=== PATIENT | female | born 1950 | race Caucasian/White ===

== ENCOUNTER → 2023-12-14 14:25 | Outpatient (REF) | payer MEDICARE, OTHER, SELFPAY ==
[2023-12-14 15:00] LABS: % Basophils 0.5 % (0-2); % Eosinophils 0.9 % (0-6); % Immature Granulocytes 5.1 % (0-0.5); % Lymphocytes 5.2 % (20.5-51.1); % Monocytes 5.5 % (1.7-9.3); % Neutrophils 82.8 % (42.2-75.2); Absolute Basophils 0.2 10^3/uL (0-0.2); Absolute Eosinophils 0.3 10^3/uL (0-0.7); Absolute Immature Granulocytes 1.7 10^3/uL (0-0.05); Absolute Lymphocytes 1.7 10^3/uL (1.2-3.4); Absolute Monocytes 1.8 10^3/uL (0.1-0.6); Absolute Neutrophils 26.5 10^3/uL (1.4-6.5); Hematocrit 29.9 % (37.0-47.0); Mean Corp Hgb Conc. 33.4 g/dL (33.0-37.0); Mean Corpuscular Volume 101.7 fL (81.0-99.0); Mean Platelet Volume 10.2 fL (7.4-10.4); Nucleated Red Blood Cells % 0.5 %; Platelet Count 278 10^3/uL (130-400); Red Blood Cell Count 2.94 10^6/uL (4.20-5.40); Red Cell Dist. Width 18.6 % (11.5-14.5); White Blood Cell Count 32.1 10^3/uL (4.8-10.8)
[2023-12-14 15:22] LABS: ALT (SGPT) 62 U/L (0-35); AST (SGOT) 65 U/L (14-36); Albumin 3.6 g/dl (3.5-5.0); Blood Urea Nitrogen 34 mg/dl (7-17); Carbon Dioxide 21 mmol/L (22-30); Chloride 105 mmol/L (98-107); Glucose 97 mg/dl (70-99); Potassium 4.8 mmol/L (3.5-5.1); Sodium 133 mmol/L (135-145); Total Bilirubin 0.8 mg/dl (0.2-1.3); Total Protein 6.4 g/dl (6.3-8.2); eGFR 31.27
[2023-12-14 15:34] LABS: Alkaline Phosphatase 1401 U/L (38-126)
[2023-12-14 15:39] LABS: Vitamin D, 25-OH*** 63.1 ng/mL (30-80)
== END ==
LOC: REG 14:25
PROVIDERS: ATTENDING PHYSICIAN Internal Medicine Hematology & Oncology; FAMILY PHYSICIAN Family Medicine; OTHER PHYSICIAN Internal Medicine Hospice and Palliative Medicine; REFERRING PHYSICIAN Internal Medicine Rheumatology
DX: C78.7 Secondary malignant neoplasm of liver and intrahepatic bile duct (principal); C25.2 Malignant neoplasm of tail of pancreas; E55.9 Vitamin D deficiency, unspecified; M81.0 Age-related osteoporosis without current pathological fracture
CPT/HCPCS: 36415; 80053; 82306; 85025

== ENCOUNTER → 2023-12-16 09:15 | Outpatient (REF) | payer MEDICARE, OTHER, SELFPAY ==
[2023-12-18 07:53] LABS: CA 19-9 646 U/mL (<=35)
== END ==
LOC: OIDL 09:15
PROVIDERS: ATTENDING PHYSICIAN Internal Medicine Hematology & Oncology
DX: C25.2 Malignant neoplasm of tail of pancreas (principal)
CPT/HCPCS: 86301

== ENCOUNTER → 2023-12-21 11:23 | Outpatient (REF) | payer MEDICARE, OTHER, SELFPAY ==
[2023-12-21 09:44] LABS: % Basophils 0.4 % (0-2); % Eosinophils 0.2 % (0-6); % Immature Granulocytes 9.1 % (0-0.5); % Lymphocytes 1.1 % (20.5-51.1); % Monocytes 1.4 % (1.7-9.3); % Neutrophils 87.8 % (42.2-75.2); Absolute Basophils 0.2 10^3/uL (0-0.2); Absolute Eosinophils 0.1 10^3/uL (0-0.7); Absolute Immature Granulocytes 5.1 10^3/uL (0-0.05); Absolute Lymphocytes 0.6 10^3/uL (1.2-3.4); Absolute Monocytes 0.8 10^3/uL (0.1-0.6); Absolute Neutrophils 48.9 10^3/uL (1.4-6.5); Hemoglobin 10.1 g/dL (12.0-16.0); Mean Corp Hgb Conc. 32.6 g/dL (33.0-37.0); Mean Corpuscular Hgb 34.1 pg (27.0-31.0); Mean Corpuscular Volume 104.7 fL (81.0-99.0); Mean Platelet Volume 10.7 fL (7.4-10.4); Nucleated Red Blood Cells % 0 %; Platelet Count 206 10^3/uL (130-400); Red Blood Cell Count 2.96 10^6/uL (4.20-5.40); Red Cell Dist. Width 18.7 % (11.5-14.5); White Blood Cell Count 55.8 10^3/uL (4.8-10.8)
[2023-12-21 09:54] LABS: ALT (SGPT) 109 U/L (0-35); AST (SGOT) 104 U/L (14-36); Albumin 3.9 g/dl (3.5-5.0); Blood Urea Nitrogen 38 mg/dl (7-17); Calcium 8.4 mg/dl (8.4-10.2); Carbon Dioxide 22 mmol/L (22-30); Chloride 101 mmol/L (98-107); Glucose 185 mg/dl (70-99); Potassium 4.4 mmol/L (3.5-5.1); Sodium 134 mmol/L (135-145); Total Bilirubin 0.9 mg/dl (0.2-1.3); Total Protein 6.5 g/dl (6.3-8.2); eGFR 43.15
[2023-12-21 10:01] LABS: Alkaline Phosphatase 1341 U/L (38-126)
== END ==
LOC: OIDL 11:23
PROVIDERS: ATTENDING PHYSICIAN Nurse Practitioner Adult Health
DX: C78.7 Secondary malignant neoplasm of liver and intrahepatic bile duct (principal)
CPT/HCPCS: 80053; 85025

== ENCOUNTER → 2023-12-23 16:02 | Outpatient (REF) | payer MEDICARE, OTHER, SELFPAY ==
[2023-12-23 13:58] LABS: % Basophils 0.1 % (0-2); % Eosinophils 0.6 % (0-6); % Immature Granulocytes 1.1 % (0-0.5); % Monocytes 4.4 % (1.7-9.3); % Neutrophils 90.8 % (42.2-75.2); Absolute Eosinophils 0.2 10^3/uL (0-0.7); Absolute Immature Granulocytes 0.3 10^3/uL (0-0.05); Absolute Lymphocytes 0.9 10^3/uL (1.2-3.4); Absolute Monocytes 1.3 10^3/uL (0.1-0.6); Absolute Neutrophils 27.3 10^3/uL (1.4-6.5); Hematocrit 28.9 % (37.0-47.0); Hemoglobin 9.5 g/dL (12.0-16.0); Mean Corp Hgb Conc. 32.9 g/dL (33.0-37.0); Mean Corpuscular Hgb 34.1 pg (27.0-31.0); Mean Corpuscular Volume 103.6 fL (81.0-99.0); Mean Platelet Volume 10.3 fL (7.4-10.4); Platelet Count 158 10^3/uL (130-400); Red Blood Cell Count 2.79 10^6/uL (4.20-5.40); Red Cell Dist. Width 18.3 % (11.5-14.5); White Blood Cell Count 30.1 10^3/uL (4.8-10.8)
== END ==
LOC: OIDL 16:02
PROVIDERS: ATTENDING PHYSICIAN Internal Medicine Hematology & Oncology
DX: C78.7 Secondary malignant neoplasm of liver and intrahepatic bile duct (principal)
CPT/HCPCS: 85025

== ENCOUNTER → 2023-12-28 10:57 | Outpatient (REF) | payer MEDICARE, SELFPAY ==
[2023-12-28 11:43] LABS: % Basophils 0.7 % (0-2); % Eosinophils 1.7 % (0-6); % Immature Granulocytes 1.5 % (0-0.5); % Lymphocytes 8.1 % (20.5-51.1); % Monocytes 8.1 % (1.7-9.3); % Neutrophils 79.9 % (42.2-75.2); Absolute Basophils 0.1 10^3/uL (0-0.2); Absolute Eosinophils 0.3 10^3/uL (0-0.7); Absolute Immature Granulocytes 0.2 10^3/uL (0-0.05); Absolute Lymphocytes 1.3 10^3/uL (1.2-3.4); Absolute Monocytes 1.3 10^3/uL (0.1-0.6); Absolute Neutrophils 13.2 10^3/uL (1.4-6.5); Hematocrit 34.4 % (37.0-47.0); Hemoglobin 11.2 g/dL (12.0-16.0); Mean Corp Hgb Conc. 32.6 g/dL (33.0-37.0); Mean Corpuscular Hgb 33.9 pg (27.0-31.0); Mean Corpuscular Volume 104.2 fL (81.0-99.0); Mean Platelet Volume 10.5 fL (7.4-10.4); Nucleated Red Blood Cells % 0 %; Platelet Count 156 10^3/uL (130-400); Red Cell Dist. Width 19.1 % (11.5-14.5); White Blood Cell Count 16.5 10^3/uL (4.8-10.8)
[2023-12-28 12:18] LABS: ALT (SGPT) 94 U/L (0-35); AST (SGOT) 72 U/L (14-36); Albumin 3.7 g/dl (3.5-5.0); Blood Urea Nitrogen 23 mg/dl (7-17); Calcium 8.6 mg/dl (8.4-10.2); Carbon Dioxide 23 mmol/L (22-30); Chloride 102 mmol/L (98-107); Glucose 75 mg/dl (70-99); Potassium 3.4 mmol/L (3.5-5.1); Sodium 131 mmol/L (135-145); Total Bilirubin 0.8 mg/dl (0.2-1.3); Total Protein 6.5 g/dl (6.3-8.2); eGFR 52.73
[2023-12-28 12:30] LABS: Alkaline Phosphatase 1113 U/L (38-126)
== END ==
LOC: REG 10:57
PROVIDERS: ATTENDING PHYSICIAN Internal Medicine Rheumatology; FAMILY PHYSICIAN Family Medicine
DX: M81.0 Age-related osteoporosis without current pathological fracture (principal); C78.7 Secondary malignant neoplasm of liver and intrahepatic bile duct; C25.2 Malignant neoplasm of tail of pancreas
CPT/HCPCS: 36415; 77080; 80053; 85025

== ENCOUNTER → 2023-12-30 09:52 | Outpatient (REF) | payer MEDICARE, SELFPAY ==
[2023-12-31 18:40] LABS: CA 19-9 435 U/mL (<=35)
== END ==
LOC: OIDL 09:52
PROVIDERS: ATTENDING PHYSICIAN Internal Medicine Hematology & Oncology
DX: C25.0 Malignant neoplasm of head of pancreas (principal); C78.7 Secondary malignant neoplasm of liver and intrahepatic bile duct
CPT/HCPCS: 86301

== ENCOUNTER → 2024-01-07 14:12 | Outpatient (REF) | payer MEDICARE, SELFPAY ==
[2024-01-07 14:59] LABS: % Basophils 0.9 % (0-2); % Eosinophils 1.6 % (0-6); % Immature Granulocytes 1.1 % (0-0.5); % Lymphocytes 4.2 % (20.5-51.1); % Monocytes 6.8 % (1.7-9.3); % Neutrophils 85.4 % (42.2-75.2); Absolute Basophils 0.1 10^3/uL (0-0.2); Absolute Eosinophils 0.2 10^3/uL (0-0.7); Absolute Immature Granulocytes 0.2 10^3/uL (0-0.05); Absolute Lymphocytes 0.6 10^3/uL (1.2-3.4); Absolute Neutrophils 12.7 10^3/uL (1.4-6.5); Hematocrit 31.7 % (37.0-47.0); Hemoglobin 10.5 g/dL (12.0-16.0); Mean Corp Hgb Conc. 33.1 g/dL (33.0-37.0); Mean Corpuscular Hgb 34.4 pg (27.0-31.0); Mean Corpuscular Volume 103.9 fL (81.0-99.0); Nucleated Red Blood Cells % 0 %; Red Blood Cell Count 3.05 10^6/uL (4.20-5.40); Red Cell Dist. Width 18.8 % (11.5-14.5); White Blood Cell Count 14.9 10^3/uL (4.8-10.8)
[2024-01-07 15:08] LABS: ALT (SGPT) 128 U/L (0-35); AST (SGOT) 95 U/L (14-36); Albumin 3.8 g/dl (3.5-5.0); Alkaline Phosphatase 1100 U/L (38-126); Blood Urea Nitrogen 30 mg/dl (7-17); Calcium 8.3 mg/dl (8.4-10.2); Carbon Dioxide 23 mmol/L (22-30); Chloride 104 mmol/L (98-107); Glucose 94 mg/dl (70-99); Potassium 3.5 mmol/L (3.5-5.1); Sodium 131 mmol/L (135-145); Total Bilirubin 0.6 mg/dl (0.2-1.3); Total Protein 6.6 g/dl (6.3-8.2); eGFR 59.12
[2024-01-07 15:13] LABS: Mean Platelet Volume 10.7 fL (7.4-10.4); Platelet Count 96 10^3/uL (130-400)
== END ==
LOC: REG 14:12
PROVIDERS: ATTENDING PHYSICIAN Internal Medicine Hematology & Oncology; FAMILY PHYSICIAN Family Medicine; REFERRING PHYSICIAN Internal Medicine Hospice and Palliative Medicine
DX: C78.7 Secondary malignant neoplasm of liver and intrahepatic bile duct (principal); C25.2 Malignant neoplasm of tail of pancreas
CPT/HCPCS: 36415; 80053; 85025

== ENCOUNTER → 2024-01-15 13:32 | Outpatient (REF) | payer MEDICARE, SELFPAY ==
[2024-01-15 14:04] LABS: % Basophils 0.6 % (0-2); % Eosinophils 0.8 % (0-6); % Immature Granulocytes 3.2 % (0-0.5); % Lymphocytes 7.8 % (20.5-51.1); % Neutrophils 80.6 % (42.2-75.2); Absolute Basophils 0.1 10^3/uL (0-0.2); Absolute Eosinophils 0.1 10^3/uL (0-0.7); Absolute Immature Granulocytes 0.6 10^3/uL (0-0.05); Absolute Lymphocytes 1.4 10^3/uL (1.2-3.4); Absolute Monocytes 1.2 10^3/uL (0.1-0.6); Absolute Neutrophils 14.1 10^3/uL (1.4-6.5); Hematocrit 32.3 % (37.0-47.0); Mean Corp Hgb Conc. 34.1 g/dL (33.0-37.0); Mean Corpuscular Hgb 34.8 pg (27.0-31.0); Mean Corpuscular Volume 102.2 fL (81.0-99.0); Mean Platelet Volume 10.3 fL (7.4-10.4); Nucleated Red Blood Cells % 0 %; Platelet Count 157 10^3/uL (130-400); Red Blood Cell Count 3.16 10^6/uL (4.20-5.40); Red Cell Dist. Width 18.2 % (11.5-14.5); White Blood Cell Count 17.5 10^3/uL (4.8-10.8)
[2024-01-15 14:17] LABS: ALT (SGPT) 79 U/L (0-35); AST (SGOT) 72 U/L (14-36); Albumin 3.6 g/dl (3.5-5.0); Alkaline Phosphatase 792 U/L (38-126); Blood Urea Nitrogen 23 mg/dl (7-17); Calcium 8.3 mg/dl (8.4-10.2); Carbon Dioxide 22 mmol/L (22-30); Chloride 108 mmol/L (98-107); Glucose 125 mg/dl (70-99); Potassium 3.2 mmol/L (3.5-5.1); Sodium 135 mmol/L (135-145); Total Bilirubin 0.5 mg/dl (0.2-1.3); Total Protein 6.3 g/dl (6.3-8.2); eGFR 52.73
== END ==
LOC: REG 13:32
PROVIDERS: ATTENDING PHYSICIAN Internal Medicine Hematology & Oncology; FAMILY PHYSICIAN Family Medicine; REFERRING PHYSICIAN Internal Medicine Hospice and Palliative Medicine
DX: C78.7 Secondary malignant neoplasm of liver and intrahepatic bile duct (principal); C25.2 Malignant neoplasm of tail of pancreas
CPT/HCPCS: 36415; 80053; 85025

== ENCOUNTER → 2024-01-29 13:11 | Outpatient (REF) | payer MEDICARE, OTHER, SELFPAY ==
[2024-01-29 14:34] LABS: % Basophils 0.7 % (0-2); % Eosinophils 0.6 % (0-6); % Immature Granulocytes 2.9 % (0-0.5); % Lymphocytes 5.9 % (20.5-51.1); % Monocytes 8.7 % (1.7-9.3); % Neutrophils 81.2 % (42.2-75.2); Absolute Basophils 0.2 10^3/uL (0-0.2); Absolute Eosinophils 0.1 10^3/uL (0-0.7); Absolute Immature Granulocytes 0.6 10^3/uL (0-0.05); Absolute Lymphocytes 1.3 10^3/uL (1.2-3.4); Absolute Monocytes 1.9 10^3/uL (0.1-0.6); Absolute Neutrophils 17.8 10^3/uL (1.4-6.5); Hematocrit 33.5 % (37.0-47.0); Hemoglobin 10.7 g/dL (12.0-16.0); Mean Corp Hgb Conc. 31.9 g/dL (33.0-37.0); Mean Corpuscular Hgb 33.4 pg (27.0-31.0); Mean Corpuscular Volume 104.7 fL (81.0-99.0); Mean Platelet Volume 10.9 fL (7.4-10.4); Nucleated Red Blood Cells % 0 %; Platelet Count 149 10^3/uL (130-400); Red Cell Dist. Width 17.4 % (11.5-14.5); White Blood Cell Count 21.9 10^3/uL (4.8-10.8)
[2024-01-29 15:55] LABS: ALT (SGPT) 196 U/L (0-35); AST (SGOT) 89 U/L (14-36); Albumin 4.2 g/dl (3.5-5.0); Alkaline Phosphatase 919 U/L (38-126); Blood Urea Nitrogen 28 mg/dl (7-17); Calcium 8.8 mg/dl (8.4-10.2); Carbon Dioxide 23 mmol/L (22-30); Chloride 105 mmol/L (98-107); Glucose 72 mg/dl (70-99); Sodium 135 mmol/L (135-145); Total Bilirubin 0.4 mg/dl (0.2-1.3); Total Protein 6.9 g/dl (6.3-8.2); eGFR > 60.00
== END ==
LOC: REG 13:11
PROVIDERS: ATTENDING PHYSICIAN Internal Medicine Hematology & Oncology; FAMILY PHYSICIAN Family Medicine; REFERRING PHYSICIAN Internal Medicine Hospice and Palliative Medicine
DX: C78.7 Secondary malignant neoplasm of liver and intrahepatic bile duct (principal); C25.2 Malignant neoplasm of tail of pancreas
CPT/HCPCS: 36415; 80053; 85025

== ENCOUNTER → 2024-02-02 13:30 | Outpatient (REF) | payer MEDICARE, OTHER, SELFPAY ==
[2024-02-04 01:40] LABS: CA 19-9 320 U/mL (<=35)
== END ==
LOC: OIDL 13:30
PROVIDERS: ATTENDING PHYSICIAN Internal Medicine Hematology & Oncology
DX: C78.7 Secondary malignant neoplasm of liver and intrahepatic bile duct (principal)
CPT/HCPCS: 86301

== ENCOUNTER → 2024-02-12 11:59 | Outpatient (REF) | payer MEDICARE, OTHER, SELFPAY ==
[2024-02-12 14:30] LABS: % Basophils 0.9 % (0-2); % Eosinophils 0.4 % (0-6); % Immature Granulocytes 2.3 % (0-0.5); % Lymphocytes 5.4 % (20.5-51.1); % Monocytes 11.8 % (1.7-9.3); % Neutrophils 79.2 % (42.2-75.2); Absolute Basophils 0.1 10^3/uL (0-0.2); Absolute Immature Granulocytes 0.2 10^3/uL (0-0.05); Absolute Lymphocytes 0.6 10^3/uL (1.2-3.4); Absolute Monocytes 1.2 10^3/uL (0.1-0.6); Absolute Neutrophils 8.4 10^3/uL (1.4-6.5); Hematocrit 33.2 % (37.0-47.0); Hemoglobin 10.8 g/dL (12.0-16.0); Mean Corp Hgb Conc. 32.5 g/dL (33.0-37.0); Mean Corpuscular Hgb 33.6 pg (27.0-31.0); Mean Corpuscular Volume 103.4 fL (81.0-99.0); Mean Platelet Volume 11.2 fL (7.4-10.4); Nucleated Red Blood Cells % 0 %; Red Blood Cell Count 3.21 10^6/uL (4.20-5.40); Red Cell Dist. Width 17.2 % (11.5-14.5); White Blood Cell Count 10.6 10^3/uL (4.8-10.8)
[2024-02-12 14:44] LABS: ALT (SGPT) 168 U/L (0-35); AST (SGOT) 94 U/L (14-36); Albumin 4.2 g/dl (3.5-5.0); Alkaline Phosphatase 783 U/L (38-126); Blood Urea Nitrogen 25 mg/dl (7-17); Carbon Dioxide 25 mmol/L (22-30); Chloride 100 mmol/L (98-107); Glucose 104 mg/dl (70-99); Potassium 3.4 mmol/L (3.5-5.1); Sodium 133 mmol/L (135-145); Total Bilirubin 0.7 mg/dl (0.2-1.3); Total Protein 6.9 g/dl (6.3-8.2); eGFR > 60.00
[2024-02-12 15:40] LABS: Platelet Count 99 10^3/uL (130-400)
== END ==
LOC: REG 11:59
PROVIDERS: ATTENDING PHYSICIAN Internal Medicine Hematology & Oncology; FAMILY PHYSICIAN Family Medicine; REFERRING PHYSICIAN Internal Medicine Hospice and Palliative Medicine
DX: C78.7 Secondary malignant neoplasm of liver and intrahepatic bile duct (principal); C25.2 Malignant neoplasm of tail of pancreas
CPT/HCPCS: 36415; 80053; 85025

== ENCOUNTER → 2024-02-18 14:44 | Outpatient (REF) | payer MEDICARE, OTHER, SELFPAY ==
[2024-02-18 14:50] LABS: % Basophils 0.3 % (0-2); % Eosinophils 0.4 % (0-6); % Immature Granulocytes 0.7 % (0-0.5); % Lymphocytes 4.3 % (20.5-51.1); % Neutrophils 91.3 % (42.2-75.2); Absolute Basophils 0.1 10^3/uL (0-0.2); Absolute Eosinophils 0.1 10^3/uL (0-0.7); Absolute Immature Granulocytes 0.1 10^3/uL (0-0.05); Absolute Lymphocytes 0.8 10^3/uL (1.2-3.4); Absolute Monocytes 0.6 10^3/uL (0.1-0.6); Absolute Neutrophils 16.9 10^3/uL (1.4-6.5); Hematocrit 27.6 % (37.0-47.0); Hemoglobin 9.3 g/dL (12.0-16.0); Mean Corp Hgb Conc. 33.7 g/dL (33.0-37.0); Mean Corpuscular Hgb 33.9 pg (27.0-31.0); Mean Corpuscular Volume 100.7 fL (81.0-99.0); Mean Platelet Volume 9.4 fL (7.4-10.4); Platelet Count 179 10^3/uL (130-400); Red Blood Cell Count 2.74 10^6/uL (4.20-5.40); Red Cell Dist. Width 16.8 % (11.5-14.5); White Blood Cell Count 18.4 10^3/uL (4.8-10.8)
[2024-02-18 15:20] LABS: ALT (SGPT) 131 U/L (0-35); AST (SGOT) 116 U/L (14-36); Albumin 3.6 g/dl (3.5-5.0); Alkaline Phosphatase 654 U/L (38-126); Blood Urea Nitrogen 32 mg/dl (7-17); Calcium 8.7 mg/dl (8.4-10.2); Carbon Dioxide 22 mmol/L (22-30); Chloride 104 mmol/L (98-107); Glucose 128 mg/dl (70-99); Iron 162 ug/dl (37-170); Potassium 4.2 mmol/L (3.5-5.1); Sodium 133 mmol/L (135-145); Total Bilirubin 0.3 mg/dl (0.2-1.3); Total Protein 6.2 g/dl (6.3-8.2); eGFR 59.12
[2024-02-18 15:30] LABS: Percent Saturation 61 % (20-50); Total Iron Binding Capacity 262 ug/dl (265-497)
== END ==
LOC: OIDL 14:44
PROVIDERS: ATTENDING PHYSICIAN Internal Medicine Hematology & Oncology
DX: C78.7 Secondary malignant neoplasm of liver and intrahepatic bile duct (principal)
CPT/HCPCS: 80053; 82728; 83540; 83550; 85025

== ENCOUNTER → 2024-03-28 13:47 | Outpatient (REF) | payer MEDICARE, OTHER, SELFPAY ==
[2024-03-28 14:33] LABS: % Basophils 0.5 % (0-2); % Eosinophils 2.5 % (0-6); % Immature Granulocytes 0.5 % (0-0.5); % Lymphocytes 10.2 % (20.5-51.1); % Monocytes 9.6 % (1.7-9.3); % Neutrophils 76.7 % (42.2-75.2); Absolute Eosinophils 0.2 10^3/uL (0-0.7); Absolute Lymphocytes 0.8 10^3/uL (1.2-3.4); Absolute Monocytes 0.8 10^3/uL (0.1-0.6); Absolute Neutrophils 6.3 10^3/uL (1.4-6.5); Hematocrit 31.7 % (37.0-47.0); Mean Corp Hgb Conc. 31.5 g/dL (33.0-37.0); Mean Corpuscular Hgb 32.3 pg (27.0-31.0); Mean Corpuscular Volume 102.3 fL (81.0-99.0); Mean Platelet Volume 10.3 fL (7.4-10.4); Nucleated Red Blood Cells % 0 %; Platelet Count 238 10^3/uL (130-400); Red Cell Dist. Width 17.7 % (11.5-14.5); White Blood Cell Count 8.1 10^3/uL (4.8-10.8)
[2024-03-28 15:04] LABS: ALT (SGPT) 100 U/L (0-35); AST (SGOT) 86 U/L (14-36); Albumin 4.1 g/dl (3.5-5.0); Alkaline Phosphatase 545 U/L (38-126); Blood Urea Nitrogen 45 mg/dl (7-17); Calcium 9.3 mg/dl (8.4-10.2); Carbon Dioxide 28 mmol/L (22-30); Chloride 103 mmol/L (98-107); Glucose 90 mg/dl (70-99); Potassium 5.4 mmol/L (3.5-5.1); Sodium 138 mmol/L (135-145); Total Bilirubin 0.7 mg/dl (0.2-1.3); eGFR 33.63
== END ==
LOC: REG 13:47
PROVIDERS: ATTENDING PHYSICIAN Internal Medicine Hematology & Oncology; FAMILY PHYSICIAN Family Medicine; OTHER PHYSICIAN Internal Medicine Hospice and Palliative Medicine
DX: C78.7 Secondary malignant neoplasm of liver and intrahepatic bile duct (principal); C25.2 Malignant neoplasm of tail of pancreas
CPT/HCPCS: 36415; 80053; 85025

== ENCOUNTER → 2024-03-29 15:29 | Outpatient (REF) | payer MEDICARE, OTHER, SELFPAY ==
[2024-03-29 13:00] LABS: ALT (SGPT) 107 U/L (0-35); AST (SGOT) 81 U/L (14-36); Albumin 4.1 g/dl (3.5-5.0); Alkaline Phosphatase 585 U/L (38-126); Blood Urea Nitrogen 43 mg/dl (7-17); Calcium 9.3 mg/dl (8.4-10.2); Carbon Dioxide 25 mmol/L (22-30); Chloride 101 mmol/L (98-107); Glucose 100 mg/dl (70-99); Potassium 5.5 mmol/L (3.5-5.1); Sodium 135 mmol/L (135-145); Total Bilirubin 0.8 mg/dl (0.2-1.3)
[2024-04-01 01:35] LABS: CA 19-9 180 U/mL (<=35)
== END ==
LOC: OIDL 15:29
PROVIDERS: ATTENDING PHYSICIAN Internal Medicine Hematology & Oncology
DX: C78.7 Secondary malignant neoplasm of liver and intrahepatic bile duct (principal)
CPT/HCPCS: 80053; 86301

== ENCOUNTER → 2024-04-07 13:17 | Outpatient (REF) | payer MEDICARE, OTHER, SELFPAY ==
[2024-04-07 14:07] LABS: % Basophils 0.6 % (0-2); % Eosinophils 1.6 % (0-6); % Immature Granulocytes 1.5 % (0-0.5); % Monocytes 7.2 % (1.7-9.3); % Neutrophils 85.1 % (42.2-75.2); Absolute Basophils 0.2 10^3/uL (0-0.2); Absolute Eosinophils 0.5 10^3/uL (0-0.7); Absolute Immature Granulocytes 0.5 10^3/uL (0-0.05); Absolute Lymphocytes 1.2 10^3/uL (1.2-3.4); Absolute Monocytes 2.2 10^3/uL (0.1-0.6); Absolute Neutrophils 26.1 10^3/uL (1.4-6.5); Hematocrit 29.3 % (37.0-47.0); Hemoglobin 9.1 g/dL (12.0-16.0); Mean Corp Hgb Conc. 31.1 g/dL (33.0-37.0); Mean Corpuscular Volume 106.2 fL (81.0-99.0); Mean Platelet Volume 10.9 fL (7.4-10.4); Nucleated Red Blood Cells % 0 %; Platelet Count 137 10^3/uL (130-400); Red Blood Cell Count 2.76 10^6/uL (4.20-5.40); Red Cell Dist. Width 16.8 % (11.5-14.5); White Blood Cell Count 30.6 10^3/uL (4.8-10.8)
[2024-04-07 15:19] LABS: ALT (SGPT) 93 U/L (0-35); AST (SGOT) 56 U/L (14-36); Alkaline Phosphatase 505 U/L (38-126); Blood Urea Nitrogen 32 mg/dl (7-17); Calcium 8.2 mg/dl (8.4-10.2); Carbon Dioxide 21 mmol/L (22-30); Chloride 106 mmol/L (98-107); Glucose 112 mg/dl (70-99); Potassium 3.5 mmol/L (3.5-5.1); Sodium 139 mmol/L (135-145); Total Bilirubin 0.5 mg/dl (0.2-1.3); Total Protein 6.9 g/dl (6.3-8.2); eGFR 52.73
== END ==
LOC: REG 13:17
PROVIDERS: ATTENDING PHYSICIAN Internal Medicine Hematology & Oncology; FAMILY PHYSICIAN Family Medicine; OTHER PHYSICIAN Internal Medicine Hospice and Palliative Medicine
DX: C78.7 Secondary malignant neoplasm of liver and intrahepatic bile duct (principal); C25.2 Malignant neoplasm of tail of pancreas
CPT/HCPCS: 36415; 80053; 85025

== ENCOUNTER → 2024-04-11 13:21 | Outpatient (REF) | payer MEDICARE, OTHER, SELFPAY ==
[2024-04-11 14:41] LABS: % Basophils 0.5 % (0-2); % Eosinophils 1.6 % (0-6); % Immature Granulocytes 1.3 % (0-0.5); % Lymphocytes 7.1 % (20.5-51.1); % Monocytes 5.4 % (1.7-9.3); % Neutrophils 84.1 % (42.2-75.2); Absolute Basophils 0.1 10^3/uL (0-0.2); Absolute Eosinophils 0.3 10^3/uL (0-0.7); Absolute Immature Granulocytes 0.3 10^3/uL (0-0.05); Absolute Lymphocytes 1.5 10^3/uL (1.2-3.4); Absolute Monocytes 1.1 10^3/uL (0.1-0.6); Absolute Neutrophils 17.7 10^3/uL (1.4-6.5); Hematocrit 29.8 % (37.0-47.0); Hemoglobin 9.4 g/dL (12.0-16.0); Mean Corp Hgb Conc. 31.5 g/dL (33.0-37.0); Mean Corpuscular Hgb 32.6 pg (27.0-31.0); Mean Corpuscular Volume 103.5 fL (81.0-99.0); Mean Platelet Volume 10.9 fL (7.4-10.4); Nucleated Red Blood Cells % 0.1 %; Platelet Count 127 10^3/uL (130-400); Red Blood Cell Count 2.88 10^6/uL (4.20-5.40); White Blood Cell Count 21.1 10^3/uL (4.8-10.8)
[2024-04-11 14:55] LABS: ALT (SGPT) 90 U/L (0-35); AST (SGOT) 50 U/L (14-36); Albumin 4.1 g/dl (3.5-5.0); Alkaline Phosphatase 490 U/L (38-126); Blood Urea Nitrogen 29 mg/dl (7-17); Calcium 9.3 mg/dl (8.4-10.2); Carbon Dioxide 24 mmol/L (22-30); Chloride 103 mmol/L (98-107); Glucose 104 mg/dl (70-99); Potassium 3.6 mmol/L (3.5-5.1); Sodium 138 mmol/L (135-145); Total Bilirubin 0.6 mg/dl (0.2-1.3); Total Protein 6.9 g/dl (6.3-8.2); eGFR 52.73
== END ==
LOC: REG 13:21
PROVIDERS: ATTENDING PHYSICIAN Internal Medicine Hematology & Oncology; FAMILY PHYSICIAN Family Medicine; OTHER PHYSICIAN Internal Medicine Hospice and Palliative Medicine
DX: C78.7 Secondary malignant neoplasm of liver and intrahepatic bile duct (principal); D64.81 Anemia due to antineoplastic chemotherapy; E87.6 Hypokalemia
CPT/HCPCS: 36415; 80053; 85025

== ENCOUNTER → 2024-04-25 15:07 | Outpatient (REF) | payer MEDICARE, OTHER, SELFPAY ==
[2024-04-25 16:19] LABS: Hematocrit 32.4 % (37.0-47.0); Hemoglobin 10.5 g/dL (12.0-16.0); Mean Corp Hgb Conc. 32.4 g/dL (33.0-37.0); Mean Corpuscular Hgb 33.2 pg (27.0-31.0); Mean Corpuscular Volume 102.5 fL (81.0-99.0); Mean Platelet Volume 10.2 fL (7.4-10.4); Platelet Count 163 10^3/uL (130-400); Red Blood Cell Count 3.16 10^6/uL (4.20-5.40); Red Cell Dist. Width 18.5 % (11.5-14.5)
[2024-04-25 16:37] LABS: ALT (SGPT) 80 U/L (0-35); AST (SGOT) 54 U/L (14-36); Albumin 4.4 g/dl (3.5-5.0); Alkaline Phosphatase 437 U/L (38-126); Blood Urea Nitrogen 29 mg/dl (7-17); Carbon Dioxide 22 mmol/L (22-30); Chloride 106 mmol/L (98-107); Glucose 74 mg/dl (70-99); Potassium 4.1 mmol/L (3.5-5.1); Sodium 137 mmol/L (135-145); Total Bilirubin 0.6 mg/dl (0.2-1.3); Total Protein 7.3 g/dl (6.3-8.2); eGFR 43.15
[2024-04-25 18:08] LABS: Absolute Neutrophils -Man Diff 12.3 10^3/uL (1.4-6.5); Band Neutrophils 4 % (0-3); Eosinophils 2 % (0-6); Lymphocytes 10 % (20-51); Metamyelocytes 2 % (-); Monocytes 9 % (2-9); Normal RBC Morphology Yes; Pathologist Reviewed No; Platelets Checked Yes; Segmented Neutrophils 73 % (42-75); Total Cells Counted 100
== END ==
LOC: REG 15:07
PROVIDERS: ATTENDING PHYSICIAN Internal Medicine Hematology & Oncology; FAMILY PHYSICIAN Family Medicine; REFERRING PHYSICIAN Internal Medicine Hospice and Palliative Medicine
DX: C78.7 Secondary malignant neoplasm of liver and intrahepatic bile duct (principal); D64.81 Anemia due to antineoplastic chemotherapy; E87.6 Hypokalemia
CPT/HCPCS: 36415; 80053; 85025

== ENCOUNTER → 2024-04-27 13:02 | Outpatient (REF) | payer MEDICARE, OTHER, SELFPAY ==
[2024-04-27 13:27] LABS: Iron 88 ug/dl (37-170)
[2024-04-27 13:37] LABS: Percent Saturation 25 % (20-50); Total Iron Binding Capacity 345 ug/dl (265-497)
[2024-04-29 17:38] LABS: CA 19-9 156 U/mL (<=35)
== END ==
LOC: OIDL 13:02
PROVIDERS: ATTENDING PHYSICIAN Internal Medicine Hematology & Oncology
DX: C78.7 Secondary malignant neoplasm of liver and intrahepatic bile duct (principal); E43 Unspecified severe protein-calorie malnutrition
CPT/HCPCS: 82728; 83540; 83550; 86301

== ENCOUNTER → 2024-05-09 14:23 | Outpatient (REF) | payer MEDICARE, OTHER, SELFPAY ==
[2024-05-09 15:47] LABS: % Basophils 0.6 % (0-2); % Eosinophils 1.1 % (0-6); % Immature Granulocytes 4.6 % (0-0.5); % Lymphocytes 9.1 % (20.5-51.1); % Monocytes 9.6 % (1.7-9.3); Absolute Basophils 0.1 10^3/uL (0-0.2); Absolute Eosinophils 0.2 10^3/uL (0-0.7); Absolute Immature Granulocytes 0.8 10^3/uL (0-0.05); Absolute Lymphocytes 1.6 10^3/uL (1.2-3.4); Absolute Monocytes 1.7 10^3/uL (0.1-0.6); Absolute Neutrophils 13.2 10^3/uL (1.4-6.5); Hematocrit 27.3 % (37.0-47.0); Hemoglobin 8.6 g/dL (12.0-16.0); Mean Corp Hgb Conc. 31.5 g/dL (33.0-37.0); Mean Corpuscular Hgb 33.6 pg (27.0-31.0); Mean Corpuscular Volume 106.6 fL (81.0-99.0); Mean Platelet Volume 10.5 fL (7.4-10.4); Nucleated Red Blood Cells % 0 %; Platelet Count 142 10^3/uL (130-400); Red Blood Cell Count 2.56 10^6/uL (4.20-5.40); Red Cell Dist. Width 17.9 % (11.5-14.5); White Blood Cell Count 17.7 10^3/uL (4.8-10.8)
[2024-05-09 16:12] LABS: ALT (SGPT) 48 U/L (0-35); AST (SGOT) 33 U/L (14-36); Alkaline Phosphatase 355 U/L (38-126); Blood Urea Nitrogen 23 mg/dl (7-17); Calcium 8.8 mg/dl (8.4-10.2); Carbon Dioxide 21 mmol/L (22-30); Chloride 104 mmol/L (98-107); Glucose 81 mg/dl (70-99); Potassium 3.7 mmol/L (3.5-5.1); Sodium 137 mmol/L (135-145); Total Bilirubin 0.4 mg/dl (0.2-1.3); Total Protein 6.7 g/dl (6.3-8.2); eGFR 52.73
== END ==
LOC: REG 14:23
PROVIDERS: ATTENDING PHYSICIAN Internal Medicine Hematology & Oncology; FAMILY PHYSICIAN Family Medicine; REFERRING PHYSICIAN Internal Medicine Hospice and Palliative Medicine
DX: C78.7 Secondary malignant neoplasm of liver and intrahepatic bile duct (principal); C25.2 Malignant neoplasm of tail of pancreas; D64.81 Anemia due to antineoplastic chemotherapy; E87.6 Hypokalemia
CPT/HCPCS: 36415; 80053; 85025

== ENCOUNTER → 2024-05-11 09:14 | Outpatient (REF) | payer MEDICARE, OTHER, SELFPAY ==
[2024-05-11 10:50] LABS: Iron 50 ug/dl (37-170)
[2024-05-11 10:59] LABS: Percent Saturation 16 % (20-50); Total Iron Binding Capacity 312 ug/dl (265-497)
[2024-05-11 11:24] LABS: Ferritin 71.3 ng/ml (11.1-264.0)
== END ==
LOC: OIDL 09:14
PROVIDERS: ATTENDING PHYSICIAN Internal Medicine Hematology & Oncology
DX: C78.7 Secondary malignant neoplasm of liver and intrahepatic bile duct (principal)
CPT/HCPCS: 82728; 83540; 83550

== ENCOUNTER → 2024-05-30 14:24 | Outpatient (REF) | payer MEDICARE, OTHER, SELFPAY ==
[2024-05-30 15:38] LABS: % Basophils 0.4 % (0-2); % Eosinophils 1.6 % (0-6); % Immature Granulocytes 1.3 % (0-0.5); % Lymphocytes 8.7 % (20.5-51.1); % Monocytes 6.7 % (1.7-9.3); % Neutrophils 81.3 % (42.2-75.2); Absolute Basophils 0.1 10^3/uL (0-0.2); Absolute Eosinophils 0.2 10^3/uL (0-0.7); Absolute Immature Granulocytes 0.2 10^3/uL (0-0.05); Absolute Lymphocytes 1.2 10^3/uL (1.2-3.4); Absolute Monocytes 0.9 10^3/uL (0.1-0.6); Absolute Neutrophils 11.5 10^3/uL (1.4-6.5); Hematocrit 28.6 % (37.0-47.0); Hemoglobin 9.1 g/dL (12.0-16.0); Mean Corp Hgb Conc. 31.8 g/dL (33.0-37.0); Mean Corpuscular Hgb 32.3 pg (27.0-31.0); Mean Corpuscular Volume 101.4 fL (81.0-99.0); Mean Platelet Volume 10.1 fL (7.4-10.4); Nucleated Red Blood Cells % 0 %; Platelet Count 262 10^3/uL (130-400); Red Blood Cell Count 2.82 10^6/uL (4.20-5.40); Red Cell Dist. Width 17.3 % (11.5-14.5); White Blood Cell Count 14.1 10^3/uL (4.8-10.8)
[2024-05-30 16:04] LABS: ALT (SGPT) 35 U/L (0-35); AST (SGOT) 34 U/L (14-36); Albumin 4.1 g/dl (3.5-5.0); Alkaline Phosphatase 505 U/L (38-126); Blood Urea Nitrogen 38 mg/dl (7-17); Calcium 9.6 mg/dl (8.4-10.2); Carbon Dioxide 22 mmol/L (22-30); Chloride 103 mmol/L (98-107); Glucose 131 mg/dl (70-99); Potassium 4.4 mmol/L (3.5-5.1); Sodium 136 mmol/L (135-145); Total Bilirubin 0.3 mg/dl (0.2-1.3)
== END ==
LOC: REG 14:24
PROVIDERS: ATTENDING PHYSICIAN Internal Medicine Hematology & Oncology; FAMILY PHYSICIAN Family Medicine; REFERRING PHYSICIAN Internal Medicine Hospice and Palliative Medicine
DX: C78.7 Secondary malignant neoplasm of liver and intrahepatic bile duct (principal); C25.2 Malignant neoplasm of tail of pancreas; D64.81 Anemia due to antineoplastic chemotherapy; E87.6 Hypokalemia
CPT/HCPCS: 36415; 80053; 85025

== ENCOUNTER → 2024-06-01 13:47 | Outpatient (REF) | payer MEDICARE, OTHER, SELFPAY ==
[2024-06-01 09:53] LABS: Iron 39 ug/dl (37-170)
[2024-06-01 10:02] LABS: Percent Saturation 12 % (20-50); Total Iron Binding Capacity 325 ug/dl (265-497)
[2024-06-01 10:26] LABS: Ferritin 34.7 ng/ml (11.1-264.0)
[2024-06-03 04:03] LABS: CA 19-9 698 U/mL (<=35)
== END ==
LOC: OIDL 13:47
PROVIDERS: ATTENDING PHYSICIAN Internal Medicine Hematology & Oncology
DX: C78.7 Secondary malignant neoplasm of liver and intrahepatic bile duct (principal)
CPT/HCPCS: 82728; 83540; 83550; 86301

== ENCOUNTER → 2024-06-20 14:24 | Outpatient (REF) | payer MEDICARE, OTHER, SELFPAY ==
[2024-06-20 15:05] LABS: % Basophils 1.4 % (0-2); % Eosinophils 6.4 % (0-6); % Immature Granulocytes 0.4 % (0-0.5); % Lymphocytes 23.8 % (20.5-51.1); % Monocytes 19.2 % (1.7-9.3); % Neutrophils 48.8 % (42.2-75.2); Absolute Eosinophils 0.2 10^3/uL (0-0.7); Absolute Lymphocytes 0.7 10^3/uL (1.2-3.4); Absolute Monocytes 0.5 10^3/uL (0.1-0.6); Absolute Neutrophils 1.4 10^3/uL (1.4-6.5); Hematocrit 33.2 % (37.0-47.0); Hemoglobin 10.8 g/dL (12.0-16.0); Mean Corp Hgb Conc. 32.5 g/dL (33.0-37.0); Mean Corpuscular Hgb 33.4 pg (27.0-31.0); Mean Corpuscular Volume 102.8 fL (81.0-99.0); Mean Platelet Volume 9.9 fL (7.4-10.4); Nucleated Red Blood Cells % 0 %; Platelet Count 136 10^3/uL (130-400); Red Blood Cell Count 3.23 10^6/uL (4.20-5.40); Red Cell Dist. Width 17.8 % (11.5-14.5); White Blood Cell Count 2.8 10^3/uL (4.8-10.8)
[2024-06-20 15:35] LABS: ALT (SGPT) 64 U/L (0-35); AST (SGOT) 50 U/L (14-36); Albumin 4.3 g/dl (3.5-5.0); Alkaline Phosphatase 303 U/L (38-126); Blood Urea Nitrogen 33 mg/dl (7-17); Calcium 9.3 mg/dl (8.4-10.2); Carbon Dioxide 20 mmol/L (22-30); Chloride 107 mmol/L (98-107); Glucose 109 mg/dl (70-99); Sodium 136 mmol/L (135-145); Total Bilirubin 0.6 mg/dl (0.2-1.3); eGFR 43.15
[2024-06-20 15:47] LABS: Vitamin D, 25-OH*** 45.3 ng/mL (30-80)
== END ==
LOC: REG 14:24
PROVIDERS: ATTENDING PHYSICIAN Internal Medicine Hematology & Oncology; FAMILY PHYSICIAN Internal Medicine Rheumatology; OTHER PHYSICIAN Internal Medicine Hospice and Palliative Medicine; REFERRING PHYSICIAN Family Medicine
DX: C78.7 Secondary malignant neoplasm of liver and intrahepatic bile duct (principal); C25.2 Malignant neoplasm of tail of pancreas; D64.81 Anemia due to antineoplastic chemotherapy; E87.6 Hypokalemia; E55.9 Vitamin D deficiency, unspecified; M81.0 Age-related osteoporosis without current pathological fracture
CPT/HCPCS: 36415; 80053; 82306; 85025

== ENCOUNTER → 2024-06-22 11:45 | Outpatient (REF) | payer MEDICARE, OTHER, SELFPAY ==
[2024-06-22 10:18] LABS: Iron 65 ug/dl (37-170)
[2024-06-22 10:28] LABS: Percent Saturation 23 % (20-50); Total Iron Binding Capacity 272 ug/dl (265-497)
[2024-06-23 19:05] LABS: CA 19-9 131 U/mL (<=35)
== END ==
LOC: OIDL 11:45
PROVIDERS: ATTENDING PHYSICIAN Internal Medicine Hematology & Oncology
DX: C78.7 Secondary malignant neoplasm of liver and intrahepatic bile duct (principal)
CPT/HCPCS: 82728; 83540; 83550; 86301

== ENCOUNTER → 2024-07-25 14:35 | Outpatient (REF) | payer MEDICARE, OTHER, SELFPAY ==
[2024-07-25 15:16] LABS: % Basophils 0.4 % (0-2); % Immature Granulocytes 1.9 % (0-0.5); % Lymphocytes 6.7 % (20.5-51.1); Absolute Basophils 0.1 10^3/uL (0-0.2); Absolute Eosinophils 0.2 10^3/uL (0-0.7); Absolute Immature Granulocytes 0.4 10^3/uL (0-0.05); Absolute Lymphocytes 1.3 10^3/uL (1.2-3.4); Absolute Monocytes 1.3 10^3/uL (0.1-0.6); Absolute Neutrophils 15.6 10^3/uL (1.4-6.5); Hematocrit 33.1 % (37.0-47.0); Hemoglobin 10.9 g/dL (12.0-16.0); Mean Corp Hgb Conc. 32.9 g/dL (33.0-37.0); Mean Corpuscular Hgb 32.7 pg (27.0-31.0); Mean Corpuscular Volume 99.4 fL (81.0-99.0); Mean Platelet Volume 10.9 fL (7.4-10.4); Nucleated Red Blood Cells % 0 %; Platelet Count 141 10^3/uL (130-400); Red Blood Cell Count 3.33 10^6/uL (4.20-5.40); White Blood Cell Count 18.8 10^3/uL (4.8-10.8)
[2024-07-25 15:31] LABS: ALT (SGPT) 137 U/L (0-35); AST (SGOT) 80 U/L (14-36); Albumin 4.5 g/dl (3.5-5.0); Alkaline Phosphatase 632 U/L (38-126); Blood Urea Nitrogen 33 mg/dl (7-17); Calcium 9.3 mg/dl (8.4-10.2); Carbon Dioxide 20 mmol/L (22-30); Chloride 103 mmol/L (98-107); Glucose 85 mg/dl (70-99); Potassium 4.6 mmol/L (3.5-5.1); Sodium 139 mmol/L (135-145); Total Bilirubin 0.7 mg/dl (0.2-1.3); Total Protein 7.4 g/dl (6.3-8.2)
== END ==
LOC: REG 14:35
PROVIDERS: ATTENDING PHYSICIAN Internal Medicine Hematology & Oncology; FAMILY PHYSICIAN Family Medicine; REFERRING PHYSICIAN Internal Medicine Hospice and Palliative Medicine
DX: C78.7 Secondary malignant neoplasm of liver and intrahepatic bile duct (principal); C25.2 Malignant neoplasm of tail of pancreas; D64.81 Anemia due to antineoplastic chemotherapy; E87.6 Hypokalemia
CPT/HCPCS: 36415; 80053; 85025

== ENCOUNTER → 2024-07-27 12:13 | Outpatient (REF) | payer MEDICARE, OTHER, SELFPAY ==
[2024-07-27 14:48] LABS: Iron 67 ug/dl (37-170)
[2024-07-27 14:57] LABS: Percent Saturation 25 % (20-50); Total Iron Binding Capacity 262 ug/dl (265-497)
[2024-07-29 23:36] LABS: CA 19-9 155 U/mL (<=35)
== END ==
LOC: OIDL 12:13
PROVIDERS: ATTENDING PHYSICIAN Internal Medicine Hematology & Oncology
DX: C78.7 Secondary malignant neoplasm of liver and intrahepatic bile duct (principal)
CPT/HCPCS: 82728; 83540; 83550; 86301

== ENCOUNTER → 2024-08-05 15:30 | Outpatient (REF) | payer MEDICARE, OTHER, SELFPAY ==
[2024-08-05 16:56] LABS: ALT (SGPT) 124 U/L (0-35); AST (SGOT) 52 U/L (14-36); Albumin 3.9 g/dl (3.5-5.0); Alkaline Phosphatase 659 U/L (38-126); Blood Urea Nitrogen 28 mg/dl (7-17); Carbon Dioxide 25 mmol/L (22-30); Chloride 102 mmol/L (98-107); Glucose 109 mg/dl (70-99); Potassium 3.9 mmol/L (3.5-5.1); Sodium 139 mmol/L (135-145); Total Bilirubin 0.5 mg/dl (0.2-1.3); Total Protein 6.7 g/dl (6.3-8.2); eGFR 47.21
== END ==
LOC: REG 15:30
PROVIDERS: ATTENDING PHYSICIAN Internal Medicine Hematology & Oncology; FAMILY PHYSICIAN Family Medicine; REFERRING PHYSICIAN Internal Medicine Hospice and Palliative Medicine
DX: C78.7 Secondary malignant neoplasm of liver and intrahepatic bile duct (principal); C25.2 Malignant neoplasm of tail of pancreas; D64.81 Anemia due to antineoplastic chemotherapy; E87.5 Hyperkalemia; D50.9 Iron deficiency anemia, unspecified
CPT/HCPCS: 36415; 80053

== ENCOUNTER → 2024-08-15 13:56 | Outpatient (REF) | payer MEDICARE, OTHER, SELFPAY ==
[2024-08-15 14:37] LABS: % Basophils 0.7 % (0-2); % Eosinophils 4.7 % (0-6); % Immature Granulocytes 0.2 % (0-0.5); % Lymphocytes 19.5 % (20.5-51.1); % Monocytes 14.4 % (1.7-9.3); % Neutrophils 60.5 % (42.2-75.2); Absolute Eosinophils 0.2 10^3/uL (0-0.7); Absolute Lymphocytes 0.9 10^3/uL (1.2-3.4); Absolute Monocytes 0.7 10^3/uL (0.1-0.6); Absolute Neutrophils 2.7 10^3/uL (1.4-6.5); Hematocrit 27.8 % (37.0-47.0); Hemoglobin 9.1 g/dL (12.0-16.0); Mean Corp Hgb Conc. 32.7 g/dL (33.0-37.0); Mean Corpuscular Hgb 33.7 pg (27.0-31.0); Mean Platelet Volume 9.9 fL (7.4-10.4); Nucleated Red Blood Cells % 0 %; Platelet Count 179 10^3/uL (130-400); White Blood Cell Count 4.5 10^3/uL (4.8-10.8)
[2024-08-15 14:55] LABS: ALT (SGPT) 71 U/L (0-35); AST (SGOT) 39 U/L (14-36); Alkaline Phosphatase 655 U/L (38-126); Blood Urea Nitrogen 29 mg/dl (7-17); Calcium 9.2 mg/dl (8.4-10.2); Carbon Dioxide 20 mmol/L (22-30); Chloride 106 mmol/L (98-107); Glucose 101 mg/dl (70-99); Potassium 4.2 mmol/L (3.5-5.1); Sodium 141 mmol/L (135-145); Total Bilirubin 0.7 mg/dl (0.2-1.3); Total Protein 6.9 g/dl (6.3-8.2); eGFR 42.88
== END ==
LOC: REG 13:56
PROVIDERS: ATTENDING PHYSICIAN Internal Medicine Hematology & Oncology; FAMILY PHYSICIAN Family Medicine; REFERRING PHYSICIAN Internal Medicine Hospice and Palliative Medicine
DX: C78.7 Secondary malignant neoplasm of liver and intrahepatic bile duct (principal); C25.2 Malignant neoplasm of tail of pancreas; D64.81 Anemia due to antineoplastic chemotherapy; E87.6 Hypokalemia
CPT/HCPCS: 36415; 80053; 85025

== ENCOUNTER → 2024-09-12 14:05 | Outpatient (REF) | payer MEDICARE, OTHER, SELFPAY ==
[2024-09-12 16:41] LABS: % Basophils 0.5 % (0-2); % Eosinophils 1.9 % (0-6); % Immature Granulocytes 0.5 % (0-0.5); % Lymphocytes 8.7 % (20.5-51.1); % Neutrophils 79.4 % (42.2-75.2); Absolute Basophils 0.1 10^3/uL (0-0.2); Absolute Eosinophils 0.2 10^3/uL (0-0.7); Absolute Immature Granulocytes 0.1 10^3/uL (0-0.05); Absolute Lymphocytes 0.8 10^3/uL (1.2-3.4); Absolute Monocytes 0.9 10^3/uL (0.1-0.6); Absolute Neutrophils 7.6 10^3/uL (1.4-6.5); Hematocrit 30.7 % (37.0-47.0); Mean Corp Hgb Conc. 32.6 g/dL (33.0-37.0); Mean Corpuscular Volume 104.4 fL (81.0-99.0); Mean Platelet Volume 11.4 fL (7.4-10.4); Nucleated Red Blood Cells % 0 %; Platelet Count 257 10^3/uL (130-400); Red Blood Cell Count 2.94 10^6/uL (4.20-5.40); Red Cell Dist. Width 17.2 % (11.5-14.5); White Blood Cell Count 9.6 10^3/uL (4.8-10.8)
[2024-09-12 16:48] LABS: ALT (SGPT) 206 U/L (0-35); AST (SGOT) 121 U/L (14-36); Albumin 4.5 g/dl (3.5-5.0); Blood Urea Nitrogen 34 mg/dl (7-17); Carbon Dioxide 21 mmol/L (22-30); Chloride 102 mmol/L (98-107); Glucose 95 mg/dl (70-99); Potassium 4.5 mmol/L (3.5-5.1); Sodium 140 mmol/L (135-145); Total Bilirubin 1.6 mg/dl (0.2-1.3); Total Protein 7.6 g/dl (6.3-8.2); eGFR 36.12
[2024-09-12 16:58] LABS: Alkaline Phosphatase 1253 U/L (38-126)
== END ==
LOC: REG 14:05
PROVIDERS: ATTENDING PHYSICIAN Internal Medicine Hematology & Oncology; FAMILY PHYSICIAN Family Medicine; REFERRING PHYSICIAN Internal Medicine Hospice and Palliative Medicine
DX: C78.7 Secondary malignant neoplasm of liver and intrahepatic bile duct (principal); C25.2 Malignant neoplasm of tail of pancreas; D64.81 Anemia due to antineoplastic chemotherapy; E87.6 Hypokalemia; D50.9 Iron deficiency anemia, unspecified
CPT/HCPCS: 36415; 80053; 85025; 86301

== ENCOUNTER 2024-09-16 17:29 | Inpatient (IN) | payer MEDICARE, OTHER, SELFPAY ==
[2024-09-16 14:20] VITALS: BP 124/73
[2024-09-16 14:59] LABS: % Basophils 0.6 % (0-2); % Eosinophils 2.9 % (0-6); % Immature Granulocytes 0.4 % (0-0.5); % Lymphocytes 12.2 % (20.5-51.1); % Monocytes 11.2 % (1.7-9.3); % Neutrophils 72.7 % (42.2-75.2); Absolute Basophils 0.1 10^3/uL (0-0.2); Absolute Eosinophils 0.2 10^3/uL (0-0.7); Absolute Monocytes 0.9 10^3/uL (0.1-0.6); Absolute Neutrophils 5.8 10^3/uL (1.4-6.5); Hematocrit 29.6 % (37.0-47.0); Hemoglobin 9.7 g/dL (12.0-16.0); Mean Corp Hgb Conc. 32.8 g/dL (33.0-37.0); Mean Corpuscular Hgb 33.9 pg (27.0-31.0); Mean Corpuscular Volume 103.5 fL (81.0-99.0); Mean Platelet Volume 10.5 fL (7.4-10.4); Nucleated Red Blood Cells % 0 %; Platelet Count 250 10^3/uL (130-400); Red Blood Cell Count 2.86 10^6/uL (4.20-5.40); Red Cell Dist. Width 16.2 % (11.5-14.5); White Blood Cell Count 7.9 10^3/uL (4.8-10.8)
[2024-09-16 15:12] LABS: ALT (SGPT) 221 U/L (0-35); AST (SGOT) 164 U/L (14-36); Albumin 4.2 g/dl (3.5-5.0); Blood Urea Nitrogen 31 mg/dl (7-17); Calcium 8.7 mg/dl (8.4-10.2); Carbon Dioxide 22 mmol/L (22-30); Chloride 101 mmol/L (98-107); Glucose 203 mg/dl (70-99); Lipase 48 U/L (23-300); Potassium 4.2 mmol/L (3.5-5.1); Sodium 136 mmol/L (135-145); Total Bilirubin 6.8 mg/dl (0.2-1.3); Total Protein 7.3 g/dl (6.3-8.2); eGFR 42.88
[2024-09-16 15:24] LABS: Alkaline Phosphatase 1678 U/L (38-126)
[2024-09-16 15:32] VITALS: BP 129/74
--- NOTE | 2024-09-16 15:56 | ED.GENMED ---
History of Present Illness
General
Chief Complaint: Abnormal Lab Value
Source: patient, records and spouse
Exam Limitations: none
Time Seen by Provider: 09/16/24 15:31
Nursing documentation reviewed up to this point in time: agreed with
History of Present Illness
History of Present Illness:
74-year-old female with a past medical history as documented notable for stage IV pancreatic cancer currently on chemotherapy through [facility] (Dr. You); she presents to the emergency room today for evaluation of increasing jaundice.
Patient has pancreatic cancer, seen this time last year for bili obstruction secondary to cancer and had a stent placed by Dr. Garvey. She has been undergoing treatment and she says that recent PET scans have been reassuring however over the past week
or 2 has had increasing jaundice. She had outpatient lab work on Thursday which showed elevated T. bili, had an outpatient abdominal ultrasound that was nondiagnostic. She has had worsening jaundice today and so came to the ER for evaluation. She
reports some associated soreness in the right upper abdomen as well as in the right shoulder. She denies any fever or chills. No vomiting. No other complaints noted.
Past History
Past History
ED Past Medical History: Cancer (Pancreatic, Liver, Spleen, stomach) and Other
ED Past Surgical History: Gynecological (Tubal, ), Orthopedic (elbow Fracture, ) and Other (Breast Implants, Liver stents)
Social History
Tobacco: Non-smoker
Alcohol: None
Personal:
Living: with family
Review of Systems
Review of Systems
All Other Systems: ROS reviewed and negative except as documented in HPI and ROS
Constitutional: Denies fever or chills
Respiratory: Denies trouble breathing
Cardiac: Denies chest pain
ABD/GI: Reports abdominal pain; Denies nausea or vomiting
: Denies flank pain
Musculoskeletal: Reports joint pain (Shoulder pain) and neck pain; Denies back pain
Neurological: Denies headache
Phy Exam
Physical Exam
Physical Exam:
General: Awake, alert, oriented x3; no acute distress
Head: Normocephalic, atraumatic
Eyes: Conjunctiva normal, scleral icterus
Throat: Airway intact, handling secretions
Neck: Trachea midline, mild right upper trapezius tenderness
Lungs: Clear to auscultation bilaterally, no wheezing, rales, rhonchi
Heart: Regular rate and rhythm, no murmurs, gallops, or rubs
Abd: Soft, very mildly tender to palpation right upper abdomen
Neuro: No gross deficit
Skin: Jaundiced
Extremities: No edema in extremities, equal pulses in all extremities
Scores
Heart Failure Risk
Heart Failure Risk Score: Not Applicable
Heart Score for Chest Pain Patients
STEMI patient?: Not applicable
Withdrawal Assessment of Alcohol
Withdrawal Assessment Completed?: Not applicable
Course
Orders/Labs/Results
Orders:
Orders
09/16/24 14:27
EKG [Electrocardiogram (*1)] Urgent
Reason for Study: Other
Other Reason for Exam: R neck and shoulder pain
09/16/24 14:28
EKG- Treatment ONCE
09/16/24 14:40
Complete Blood Count/With Diff Urgent
Comprehensive Metabolic Panel Urgent
Lipase Urgent
09/16/24 15:26
Urinalysis Reflex To Culture Urgent
Date Specimen was Collected: 09/16/24
Time Specimen was Collected: 15:25
Urine Microscopic Reflex Cult Urgent
Urine Culture Urgent
IZABELA Source: U
Specimen Description:
Date Specimen was Collected: 09/16/24
Time Specimen was Collected: 15:25
09/16/24 15:53
GASTROINTESTINAL CONSULT Urgent
Consulting Provider: Evelin Millard
Was physician already notified: Yes
MR Mrcp Without Urgent
Comment:
Reason For Exam: abnormal LFTs
Recent pill cam endoscopy?: No
09/16/24 16:03
0.9% Sodium Chloride 1000 ml [Nss] 1,000 ml IV BOLUS
09/16/24 16:28
Zosyn 3.375 grams IVPB NOW Piperacillin/Tazo 3.375 Gram [Zosyn] 3.375 gram in 50 ml IV NOW
09/16/24 16:30
Blood Culture Q30M
IZABELA Source: Blood/Venous
Specimen Description:
09/16/24 17:00
Blood Culture Q30M
IZABELA Source: Blood/Venous
Specimen Description:
Abnormal Lab Results
09/16/24 09/16/24
14:40 15:26
RBC 2.86 L 10^6/uL
(4.20-5.40)
Hgb 9.7 L g/dL
(12.0-16.0)
Hct 29.6 L %
(37.0-47.0)
MCV 103.5 H fL
(81.0-99.0)
MCH 33.9 H pg
(27.0-31.0)
MCHC 32.8 L g/dL
(33.0-37.0)
RDW 16.2 H %
(11.5-14.5)
MPV 10.5 H fL
(7.4-10.4)
Absolute Lymphs (auto) 1.0 L 10^3/uL
(1.2-3.4)
Absolute Monos (auto) 0.9 H 10^3/uL
(0.1-0.6)
Lymphocytes % 12.2 L %
(20.5-51.1)
Monocytes % 11.2 H %
(1.7-9.3)
BUN 31 H mg/dl
(7-17)
Creatinine 1.3 H mg/dL
(0.6-1.0)
Glucose 203 H mg/dl
(70-99)
Total Bilirubin 6.8 H mg/dl
(0.2-1.3)
AST 164 H U/L
(14-36)
ALT 221 H U/L
(0-35)
Alkaline Phosphatase 1678 H U/L
(38-126)
Urine Nitrite (Reflex) Positive A
(Negative)
Urine Bilirubin 1+ A
(Negative)
Leukocyte Esterase Rfl 2+ A
(Negative)
09/16/24 14:40
09/16/24 14:40
Vital Signs
Initial and Last Documented VS:
Initial Vital Signs
Temp Pulse Resp BP Pulse Ox
36.8 C 69 18 124/73 98
09/16/24 14:20 09/16/24 14:20 09/16/24 14:20 09/16/24 14:20 09/16/24 14:20
Last Documented Vital Signs
Temp Pulse Resp BP Pulse Ox
36.8 C 69 18 129/74 99
09/16/24 14:20 09/16/24 15:45 09/16/24 16:19 09/16/24 15:32 09/16/24 15:45
MDM/Problems Addressed
Differential Diagnosis Includes:
Biliary obstruction�could be secondary to gallstones versus pancreatic mass
MDM/Problems Addressed:
74-year-old female presents with increasing jaundice over the past 2 weeks in the setting of known pancreatic cancer. Vitals and exam as above. Labs sent off including a CBC which shows stable anemia, CMP shows T. bili 6.8, AST/ALT 164/221, alk
phos 1678. Lipase normal. She had an outpatient ultrasound that was nondiagnostic for cause of obstruction. Case discussed with gastroenterology will proceed with MRCP. They will consult on patient will likely need to defer intervention until
Thursday afternoon pending availability of Dr. Garvey. Case discussed with hospitalist for admission.
After initial discussion with hospitalist requesting blood cultures and empiric Zosyn as patient has history of cholangitis with biliary obstruction.
Chronic conditions affecting care:
Pancreatic cancer
*Radiology
Radiology exam reviewed: radiology read reviewed (Outpatient ultrasound)
*Pulse Oximetry
Patient hypoxic: no
*Critical Care Note
Total Time (30-74mins, 75-104mins- exclusive of procedures): Not Applicable
Data Reviewed
Review of Other/Old Records Reveals: Labs, Records, Radiology Studies and Discharge Summary
Source: patient, records and spouse
Patient Management
Discussion with other providers: Hospitalist (Discussed with hospitalist) and [facility]er (Discussed with gastroenterology)
Escalation/DeEscalation of care consider admission/obs:
Admission indicated
ED Attending Note
-
Portions of this chart may have been created with voice recognition software.� Occasional wrong word or��sound alike� substitutions may have occurred due to the inherent limitations of voice recognition software.
Discharge Plan
Departure
Patient Disposition: Admit
Date of Disposition: 09/16/24
Time of Disposition: 15:56
Admit to doctor: Alexandro
Presentation/result/management discussed w/ accepting MD/DO: Hospitalist
Discharge Problem:
Biliary obstruction due to cancer
Prescriptions:
No Action
Prolia 60 mg/mL Syringe
60 mg SC [id number]
lidocaine-prilocaine 2.5-2.5 % cream
1 applic topical DAILYPRN PRN (Reason: prior to port access)
B Complex Tablet Extended Release
1 tab PO DAILY
diphenoxylate-atropine 2.5-0.025 mg tablet
2 tab PO DAILY
Patient Comments:
09/16/2024: last filled 08/27/24, 60 tabs for 8 days from [id number]
Theragen Tablet
1 tab PO DAILY
calcium carbonate [Calcium 500] 500 mg calcium (1,250 mg) Tablet
500 mg PO DAILY
oxycodone 5 mg Tablet
5 mg PO BIDPRN PRN (Reason: moderate pain)
Patient Comments:
09/16/2024: last filled 01/04/24, 120 tabs for 20 days from [facility]
Interventions
Interventions:
*Risk Screen - Suicide Last Done: 09/16/24 14:20
*General Assessment Last Done: 09/16/24 14:20
*Neglect/Abuse Screening Last Done: 09/16/24 15:53
*ED COVID-19 Vaccine History Last Done: 09/16/24 14:20
Discharge Date and Time
Print Language: LUXEMBOURGISH
[2024-09-16 16:00] VITALS: BP 127/77
[2024-09-16 16:01] LABS: Urine Albumin Trace (Neg - Trace); Urine Bilirubin 1+ (Negative); Urine Character Slightly Cloudy (Clear); Urine Color Yellow; Urine Glucose Negative (Negative); Urine Ketone Negative (Negative); Urine Leukocyte 2+ (Negative); Urine Nitrite Positive (Negative); Urine Occult Blood Negative (Negative); Urine Urobilinogen 1+ (Neg - 1+)
[2024-09-16 16:45] LABS: Urine Red Blood Cell 0-2 /HPF (0-2)
--- NOTE | 2024-09-16 16:45 | HPS.HSE ---
Family Physician
-
Family Physician: NOT KNOW UNKNOWN - PT DOES
Chief Complaint
-
worsening jaundice
History of Present Illness
HPI
74F HX metastatic pancreatic CA, Obs jaundice, obstructed biliary stent removal and placement, HX polymicrobe sepsis
who as been undergoing treatment and had recent PET scans have been reports as reassuring came to ER for worsening jaundice so came to the ER for evaluation.
- Over the past week or 2 has had increasing jaundice.
- She had outpatient lab work on Thursday which showed elevated T. bili, had an outpatient abdominal ultrasound that was nondiagnostic.
- reports some associated soreness in the right upper abdomen as well as in the right shoulder.
ROS: She denies any fever or chills. No vomiting.
Medical History
Past Medical History
Past Medical History: Reports Other
Additional Past Medical History:
osteopenia
Past Surgical History: Reports Other
Additional Past Surgical History:
left elbow surgery
Social History
Tobacco: Non-smoker
Alcohol: Occasional
Drug: None
Personal:
Living: With Family
Family History
Family History: Not pertinent
Allergies / Home Medications
Allergies reflects when Allergies were last updated in [facility].
Home Medications with original date entered in [facility]
Allergy/Medication List:
Allergies
Allergy/AdvReac Type Severity Reaction Status Date / Time
No Known Allergies Allergy Verified 10/05/23 19:37
Home Medications
denosumab 60 mg/mL subcutaneous syringe (Prolia) 60 mg SC [id number] 09/11/23
oxycodone 5 mg tablet 5 mg PO Q4H Pain 09/17/23
gabapentin 300 mg capsule 300 mg PO HS 09/25/23
polyethylene glycol 3350 17 gram oral powder packet (Miralax) 8.5 g PO BID PRN if no bm x 2 days 09/25/23
lidocaine-prilocaine 2.5 %-2.5 % topical cream 1 applic topical DAILY PRN prior to chemo 10/05/23
loratadine 10 mg tablet (Claritin) 10 mg PO DAILY 10/05/23
omeprazole 40 mg capsule,delayed release 40 mg PO DAILY 10/05/23
ondansetron 8 mg disintegrating tablet 8 mg PO Q12H PRN nausea 10/05/23
prochlorperazine maleate 10 mg tablet 10 mg PO Q6H PRN nausea 10/05/23
Review of Systems
-
Constitutional: Reports No Symptoms
EENT: Reports See HPI
Respiratory: Reports No Symptoms
Cardiac: Reports No Symptoms
Abdomen/GI: Reports See HPI and Abdominal Pain
: Reports No Symptoms
Musculoskeletal: Reports Other (back pain)
Skin: Reports Other (jaudice)
Neurological: Reports No Symptoms
Endocrine: Reports No Symptoms
Hematologic/Lymphatic: Reports No Symptoms
Psych: Reports No Symptoms
Physical Exam
Vital Signs
Vital Signs
Temp Pulse Resp BP Pulse Ox
98.3 F 69 18 129/74 99
09/16/24 14:20 09/16/24 15:45 09/16/24 16:19 09/16/24 15:32 09/16/24 15:45
Physical Exam
General: Well Developed, Well Nourished and No Apparent Distress
HEENT: NormoCephalic, Moist mucous membranes and Atraumatic
Respiratory: Clear
Cardiac: S1/S2 and Regular Rhythm; No Murmur or Rub
GI: Soft, Non Tender, Non Distended and Normal Bowel Sounds; No Organomegaly
Rectal: Deferred by Provider
Musculoskeletal: No Clubbing, No Cyanosis and No Edema
Skin: Rash and Jaundice
Neuro: AO x 3 and Nonfocal/grossly intact
Psych: Calm
Laboratory Results
-
09/16/24 14:40
09/16/24 14:40
Laboratory Results
Total Bilirubin 6.8 mg/dl (0.2-1.3) H 09/16/24 14:40
AST 164 U/L (14-36) H 09/16/24 14:40
ALT 221 U/L (0-35) H 09/16/24 14:40
Alkaline Phosphatase 1678 U/L (38-126) H 09/16/24 14:40
Lipase 48 U/L (23-300) 09/16/24 14:40
Data Reviewed
-
MRI: Other (pending MRCP )
Lab Data: Labs Reviewed by me
Impression/Plan
-
Reviewed VS: unremarkable
Data
Laboratory Tests
09/12/24 09/16/24 09/16/24
14:22 14:40 15:26
WBC 7.9
Hgb 10.0 L 9.7 L
Creatinine 1.5 H 1.3 H
eGFR 36.12 42.88
Total Bilirubin 1.6 H 6.8 H
AST 121 H 164 H
ALT 206 H 221 H
Alkaline Phosphatase 1253 H 1678 H
Lipase 48
Urine Nitrite (Reflex) Positive A
Leukocyte Esterase Rfl 2+ A
Urine RBC Pending
Urine WBC (Reflex) Pending
Last hospitalist admission: DATE OF ADMISSION: 10/05/2023 - DATE OF DISCHARGE: 10/10/2023
DISCHARGE DIAGNOSES:
1. Obstructive jaundice due to pancreatic malignancy.
2. Polymicrobial sepsis.
3. Hepatic biloma.
4. Suspected drug rash.
5. Pancytopenia due to chemotherapy.
6. Metastatic pancreatic cancer.
7. Hypokalemia.
8. Hyponatremia.
ASSESSMENT & PLAN
Worsening obstructive jaundice present on admission.
Suspect due to obstructed biliary stent due to metastatic pancreatic cancer.
At risk for ascending cholangitis and sepsis
- GI consulted by ER
- MRCP
- BCx
- Empiric Zosyn
- Trend LFTs
HX Polymicrobial sepsis ( September 2023) due to biliary source with HX biloma.
HX POS BCXs for Klebsiella oxytoca, Enterobacter cloacae.
- BCxs sent
HX Maculopapular rash -noted on lower abdomen and flanks. Rash began before zosyn per ID
HX tolerating to Zosyn and rash overall has improved while on Zosyn on last admission
- Zosyn and observe
HX Hepatic biloma
10/06/23 MRI showed biloma in the right hepatic lobe measuring 1.9 x 1.2 x 1.7 cm. Stable diffuse intrahepatic biliary ductal dilation. Stable pancreatic tail mass and left periaortic mass with lymphadenopathy. Continue empiric Zosyn IV for now.
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 Stent was exchanged successfully.
HX Pancreatic cancer with metastases to the liver, retroperitoneal lymph nodes.
Known to Dr. You.
DVT Px: LMWH
Full code
IP MS
[2024-09-16 16:46] LABS: Urine Bacteria Many (Negative); Urine White Cell 30-40 /HPF (0-5)
[2024-09-16] MEDS: ZOSYN 50 IV (17:35)
[2024-09-16] MEDS: NSS 1000 IV ×2 (17:36→18:38)
[2024-09-16 18:25] VITALS: BP 101/58; BMI 19.8
--- NOTE | 2024-09-16 18:50 | PTCARENOTE ---
Received patient from ED right before change of shift. AAOx3 able to make needs known. Oriented to room and use of call chandler. Walked from stretcher to bed. Denies pain/discomfort. Call chandler within reach.
[2024-09-16] MEDS: LOVENOX 30 MG SC (19:54)
[2024-09-16] MEDS: ROXICODONE 5 MG PO (19:59)
[2024-09-16 23:30] VITALS: BP 104/72
[2024-09-17] MEDS: ZOSYN 50 IV ×4 (02:33→20:22)
[2024-09-17 04:36] LABS: Hematocrit 24.5 % (37.0-47.0); Hemoglobin 8.3 g/dL (12.0-16.0); Mean Corp Hgb Conc. 33.9 g/dL (33.0-37.0); Mean Corpuscular Hgb 34.4 pg (27.0-31.0); Mean Corpuscular Volume 101.7 fL (81.0-99.0); Mean Platelet Volume 10.7 fL (7.4-10.4); Platelet Count 195 10^3/uL (130-400); Red Blood Cell Count 2.41 10^6/uL (4.20-5.40); Red Cell Dist. Width 16.3 % (11.5-14.5); White Blood Cell Count 7.5 10^3/uL (4.8-10.8)
[2024-09-17 04:47] LABS: ALT (SGPT) 182 U/L (0-35); AST (SGOT) 138 U/L (14-36); Albumin 3.3 g/dl (3.5-5.0); Blood Urea Nitrogen 26 mg/dl (7-17); Calcium 8.2 mg/dl (8.4-10.2); Carbon Dioxide 20 mmol/L (22-30); Chloride 105 mmol/L (98-107); Estimated Creatinine Clearance 31 ml/min; Glucose 94 mg/dl (70-99); Potassium 4.5 mmol/L (3.5-5.1); Sodium 136 mmol/L (135-145); Total Bilirubin 6.3 mg/dl (0.2-1.3); Total Protein 6.2 g/dl (6.3-8.2); eGFR 47.21
[2024-09-17 04:59] LABS: Alkaline Phosphatase 1426 U/L (38-126)
[2024-09-17] MEDS: ROXICODONE 5 MG PO ×4 (05:56→20:42)
[2024-09-17 07:00] VITALS: BP 118/68
--- NOTE | 2024-09-17 08:30 | CON.GI ---
Consultation
-
Date/Time Consultation Requested: 09/16/24
Date/Time Consultation Performed: 09/17/24
Requesting Provider: Dr. Mc
Performing Provider: Dr. Millard
Reason for Consultation: Obstructive jaundice
Medical History
Chief Complaint / HPI
Chief Complaint: Jaundice
History of Present Illness:
Sade Garcia is a 74 y.o. female w/ pmhx hyperlipidemia, osteoporosis and diagnosis of metastatic pancreatic cancer last year status post ERCP with biliary sphincterotomy and b/l hilar stent placement currently receiving chemotherapy who presents
with worsening jaundice. She follows with [facility], Dr. You. Overall, she has been tolerating the chemotherapy well, recent PET scan showed no suspicious uptake in the body.
bili on 09/12 was 1.6, repeat on arrival was 6.8, AST 164, ALT 221, Alk phos 1678. She is afebrile and hemodynamically stable. Given concerns for stent obstruction, she was admitted for further evaluation by GI/Dr. Garvey for possible stent exchange.
Her main complaint is a stiff neck on her right side, she is having a difficult time moving it due to the way she slept 2 nights ago.
ERCP performed on 10/08/2023. Severe malignant biliary stricture. The left main hepatic and left intrahepatic branches were moderately dilated, 1 stent was removed from the left hepatic duct and 1 plastic stent was placed into the left hepatic
duct.
Abdominal US 09/14/24:
1. Slightly increased echogenicity in the liver, compatible with underlying hepatocellular disease, which most commonly relates to fatty infiltration of the liver.
2. Probable gallbladder sludge without sonographic evidence for discrete cholelithiasis or acute cholecystitis.
3. No intrahepatic or extrahepatic biliary ductal dilatation
MRCP 09/16/24: A common bile duct stent is in place. Moderate diffuse dilatation of the intrahepatic bile ducts. The extrahepatic bile ducts measure up to 9 mm in caliber and are mildly dilated. Segment of bile duct narrowing at the confluence of the
left and right hepatic ducts with the common hepatic duct with some lobular soft tissue signal intensity at this location that measures 1.8 cm (series 901, image 23). The gallbladder is moderately dilated. No evidence for cholelithiasis. The
patient's pancreatic tail mass is suboptimally evaluated in the absence of intravenous contrast and was not identified on the previous PET/CT. The main pancreatic duct is nondilated
Past Medical History
Past Medical History: HTN and Other (Pancreatic Cancer)
Past Surgical History: Other
Social History
Tobacco: Non-Smoker
Family History
Family History: Reviewed & Not Pertinent
Allergies / Home Medications
Allergy/AdvReac Type Severity Reaction Status Date / Time
No Known Allergies Allergy Verified 09/16/24 14:25
�Medication �Instructions �Recorded
denosumab 60 mg/mL subcutaneous 60 mg SC [id number] bone health 09/11/23
syringe (Prolia)
lidocaine-prilocaine 2.5 %-2.5 % 1 applic topical DAILYPRN PRN 10/05/23
topical cream prior to port access
calcium carbonate 500 mg PO DAILY 09/16/24
diphenoxylate-atropine 2.5 2 tab PO DAILY 09/16/24
mg-0.025 mg tablet
oxycodone 5 mg tablet 5 mg PO BIDPRN PRN moderate pain 09/16/24
therapeutic multivitamin 1 tab PO DAILY 09/16/24
vitamin B complex 1 tab PO DAILY 09/16/24
Review of Systems
-
History Source: Patient
All other systems: A 12 pt ROS was Negative except as stated above in HPI
Vital Signs
Temp Pulse Resp BP Pulse Ox
99.6 F 76 16 104/72 98
09/16/24 23:30 09/16/24 23:30 09/16/24 23:30 09/16/24 23:30 09/16/24 23:30
Physical Exam
Exam
HEENT: scleral icterus, mucous membranes moist, OP clear
ABDOMEN: +BS; soft, non-tender and non-distended; no rebound or guarding
Skin: Jaundice
Results
WBC 7.5 10^3/uL (4.8-10.8) 09/17/24 04:14
Hgb 8.3 g/dL (12.0-16.0) L 09/17/24 04:14
Hct 24.5 % (37.0-47.0) L 09/17/24 04:14
MCV 101.7 fL (81.0-99.0) H 09/17/24 04:14
Plt Count 195 10^3/uL (130-400) D 09/17/24 04:14
Absolute Neuts (auto) 5.8 10^3/uL (1.4-6.5) 09/16/24 14:40
Sodium 136 mmol/L (135-145) 09/17/24 04:14
Potassium 4.5 mmol/L (3.5-5.1) 09/17/24 04:14
Chloride 105 mmol/L (98-107) 09/17/24 04:14
Carbon Dioxide 20 mmol/L (22-30) L 09/17/24 04:14
BUN 26 mg/dl (7-17) H 09/17/24 04:14
Creatinine 1.2 mg/dL (0.6-1.0) H 09/17/24 04:14
Calcium 8.2 mg/dl (8.4-10.2) L 09/17/24 04:14
Total Bilirubin 6.3 mg/dl (0.2-1.3) H 09/17/24 04:14
AST 138 U/L (14-36) H 09/17/24 04:14
ALT 182 U/L (0-35) H 09/17/24 04:14
Alkaline Phosphatase 1426 U/L (38-126) H 09/17/24 04:14
Lipase 48 U/L (23-300) 09/16/24 14:40
Hepatitis C Antibody Cancelled 09/16/24 18:48
Diagnostic Image Results:
Prior GI Procedures:
EGD:
Colonoscopy:
Assessment / Plan
-
74 y.o. female with metastatic pancreatic cancer s/p ERCP with b/l hilar stent placement admitted with obstructive jaundice.
#Obstructive Jaundice-likely 2/2 stent obstruction vs. choledocholithiasis vs. disease progression, though, less likely given recent reassuring PET scan
-no signs of cholangitis
-MRCP with evidence of diffuse intrahepatic ductal dilatation, extrahepatic bile duct measures 9 mm and is mildly dilated; segment of bile duct narrowing at the confluence of the left and right hepatic ducts with the CHD with some lobular soft
tissue signal intensity, which measures up to 1.8 cm; GB is distended, no evidence of cholelithiasis
-Will discuss with Dr. Garvey and have him review imaging, tentative plans for ERCP on Thursday
-Patient can have regular diet
-DVT ppx
Data Reviewed
-
Radiology: Report Reviewed by me
Ultrasound: Report Reviewed by me
MRI: Report Reviewed by me
Old Records: Reviewed
-
-
Thank you for consultation and allowing me to participate in the patient's care. Please call the client professional GI physician during the after hours with any questions or concerns.
--- NOTE | 2024-09-17 09:57 | W.PN.HOSP.TC ---
Today's Communication/Plan
-
Antibiotics. Plan for ERCP.
Assessment / Plan
Assessment / Plan
Physical exam:
General: Chronically ill-appearing
HEENT: Normocephalic, Atraumatic and Moist Mucous Membranes. Jaundice present
Respiratory: Clear to Auscultation; Negative Wheezes, Rales or Rhonchi
Cardiac: Regular Rhythm and S1/S2
GI: Soft, Nontender and Nondistended
Musculoskeletal: Neck spasm and discomfort. No Clubbing, No Cyanosis and No Edema
Neuro: Awake, Alert and Oriented, no gross neurological deficits
Psych: Calm
MRCP:
Moderate intrahepatic and mild extrahepatic bile duct dilatation with a common bile duct stent in place. MRCP findings suspicious for a stricture at the confluence of the left and right hepatic ducts with the common hepatic duct. A 1.8 cm focus of
soft tissue signal intensity at this location may be neoplastic, the evaluation of which is somewhat limited in the absence of intravenous contrast. Consider a follow-up ERCP and/or soft tissue sampling.
A/P:
Worsening obstructive jaundice present on admission.
Differential includes stent obstruction versus choledocholithiasis versus progression of underlying malignancy
At risk for ascending cholangitis and sepsis but no evidence of infection at the moment
-GI consult appreciated
- MRCP results reviewed as above.
- BCx
- Empiric Zosyn
- Trend LFTs
-Plan for ERCP on Thursday
Neck torticollis:
Start Skelaxin and local measures
HX Polymicrobial sepsis ( September 2023) due to biliary source with HX biloma.
HX POS BCXs for Klebsiella oxytoca, Enterobacter cloacae.
- BCxs sent
HX Maculopapular rash -noted on lower abdomen and flanks. Rash began before zosyn per ID
HX tolerating to Zosyn and rash overall has improved while on Zosyn on last admission
- Zosyn and observe
HX Hepatic biloma
10/06/23 MRI showed biloma in the right hepatic lobe measuring 1.9 x 1.2 x 1.7 cm. Stable diffuse intrahepatic biliary ductal dilation. Stable pancreatic tail mass and left periaortic mass with lymphadenopathy. Continue empiric Zosyn IV for now.
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 Stent was exchanged successfully.
HX Pancreatic cancer with metastases to the liver, retroperitoneal lymph nodes.
Known to Dr. You.
Recent PET scan no suspicion for uptake
DVT Px: LMWH
Full code
Total time spent on today's encounter was 52 minutes which included time spent in counseling the patient/family regarding diagnosis and treatment plan as listed above, goals of care, and symptom management. Case was discussed with nursing staff,
specialists, and care coordinators/case management. All labs and imaging personally reviewed by me. Remainder the time spent in detailed review of previous records, lab data, imaging, and other medical provider documentation.
Anticipated Discharge: > 48 hours
Subjective/Interval History
-
Date of Service: September 17, 2024
Patient complains of neck spasm. Some abdominal discomfort. No nausea or vomiting
Objective Data
-
Labs:
Laboratory Results
09/17/24
04:14
WBC 7.5
Hgb 8.3 L
Hct 24.5 L
Plt Count 195 D
Sodium 136
Potassium 4.5
Chloride 105
Carbon Dioxide 20 L
BUN 26 H
Creatinine 1.2 H
Glucose 94
Calcium 8.2 L
Total Bilirubin 6.3 H
AST 138 H
ALT 182 H
Alkaline Phosphatase 1426 H
Vital Signs:
Vital Signs
Temp Pulse Resp BP Pulse Ox
99.6 F 76 16 104/72 98
09/16/24 23:30 09/16/24 23:30 09/16/24 23:30 09/16/24 23:30 09/17/24 08:10
I&O
09/16/24 09/17/24 09/18/24
06:59 06:59 06:59
Intake Total 1010 / 1010 50 / 50
Balance 1010 / 1010 50 / 50
[2024-09-17] MEDS: ZOSYN IV (12:11)
[2024-09-17] MEDS: SKELAXIN 800 MG PO ×2 (13:39→22:01)
[2024-09-17] MEDS: FLUSH (NSS) 1 FLUSH IV (14:58)
--- NOTE | 2024-09-17 15:08 | CM ---
Met with patient who is admitted from home with Obstructive Jaundice. She states she has stage 4 pancreatic cancer. she lives with spouse in 2 level home with 2 steps to enter. Full bath and bedroom on entry examiner.
She does not use any DME.
MIYA Duron
Dr. Gómez.
She plans to go home and does not expect to have any home care needs.
[2024-09-17 15:27] VITALS: BP 102/58
[2024-09-17 16:50] VITALS: BP 106/62
[2024-09-17] MEDS: LOVENOX 30 MG SC (17:31)
[2024-09-17] MEDS: FLUSH (NSS) 2 FLUSH IV (20:24)
[2024-09-17 23:26] VITALS: BP 107/66
[2024-09-18] MEDS: ROXICODONE 5 MG PO ×6 (00:44→22:27)
[2024-09-18] MEDS: FLUSH (NSS) 2 FLUSH IV ×2 (02:18→20:02)
[2024-09-18] MEDS: ZOSYN 50 IV ×4 (02:18→20:02)
[2024-09-18 04:32] LABS: % Basophils 0.7 % (0-2); % Eosinophils 3.7 % (0-6); % Immature Granulocytes 0.3 % (0-0.5); % Lymphocytes 14.3 % (20.5-51.1); % Monocytes 12.8 % (1.7-9.3); % Neutrophils 68.2 % (42.2-75.2); Absolute Eosinophils 0.2 10^3/uL (0-0.7); Absolute Lymphocytes 0.9 10^3/uL (1.2-3.4); Absolute Monocytes 0.8 10^3/uL (0.1-0.6); Absolute Neutrophils 4.1 10^3/uL (1.4-6.5); Hematocrit 23.3 % (37.0-47.0); Hemoglobin 7.6 g/dL (12.0-16.0); Mean Corp Hgb Conc. 32.6 g/dL (33.0-37.0); Mean Corpuscular Hgb 33.3 pg (27.0-31.0); Mean Corpuscular Volume 102.2 fL (81.0-99.0); Mean Platelet Volume 10.7 fL (7.4-10.4); Nucleated Red Blood Cells % 0 %; Platelet Count 185 10^3/uL (130-400); Red Blood Cell Count 2.28 10^6/uL (4.20-5.40)
[2024-09-18 04:38] LABS: INR 1.06; PT 14.1 Sec (11.4-14.6)
[2024-09-18 04:50] LABS: ALT (SGPT) 152 U/L (0-35); AST (SGOT) 99 U/L (14-36); Albumin 3.1 g/dl (3.5-5.0); Blood Urea Nitrogen 27 mg/dl (7-17); Calcium 7.9 mg/dl (8.4-10.2); Carbon Dioxide 21 mmol/L (22-30); Chloride 105 mmol/L (98-107); Estimated Creatinine Clearance 29 ml/min; Glucose 91 mg/dl (70-99); Potassium 4.7 mmol/L (3.5-5.1); Sodium 138 mmol/L (135-145); Total Bilirubin 4.8 mg/dl (0.2-1.3); eGFR 42.88
[2024-09-18 05:01] LABS: Alkaline Phosphatase 1241 U/L (38-126)
[2024-09-18] MEDS: SKELAXIN 800 MG PO ×3 (06:35→22:57)
[2024-09-18 07:45] VITALS: BP 117/63
--- NOTE | 2024-09-18 07:49 | W.PN.HOSP.TC ---
Today's Communication/Plan
-
Continue antibiotics. Plan for ERCP tomorrow.
Assessment / Plan
Assessment / Plan
Physical exam:
General: Chronically ill-appearing
HEENT: Normocephalic, Atraumatic and Moist Mucous Membranes. Jaundice present
Respiratory: Clear to Auscultation; Negative Wheezes, Rales or Rhonchi
Cardiac: Regular Rhythm and S1/S2
GI: Soft, Nontender and Nondistended
Musculoskeletal: Neck spasm and discomfort but much less. No Clubbing, No Cyanosis and No Edema
Neuro: Awake, Alert and Oriented, no gross neurological deficits
Psych: Calm
MRCP:
Moderate intrahepatic and mild extrahepatic bile duct dilatation with a common bile duct stent in place. MRCP findings suspicious for a stricture at the confluence of the left and right hepatic ducts with the common hepatic duct. A 1.8 cm focus of
soft tissue signal intensity at this location may be neoplastic, the evaluation of which is somewhat limited in the absence of intravenous contrast. Consider a follow-up ERCP and/or soft tissue sampling.
A/P:
Worsening obstructive jaundice present on admission.
Differential includes stent obstruction versus choledocholithiasis versus progression of underlying malignancy
At risk for ascending cholangitis and sepsis but no evidence of infection at the moment
-GI consult appreciated
- MRCP results reviewed as above.
- BCx--> no growth on blood cultures so far
-Urine cultures growing Klebsiella pneumonia sensitive to Zosyn
-Continue IV Zosyn until ERCP and then can streamline according to cultures.
- Trend LFTs
-Plan for ERCP on Thursday
Neck torticollis:
Start Skelaxin and local measures
Anemia:
Hemoglobin 8.3--> 7.6
Check iron deficiency anemia workup in a.m.
Continue to monitor hemoglobin closely
HX Polymicrobial sepsis ( September 2023) due to biliary source with HX biloma.
HX POS BCXs for Klebsiella oxytoca, Enterobacter cloacae.
- BCxs sent---> no growth so far
HX Maculopapular rash -noted on lower abdomen and flanks. Rash began before zosyn per ID
HX tolerating to Zosyn and rash overall has improved while on Zosyn on last admission
- Zosyn and observe--> no adverse events so far
HX Hepatic biloma
10/06/23 MRI showed biloma in the right hepatic lobe measuring 1.9 x 1.2 x 1.7 cm. Stable diffuse intrahepatic biliary ductal dilation. Stable pancreatic tail mass and left periaortic mass with lymphadenopathy. Continue empiric Zosyn IV for now.
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 Stent was exchanged successfully.
HX Pancreatic cancer with metastases to the liver, retroperitoneal lymph nodes.
Known to Dr. You.
Recent PET scan no suspicion for uptake
DVT Px: LMWH
Full code
Total time spent on today's encounter was 52 minutes which included time spent in counseling the patient/family regarding diagnosis and treatment plan as listed above, goals of care, and symptom management. Case was discussed with nursing staff,
specialists, and care coordinators/case management. All labs and imaging personally reviewed by me. Remainder the time spent in detailed review of previous records, lab data, imaging, and other medical provider documentation.
Anticipated Discharge: 24 - 48 hours
Subjective/Interval History
-
Date of Service: September 18, 2024
Patient states that neck pain is much better today. Denies abdominal pain nausea or vomiting. Afebrile
Objective Data
-
Labs:
Laboratory Results
09/18/24
04:12
WBC 6.0
Hgb 7.6 L
Hct 23.3 L
Plt Count 185
PT 14.1
INR 1.06
Sodium 138
Potassium 4.7
Chloride 105
Carbon Dioxide 21 L
BUN 27 H
Creatinine 1.3 H
Glucose 91
Calcium 7.9 L
Total Bilirubin 4.8 H
AST 99 H
ALT 152 H
Alkaline Phosphatase 1241 H
Vital Signs:
Vital Signs
Temp Pulse Resp BP Pulse Ox
98.4 F 65 16 107/66 99
09/17/24 23:26 09/17/24 23:26 09/17/24 23:26 09/17/24 23:26 09/17/24 23:26
I&O
09/17/24 09/18/24 09/19/24
06:59 06:59 06:59
Intake Total 1010 / 1010 530 / 530
Balance 1010 / 1010 530 / 530
[2024-09-18] MEDS: FLUSH (NSS) 1 FLUSH IV ×3 (08:27→14:01)
--- NOTE | 2024-09-18 09:14 | W.PN.GI.CBS2 ---
Addendum entered and electronically signed by Evelin Millard, 09/18/24 09:19:
*BCx prelim NGTD; Urine cx + klebsiella pneumoniae (sensitive to zosyn)
Original Note:
Today's Communication / Plan
-
NPO PMN for ERCP tomorrow with Dr. Garvey. Monitor hemoglobin
Assessment / Plan
-
74 y.o. female with metastatic pancreatic cancer s/p ERCP with b/l hilar stent placement admitted with obstructive jaundice.
#Obstructive Jaundice-likely 2/2 stent obstruction vs. choledocholithiasis vs. disease progression, though, less likely given recent reassuring PET scan
-MRCP with evidence of diffuse intrahepatic ductal dilatation, extrahepatic bile duct measures 9 mm and is mildly dilated; segment of bile duct narrowing at the confluence of the left and right hepatic ducts with the CHD with some lobular soft
tissue signal intensity, which measures up to 1.8 cm; GB is distended, no evidence of cholelithiasis
-Discussed imaging with Dr. Garvey, plan for ERCP tomorrow, NPO PMN
-started on empiric abx (zosyn); no signs of cholangitis
-Patient can have regular diet, NPO PMN for procedure
-DVT ppx
#Anemia
-Hgb 7.6 from 8.3; baseline around 9-10; last received chemo a few weeks ago
-no signs of GI bleeding
-check iron studies
-continue to monitor
Subjective
Subjective
Date of Service: September 18, 2024
Patient seen in follow-up. She is resting comfortable. She remains afebrile, hemodynamically stable.
Objective
Data Reviewed
Laboratory Data:
Laboratory Results
09/18/24 04:12
09/18/24 04:12
Laboratory Results
PT 14.1 Sec (11.4-14.6) 09/18/24 04:12
INR 1.06 09/18/24 04:12
Total Bilirubin 4.8 mg/dl (0.2-1.3) H 09/18/24 04:12
AST 99 U/L (14-36) H 09/18/24 04:12
ALT 152 U/L (0-35) H 09/18/24 04:12
Alkaline Phosphatase 1241 U/L (38-126) H 09/18/24 04:12
Lipase 48 U/L (23-300) 09/16/24 14:40
Vital Signs and I&O:
Vital Signs
Temp Pulse Resp BP Pulse Ox
97.9 F 58 14 117/63 100
09/18/24 07:45 09/18/24 07:45 09/18/24 07:45 09/18/24 07:45 09/18/24 07:45
I&O
09/17/24 09/18/24 09/19/24
06:59 06:59 06:59
Intake Total 1010 / 1010 530 / 530 50 / 50
Balance 1010 / 1010 530 / 530 50 / 50
Physical Exam
Physical Exam
HEENT: Other (Icteric)
GI: Soft and Non Tender
Neuro: Non Focal
[2024-09-18 14:51] VITALS: BP 108/68
[2024-09-18] MEDS: LOVENOX 30 MG SC (17:43)
[2024-09-18 23:00] VITALS: BP 118/72
[2024-09-19] MEDS: ZOSYN 50 IV ×4 (01:51→19:38)
[2024-09-19] MEDS: FLUSH (NSS) 2 FLUSH IV (01:52)
[2024-09-19 05:12] LABS: % Basophils 1.1 % (0-2); % Eosinophils 5.5 % (0-6); % Immature Granulocytes 0.4 % (0-0.5); % Lymphocytes 20.1 % (20.5-51.1); % Neutrophils 61.9 % (42.2-75.2); Absolute Basophils 0.1 10^3/uL (0-0.2); Absolute Eosinophils 0.3 10^3/uL (0-0.7); Absolute Lymphocytes 0.9 10^3/uL (1.2-3.4); Absolute Monocytes 0.5 10^3/uL (0.1-0.6); Absolute Neutrophils 2.8 10^3/uL (1.4-6.5); Hemoglobin 7.9 g/dL (12.0-16.0); Mean Corp Hgb Conc. 32.9 g/dL (33.0-37.0); Mean Corpuscular Hgb 33.5 pg (27.0-31.0); Mean Corpuscular Volume 101.7 fL (81.0-99.0); Mean Platelet Volume 11.1 fL (7.4-10.4); Nucleated Red Blood Cells % 0 %; Platelet Count 207 10^3/uL (130-400); Red Blood Cell Count 2.36 10^6/uL (4.20-5.40); White Blood Cell Count 4.5 10^3/uL (4.8-10.8)
[2024-09-19 05:20] LABS: ALT (SGPT) 130 U/L (0-35); AST (SGOT) 75 U/L (14-36); Albumin 3.2 g/dl (3.5-5.0); Blood Urea Nitrogen 26 mg/dl (7-17); Carbon Dioxide 22 mmol/L (22-30); Chloride 106 mmol/L (98-107); Estimated Creatinine Clearance 29 ml/min; Glucose 81 mg/dl (70-99); Iron 71 ug/dl (37-170); Potassium 4.5 mmol/L (3.5-5.1); Sodium 140 mmol/L (135-145); Total Bilirubin 3.2 mg/dl (0.2-1.3); Total Protein 6.1 g/dl (6.3-8.2); eGFR 42.88
--- NOTE | 2024-09-19 05:23 | W.PN.HOSP.TC ---
Today's Communication/Plan
-
diet as per GI
abx
pain control
Assessment / Plan
Assessment / Plan
Physical exam:
General: Chronically ill-appearing
HEENT: Normocephalic, Atraumatic and Moist Mucous Membranes. Jaundice present
Respiratory: Clear to Auscultation; Negative Wheezes, Rales or Rhonchi
Cardiac: Regular Rhythm and S1/S2
GI: Soft, Nontender and Nondistended
Musculoskeletal: Neck spasm and discomfort but much less. No Clubbing, No Cyanosis and No Edema
Neuro: Awake, Alert and Oriented, no gross neurological deficits
Psych: Calm
MRCP:
Moderate intrahepatic and mild extrahepatic bile duct dilatation with a common bile duct stent in place. MRCP findings suspicious for a stricture at the confluence of the left and right hepatic ducts with the common hepatic duct. A 1.8 cm focus of
soft tissue signal intensity at this location may be neoplastic, the evaluation of which is somewhat limited in the absence of intravenous contrast. Consider a follow-up ERCP and/or soft tissue sampling.
A/P:
Worsening obstructive jaundice present on admission.
Differential includes stent obstruction versus choledocholithiasis versus progression of underlying malignancy
At risk for ascending cholangitis and sepsis but no evidence of infection at the moment
-GI consult appreciated
- MRCP results reviewed as above.
- BCx--> no growth on blood cultures so far
-Urine cultures growing Klebsiella pneumonia sensitive to Zosyn
-Continue IV Zosyn
- Trend LFTs
-s/p ERCP 09/19/24 two stents replaced, clear liquid as per GI
Neck torticollis:
cont prn Skelaxin and local measures
Anemia:
Hemoglobin 8.3--> 7.6, hgb since trended up
Iron studies appreciated, likely anemia of chronic disease
Continue to monitor hemoglobin closely
HX Polymicrobial sepsis (September 2023) due to biliary source with HX biloma.
HX POS BCXs for Klebsiella oxytoca, Enterobacter cloacae.
- BCxs NGTD
HX Maculopapular rash -noted on lower abdomen and flanks. Rash began before zosyn per ID
HX tolerating to Zosyn and rash overall has improved while on Zosyn on last admission
- Zosyn and observe--> no adverse events so far
HX Hepatic biloma
10/06/23 MRI showed biloma in the right hepatic lobe measuring 1.9 x 1.2 x 1.7 cm. Stable diffuse intrahepatic biliary ductal dilation. Stable pancreatic tail mass and left periaortic mass with lymphadenopathy. Continue empiric Zosyn IV for now.
ERCP completed 10/08/23 showing malignant obstruction of biliary stent. Stent was exchanged successfully.
HX Pancreatic cancer with metastases to the liver, retroperitoneal lymph nodes.
Known to Dr. You.
Recent PET scan no suspicion for uptake
DVT Px: LMWH
Full code
Total time spent on today's encounter was 45 minutes which included time spent in counseling the patient/family regarding diagnosis and treatment plan as listed above, goals of care, and symptom management. Case was discussed with nursing staff,
specialists, and care coordinators/case management. All labs and imaging personally reviewed by me. Remainder the time spent in detailed review of previous records, lab data, imaging, and other medical provider documentation.
Anticipated Discharge: 24 - 48 hours
Subjective/Interval History
-
Date of Service: September 19, 2024
Seen and examined at bedside s/p ERCP. No acute distress sitting up comfortably in bed. Reports significant improvement in neck pain. Patient's Frank present during evaluation.
Objective Data
-
Labs:
Laboratory Results
09/19/24 09/19/24
04:31 04:32
WBC 4.5 L
Hgb 7.9 L
Hct 24.0 L
Plt Count 207
Sodium 140
Potassium 4.5
Chloride 106
Carbon Dioxide 22
BUN 26 H
Creatinine 1.3 H
Glucose 81
Calcium 8.0 L
Total Bilirubin 3.2 H
AST 75 H
ALT 130 H
Alkaline Phosphatase Pending
Vital Signs:
Vital Signs
Temp Pulse Resp BP Pulse Ox
97.9 F 62 14 118/72 97
09/18/24 23:00 09/18/24 23:00 09/18/24 23:00 09/18/24 23:00 09/18/24 23:00
I&O
09/17/24 09/18/24 09/19/24
06:59 06:59 06:59
Intake Total 1010 / 1010 530 / 530 200 / 200
Balance 1010 / 1010 530 / 530 200 / 200
[2024-09-19 05:30] LABS: Alkaline Phosphatase 1255 U/L (38-126); Percent Saturation 34 % (20-50); Total Iron Binding Capacity 208 ug/dl (265-497)
[2024-09-19 07:59] VITALS: BP 126/73
--- NOTE | 2024-09-19 12:04 | CM ---
Chart reviewed. Met pt at bedside
For ERCP today
CM will cont to follow for discharge needs
Plan - anticipate home no needs when medically ready
[2024-09-19 16:43] VITALS: BP 147/76
[2024-09-19 16:45] VITALS: BP 148/74
[2024-09-19 17:00] VITALS: BP 138/65
[2024-09-19 17:15] VITALS: BP 134/68
--- NOTE | 2024-09-19 17:36 | PTCARENOTE ---
Received patient from GI lab s/p ERCP. Patient AAOx3, no c/o pain, a mild sore throat. Patient tolerating clear PO liquids. Family at bedside. Call chandler in reach.
[2024-09-19] MEDS: LOVENOX 30 MG SC (17:53)
[2024-09-19 18:47] LABS: Hepatitis C Antibody Negative (Negative)
[2024-09-19] MEDS: FLUSH (NSS) 1 FLUSH IV (20:12)
[2024-09-19] MEDS: ROXICODONE 5 MG PO (20:16)
[2024-09-19 23:00] VITALS: BP 138/74
[2024-09-20] MEDS: ZOSYN 50 IV ×4 (02:14→19:55)
[2024-09-20] MEDS: FLUSH (NSS) 1 FLUSH IV (02:48)
[2024-09-20 05:08] LABS: Hematocrit 28.1 % (37.0-47.0); Hemoglobin 9.4 g/dL (12.0-16.0); Mean Corp Hgb Conc. 33.5 g/dL (33.0-37.0); Mean Corpuscular Hgb 33.7 pg (27.0-31.0); Mean Corpuscular Volume 100.7 fL (81.0-99.0); Mean Platelet Volume 10.4 fL (7.4-10.4); Platelet Count 252 10^3/uL (130-400); Red Blood Cell Count 2.79 10^6/uL (4.20-5.40); Red Cell Dist. Width 15.7 % (11.5-14.5); White Blood Cell Count 15.5 10^3/uL (4.8-10.8)
[2024-09-20 05:26] LABS: ALT (SGPT) 138 U/L (0-35); AST (SGOT) 104 U/L (14-36); Albumin 3.2 g/dl (3.5-5.0); Blood Urea Nitrogen 23 mg/dl (7-17); Calcium 7.8 mg/dl (8.4-10.2); Carbon Dioxide 20 mmol/L (22-30); Chloride 102 mmol/L (98-107); Estimated Creatinine Clearance 27 ml/min; Glucose 105 mg/dl (70-99); Magnesium 1.8 mg/dl (1.6-2.3); Phosphorus 4.7 mg/dl (2.5-4.5); Potassium 4.3 mmol/L (3.5-5.1); Sodium 135 mmol/L (135-145); Total Bilirubin 3.7 mg/dl (0.2-1.3); Total Protein 6.2 g/dl (6.3-8.2); eGFR 39.23
[2024-09-20 05:36] LABS: Alkaline Phosphatase 1488 U/L (38-126)
[2024-09-20 07:10] VITALS: BP 117/61
--- NOTE | 2024-09-20 07:54 | W.PN.HOSP.TC ---
Today's Communication/Plan
-
cont abx
diet as per GI
trial IVF
monitor LFTs renal function
Assessment / Plan
Assessment / Plan
Physical exam:
General: no acute distress appears comfortable at this time
HEENT: Normocephalic, Atraumatic and Moist Mucous Membranes. Jaundice present
Respiratory: Clear to Auscultation; Negative Wheezes, Rales or Rhonchi
Cardiac: Regular Rhythm and S1/S2
GI: Soft, Nontender and Nondistended
Musculoskeletal: No Clubbing, No Cyanosis and No Edema
Neuro: Awake, Alert and Oriented, no gross neurological deficits
Psych: Calm
MRCP:
Moderate intrahepatic and mild extrahepatic bile duct dilatation with a common bile duct stent in place. MRCP findings suspicious for a stricture at the confluence of the left and right hepatic ducts with the common hepatic duct. A 1.8 cm focus of
soft tissue signal intensity at this location may be neoplastic, the evaluation of which is somewhat limited in the absence of intravenous contrast. Consider a follow-up ERCP and/or soft tissue sampling.
A/P:
Worsening obstructive jaundice present on admission.
Differential includes stent obstruction versus choledocholithiasis versus progression of underlying malignancy
At risk for ascending cholangitis and sepsis but no evidence of infection at the moment
-GI consult appreciated
- MRCP results reviewed as above.
- BCx--> no growth on blood cultures so far
-Urine cultures growing Klebsiella pneumonia sensitive to Zosyn
-Continue IV Zosyn
- Trend LFTs
-s/p ERCP 09/19/24 two stents replaced, clear liquid advanced to low residue, tolerating
Neck torticollis:
cont prn Skelaxin and local measures
Anemia:
Hemoglobin 8.3--> 7.6, hgb since trended up
Iron studies appreciated, likely anemia of chronic disease
Continue to monitor hemoglobin closely
HX Polymicrobial sepsis (September 2023) due to biliary source with HX biloma.
HX POS BCXs for Klebsiella oxytoca, Enterobacter cloacae.
- BCxs NGTD
HX Maculopapular rash -noted on lower abdomen and flanks. Rash began before zosyn per ID
HX tolerating to Zosyn and rash overall has improved while on Zosyn on last admission
- Zosyn and observe--> no adverse events so far
HX Hepatic biloma
10/06/23 MRI showed biloma in the right hepatic lobe measuring 1.9 x 1.2 x 1.7 cm. Stable diffuse intrahepatic biliary ductal dilation. Stable pancreatic tail mass and left periaortic mass with lymphadenopathy. Continue empiric Zosyn IV for now.
ERCP completed 10/08/23 showing malignant obstruction of biliary stent. Stent was exchanged successfully.
HX Pancreatic cancer with metastases to the liver, retroperitoneal lymph nodes.
Known to Dr. You.
Recent PET scan no suspicion for uptake
Possible Mild TREMAINE vs CKD3
trial IVF
DVT Px: LMWH
Full code
Discussed with patient and patient's Frank
I spent a total of 40 minutes with the patient or on the floor. More than 50% of this time involved counseling and coordination of care.
Anticipated Discharge: Within 24 hours
Subjective/Interval History
-
Date of Service: September 20, 2024
No acute distress. Sitting up Comfortably in bed. Tolerating Low residue diet. Reports neck pain resolved. Denies new acute issues.
Objective Data
-
Labs:
Laboratory Results
09/20/24
04:49
WBC 15.5 H
Hgb 9.4 L
Hct 28.1 L
Plt Count 252 D
Sodium 135
Potassium 4.3
Chloride 102
Carbon Dioxide 20 L
BUN 23 H
Creatinine 1.4 H
Glucose 105 H
Calcium 7.8 L
Total Bilirubin 3.7 H
AST 104 H
ALT 138 H
Alkaline Phosphatase 1488 H
Vital Signs:
Vital Signs
Temp Pulse Resp BP Pulse Ox
99.2 F 79 18 138/74 98
09/19/24 23:00 09/19/24 23:00 09/19/24 23:00 09/19/24 23:00 09/19/24 23:00
I&O
09/19/24 09/20/24 09/21/24
06:59 06:59 06:59
Intake Total 440 / 440 390 / 390
Balance 440 / 440 390 / 390
[2024-09-20] MEDS: ANESTHETIC LOZENGE 1 LOZENGE PO ×4 (08:18→21:18)
--- NOTE | 2024-09-20 11:06 | W.PN.GI.CBS2 ---
Today's Communication / Plan
-
C/w abx. Mild increase in LFTs, hopeful d/c tomorrow when LFTs start downtrending
Assessment / Plan
-
74 y.o. female with metastatic pancreatic cancer s/p ERCP with b/l hilar stent placement admitted with obstructive jaundice.
#Obstructive Jaundice-2/2 stent obstruction and possibly a degree of choledocholithiasis s/p ERCP with Dr. Garvey on 09/19 with removal of stones and stent exchange
-MRCP with evidence of diffuse intrahepatic ductal dilatation, extrahepatic bile duct measures 9 mm and is mildly dilated; segment of bile duct narrowing at the confluence of the left and right hepatic ducts with the CHD with some lobular soft
tissue signal intensity, which measures up to 1.8 cm; GB is distended, no evidence of cholelithiasis
-LFTs slightly worse this morning and mild leukocytosis, Tmax 99.2, now 98.9,
-c/w abx while inpatient
-advanced to low residue diet
-recommend patient stay until LFTs improve, demonstrating adequate decomperssion (hopefully, tomorrow)
#Anemia-improved, no signs of active bleeding
-Hgb 7.6 from 8.3; baseline around 9-10; last received chemo a few weeks ago; improved to 9.4
-no signs of GI bleeding
-check iron studies
-continue to monitor
Subjective
Subjective
Date of Service: September 20, 2024
Patient seen in follow-up, feeling well this morning. s/p ERCP w/ spy yesterday with Dr. Garvey with replacement of plastic stents in right and left hepatic ducts; malignant-appearing biliary stricture was biopsied; choledocholithiasis found, removal
accomplished with balloon extraction
Impression: - Two visibly occluded stents from the biliary tree
were seen in the major papilla.
- Frond-like nodularity and increased vascular pattern
of the common hepatic duct, bifurcation of the right
and left hepatic ducts and left main hepatic duct
mucosa was found.
- A single severe biliary stricture was found in the
common hepatic duct. The stricture was malignant
appearing.
- A single severe biliary stricture was found in the
common hepatic duct and left main hepatic duct. The
stricture was malignant appearing.
- The left main hepatic duct and left intrahepatic
branches were moderately dilated.
- The right intrahepatic branches were mildly dilated.
- Choledocholithiasis was found. Complete removal was
accomplished by balloon extraction.
- Two stents were removed from the biliary tree.
- Biopsy was performed at the hepatic duct bifurcation.
- The biliary tree was swept.
- One plastic stent was placed into the left hepatic
duct.
- One plastic stent was placed into the right hepatic
duct.
Objective
Data Reviewed
Laboratory Data:
Laboratory Results
09/20/24 04:49
09/20/24 04:49
Laboratory Results
PT 14.1 Sec (11.4-14.6) 09/18/24 04:12
INR 1.06 09/18/24 04:12
Phosphorus 4.7 mg/dl (2.5-4.5) H 09/20/24 04:49
Magnesium 1.8 mg/dl (1.6-2.3) 09/20/24 04:49
Total Bilirubin 3.7 mg/dl (0.2-1.3) H 09/20/24 04:49
AST 104 U/L (14-36) H 09/20/24 04:49
ALT 138 U/L (0-35) H 09/20/24 04:49
Alkaline Phosphatase 1488 U/L (38-126) H 09/20/24 04:49
Lipase 48 U/L (23-300) 09/16/24 14:40
Vital Signs and I&O:
Vital Signs
Temp Pulse Resp BP Pulse Ox
98.9 F 75 14 117/61 98
09/20/24 07:10 09/20/24 07:10 09/20/24 07:10 09/20/24 07:10 09/20/24 07:10
I&O
09/19/24 09/20/24 09/21/24
06:59 06:59 06:59
Intake Total 440 / 440 390 / 390
Balance 440 / 440 390 / 390
Physical Exam
Physical Exam
HEENT: Other (Icteric)
GI: Soft and Non Tender
Neuro: Non Focal
[2024-09-20] MEDS: LR 1000 IV ×2 (11:59→23:23)
[2024-09-20 14:55] LABS: TSH Reflex To Free T4 2.13 uIU/ml (0.47-4.68)
[2024-09-20 15:25] VITALS: BP 110/59
[2024-09-20 15:30] LABS: Folate > 20.0 ng/ml (2.76-20); Vitamin B12 920 pg/ml (239-931)
--- NOTE | 2024-09-20 15:42 | CM ---
CM reviewed chart- anticipate dc tomorrow
Reviewed pt with nursing- independent throughout room
Bedside meeting
IMM verbally reviewed- copy provided to pt
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
Discharge Disposition- home, no needs anticipate
[2024-09-20] MEDS: LOVENOX 30 MG SC (17:13)
[2024-09-20 23:41] VITALS: BP 113/78
[2024-09-21] MEDS: ZOSYN 50 IV (02:10)
[2024-09-21 05:22] LABS: Hemoglobin 8.1 g/dL (12.0-16.0); Mean Corp Hgb Conc. 33.8 g/dL (33.0-37.0); Mean Corpuscular Hgb 34.2 pg (27.0-31.0); Mean Corpuscular Volume 101.3 fL (81.0-99.0); Mean Platelet Volume 10.9 fL (7.4-10.4); Platelet Count 194 10^3/uL (130-400); Red Blood Cell Count 2.37 10^6/uL (4.20-5.40); Red Cell Dist. Width 15.9 % (11.5-14.5); White Blood Cell Count 5.2 10^3/uL (4.8-10.8)
[2024-09-21 05:45] LABS: Albumin 3.1 g/dl (3.5-5.0)
[2024-09-21 05:46] LABS: ALT (SGPT) 105 U/L (0-35); AST (SGOT) 67 U/L (14-36); Alkaline Phosphatase > 1200 U/L (38-126); Blood Urea Nitrogen 28 mg/dl (7-17); Calcium 7.7 mg/dl (8.4-10.2); Carbon Dioxide 27 mmol/L (22-30); Chloride 105 mmol/L (98-107); Estimated Creatinine Clearance 29 ml/min; Glucose 95 mg/dl (70-99); Phosphorus 3.2 mg/dl (2.5-4.5); Potassium 4.5 mmol/L (3.5-5.1); Sodium 140 mmol/L (135-145); Total Bilirubin 2.2 mg/dl (0.2-1.3); Total Protein 5.8 g/dl (6.3-8.2); eGFR 42.88
[2024-09-21 07:45] VITALS: BP 120/68
[2024-09-21] MEDS: AUGMENTIN 500 MG/125 MG 1 TABLET PO (07:59)
[2024-09-21] MEDS: ANESTHETIC LOZENGE 1 LOZENGE PO (08:05)
--- NOTE | 2024-09-21 08:08 | W.PN.UPDATE ---
Update Note
Progress Note Update
LFTs improving. Patient tolerating a diet without issue. Okay to d/c today with oncology and GI follow-up as outpatient.
Sade will follow-up with Dr. Garvey in the office in 4 months- our office will reach out to her to schedule
Discussed with primary team. GI will sign off, please call with questions.
--- NOTE | 2024-09-21 08:17 | W.PN.HOSP.TC ---
Today's Communication/Plan
-
discharge
Assessment / Plan
Assessment / Plan
Physical exam:
General: no acute distress appears comfortable at this time
HEENT: Normocephalic, Atraumatic and Moist Mucous Membranes. Jaundice present though appears to be fading
Respiratory: Clear to Auscultation; Negative Wheezes, Rales or Rhonchi
Cardiac: Regular Rhythm and S1/S2
GI: Soft, Nontender and Nondistended
Musculoskeletal: No Clubbing, No Cyanosis and No Edema
Neuro: Awake, Alert and Oriented, no gross neurological deficits
Psych: Calm
MRCP:
Moderate intrahepatic and mild extrahepatic bile duct dilatation with a common bile duct stent in place. MRCP findings suspicious for a stricture at the confluence of the left and right hepatic ducts with the common hepatic duct. A 1.8 cm focus of
soft tissue signal intensity at this location may be neoplastic, the evaluation of which is somewhat limited in the absence of intravenous contrast. Consider a follow-up ERCP and/or soft tissue sampling.
A/P:
Worsening obstructive jaundice present on admission.
Differential includes stent obstruction versus choledocholithiasis versus progression of underlying malignancy
At risk for ascending cholangitis and sepsis but no evidence of infection at the moment
-GI consult appreciated
- MRCP results reviewed as above.
- BCx--> no growth on blood cultures so far
-Urine cultures growing Klebsiella pneumonia sensitive to Zosyn
-Continue IV Zosyn converted to Augmentin for 3 more days treatment UTI
-LFTs trended down
-s/p ERCP 09/19/24 two stents replaced, clear liquid advanced to low residue, tolerating
Neck torticollis:
cont prn Skelaxin and local measures
Anemia:
H&H stable
Iron studies appreciated, likely anemia of chronic disease
repeat CBC with primary care provider recommended
HX Polymicrobial sepsis (September 2023) due to biliary source with HX biloma.
HX POS BCXs for Klebsiella oxytoca, Enterobacter cloacae.
- BCxs NGTD
HX Maculopapular rash -noted on lower abdomen and flanks. Rash began before zosyn per ID
HX tolerating to Zosyn and rash overall has improved while on Zosyn on last admission
HX Hepatic biloma
10/06/23 MRI showed biloma in the right hepatic lobe measuring 1.9 x 1.2 x 1.7 cm. Stable diffuse intrahepatic biliary ductal dilation. Stable pancreatic tail mass and left periaortic mass with lymphadenopathy. Continue empiric Zosyn IV for now.
ERCP completed 10/08/23 showing malignant obstruction of biliary stent. Stent was exchanged successfully.
HX Pancreatic cancer with metastases to the liver, retroperitoneal lymph nodes.
Known to Dr. You.
Recent PET scan no suspicion for uptake
Possible Mild TREMAINE vs CKD3
trial IVF
outpt repeat CMP with primary care provider recommended
DVT Px: LMWH
Full code
Discussed with patient and patient's Frank
Total Time Preparing Discharge ___40___ minutes including examination of the patient, summary of the hospital stay, instructions for continuing care to all relevant caregivers; and preparation of discharge records, prescriptions, and referral forms
if necessary.
Anticipated Discharge: Today
Subjective/Interval History
-
Date of Service: September 21, 2024
Seen and examined at bedside in no acute distress sitting up comfortably in bed. Reports overall feeling well. Tolerating diet. Denies new acute issues at this time. Eager to go home.
Objective Data
-
Labs:
Laboratory Results
09/21/24
04:42
WBC 5.2
Hgb 8.1 L
Hct 24.0 L
Plt Count 194 D
Sodium 140
Potassium 4.5
Chloride 105
Carbon Dioxide 27
BUN 28 H
Creatinine 1.3 H
Glucose 95
Calcium 7.7 L
Total Bilirubin 2.2 H
AST 67 H
ALT 105 H
Alkaline Phosphatase > 1200 H
Vital Signs:
Vital Signs
Temp Pulse Resp BP Pulse Ox
98.1 F 64 16 113/78 98
09/20/24 23:41 09/20/24 23:41 09/20/24 23:41 09/20/24 23:41 09/20/24 23:41
I&O
09/20/24 09/21/24 09/22/24
06:59 06:59 06:59
Intake Total 390 / 390
Balance 390 / 390
--- NOTE | 2024-09-21 08:42 | W.DCSUMMARY ---
Discharge Summary
Discharge Data
Date of Admission: 09/16/24
Date of Discharge: 09/21/24
-
Pending Results: Yes
Additional Pending Results:
Pathology Results to be followed with Oncology and/or GI
Discharge Plan
-
Patient Disposition: Home (Routine Discharge)
Discharge Diagnosis/Procedures: Obstructive Jaundice due to underlying malignancy status post ERCP with stents placed
Transaminitis secondary to obstruction as above
Neck torticollis
Anemia of Chronic Disease
Possible Urinary Tract Infection
Possible Mild acute kidney injury vs chronic kidney disease stage III
Condition: Fair
Diet: Low Residue
Additional Diets: Ok to advance as tolerated
Activity: As tolerated
Driving Restrictions: As prior to admission
Bathing Restrictions: None
Blood Work: Please repeat CBC and CMP with primary care provider or Oncology in 1 week of discharge
Activity Restrictions/Additional Instructions:
Please follow up with your primary care provider in 1 week of discharge, continue follow up with oncology, and follow up with GI in 4 months.
Augmentin has been prescribed for possible urinary tract infection. Take for 3 days then stop.
Oxycodone has been prescribed as needed for moderate to severe pain.
Please take medications as prescribed/recommended and follow up with primary care provider and/or other healthcare provider involved in your care for refills and/or further adjustment to your medication regimen as necessary.
Referrals:
Nelson Garvey MD [Active] - (Follow up in 4 months)
Sabrina Gómez MD [Family Provider] - in one week
Prescriptions:
New
amoxicillin-pot clavulanate 500-125 mg Tablet
1 tab PO Q12 3 Days Qty: 6 0RF
Chloraseptic Sore Throat 6-10 mg Lozenge
1 dahlia PO Q8HPRN PRN (Reason: sore throat) Qty: 15 0RF
Continued
Prolia 60 mg/mL Syringe
60 mg SC [id number]
lidocaine-prilocaine 2.5-2.5 % cream
1 applic topical DAILYPRN PRN (Reason: prior to port access)
vitamin B complex Tablet Extended Release
1 tab PO DAILY
diphenoxylate-atropine 2.5-0.025 mg tablet
2 tab PO DAILY
Patient Comments:
09/16/2024: last filled 08/27/24, 60 tabs for 8 days from [id number]
therapeutic multivitamin Tablet
1 tab PO DAILY
calcium carbonate 500 mg calcium (1,250 mg) Tablet
500 mg PO DAILY
oxycodone 5 mg Tablet
5 mg PO BIDPRN PRN (Reason: moderate severe pain) Qty: 10 0RF
Patient Comments:
09/16/2024: last filled 01/04/24, 120 tabs for 20 days from [facility]
Discharge Orders:
Discharge Patient (As Directed); Ordered 09/21/24
Ordered By: Darrion Hernanedz
Discharge Date and Time
Print Language: [place] CITIZEN
--- NOTE | 2024-09-21 09:15 | CM ---
CM reviewed chart- dc order noted
No dc needs identified
IMM completed day prior
Discharge Disposition- home no needs
== END 2024-09-21 09:20 | disposition home or self-care (01) | DRG 435 ==
LOC: 3 WEST ACU 17:29
PROVIDERS: Emergency Medicine; Hospitalist; Internal Medicine Gastroenterology; Student in an Organized Health Care Education/Training Program; ADMITTING PHYSICIAN Internal Medicine; ATTENDING PHYSICIAN Internal Medicine; CONSULT PHYSICIAN Internal Medicine; EMERGENCY PHYSICIAN Emergency Medicine; FAMILY PHYSICIAN Family Medicine
PROC: 0F778DZ Dilation of Common Hepatic Duct with Intraluminal Device, Via Natural or Artificial Opening Endoscopic (ICD-10-PCS; 2024-09-19)
PROC: 0FPD8DZ Removal of Intraluminal Device from Pancreatic Duct, Via Natural or Artificial Opening Endoscopic (ICD-10-PCS; 2024-09-19)
DX: C25.2 Malignant neoplasm of tail of pancreas (principal); K83.1 Obstruction of bile duct; C77.2 Secondary and unspecified malignant neoplasm of intra-abdominal lymph nodes; C78.7 Secondary malignant neoplasm of liver and intrahepatic bile duct; T85.590A Other mechanical complication of bile duct prosthesis, initial encounter; Y73.2 Prosthetic and other implants, materials and accessory gastroenterology and urology devices associated with adverse incidents; Z46.59 Encounter for fitting and adjustment of other gastrointestinal appliance and device
CPT/HCPCS: 88305; 74181; 74330; 76000; 76700; 80053; 81003; 81015; 82607; 82728; 82746; 83540; 83550; 83690; 83735; 84100; 84443; 85025; 85027; 85610; 86803; 87040; 87077; 87086; 87186; 88342; 93005; 96361; 96365; 99285; C1769; C2625

== ENCOUNTER → 2024-09-26 14:09 | Outpatient (REF) | payer MEDICARE, OTHER, SELFPAY ==
[2024-09-26 16:43] LABS: % Eosinophils 4.3 % (0-6); % Immature Granulocytes 0.4 % (0-0.5); % Lymphocytes 21.3 % (20.5-51.1); Absolute Basophils 0.1 10^3/uL (0-0.2); Absolute Eosinophils 0.3 10^3/uL (0-0.7); Absolute Lymphocytes 1.6 10^3/uL (1.2-3.4); Absolute Monocytes 0.7 10^3/uL (0.1-0.6); Absolute Neutrophils 4.7 10^3/uL (1.4-6.5); Hematocrit 29.4 % (37.0-47.0); Hemoglobin 9.1 g/dL (12.0-16.0); Mean Corpuscular Volume 109.7 fL (81.0-99.0); Mean Platelet Volume 10.3 fL (7.4-10.4); Nucleated Red Blood Cells % 0 %; Platelet Count 305 10^3/uL (130-400); Red Blood Cell Count 2.68 10^6/uL (4.20-5.40); Red Cell Dist. Width 15.3 % (11.5-14.5); White Blood Cell Count 7.3 10^3/uL (4.8-10.8)
[2024-09-26 17:09] LABS: ALT (SGPT) 77 U/L (0-35); AST (SGOT) 43 U/L (14-36); Albumin 4.4 g/dl (3.5-5.0); Alkaline Phosphatase 1005 U/L (38-126); Blood Urea Nitrogen 39 mg/dl (7-17); Calcium 8.9 mg/dl (8.4-10.2); Carbon Dioxide 22 mmol/L (22-30); Chloride 100 mmol/L (98-107); Glucose 108 mg/dl (70-99); Potassium 4.7 mmol/L (3.5-5.1); Sodium 138 mmol/L (135-145); Total Bilirubin 1.1 mg/dl (0.2-1.3); Total Protein 7.5 g/dl (6.3-8.2); eGFR 39.23
== END ==
LOC: REG 14:09
PROVIDERS: ATTENDING PHYSICIAN Internal Medicine Gastroenterology; FAMILY PHYSICIAN Family Medicine; OTHER PHYSICIAN Internal Medicine Hospice and Palliative Medicine; REFERRING PHYSICIAN Internal Medicine Hematology & Oncology
DX: R79.89 Other specified abnormal findings of blood chemistry (principal); N18.32 Chronic kidney disease, stage 3b; C25.9 Malignant neoplasm of pancreas, unspecified; D64.9 Anemia, unspecified
CPT/HCPCS: 36415; 80053; 85025

== ENCOUNTER → 2024-10-03 13:47 | Outpatient (REF) | payer MEDICARE, OTHER, SELFPAY ==
[2024-10-03 15:22] LABS: % Basophils 1.1 % (0-2); % Eosinophils 4.9 % (0-6); % Immature Granulocytes 0.5 % (0-0.5); % Lymphocytes 21.4 % (20.5-51.1); % Monocytes 8.4 % (1.7-9.3); % Neutrophils 63.7 % (42.2-75.2); Absolute Basophils 0.1 10^3/uL (0-0.2); Absolute Eosinophils 0.3 10^3/uL (0-0.7); Absolute Lymphocytes 1.2 10^3/uL (1.2-3.4); Absolute Monocytes 0.5 10^3/uL (0.1-0.6); Absolute Neutrophils 3.6 10^3/uL (1.4-6.5); Hematocrit 28.7 % (37.0-47.0); Hemoglobin 9.2 g/dL (12.0-16.0); Mean Corp Hgb Conc. 32.1 g/dL (33.0-37.0); Mean Corpuscular Hgb 34.5 pg (27.0-31.0); Mean Corpuscular Volume 107.5 fL (81.0-99.0); Mean Platelet Volume 10.6 fL (7.4-10.4); Nucleated Red Blood Cells % 0 %; Platelet Count 266 10^3/uL (130-400); Red Blood Cell Count 2.67 10^6/uL (4.20-5.40); Red Cell Dist. Width 14.9 % (11.5-14.5); White Blood Cell Count 5.7 10^3/uL (4.8-10.8)
[2024-10-03 15:46] LABS: ALT (SGPT) 75 U/L (0-35); AST (SGOT) 55 U/L (14-36); Albumin 4.5 g/dl (3.5-5.0); Alkaline Phosphatase 627 U/L (38-126); Blood Urea Nitrogen 38 mg/dl (7-17); Calcium 8.9 mg/dl (8.4-10.2); Carbon Dioxide 23 mmol/L (22-30); Chloride 100 mmol/L (98-107); Glucose 128 mg/dl (70-99); Potassium 4.6 mmol/L (3.5-5.1); Sodium 138 mmol/L (135-145); Total Protein 7.6 g/dl (6.3-8.2); eGFR 36.12
[2024-10-05 16:53] LABS: CA 19-9 252 U/mL (<=35)
== END ==
LOC: REG 13:47
PROVIDERS: ATTENDING PHYSICIAN Internal Medicine Hematology & Oncology; FAMILY PHYSICIAN Family Medicine
DX: R79.89 Other specified abnormal findings of blood chemistry (principal); N18.32 Chronic kidney disease, stage 3b; C25.9 Malignant neoplasm of pancreas, unspecified; D64.9 Anemia, unspecified
CPT/HCPCS: 36415; 80053; 85025; 86301

== ENCOUNTER → 2024-10-11 13:28 | Outpatient (REF) | payer MEDICARE, OTHER, SELFPAY ==
[2024-10-11 14:41] LABS: ALT (SGPT) 100 U/L (0-35); AST (SGOT) 71 U/L (14-36); Albumin 4.3 g/dl (3.5-5.0); Alkaline Phosphatase 632 U/L (38-126); Blood Urea Nitrogen 26 mg/dl (7-17); Calcium 8.5 mg/dl (8.4-10.2); Carbon Dioxide 28 mmol/L (22-30); Chloride 100 mmol/L (98-107); Glucose 132 mg/dl (70-99); Hematocrit 29.3 % (37.0-47.0); Hemoglobin 9.5 g/dL (12.0-16.0); Mean Corp Hgb Conc. 32.4 g/dL (33.0-37.0); Mean Corpuscular Hgb 34.4 pg (27.0-31.0); Mean Corpuscular Volume 106.2 fL (81.0-99.0); Mean Platelet Volume 9.6 fL (7.4-10.4); Platelet Count 157 10^3/uL (130-400); Red Blood Cell Count 2.76 10^6/uL (4.20-5.40); Red Cell Dist. Width 14.1 % (11.5-14.5); Sodium 138 mmol/L (135-145); Total Bilirubin 0.7 mg/dl (0.2-1.3); Total Protein 7.1 g/dl (6.3-8.2); White Blood Cell Count 19.1 10^3/uL (4.8-10.8); eGFR 33.42
[2024-10-11 14:49] LABS: Potassium 4.1 mmol/L (3.5-5.1)
[2024-10-11 15:27] LABS: % Basophils 0.2 % (0-2); % Immature Granulocytes 1.8 % (0-0.5); % Lymphocytes 7.5 % (20.5-51.1); % Monocytes 7.1 % (1.7-9.3); % Neutrophils 81.4 % (42.2-75.2); Absolute Eosinophils 0.4 10^3/uL (0-0.7); Absolute Immature Granulocytes 0.4 10^3/uL (0-0.05); Absolute Lymphocytes 1.4 10^3/uL (1.2-3.4); Absolute Monocytes 1.4 10^3/uL (0.1-0.6); Absolute Neutrophils 15.5 10^3/uL (1.4-6.5); Nucleated Red Blood Cells % 0.3 %
[2024-10-14 09:08] LABS: CA 19-9 249 U/mL (<=35)
== END ==
LOC: REG 13:28
PROVIDERS: ATTENDING PHYSICIAN Internal Medicine Hematology & Oncology; FAMILY PHYSICIAN Family Medicine; OTHER PHYSICIAN Internal Medicine Hospice and Palliative Medicine
DX: C78.7 Secondary malignant neoplasm of liver and intrahepatic bile duct (principal); C25.2 Malignant neoplasm of tail of pancreas; D64.81 Anemia due to antineoplastic chemotherapy; E87.6 Hypokalemia; D50.9 Iron deficiency anemia, unspecified
CPT/HCPCS: 36415; 80053; 85025; 86301

== ENCOUNTER → 2024-10-17 14:12 | Outpatient (REF) | payer MEDICARE, OTHER, SELFPAY ==
[2024-10-17 15:15] LABS: Hematocrit 33.5 % (37.0-47.0); Hemoglobin 10.4 g/dL (12.0-16.0); Mean Corpuscular Hgb 33.7 pg (27.0-31.0); Mean Corpuscular Volume 108.4 fL (81.0-99.0); Mean Platelet Volume 10.1 fL (7.4-10.4); Platelet Count 153 10^3/uL (130-400); Red Blood Cell Count 3.09 10^6/uL (4.20-5.40); Red Cell Dist. Width 16.3 % (11.5-14.5)
[2024-10-17 15:38] LABS: % Basophils 0.8 % (0-2); % Eosinophils 1.6 % (0-6); % Immature Granulocytes 3.6 % (0-0.5); % Lymphocytes 7.5 % (20.5-51.1); % Neutrophils 81.5 % (42.2-75.2); Absolute Basophils 0.2 10^3/uL (0-0.2); Absolute Eosinophils 0.4 10^3/uL (0-0.7); Absolute Immature Granulocytes 0.8 10^3/uL (0-0.05); Absolute Lymphocytes 1.7 10^3/uL (1.2-3.4); Absolute Monocytes 1.1 10^3/uL (0.1-0.6); Absolute Neutrophils 17.9 10^3/uL (1.4-6.5); Nucleated Red Blood Cells % 0 %
[2024-10-17 15:42] LABS: ALT (SGPT) 70 U/L (0-35); AST (SGOT) 44 U/L (14-36); Albumin 4.4 g/dl (3.5-5.0); Alkaline Phosphatase 548 U/L (38-126); Blood Urea Nitrogen 32 mg/dl (7-17); Calcium 9.3 mg/dl (8.4-10.2); Carbon Dioxide 29 mmol/L (22-30); Chloride 97 mmol/L (98-107); Glucose 74 mg/dl (70-99); Potassium 4.4 mmol/L (3.5-5.1); Sodium 135 mmol/L (135-145); Total Bilirubin 0.6 mg/dl (0.2-1.3); Total Protein 7.3 g/dl (6.3-8.2); eGFR 42.88
[2024-10-20 01:24] LABS: CA 19-9 275 U/mL (<=35)
== END ==
LOC: REG 14:12
PROVIDERS: ATTENDING PHYSICIAN Internal Medicine Hematology & Oncology; FAMILY PHYSICIAN Family Medicine; OTHER PHYSICIAN Internal Medicine Hospice and Palliative Medicine
DX: C78.7 Secondary malignant neoplasm of liver and intrahepatic bile duct (principal); C25.2 Malignant neoplasm of tail of pancreas; D64.81 Anemia due to antineoplastic chemotherapy; E87.6 Hypokalemia; D50.9 Iron deficiency anemia, unspecified
CPT/HCPCS: 36415; 80053; 85025; 86301

== ENCOUNTER → 2024-10-24 13:17 | Outpatient (REF) | payer MEDICARE, OTHER, SELFPAY ==
[2024-10-24 14:15] LABS: % Basophils 0.3 % (0-2); % Eosinophils 0.9 % (0-6); % Immature Granulocytes 0.6 % (0-0.5); % Lymphocytes 7.7 % (20.5-51.1); % Monocytes 5.3 % (1.7-9.3); % Neutrophils 85.2 % (42.2-75.2); Absolute Eosinophils 0.1 10^3/uL (0-0.7); Absolute Immature Granulocytes 0.1 10^3/uL (0-0.05); Absolute Lymphocytes 1.1 10^3/uL (1.2-3.4); Absolute Monocytes 0.8 10^3/uL (0.1-0.6); Absolute Neutrophils 12.4 10^3/uL (1.4-6.5); Hematocrit 33.9 % (37.0-47.0); Hemoglobin 10.8 g/dL (12.0-16.0); Mean Corp Hgb Conc. 31.9 g/dL (33.0-37.0); Mean Corpuscular Hgb 34.3 pg (27.0-31.0); Mean Corpuscular Volume 107.6 fL (81.0-99.0); Mean Platelet Volume 10.1 fL (7.4-10.4); Nucleated Red Blood Cells % 0 %; Platelet Count 210 10^3/uL (130-400); Red Blood Cell Count 3.15 10^6/uL (4.20-5.40); Red Cell Dist. Width 15.3 % (11.5-14.5); White Blood Cell Count 14.5 10^3/uL (4.8-10.8)
[2024-10-24 14:34] LABS: ALT (SGPT) 60 U/L (0-35); AST (SGOT) 45 U/L (14-36); Albumin 4.2 g/dl (3.5-5.0); Alkaline Phosphatase 466 U/L (38-126); Blood Urea Nitrogen 35 mg/dl (7-17); Carbon Dioxide 27 mmol/L (22-30); Chloride 103 mmol/L (98-107); Glucose 124 mg/dl (70-99); Potassium 4.5 mmol/L (3.5-5.1); Sodium 139 mmol/L (135-145); Total Bilirubin 0.5 mg/dl (0.2-1.3); Total Protein 7.1 g/dl (6.3-8.2); eGFR 42.88
[2024-10-27 04:12] LABS: CA 19-9 318 U/mL (<=35)
== END ==
LOC: REG 13:17
PROVIDERS: ATTENDING PHYSICIAN Internal Medicine Hematology & Oncology; FAMILY PHYSICIAN Family Medicine; OTHER PHYSICIAN Internal Medicine Hospice and Palliative Medicine
DX: C78.7 Secondary malignant neoplasm of liver and intrahepatic bile duct (principal); C25.2 Malignant neoplasm of tail of pancreas; D64.81 Anemia due to antineoplastic chemotherapy; E87.6 Hypokalemia; D50.9 Iron deficiency anemia, unspecified
CPT/HCPCS: 36415; 80053; 85025; 86301

== ENCOUNTER → 2024-11-07 14:56 | Outpatient (REF) | payer MEDICARE, OTHER, SELFPAY ==
[2024-11-07 15:50] LABS: ALT (SGPT) 56 U/L (0-35); AST (SGOT) 39 U/L (14-36); Albumin 4.2 g/dl (3.5-5.0); Alkaline Phosphatase 447 U/L (38-126); Blood Urea Nitrogen 28 mg/dl (7-17); Calcium 9.2 mg/dl (8.4-10.2); Carbon Dioxide 22 mmol/L (22-30); Chloride 101 mmol/L (98-107); Glucose 81 mg/dl (70-99); Potassium 4.3 mmol/L (3.5-5.1); Sodium 133 mmol/L (135-145); Total Bilirubin 0.3 mg/dl (0.2-1.3); Total Protein 6.9 g/dl (6.3-8.2); eGFR 47.21
[2024-11-07 17:03] LABS: % Basophils 0.4 % (0-2); % Eosinophils 1.4 % (0-6); % Immature Granulocytes 5.2 % (0-0.5); % Lymphocytes 8.2 % (20.5-51.1); % Neutrophils 79.8 % (42.2-75.2); Absolute Basophils 0.1 10^3/uL (0-0.2); Absolute Eosinophils 0.3 10^3/uL (0-0.7); Absolute Immature Granulocytes 1.2 10^3/uL (0-0.05); Absolute Monocytes 1.2 10^3/uL (0.1-0.6); Absolute Neutrophils 18.9 10^3/uL (1.4-6.5); Hematocrit 21.1 % (37.0-47.0); Hemoglobin 6.5 g/dL (12.0-16.0); Mean Corp Hgb Conc. 30.8 g/dL (33.0-37.0); Mean Corpuscular Hgb 33.9 pg (27.0-31.0); Mean Corpuscular Volume 109.9 fL (81.0-99.0); Mean Platelet Volume 10.1 fL (7.4-10.4); Nucleated Red Blood Cells % 0.1 %; Platelet Count 261 10^3/uL (130-400); Red Blood Cell Count 1.92 10^6/uL (4.20-5.40); Red Cell Dist. Width 16.8 % (11.5-14.5); White Blood Cell Count 23.7 10^3/uL (4.8-10.8)
[2024-11-09 19:29] LABS: CA 19-9 319 U/mL (<=35)
== END ==
LOC: REG 14:56
PROVIDERS: ATTENDING PHYSICIAN Internal Medicine Hematology & Oncology; FAMILY PHYSICIAN Family Medicine; REFERRING PHYSICIAN Internal Medicine Hospice and Palliative Medicine
DX: C78.7 Secondary malignant neoplasm of liver and intrahepatic bile duct (principal); C25.2 Malignant neoplasm of tail of pancreas; D64.81 Anemia due to antineoplastic chemotherapy; E87.6 Hypokalemia; D50.9 Iron deficiency anemia, unspecified
CPT/HCPCS: 36415; 80053; 85025; 86301

== ENCOUNTER 2024-11-08 09:10 | Emergency (ER) | payer MEDICARE, OTHER, SELFPAY ==
[2024-11-08] VITALS (9 sets, daily range): BP systolic 114–138; BP diastolic 58–79; BMI 18.3
[2024-11-08 09:50] LABS: ALT (SGPT) 47 U/L (0-35); AST (SGOT) 33 U/L (14-36); Albumin 3.9 g/dl (3.5-5.0); Alkaline Phosphatase 419 U/L (38-126); Blood Urea Nitrogen 25 mg/dl (7-17); Carbon Dioxide 23 mmol/L (22-30); Chloride 104 mmol/L (98-107); Glucose 110 mg/dl (70-99); Potassium 4.3 mmol/L (3.5-5.1); Sodium 135 mmol/L (135-145); Total Bilirubin 0.3 mg/dl (0.2-1.3); Total Protein 6.4 g/dl (6.3-8.2); eGFR 47.21
[2024-11-08 09:59] LABS: % Basophils 0.5 % (0-2); % Eosinophils 1.6 % (0-6); % Immature Granulocytes 4.9 % (0-0.5); % Lymphocytes 8.2 % (20.5-51.1); % Monocytes 5.3 % (1.7-9.3); % Neutrophils 79.5 % (42.2-75.2); Absolute Basophils 0.1 10^3/uL (0-0.2); Absolute Eosinophils 0.3 10^3/uL (0-0.7); Absolute Immature Granulocytes 0.8 10^3/uL (0-0.05); Absolute Lymphocytes 1.3 10^3/uL (1.2-3.4); Absolute Monocytes 0.9 10^3/uL (0.1-0.6); Absolute Neutrophils 12.6 10^3/uL (1.4-6.5); Hemoglobin 6.5 g/dL (12.0-16.0); Mean Corp Hgb Conc. 32.5 g/dL (33.0-37.0); Mean Corpuscular Hgb 35.3 pg (27.0-31.0); Mean Corpuscular Volume 108.7 fL (81.0-99.0); Mean Platelet Volume 9.8 fL (7.4-10.4); Nucleated Red Blood Cells % 0 %; Platelet Count 241 10^3/uL (130-400); Red Blood Cell Count 1.84 10^6/uL (4.20-5.40); Red Cell Dist. Width 16.6 % (11.5-14.5); White Blood Cell Count 15.9 10^3/uL (4.8-10.8)
--- NOTE | 2024-11-08 11:11 | ED.GENMED ---
History of Present Illness
<Ailyn Wiggins PA-C - Last Filed: 11/08/24 18:32>
General
Chief Complaint: Abnormal Lab Value
Source: patient
Exam Limitations: none
Time Seen by Provider: 11/08/24 11:08
Nursing documentation reviewed up to this point in time: agreed with
History of Present Illness
History of Present Illness:
74-year-old female with a past medical history of pancreatic cancer with metastasis to the liver presents to the emergency department today with concerns of hemoglobin is 6.5. Patient reports that she was getting routine blood work when she
received a call that she will need a transfusion. Her oncologist is Dr. [facility]. Patient states that they are trying to find an outpatient center to get the transfusion however they did not find a transfusion center that was open
for the holiday. So she was told to go to the ER. Patient does note that she has been feeling weaker and has had intermittent dizziness and mild shortness of breath with exertion the past 2 weeks but denies any new symptoms. Patient has had 22
rounds of chemo at this point and her last chemoinfusion was 2 weeks ago. Patient denies any blood in her stools, any dark tarry stools. Patient denies any abdominal pain.
Past History
<Ailyn Wiggins PA-C - Last Filed: 11/08/24 18:32>
Past History
ED Past Medical History: Cancer (Pancreatic, Liver, Spleen, stomach) and Other
ED Past Surgical History: Gynecological (Tubal, ), Orthopedic (elbow Fracture, ) and Other (Breast Implants, Liver stents)
Social History
Tobacco: Non-smoker
Alcohol: None
Personal:
Living: with family
Review of Systems
<Ailyn Wiggins PA-C - Last Filed: 11/08/24 18:32>
Review of Systems
All Other Systems: ROS reviewed and negative except as documented in HPI and ROS
Phy Exam
<Ailyn Wiggins PA-C - Last Filed: 11/08/24 18:32>
Physical Exam
Physical Exam:
General: Patient is well appearing and in no acute distress; non-toxic
Skin: Warm and dry, no rashes or lesions
Head: Normocephalic, atraumatic
Eyes: Sclera non-icteric. EOMs intact.
Cardiac: Regular rate and rhythm, no murmurs
Peripheral Vascular: No lower extremity swelling or edema
Pulm: Normal respiratory effort, no wheezes, rales, or rhonchi
Abdomen: No abdominal tenderness
Genitourinary: Brown heme negative stool
Neuro: CN II-XII intact, no focal neurologic deficits.
Psychiatric: Appropriate mood and affect.
Course
<HUMBERTO Anaya Last Filed: 11/08/24 18:32>
Orders/Labs/Results
Orders:
Orders
11/08/24 09:31
Type And Crossmatch [Type+Screen] Urgent
Complete Blood Count/With Diff Urgent
Comprehensive Metabolic Panel Urgent
11/08/24 11:14
ABO2 Urgent
BBK Wristband Number:
Associate notified that ABO2 has been ordered: ATIFF-ER
Date: 11/08/24
Time: 09:39
Tandem Operator ID: [id number]
11/08/24 11:36
Blood Bank Products [* Blood Bank Products] Urgent
Blood Bank Products: *Packed RBC Leuko(PRBC's)
Quantity: 2
Transfuse Today: Yes
Reason: Anemia
Abnormal Lab Results
11/08/24
09:31
WBC 15.9 H 10^3/uL
(4.8-10.8)
RBC 1.84 L 10^6/uL
(4.20-5.40)
Hgb 6.5 L* g/dL
(12.0-16.0)
Hct 20.0 L* %
(37.0-47.0)
MCV 108.7 H fL
(81.0-99.0)
MCH 35.3 H pg
(27.0-31.0)
MCHC 32.5 L g/dL
(33.0-37.0)
RDW 16.6 H %
(11.5-14.5)
Abs Immat Gran (auto) 0.8 H 10^3/uL
(0-0.05)
Absolute Neuts (auto) 12.6 H 10^3/uL
(1.4-6.5)
Absolute Monos (auto) 0.9 H 10^3/uL
(0.1-0.6)
Immature Gran % 4.9 H %
(0-0.5)
Neutrophils % 79.5 H %
(42.2-75.2)
Lymphocytes % 8.2 L %
(20.5-51.1)
BUN 25 H mg/dl
(7-17)
Creatinine 1.2 H mg/dL
(0.6-1.0)
Glucose 110 H mg/dl
(70-99)
ALT 47 H U/L
(0-35)
Alkaline Phosphatase 419 H U/L
(38-126)
Crossmatch IS Only See Detail
11/08/24 09:31
11/08/24 09:31
Vital Signs
Initial and Last Documented VS:
Initial Vital Signs
Temp Pulse Resp BP Pulse Ox
98.0 F 74 16 118/64 100
11/08/24 09:14 11/08/24 09:14 11/08/24 09:14 11/08/24 09:14 11/08/24 09:14
Last Documented Vital Signs
Temp Pulse Resp BP Pulse Ox
98.2 F 77 18 138/79 99
11/08/24 17:25 11/08/24 17:25 11/08/24 17:25 11/08/24 17:25 11/08/24 15:37
<Clayton Hollingsworth, DO - Last Filed: 11/08/24 13:42>
Orders/Labs/Results
Orders:
Orders
11/08/24 09:31
Type And Crossmatch [Type+Screen] Urgent
Complete Blood Count/With Diff Urgent
Comprehensive Metabolic Panel Urgent
11/08/24 11:14
ABO2 Urgent
BBK Wristband Number:
Associate notified that ABO2 has been ordered: ATIFF-ER
Date: 11/08/24
Time: 09:39
Tandem Operator ID: [id number]
11/08/24 11:36
Blood Bank Products [* Blood Bank Products] Urgent
Blood Bank Products: *Packed RBC Leuko(PRBC's)
Quantity: 2
Transfuse Today: Yes
Reason: Anemia
Abnormal Lab Results
11/08/24
09:31
WBC 15.9 H 10^3/uL
(4.8-10.8)
RBC 1.84 L 10^6/uL
(4.20-5.40)
Hgb 6.5 L* g/dL
(12.0-16.0)
Hct 20.0 L* %
(37.0-47.0)
MCV 108.7 H fL
(81.0-99.0)
MCH 35.3 H pg
(27.0-31.0)
MCHC 32.5 L g/dL
(33.0-37.0)
RDW 16.6 H %
(11.5-14.5)
Abs Immat Gran (auto) 0.8 H 10^3/uL
(0-0.05)
Absolute Neuts (auto) 12.6 H 10^3/uL
(1.4-6.5)
Absolute Monos (auto) 0.9 H 10^3/uL
(0.1-0.6)
Immature Gran % 4.9 H %
(0-0.5)
Neutrophils % 79.5 H %
(42.2-75.2)
Lymphocytes % 8.2 L %
(20.5-51.1)
BUN 25 H mg/dl
(7-17)
Creatinine 1.2 H mg/dL
(0.6-1.0)
Glucose 110 H mg/dl
(70-99)
ALT 47 H U/L
(0-35)
Alkaline Phosphatase 419 H U/L
(38-126)
Crossmatch IS Only See Detail
11/08/24 09:31
11/08/24 09:31
Vital Signs
Initial and Last Documented VS:
Initial Vital Signs
Temp Pulse Resp BP Pulse Ox
98.0 F 74 16 118/64 100
11/08/24 09:14 11/08/24 09:14 11/08/24 09:14 11/08/24 09:14 11/08/24 09:14
Last Documented Vital Signs
Temp Pulse Resp BP Pulse Ox
98.2 F 77 18 138/79 99
11/08/24 17:25 11/08/24 17:25 11/08/24 17:25 11/08/24 17:25 11/08/24 15:37
Jose Franciscolt;Ailyn Wiggins PA-C - Last Filed: 11/08/24 18:32>
MDM/Problems Addressed
Differential Diagnosis Includes:
see below
MDM/Problems Addressed:
NUMBER AND COMPLEXITY OF PROBLEMS ADDRESSED AT THE ENCOUNTER
� Chronic conditions affecting care: stage IV pancreatic cancer
� Acute Exacerbation and/or Progression of Chronic Illness:
� Differential Diagnosis includes: chemotherapy side effect, iron deficiency anemia, bleeding tumor/GI bleed
AMOUNT AND/OR COMPLEXITY OF DATA TO BE REVIEWED AND ANALYZED
� I performed an independent evaluation of and my interpretation is:
EKG: not indicated at this time
Laboratory Studies: Hgb 6.5, Hct 20.0%
Other:
� Review of other/old records: Reviewed discharge summary from 09/21/2024, patient admitted to the hospital for worsening jaundice and obstructed biliary stent
� Clinical information was obtained by an independent historian: n/a
� Prescriptions/Medications Considered but not given: n/a
� Further testing considered but not performed: considered CT scan of the abdomen however patient has no abdominal pain
RISK OF COMPLICATIONS AND/OR MORBIDITY OR MORTALITY OF PATIENT MANAGEMENT
� Social determinants of health affecting care: none
� Discussion with other providers: ER attending
� Escalation of care including admission/observation vs risk of discharge considered:
74-year-old female with past medical history of metastatic pancreatic cancer presents emergency department today with concerns of low hemoglobin. This was found on routine outpatient blood work. She was sent by her oncologist Dr. You for
blood transfusion. They could not find outpatient center to have it performed at. Patient does have heme-negative stool. Patient is nontoxic-appearing on exam although does does have some pallor and is chronically ill appearing. Did consent
patient for blood, patient will receive 2 units of packed RBC.
<Ailyn Wiggins PA-C - Last Filed: 11/08/24 18:32>
*Critical Care Note
Total Time (30-74mins, 75-104mins- exclusive of procedures): Not Applicable
ED Attending Note
<Ailyn Wiggins PA-C - Last Filed: 11/08/24 18:32>
-
Portions of this chart may have been created with voice recognition software.� Occasional wrong word or��sound alike� substitutions may have occurred due to the inherent limitations of voice recognition software.
<Clayton Hollingsworth, DO - Last Filed: 11/08/24 13:42>
ED Attending Note
Patient seen and examined by attending physician: Yes
I performed the substantive portion of visit, reviewed & personally made and approve the management plan that is documented in note by myself or SMILEY.: Yes
ED Attending Note:
Seen with PA examined independently very well-appearing female with pancreatic cancer presents with fatigue low hemoglobin, nontoxic-appearing she is eager to get her chemo later this week, will transfuse with an eye towards discharge
Discharge Plan
Departure
Patient Disposition: Home (Routine Discharge)
Date of Disposition: 11/08/24
Time of Disposition: 17:04
Patient with high blood pressure during this ER visit?: Yes
Condition: Good
Discharge Problem:
Anemia, Chemotherapy-induced fatigue
Instructions: Anemia overview
Prescriptions:
No Action
Prolia 60 mg/mL Syringe
60 mg SC [id number]
lidocaine-prilocaine 2.5-2.5 % cream
1 applic topical DAILYPRN PRN (Reason: prior to port access)
vitamin B complex Tablet Extended Release
1 tab PO DAILY
diphenoxylate-atropine 2.5-0.025 mg tablet
2 tab PO BIDPRN PRN (Reason: dairrhea)
therapeutic multivitamin Tablet
1 tab PO DAILY
oxycodone 5 mg Tablet
5 mg PO BIDPRN PRN (Reason: moderate severe pain) Qty: 10 0RF
Referrals:
Sabrina Gómez MD [Family Provider] -
Activity Restrictions/Additional Instructions:
Please call your oncologist Dr. You, please follow-up.
PLEASE RETURN EMERGENCY DEPARTMENT SHOULD YOU DEVELOP CHEST PAIN, SHORTNESS OF BREATH, INTRACTABLE NAUSEA, VOMITING, SYNCOPAL EPISODES, ABDOMINAL PAIN, RECTAL BLEEDING, OR ANY OTHER SIGNS OR SYMPTOMS CONCERNING TO YOU.
Interventions
Interventions:
*Risk Screen - Suicide Last Done: 11/08/24 12:11
*General Assessment Last Done: 11/08/24 12:11
*Neglect/Abuse Screening Last Done: 11/08/24 12:11
ED- Fall Risk Assessment Last Done: 11/08/24 17:26
*Nursing Disposition Last Done: 11/08/24 17:26
Discharge Date and Time
Discharge Date/Time: 11/08/24 17:27
Print Language: IRISH
== END 2024-11-08 17:27 | disposition home or self-care (01) ==
LOC: EMR 09:10
PROVIDERS: Emergency Medicine; EMERGENCY PHYSICIAN Emergency Medicine; FAMILY PHYSICIAN Family Medicine
DX: D64.81 Anemia due to antineoplastic chemotherapy (principal); T45.1X5A Adverse effect of antineoplastic and immunosuppressive drugs, initial encounter; R53.83 Other fatigue; X58.XXXA Exposure to other specified factors, initial encounter; C78.7 Secondary malignant neoplasm of liver and intrahepatic bile duct
CPT/HCPCS: 99283; 36430; 80053; 85025; 86850; 86900; 86901; 86920; P9016

== ENCOUNTER → 2024-11-10 13:04 | Outpatient (REF) | payer MEDICARE, OTHER, SELFPAY ==
[2024-11-10 09:11] LABS: % Basophils 0.5 % (0-2); % Eosinophils 1.5 % (0-6); % Immature Granulocytes 2.4 % (0-0.5); % Lymphocytes 8.5 % (20.5-51.1); % Monocytes 5.8 % (1.7-9.3); % Neutrophils 81.3 % (42.2-75.2); Absolute Basophils 0.1 10^3/uL (0-0.2); Absolute Eosinophils 0.2 10^3/uL (0-0.7); Absolute Immature Granulocytes 0.3 10^3/uL (0-0.05); Absolute Lymphocytes 1.2 10^3/uL (1.2-3.4); Absolute Monocytes 0.8 10^3/uL (0.1-0.6); Hematocrit 28.7 % (37.0-47.0); Hemoglobin 9.1 g/dL (12.0-16.0); Mean Corp Hgb Conc. 31.7 g/dL (33.0-37.0); Mean Corpuscular Hgb 32.2 pg (27.0-31.0); Mean Corpuscular Volume 101.4 fL (81.0-99.0); Mean Platelet Volume 9.8 fL (7.4-10.4); Platelet Count 224 10^3/uL (130-400); Red Blood Cell Count 2.83 10^6/uL (4.20-5.40); Red Cell Dist. Width 20.6 % (11.5-14.5); White Blood Cell Count 13.6 10^3/uL (4.8-10.8)
[2024-11-10 10:05] LABS: ALT (SGPT) 41 U/L (0-35); AST (SGOT) 29 U/L (14-36); Alkaline Phosphatase 379 U/L (38-126); Blood Urea Nitrogen 30 mg/dl (7-17); Calcium 8.5 mg/dl (8.4-10.2); Carbon Dioxide 19 mmol/L (22-30); Chloride 105 mmol/L (98-107); Glucose 115 mg/dl (70-99); Iron 49 ug/dl (37-170); Potassium 4.5 mmol/L (3.5-5.1); Sodium 135 mmol/L (135-145); Total Bilirubin 0.3 mg/dl (0.2-1.3); Total Protein 6.6 g/dl (6.3-8.2); eGFR 47.21
[2024-11-10 10:14] LABS: Percent Saturation 14 % (20-50); Total Iron Binding Capacity 333 ug/dl (265-497)
[2024-11-10 16:52] LABS: Ferritin 69.9 ng/ml (11.1-264.0)
== END ==
LOC: OIDL 13:04
PROVIDERS: ATTENDING PHYSICIAN Internal Medicine Hematology & Oncology
DX: C78.7 Secondary malignant neoplasm of liver and intrahepatic bile duct (principal)
CPT/HCPCS: 80053; 82728; 83540; 83550; 85025

== ENCOUNTER → 2024-11-28 11:38 | Outpatient (REF) | payer MEDICARE, OTHER, SELFPAY ==
[2024-11-28 13:16] LABS: % Basophils 0.5 % (0-2); % Eosinophils 3.4 % (0-6); % Immature Granulocytes 0.2 % (0-0.5); % Lymphocytes 11.7 % (20.5-51.1); % Monocytes 8.5 % (1.7-9.3); % Neutrophils 75.7 % (42.2-75.2); Absolute Eosinophils 0.2 10^3/uL (0-0.7); Absolute Lymphocytes 0.7 10^3/uL (1.2-3.4); Absolute Monocytes 0.5 10^3/uL (0.1-0.6); Absolute Neutrophils 4.2 10^3/uL (1.4-6.5); Hematocrit 34.4 % (37.0-47.0); Hemoglobin 10.9 g/dL (12.0-16.0); Mean Corp Hgb Conc. 31.7 g/dL (33.0-37.0); Mean Corpuscular Hgb 32.3 pg (27.0-31.0); Mean Corpuscular Volume 102.1 fL (81.0-99.0); Mean Platelet Volume 9.9 fL (7.4-10.4); Platelet Count 230 10^3/uL (130-400); Red Blood Cell Count 3.37 10^6/uL (4.20-5.40); Red Cell Dist. Width 17.3 % (11.5-14.5); White Blood Cell Count 5.5 10^3/uL (4.8-10.8)
[2024-11-28 14:01] LABS: ALT (SGPT) 47 U/L (0-35); AST (SGOT) 34 U/L (14-36); Albumin 4.3 g/dl (3.5-5.0); Alkaline Phosphatase 326 U/L (38-126); Blood Urea Nitrogen 34 mg/dl (7-17); Calcium 9.5 mg/dl (8.4-10.2); Carbon Dioxide 22 mmol/L (22-30); Chloride 101 mmol/L (98-107); Glucose 73 mg/dl (70-99); Iron 63 ug/dl (37-170); Potassium 4.6 mmol/L (3.5-5.1); Sodium 135 mmol/L (135-145); Total Bilirubin 0.5 mg/dl (0.2-1.3); Total Protein 7.1 g/dl (6.3-8.2); eGFR 47.21
[2024-11-28 14:10] LABS: Percent Saturation 18 % (20-50); Total Iron Binding Capacity 338 ug/dl (265-497)
[2024-11-28 14:36] LABS: Ferritin 41.8 ng/ml (11.1-264.0)
[2024-11-30 16:31] LABS: CA 19-9 351 U/mL (<=35)
== END ==
LOC: OIDL 11:38
PROVIDERS: ATTENDING PHYSICIAN Internal Medicine Hematology & Oncology
DX: C78.7 Secondary malignant neoplasm of liver and intrahepatic bile duct (principal); E43 Unspecified severe protein-calorie malnutrition
CPT/HCPCS: 80053; 82728; 83540; 83550; 85025; 86301

== ENCOUNTER → 2024-11-29 12:44 | Outpatient (REF) | payer MEDICARE, OTHER, SELFPAY ==
[2024-12-01 16:16] LABS: FIT-Fecal Occult Blood Interp Negative
== END ==
LOC: REG 12:44
PROVIDERS: ATTENDING PHYSICIAN Internal Medicine Hematology & Oncology; FAMILY PHYSICIAN Family Medicine; REFERRING PHYSICIAN Internal Medicine Hospice and Palliative Medicine
DX: C78.7 Secondary malignant neoplasm of liver and intrahepatic bile duct (principal); C25.2 Malignant neoplasm of tail of pancreas; D64.81 Anemia due to antineoplastic chemotherapy; E87.6 Hypokalemia; D50.9 Iron deficiency anemia, unspecified
CPT/HCPCS: 83520

== ENCOUNTER → 2024-12-12 14:41 | Outpatient (REF) | payer MEDICARE, OTHER, SELFPAY ==
[2024-12-12 15:45] LABS: ALT (SGPT) 52 U/L (0-35); AST (SGOT) 33 U/L (14-36); Albumin 4.5 g/dl (3.5-5.0); Alkaline Phosphatase 373 U/L (38-126); Blood Urea Nitrogen 30 mg/dl (7-17); Calcium 9.2 mg/dl (8.4-10.2); Carbon Dioxide 24 mmol/L (22-30); Chloride 105 mmol/L (98-107); Glucose 83 mg/dl (70-99); Iron 233 ug/dl (37-170); Potassium 4.2 mmol/L (3.5-5.1); Sodium 139 mmol/L (135-145); Total Bilirubin 0.5 mg/dl (0.2-1.3); Total Protein 7.1 g/dl (6.3-8.2); eGFR 36.12
[2024-12-12 15:54] LABS: Percent Saturation 83 % (20-50); Total Iron Binding Capacity 280 ug/dl (265-497)
[2024-12-12 16:04] LABS: % Basophils 0.1 % (0-2); % Eosinophils 0.7 % (0-6); % Lymphocytes 5.2 % (20.5-51.1); % Monocytes 4.7 % (1.7-9.3); % Neutrophils 84.3 % (42.2-75.2); Absolute Basophils 0.1 10^3/uL (0-0.2); Absolute Eosinophils 0.3 10^3/uL (0-0.7); Absolute Immature Granulocytes 1.8 10^3/uL (0-0.05); Absolute Lymphocytes 1.9 10^3/uL (1.2-3.4); Absolute Monocytes 1.7 10^3/uL (0.1-0.6); Absolute Neutrophils 29.9 10^3/uL (1.4-6.5); Hematocrit 34.2 % (37.0-47.0); Hemoglobin 10.8 g/dL (12.0-16.0); Mean Corp Hgb Conc. 31.6 g/dL (33.0-37.0); Mean Corpuscular Hgb 31.8 pg (27.0-31.0); Mean Corpuscular Volume 100.6 fL (81.0-99.0); Nucleated Red Blood Cells % 0 %; Platelet Count 183 10^3/uL (130-400); Red Cell Dist. Width 16.7 % (11.5-14.5); White Blood Cell Count 35.5 10^3/uL (4.8-10.8)
[2024-12-14 14:10] LABS: CA 19-9 472 U/mL (<=35)
== END ==
LOC: REG 14:41
PROVIDERS: ATTENDING PHYSICIAN Internal Medicine Hematology & Oncology; FAMILY PHYSICIAN Family Medicine
DX: C78.7 Secondary malignant neoplasm of liver and intrahepatic bile duct (principal); C25.2 Malignant neoplasm of tail of pancreas; D64.81 Anemia due to antineoplastic chemotherapy; E87.6 Hypokalemia; D50.9 Iron deficiency anemia, unspecified
CPT/HCPCS: 36415; 80053; 82728; 83540; 83550; 85025; 86301

== ENCOUNTER → 2025-01-09 10:33 | Outpatient (REF) | payer MEDICARE, OTHER, SELFPAY ==
[2025-01-09 11:27] LABS: % Basophils 0.5 % (0-2); % Immature Granulocytes 0.5 % (0-0.5); % Lymphocytes 9.3 % (20.5-51.1); % Monocytes 8.2 % (1.7-9.3); % Neutrophils 80.5 % (42.2-75.2); Absolute Basophils 0.1 10^3/uL (0-0.2); Absolute Eosinophils 0.1 10^3/uL (0-0.7); Absolute Immature Granulocytes 0.1 10^3/uL (0-0.05); Absolute Lymphocytes 0.9 10^3/uL (1.2-3.4); Absolute Monocytes 0.8 10^3/uL (0.1-0.6); Absolute Neutrophils 7.8 10^3/uL (1.4-6.5); Hematocrit 30.2 % (37.0-47.0); Hemoglobin 9.4 g/dL (12.0-16.0); Mean Corp Hgb Conc. 31.1 g/dL (33.0-37.0); Mean Corpuscular Hgb 31.6 pg (27.0-31.0); Mean Corpuscular Volume 101.7 fL (81.0-99.0); Mean Platelet Volume 10.1 fL (7.4-10.4); Nucleated Red Blood Cells % 0 %; Platelet Count 201 10^3/uL (130-400); Red Blood Cell Count 2.97 10^6/uL (4.20-5.40); Red Cell Dist. Width 16.3 % (11.5-14.5); White Blood Cell Count 9.7 10^3/uL (4.8-10.8)
[2025-01-09 12:07] LABS: ALT (SGPT) 42 U/L (0-35); AST (SGOT) 25 U/L (14-36); Alkaline Phosphatase 536 U/L (38-126); Blood Urea Nitrogen 28 mg/dl (7-17); Calcium 9.7 mg/dl (8.4-10.2); Carbon Dioxide 24 mmol/L (22-30); Chloride 99 mmol/L (98-107); Glucose 86 mg/dl (70-99); Potassium 4.7 mmol/L (3.5-5.1); Sodium 134 mmol/L (135-145); Total Bilirubin 0.9 mg/dl (0.2-1.3); Total Protein 6.8 g/dl (6.3-8.2)
[2025-01-10 11:35] LABS: CA 19-9 638 U/mL (<=35)
== END ==
LOC: REG 10:33
PROVIDERS: ATTENDING PHYSICIAN Internal Medicine Hematology & Oncology; FAMILY PHYSICIAN Family Medicine; OTHER PHYSICIAN Internal Medicine Hospice and Palliative Medicine; REFERRING PHYSICIAN Internal Medicine Rheumatology
DX: M81.0 Age-related osteoporosis without current pathological fracture (principal); C78.7 Secondary malignant neoplasm of liver and intrahepatic bile duct; C25.2 Malignant neoplasm of tail of pancreas; D64.81 Anemia due to antineoplastic chemotherapy; E87.6 Hypokalemia; D50.9 Iron deficiency anemia, unspecified
CPT/HCPCS: 36415; 80053; 85025; 86301

== ENCOUNTER → 2025-01-30 14:00 | Outpatient (REF) | payer MEDICARE, OTHER, SELFPAY ==
[2025-01-30 14:35] LABS: % Basophils 0.4 % (0-2); % Immature Granulocytes 0.8 % (0-0.5); % Monocytes 4.3 % (1.7-9.3); % Neutrophils 86.5 % (42.2-75.2); Absolute Basophils 0.1 10^3/uL (0-0.2); Absolute Eosinophils 0.2 10^3/uL (0-0.7); Absolute Immature Granulocytes 0.1 10^3/uL (0-0.05); Absolute Lymphocytes 1.2 10^3/uL (1.2-3.4); Absolute Monocytes 0.8 10^3/uL (0.1-0.6); Absolute Neutrophils 15.2 10^3/uL (1.4-6.5); Hemoglobin 11.8 g/dL (12.0-16.0); Mean Corp Hgb Conc. 32.8 g/dL (33.0-37.0); Mean Corpuscular Hgb 32.7 pg (27.0-31.0); Mean Corpuscular Volume 99.7 fL (81.0-99.0); Mean Platelet Volume 9.6 fL (7.4-10.4); Nucleated Red Blood Cells % 0 %; Platelet Count 177 10^3/uL (130-400); Red Blood Cell Count 3.61 10^6/uL (4.20-5.40); Red Cell Dist. Width 17.3 % (11.5-14.5); White Blood Cell Count 17.6 10^3/uL (4.8-10.8)
[2025-01-30 14:49] LABS: ALT (SGPT) 38 U/L (0-35); AST (SGOT) 27 U/L (14-36); Alkaline Phosphatase 506 U/L (38-126); Blood Urea Nitrogen 27 mg/dl (7-17); Calcium 9.1 mg/dl (8.4-10.2); Carbon Dioxide 27 mmol/L (22-30); Chloride 101 mmol/L (98-107); Glucose 93 mg/dl (70-99); Potassium 4.2 mmol/L (3.5-5.1); Sodium 137 mmol/L (135-145); Total Bilirubin 0.6 mg/dl (0.2-1.3); Total Protein 7.2 g/dl (6.3-8.2); eGFR 58.75
[2025-02-01 17:13] LABS: CA 19-9 754 U/mL (<=35)
== END ==
LOC: REG 14:00
PROVIDERS: ATTENDING PHYSICIAN Internal Medicine Hematology & Oncology; FAMILY PHYSICIAN Family Medicine; REFERRING PHYSICIAN Internal Medicine Hospice and Palliative Medicine
DX: C78.7 Secondary malignant neoplasm of liver and intrahepatic bile duct (principal); C25.2 Malignant neoplasm of tail of pancreas; D64.81 Anemia due to antineoplastic chemotherapy; E87.6 Hypokalemia; D50.9 Iron deficiency anemia, unspecified
CPT/HCPCS: 36415; 80053; 85025; 86301

== ENCOUNTER → 2025-02-07 14:31 | Outpatient (REF) | payer MEDICARE, OTHER, SELFPAY ==
[2025-02-07 16:32] LABS: ALT (SGPT) 226 U/L (0-35); AST (SGOT) 316 U/L (14-36); Albumin 4.5 g/dl (3.5-5.0); Blood Urea Nitrogen 22 mg/dl (7-17); Calcium 9.8 mg/dl (8.4-10.2); Carbon Dioxide 24 mmol/L (22-30); Chloride 104 mmol/L (98-107); Glucose 88 mg/dl (70-99); Potassium 4.9 mmol/L (3.5-5.1); Sodium 141 mmol/L (135-145); Total Bilirubin 1.7 mg/dl (0.2-1.3); Total Protein 7.9 g/dl (6.3-8.2)
[2025-02-07 16:42] LABS: Alkaline Phosphatase 1171 U/L (38-126)
[2025-02-07 18:56] LABS: % Basophils 0.1 % (0-2); % Eosinophils 0.2 % (0-6); % Lymphocytes 2.4 % (20.5-51.1); % Monocytes 5.3 % (1.7-9.3); Absolute Eosinophils 0.1 10^3/uL (0-0.7); Absolute Lymphocytes 1.2 10^3/uL (1.2-3.4); Absolute Monocytes 2.6 10^3/uL (0.1-0.6); Absolute Neutrophils 42.6 10^3/uL (1.4-6.5); Hematocrit 37.2 % (37.0-47.0); Hemoglobin 12.2 g/dL (12.0-16.0); Mean Corp Hgb Conc. 32.8 g/dL (33.0-37.0); Mean Corpuscular Hgb 32.4 pg (27.0-31.0); Mean Corpuscular Volume 98.9 fL (81.0-99.0); Mean Platelet Volume 11.2 fL (7.4-10.4); Nucleated Red Blood Cells % 0 %; Platelet Count 193 10^3/uL (130-400); Red Blood Cell Count 3.76 10^6/uL (4.20-5.40); Red Cell Dist. Width 17.2 % (11.5-14.5); White Blood Cell Count 49.6 10^3/uL (4.8-10.8)
== END ==
LOC: REG 14:31
PROVIDERS: ATTENDING PHYSICIAN Nurse Practitioner Adult Health; FAMILY PHYSICIAN Internal Medicine Hematology & Oncology; OTHER PHYSICIAN Internal Medicine Hospice and Palliative Medicine; REFERRING PHYSICIAN Family Medicine
DX: C78.7 Secondary malignant neoplasm of liver and intrahepatic bile duct (principal); C25.2 Malignant neoplasm of tail of pancreas; D64.81 Anemia due to antineoplastic chemotherapy; E87.6 Hypokalemia; D50.9 Iron deficiency anemia, unspecified
CPT/HCPCS: 36415; 80053; 85025

== ENCOUNTER 2025-02-07 23:50 | Inpatient (IN) | payer MEDICARE, OTHER, SELFPAY ==
[2025-02-07 18:32] VITALS: BP 140/81
--- NOTE | 2025-02-07 19:44 | ED.GENMED ---
History of Present Illness
General
Chief Complaint: Fever
Time Seen by Provider: 02/07/25 19:43
History of Present Illness
History of Present Illness:
TIME OF INITIAL ENCOUNTER: 7:45 PM
HPI: The patient was diagnosed with metastatic pancreatic cancer in 2022. She has not had a Whipple indicating that the location of the malignancy was at the tail of the pancreas. She is known to Dr. Sade You and saw a [place] oncologist for
consultation initially. She most recently had chemotherapy 1 week ago and the following day she had 'a shot for my white cells'. She has been having increasing right-sided abdominal pain. She felt as if the weight was coming over top of her
diffusely.
EXAM:
GENERAL: The patient appears somewhat uncomfortable and weak
HEENT: Moist oral mucosa
CARDIOVASCULAR: No murmurs, tachycardic heart rate, regular rhythm, No chest wall tenderness, port noted to right anterior chest wall with no evidence of infection
PULMONARY: No respiratory distress, breath sounds are clear and equal
ABDOMEN: Soft with no peritoneal signs, questionable ascites on exam, mild diffuse abdominal tenderness more so on the right
NEUROLOGIC: Good strength all extremities, no coordination deficits
PSYCHIATRIC: Appropriate mental status, normal insight and judgement
EXTREMITIES: Nontender, no edema, moves all extremities equally
SKIN: No rash, no lesions
NUMBER AND COMPLEXITY OF PROBLEMS ADDRESSED AT THE ENCOUNTER
� Chronic conditions affecting care: Metastatic pancreatic cancer
� Acute Exacerbation and/or Progression of Chronic Illness: This is an acute problem
� Differential Diagnosis includes: Neutropenic fever, progression of pancreatic malignancy, bacteremia, sepsis, pneumonia, UTI
AMOUNT AND/OR COMPLEXITY OF DATA TO BE REVIEWED AND ANALYZED
� I performed an independent evaluation of and my interpretation is:
EKG:
CT:
X-rays:
Laboratory Studies: White count 55, hemoglobin 10.8, total bili slightly higher now compared to earlier today at 2.2, transaminases have increased a little bit as well. Lactic is 0.8
Other: Ultrasound imaging suggest gallbladder wall thickening and pericholecystic fluid but she had a negative Madison sign
� Review of other/old records: I reviewed records�the patient was admitted here September 2024 with obstructive jaundice due to underlying malignancy status post ERCP with stent placement
� Clinical information was obtained by an independent historian: Spoke to at bedside
� Prescriptions/Medications Considered but not given:
� Further testing considered but not performed:
RISK OF COMPLICATIONS AND/OR MORBIDITY OR MORTALITY OF PATIENT MANAGEMENT
� Social determinants of health affecting care: Lives at home
� Discussion with other providers: I notified Dr. Alvarenga who agrees patient should be kept in the hospital with cultures and IV antibiotics. Hospitalist, Dr. Rodriguez for admission.
� Escalation of care including admission/observation vs risk of discharge considered: I reviewed the records from earlier today. Her white count was 49.6 this afternoon and hemoglobin was 12.2. AST was 316 and ALT was 226, alk
phos was 1171
ANY OTHER UPDATES:
10:20 PM: I reassessed patient. She appears fairly comfortable. She did tell me that Dr. Garvey was planning on changing the stents next month. She also was going to be following up for a new procedure where they 'zap the tumors' at [facility].
Past History
Past History
ED Past Medical History: Cancer (Pancreatic, Liver, Spleen, stomach) and Other
ED Past Surgical History: Gynecological (Tubal, ), Orthopedic (elbow Fracture, ) and Other (Breast Implants, Liver stents)
Social History
Tobacco: Non-smoker
Alcohol: None
Personal:
Living: with family
Phy Exam
Physical Exam
Physical Exam:
See HPI
Sepsis
Sepsis Screening
Sepsis Assessment: Sepsis
Sepsis Screen
Sepsis Screen: Sepsis
Date: 02/07/25
Time: 22:31
Course
Orders/Labs/Results
Orders:
Orders
02/07/25 20:03
Urinalysis Reflex To Culture Urgent
Date Specimen was Collected: 02/07/25
Time Specimen was Collected: 20:05
0.9% Sodium Chloride 500 ml [Nss] 500 ml IV BOLUS
Acetaminophen [Tylenol] 650 mg PO NOW STA
HYDROmorphone [Dilaudid] 1 mg IV NOW STA
Ondansetron Injectable [Zofran] 4 mg IV NOW STA
CR Chest - 2 Views Urgent
Comment:
Reason For Exam: fever
US Abdomen Complete/Upper Urgent
Comment:
Reason For Exam: increasing pain; metastatic panc ca
02/07/25 21:27
Complete Blood Count/With Diff Urgent
Comprehensive Metabolic Panel Urgent
Lactic Acid Q4H
Comment: CANCEL 2nd LACTIC ACID IF 1st LACTIC ACID IS LESS THAN 2
Blood Culture Q30M
IZABELA Source: Blood/Venous
Specimen Description:
Blood Culture Q30M
IZABELA Source: Blood/Venous
Specimen Description:
Influenza A+B Rapid Molecular Urgent
IZABELA Source: Nasal Swab
Specimen Description:
02/07/25 22:15
*Vancomycin 1,500 mg Loading Dose(consider for 50-69 kg; MAX HD load) Vancomycin [Vancocin] 1,500 mg 0.9% Sodium Chloride 500 ml [Nss] 500 ml IV NOW
Zosyn 3.375 grams IVPB NOW Piperacillin/Tazo 3.375 Gram [Zosyn] 3.375 gram in 50 ml IV NOW
02/07/25 23:45
Lactic Acid Q4H
Comment: CANCEL 2nd LACTIC ACID IF 1st LACTIC ACID IS LESS THAN 2
Abnormal Lab Results
02/07/25
21:27
WBC 54.9 H* 10^3/uL
(4.8-10.8)
RBC 3.37 L 10^6/uL
(4.20-5.40)
Hgb 10.8 L g/dL
(12.0-16.0)
Hct 32.8 L %
(37.0-47.0)
MCH 32.0 H pg
(27.0-31.0)
MCHC 32.9 L g/dL
(33.0-37.0)
RDW 17.0 H %
(11.5-14.5)
Carbon Dioxide 19 L mmol/L
(22-30)
BUN 21 H mg/dl
(7-17)
Creatinine 1.1 H mg/dL
(0.6-1.0)
Glucose 161 H mg/dl
(70-99)
Total Bilirubin 2.2 H mg/dl
(0.2-1.3)
AST 363 H U/L
(14-36)
ALT 367 H U/L
(0-35)
02/07/25 21:27
02/07/25 21:27
Vital Signs
Initial and Last Documented VS:
Initial Vital Signs
Temp Pulse Resp BP Pulse Ox
39.3 C H 115 18 140/81 95
02/07/25 18:32 02/07/25 18:32 02/07/25 18:32 02/07/25 18:32 02/07/25 18:32
Last Documented Vital Signs
Temp Pulse Resp BP Pulse Ox
37.4 C 94 18 115/65 94
02/07/25 21:51 02/07/25 21:45 02/07/25 21:45 02/07/25 21:45 02/07/25 21:45
*Critical Care Note
Total Time (30-74mins, 75-104mins- exclusive of procedures): Not Applicable
ED Attending Note
-
Portions of this chart may have been created with voice recognition software.� Occasional wrong word or��sound alike� substitutions may have occurred due to the inherent limitations of voice recognition software.
Discharge Plan
Departure
Prescriptions:
No Action
Prolia 60 mg/mL Syringe
60 mg SC [id number]
lidocaine-prilocaine 2.5-2.5 % cream
1 applic topical DAILYPRN PRN (Reason: prior to port access)
vitamin B complex Tablet Extended Release
1 tab PO DAILY
diphenoxylate-atropine 2.5-0.025 mg tablet
2 tab PO BIDPRN PRN (Reason: dairrhea)
therapeutic multivitamin Tablet
1 tab PO DAILY
oxycodone 5 mg Tablet
5 mg PO BIDPRN PRN (Reason: moderate severe pain) Qty: 10 0RF
Referrals:
Sabrina Gómez MD [Family Provider] -
Interventions
Interventions:
*Risk Screen - Suicide Last Done: 02/07/25 18:32
*Neglect/Abuse Screening Last Done: 02/07/25 18:32
*ED COVID-19 Vaccine History Last Done: 02/07/25 18:32
ED- Neurological Assessment Last Done: 02/07/25 21:49
ED-Skin Assessment Last Done: 02/07/25 21:49
Discharge Date and Time
Print Language: PORTUGUESE
[2025-02-07] MEDS: DILAUDID 1 MG IV (21:28)
[2025-02-07] MEDS: ZOFRAN 4 MG IV (21:29)
[2025-02-07] MEDS: NSS 500 IV (21:29)
[2025-02-07] MEDS: TYLENOL 650 MG PO (21:29)
[2025-02-07 21:45] VITALS: BP 115/65; BMI 20.3
[2025-02-07 22:00] VITALS: BP 113/62
[2025-02-07 22:10] LABS: Lactic Acid 0.8 mmol/L (0.7-2.0)
[2025-02-07 22:12] LABS: ALT (SGPT) 367 U/L (0-35); AST (SGOT) 363 U/L (14-36); Albumin 4.3 g/dl (3.5-5.0); Blood Urea Nitrogen 21 mg/dl (7-17); Calcium 9.6 mg/dl (8.4-10.2); Carbon Dioxide 19 mmol/L (22-30); Chloride 106 mmol/L (98-107); Estimated Creatinine Clearance 36 ml/min; Glucose 161 mg/dl (70-99); Potassium 4.2 mmol/L (3.5-5.1); Sodium 136 mmol/L (135-145); Total Bilirubin 2.2 mg/dl (0.2-1.3); Total Protein 7.1 g/dl (6.3-8.2)
[2025-02-07 22:15] LABS: Hematocrit 32.8 % (37.0-47.0); Hemoglobin 10.8 g/dL (12.0-16.0); Mean Corp Hgb Conc. 32.9 g/dL (33.0-37.0); Mean Corpuscular Volume 97.3 fL (81.0-99.0); Mean Platelet Volume 10.3 fL (7.4-10.4); Platelet Count 181 10^3/uL (130-400); Red Blood Cell Count 3.37 10^6/uL (4.20-5.40); White Blood Cell Count 54.9 10^3/uL (4.8-10.8)
[2025-02-07 22:22] LABS: Alkaline Phosphatase 1172 U/L (38-126)
--- NOTE | 2025-02-07 22:31 | HPS.HSE ---
Family Physician
-
Family Physician: Sabrina Gómez
Chief Complaint
-
ruq abd pain, fever nausea
History of Present Illness
74-year-old female complaining of right upper quadrant pain with nausea this a.m. and back pain then she developed fever and chills since this afternoon for which she took oxycodone she had.. She had chemo 1 week ago for current pancreatic cancer
she did receive growth stimulating factor injection Neulasta on 02/02/2025. She presented to the ER today with a 102.7F temp and WBC count of 54.9. It appears she had labs earlier today at 1457 with WBC 49.6. She has history of a common bile duct
stent placed in 2022 but was never replaced until she presented to the ER in September for obstructive jaundice.. On 09/19/2024 she had ERCP done by Dr. Garvey with removal of stones and stent exchange due to obstructive jaundice due to pancreatic
malignancy and was due to have replacement of the stent on March 09, 2025. She denies headache, sore throat, chest pain, palpitations, shortness of breath, cough, diarrhea, rash. She has past medical history of pancreatic cancer diagnosed September
2023 started first-line chemotherapy with triple drugs this caused neuropathy to her feet she developed elevation in her tumor markers and had eventual PET scan 2 weeks ago showing increased activity in the liver and pancreas. Her chemotherapy was
changed to a second line drug regimen of 2 chemo's she does not know the name of the medications. She did receive a Neulasta injection on 02/02/2025. She is following at [facility] in [place] and is due for a laser type of shockwave
treatment to blast the tumors in her liver on March 24, 2025 and then if passeed in the fall 2024 they will do the same procedure to her pancreas.
Her other past medical history includes Klebsiella in urine, history of anemia with baseline around 9-10, metastatic pancreatic CA to liver, retroperitoneal lymph nodes, polymicrobial sepsis blood cultures for Klebsiella oxytoca and Enterobacter
Cloacae, hepatic biloma right hepatic lobe measuring 1.9 x 1.2 x 1.7 cm
Medical History
Past Medical History
Past Medical History: Reports Other
Additional Past Medical History:
Metastatic pancreatic CA to liver, retroperitoneal lymph nodes
history of anemia with baseline around 9-10 due to chemo
hepatic biloma right hepatic lobe measuring 1.9 x 1.2 x 1.7 cm
Common bile duct stent in place
Obstructive jaundice due to pancreatic malignancy with stent exchange on 09/19/[address] Garvey
history of Klebsiella in urine
polymicrobial sepsis blood cultures for Klebsiella oxytoca and Enterobacter Cloacae September 2023
Past Surgical History: Reports Other
Additional Past Surgical History:
On 09/19/2024 she had ERCP done by Dr. Garvey with removal of stones and stent exchange due to obstructive jaundice due to pancreatic malignancy,
Tubal ligation
Breast implants
Elbow fracture
PowerPort for chemo
Social History
Tobacco: Non-smoker
Alcohol: None
Drug: None
Personal:
Living: With Family
Employment: Retired
Family History
Family History: Other (12 brothers and sisters strong family history of diabetes 1 brother from lung cancer alcohol abuse, father diabetic, mother age 76 NH)
Allergies / Home Medications
Allergies reflects when Allergies were last updated in [employer].
Home Medications with original date entered in [employer]
Allergy/Medication List:
Allergies
Allergy/AdvReac Type Severity Reaction Status Date / Time
No Known Allergies Allergy Verified 02/07/25 18:37
Home Medications
denosumab 60 mg/mL subcutaneous syringe (Prolia) 60 mg SC [id number] bone health 09/11/23
lidocaine-prilocaine 2.5 %-2.5 % topical cream 1 applic topical DAILYPRN PRN prior to port access 10/05/23
diphenoxylate-atropine 2.5 mg-0.025 mg tablet 2 tab PO BIDPRN PRN dairrhea 09/16/24
therapeutic multivitamin 1 tab PO DAILY Supplement 09/16/24
vitamin B complex 1 tab PO DAILY Supplement 09/16/24
oxycodone 5 mg tablet 5 mg PO BIDPRN PRN moderate severe pain #10 tabs 09/21/24
Review of Systems
-
History Source: Patient and Family ( at bedside)
A 12 point ROS was completed and negative except as noted: Yes
Constitutional: Reports Fever and Chills; Denies Fatigue
EENT: Denies Sore Throat or Runny Nose
Respiratory: Denies Cough or Trouble Breathing
Cardiac: Denies Chest Pain, Diaphoresis, Palpitations or Syncope
Abdomen/GI: Reports Abdominal Pain (Right upper quadrant) and Nausea; Denies Vomiting, Diarrhea, Constipated, Bloody Stools or Black Stools
: Denies Dysuria, Frequency, Flank Pain, Incontinence, Difficulty Voiding or Urgency
Musculoskeletal: Denies Joint Pain
Skin: Denies Itching or Rash
Neurological: Denies Dizzy or Headache
Endocrine: Reports No Symptoms
Hematologic/Lymphatic: Reports No Symptoms
Psych: Reports Calm
Physical Exam
Vital Signs
Vital Signs
Temp Pulse Resp BP Pulse Ox
99.4 F 94 18 115/65 94
02/07/25 21:51 02/07/25 21:45 02/07/25 21:45 02/07/25 21:45 02/07/25 21:45
Physical Exam
General: Comfortable, Conversant, Fever and Chills
HEENT: NormoCephalic, Anicteric, Moist mucous membranes, PERRLA, [place] Conjunctivae and No Ptosis
Respiratory: Clear; No Wheezes, Rales or Rhonchi
Cardiac: S1/S2 and Regular Rhythm; No Murmur, Rub, Gallop or Peripheral Edema
GI: Soft, Normal Bowel Sounds and Tender (Right upper quadrant)
Rectal: Deferred by Provider
Genito-urinary: Deferred by me
Musculoskeletal: No Clubbing, No Cyanosis and No Edema
Skin: Warm, Dry and Rash; No Jaundice
Neuro: AO x 3, No Motor Deficits, Nonfocal/grossly intact, Cranial Nerves Intact and No Sensory Deficits; No Slurred Speech, Facial Droop, Tremors or Sedated
Psych: Calm
Laboratory Results
-
02/07/25 21:27
02/07/25 21:27
Laboratory Results
Lactic Acid 0.8 mmol/L (0.7-2.0) 02/07/25 21:
Total Bilirubin 2.2 mg/dl (0.2-1.3) H 02/07/25 21:
AST 363 U/L (14-36) H 02/07/25 21:
ALT 367 U/L (0-35) H 02/07/25 21:
Alkaline Phosphatase 1172 U/L (38-126) H 02/07/25 21:27
Data Reviewed
-
Diagnostic Radiology: Report Reviewed by me
CT Scan: Report Reviewed by me
Lab Data: Labs Reviewed by me
Impression/Plan
-
Impression/plan:
Admit to telemetry
#Acute transaminitis possible biliary obstruction versus acute cholecystitis
#History of common bile duct stent in place
#History of obstructive jaundice due to pancreatic malignancy with stent exchange on 09/19/[address] Garvey
AST 363 Hgb ALT 367, alk phos 1172(AST/ALT up from 30s to high 300s, alk phos up from 500-1172)
WBC 54.9> 49.6 in the last 7 hours today(patient did receive Neulasta on 02/02/2025)
Temp 102.7
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
-Check COVID, influenza
-Check CXR
-IV Zosyn
-IV LR
-N.p.o. except meds
Tylenol for fever, oxycodone moderate pain, Dilaudid severe pain, Zofran as needed nausea vomiting
-MRCP abdomen in a.m. with and without
-Consult GI
-Consult surgery
Ultrasound abdomen: 1. Gallbladder is distended measuring up to 11.5 cm. There is mildly echogenic fluid/sludge within the gallbladder with mild gallbladder wall thickening and pericholecystic fluid.
Negative Madison's sign. Findings likely represent hydropic gallbladder although acute cholecystitis cannot be excluded.
2. Numerous hepatic lesions consistent with known metastasis. There is intrahepatic biliary duct dilation with common bile duct stent, similar to prior PET/CT.
3. Known pancreatic lesion consistent with malignancy measuring approximately 6.3 x 4.7 cm.
CXR: Blunting of bilateral costophrenic angles suggestive of trace bilateral pleural effusions with minimal bibasilar atelectasis
#Pancreatic CA Dx October 01, 2024
#Metastatic pancreatic CA to liver, retroperitoneal lymph nodes
#History of initial chemo triple therapy starting October 01 via port right upper chest-stopped due to elevating tumor markers and increased activity on PET scan in the liver and pancreas
#Patient is 1 week post Second line chemotherapy 2 types and 6 days post Neulasta injection on 02/02/2025
-Patient follows with [facility] in [facility]
-She is due on March 24 for shockwave lithotripsy to the liver to tumor blast
#HX anemia with baseline around 9-10 due to chemo
Hgb 10.8
-Follow CBC
CKD 3B�4
Creat 1.1 appears baseline
-Follow CMP
#Hepatic biloma right hepatic lobe measuring 1.9 x 1.2 x 1.7 cm
#HX of Klebsiella in urine
-Follow urinalysis
#Polymicrobial sepsis blood cultures for Klebsiella oxytoca and Enterobacter Cloacae September 2023
-Follow blood cultures
DVT prophylaxis
Subcu heparin
Full code
--- NOTE | 2025-02-07 22:44 | W.PN.UPDATE ---
Update Note
Progress Note Update
Patient seen and condition with KECIA. I agree the findings and physical. I concur with assessment and plan unless stated otherwise.
Briefly, this is a 74-year-old female who has past medical history significant for metastatic pancreatic cancer with mets to the liver, currently on chemotherapy, status post ERCP for obstructive jaundice, status post stent placement with revisions
in September who now presents to the emergency department with chills generalized aches and malaise and had a fever up to 102 at home.
Patient reported that her last chemo was about 1 week ago on Thursday. After the chemo she did get Neulasta. She got double of her usual dose. She was prescribed Claritin and was told that she might get some side effects. She reported that she
was feeling well up until about this morning. She reports she was having generalized aches and pains throughout her bones and as well as in the back and legs. She was seen in clinic when she was noted to be having shaking chills and rigors. When
she got home she checked her temperature and it was over 102. She felt weak and decided come to the emergency department after discussing with her oncologist.
Patient reports ongoing abdominal pain and describes bandlike pain across her upper abdomen radiating from right upper quadrant to the left upper quadran and to the back. She reports nausea denies vomiting. She denies diarrhea. Patient denies any
urinary symptoms. She denies any coughing wheezing or shortness of breath. She denies any flank pain. She denies any dysuria or hematuria. She took oxycodone for abdominal pain with some improvement. She reports chronic low appetite.
In the emergency department she was febrile to as high as 102.4, blood pressure was 115/65 with a pulse of 94 and respiratory to of 18 she is satting 98% on room air. White count is 55, hemoglobin and platelets were unchanged from prior on normal.
She has normal sodium potassium and chloride with a bicarb of 19. Creatinine was 1.1 which is baseline (CKD 3). Glucose was 161. T. bili is elevated to 2.2 from around 1.6, she has a significant elevations in ALT and AST 2-3 100s as well as alk
phos to now over 1000. Alk-phos was as low as 300s in December.
She has a right upper quadrant ultrasound showing distended gallbladder measuring 11.5 cm with mild echogenic fluid and sludge within the gallbladder with mild gallbladder wall thickening. There is some pericholecystic fluid. Negative Madison sign.
Findings likely represents hydropic gallbladder but acute cholecystitis cannot be excluded. There were numerous hepatic lesions consistent with known mets. There is intrahepatic biliary ductal dilation with common bile duct stent similar to
prior. The pancreatic lesion was again seen consistent with malignancy measuring approximately 6.3 x 4.7 cm.
She is rather well appearing on exam. Abdominal exam is benign with mild RUQ tenderness to palpation, no rebound or guarding.
Assessment and plan
74-year-old female with past medical history of metastatic pancreatic cancer with mets to the liver status post stent placement and revisions last in September of last year who presents to the emergency department 1 week after her last chemo with
fever and she shakes and rigors. She had received Neulasta about 5 days ago. Recent increased metastatic disease. She reports her right upper quadrant discomfort which is similar to prior. No GI symptoms otherwise. No respiratory symptoms. No
urinary symptoms. She had a history of polymicrobial sepsis 2022 (Klebsiella + bld cx). Imaging consistent with possible hydropic gallbladder versus acute cholecystitis. There is intrahepatic biliary duct dilation with common bile duct stent,
similar to prior PET/CT. Therefore differential includes cholecystitis vs cholangitis vs medication induced. Negative madison sign on exam but new GB changes compared to u/s 5 months ago. She does have worsening liver function and evidence of
biliary obstruction. Flu negative. COVID pending. She has a revision of the biliary stents pending in early March then she is pending lithotripsy and surgical intervention for the tumor.
- admit to med/surg for now
- npo after midnight
- blood cultures, u/a pending, Xray without focal infiltrates
- mrcp in am, trend lfts
- Surgery consult
- GI consultation
- empiric Zosyn for now
- pain control, iv fluids and antiemetics
DVT PPX - heparin sq
Code status - full code
[2025-02-07 22:51] LABS: % Immature Granulocytes 6.1 % (0-0.5); % Lymphocytes 1.5 % (20.5-51.1); % Monocytes 4.9 % (1.7-9.3); % Neutrophils 87.5 % (42.2-75.2); Absolute Immature Granulocytes 3.4 10^3/uL (0-0.05); Absolute Lymphocytes 0.8 10^3/uL (1.2-3.4); Absolute Monocytes 2.7 10^3/uL (0.1-0.6); Nucleated Red Blood Cells % 0 %
[2025-02-07 23:00] VITALS: BP 99/54
[2025-02-07] MEDS: ZOSYN 50 IV (23:06)
[2025-02-07 23:10] VITALS: BP 106/52
[2025-02-07] MEDS: VANCOCIN 530 MG IV (23:56)
[2025-02-08] VITALS (13 sets, daily range): BP systolic 66–131; BP diastolic 54–90; BMI 19.4
[2025-02-08] MEDS: FLUSH (NSS) 1 FLUSH IV (00:04)
--- NOTE | 2025-02-08 00:30 | PTCARENOTE ---
Pt arrived from ED via stretcher, ambulated to bed with independently with steady gait. aaox3, cooperative. denies pain, nausea or sob. vss. Pt has r SQ port but does not want it accessed at this time. oriented to room. call chandler within reach.
[2025-02-08] MEDS: LR 1000 IV ×3 (01:07→21:59)
[2025-02-08 01:52] LABS: COVID-19 Antigen Negative (Negative)
[2025-02-08] MEDS: ZOSYN 50 IV ×4 (06:00→23:42)
--- NOTE | 2025-02-08 06:46 | CON.GI ---
Addendum entered and electronically signed by Evelin Millard DO 02/08/25 10:12:
The patient was seen and examined by me independently in collaboration with the nurse practitioner.
Past medical history/social history/medications/allergies/family history reviewed.
Lab data and imaging data reviewed.
Sade Garcia is a 74 year old female with h/o hyperlipidemia, osteoporosis, hepatic biloma, anemia, UTI, diagnosed with metastatic pancreatic cancer in 2022 with known mets to liver and retroperitoneal nodes. Her initial EUS�on 09/11/2023
showed 33 x 34 mm mass in the tail of pancreas with secondary retroperitoneal mass measuring 23 x 21 mm adjacent to left adrenal gland.� FNA confirmed adenocarcinoma.� She also had friable and erythematous mucosa in the lesser curvature of the
stomach and the biopsy showed local invasion with adenocarcinoma.� ERCP was performed and biliary stents were placed to both left and right intrahepatic ducts.� Patient was started on chemotherapy on 09/30/2023.� She had a stent malfunction and ERCP
had to be repeated on 10/08/2023 with removal of right intrahepatic ductal stent and placement of pigtail stent to the left intrahepatic duct, which lasted her quite a long time, presenting with obstructive jaundice in 09/2024, requiring stent
exchange. ERCP and cholangioscopy were performed which showed malignant appearing mucosa extending from common hepatic duct, bifurcation, and left main hepatic duct.� Spy bite biopsy showed adenocarcinoma.� DPPS were placed into left and right
hepatic ducts. She follows with Dr. Prescott at [facility] as well as Dr. You. She was scheduled to have stent exchange with Dr. Garvey on 03/09, however, reports subjective fever with chills at home as well as acute on chronic abdominal pain found to
be febrile on admission with a temperature of 102.7. Recent imaging with PET showed worsening pancreatic Ca in tail of pancreas, new multifocal mets and rim uptake inferior medial right lobe adjacent to gallbladder- mets vs inflammation. US abdomen
on admission with gallbladder distention up to 11.5 cm with fluid/sludge in GB and mild GBWT and fluid.
A/P: Mild cholangitis vs. less likely acute cholecystitis
-continue abx
-check lipase
-MRCP pending
-okay for clear liquids
-Discussed case with Dr. Garvey-- NPO after midnight for planned stent exchange
Original Note:
Consultation
-
Date/Time Consultation Requested: 02/07/25 2330
Date/Time Consultation Performed: 02/08/25 0670
Requesting Provider: KECIA Britt
Performing Provider: KECIA Diaz, Alysa Millard DO
Reason for Consultation: fever
Medical History
Chief Complaint / HPI
Chief Complaint: Jaundice
History of Present Illness:
Pt is a 74 year old female with h/o hyperlipidemia, osteoporosis, hepatic biloma, anemia, UTI, diagnosed with metastatic pancreatic cancer in 2022 with known mets to liver and retroperitoneal nodes. Her initial EUS�on 09/11/2023 showed 33 x 34 mm
mass in the tail of pancreas with secondary retroperitoneal mass measuring 23 x 21 mm adjacent to left adrenal gland.� FNA confirmed adenocarcinoma.� She also had friable and erythematous mucosa in the lesser curvature of the stomach and the biopsy
showed local invasion with adenocarcinoma.� ERCP was performed and biliary stents were placed to both left and right intrahepatic ducts.� Patient was started on chemotherapy on 09/30/2023.� She had a stent malfunction and ERCP had to be repeated on
10/08/2023 with removal of right intrahepatic ductal stent and placement of pigtail stent to the left intrahepatic duct.� She did well for about a year but returned with jaundice on 09/2024.� ERCP and cholangioscopy were performed which showed
malignant appearing mucosa extending from common hepatic duct, bifurcation, and left main hepatic duct.� Spy bite biopsy showed adenocarcinoma.� DPPS were placed into left and right hepatic ducts.�She has been receiving chemo with last dose about 1
week ago(new chemo per patient) and Neulasta on 02/02/25. She had follow up with Dr. Garvey 01/30/25 with plan for histotripsy with Dr. Prescott at [facility] [place] and discussed elective stent cabrera before or after procedure in March. She now present
with fever up to 102.7 in ER with elevated LFT's noted bili 2.2, AST 363, ALT 367, alk phos 1172 in ER. Most recent imaging with PET 01/23 with worsening pancreatic CA in tail of pancreas, new multifocal mets and rim uptake inferior medial right
lobe adjacent to gallbladder- mets vs inflammation. US abdomen on admission with gallbladder distention up to 11.5 cm with fluid/sludge in GB and mild GBWT and fluid. Noted numerous mets and pancreatic lesion 6.3x 4.7 cm.
In review with patient she was feeling well after chemo but developed some nausea, diffuse pain after Neulasta then noted fever. She has initial wt loss of 40 lb with diagnosis then gained back 20 lbs. She also admit to chronic intermittent
band like abdominal pain chronic diarrhea on Lomotil without change in stool or urine colon She denies issues with odynophagia, GERD, constipation, or rectal bleeding. She did admit to Oxycodone and Ibuprofen use after chemo with diffuse pain.
Past Medical History
Past Medical History: Cancer (metastatic pancreatic Cancer with prior biliary stenting and mets to liver and nodes), HTN and Other (osteoporosis , klebsiella UTI, anemia, hepatic biloma)
Past Surgical History: Orthopedic (elbow fx ) and Other (tubal ligation, breast implants, port placement )
Social History
Tobacco: Non-Smoker
Alcohol: None
Drug: None
Personal:
Living: With Family
Employment: Retired
Family History
Family History: Other (brother with lung CA)
Allergies / Home Medications
Allergy/AdvReac Type Severity Reaction Status Date / Time
No Known Allergies Allergy Verified 02/07/25 18:37
�Medication �Instructions �Recorded
denosumab 60 mg/mL subcutaneous 60 mg SC [id number] bone health 09/11/23
syringe (Prolia)
lidocaine-prilocaine 2.5 %-2.5 % 1 applic topical DAILYPRN PRN 10/05/23
topical cream prior to port access
diphenoxylate-atropine 2.5 2 tab PO BIDPRN PRN dairrhea 09/16/24
mg-0.025 mg tablet
therapeutic multivitamin 1 tab PO DAILY Supplement 09/16/24
vitamin B complex 1 tab PO DAILY Supplement 09/16/24
oxycodone 5 mg tablet 5 mg PO BIDPRN PRN moderate severe 09/21/24
pain #10 tabs
vitamin U30-qovgg acid 1 tab PO DAILY 02/08/25
Review of Systems
-
History Source: Patient
Constitutional: Reports Fever and Weight Loss (initial loss then gain )
EENT: Reports No Symptoms
Respiratory: Reports No Symptoms
Cardiac: Reports No Symptoms
Abdomen/GI: Reports Abdominal Pain, Nausea and Diarrhea
: Reports No Symptoms
Musculoskeletal: Reports Joint Pain
Skin: Reports No Symptoms
Neurological: Reports Weakness
Endocrine: Reports No Symptoms
Hematologic/Lymphatic: Reports No Symptoms
Vital Signs
Temp Pulse Resp BP Pulse Ox
98.1 F 71 16 112/61 100
02/08/25 00:54 02/08/25 00:54 02/08/25 00:54 02/08/25 00:54 02/08/25 00:54
Physical Exam
Exam
General: Well Developed, Well Nourished and No Apparent Distress
HEENT: Other (mild jaundice )
Respiratory: Clear
Cardiac: Regular Rhythm
GI: Soft, Non Distended and Tender (minimal upper abdominal pain )
Skin: Warm and Dry
Neuro: Awake, Alert and AO x 3
Psych: Calm
Results
WBC 54.9 10^3/uL (4.8-10.8) H* 02/07/25 21:27
Hgb 10.8 g/dL (12.0-16.0) L 02/07/25 21:27
Hct 32.8 % (37.0-47.0) L 02/07/25 21:27
MCV 97.3 fL (81.0-99.0) 02/07/25 21:27
Plt Count 181 10^3/uL (130-400) 02/07/25:
Absolute Neuts (auto) 48.0 10^3/uL (1.4-6.5) H 02/07/25:
Sodium 136 mmol/L (135-145) 02/07/25:
Potassium 4.2 mmol/L (3.5-5.1) 02/07/25:
Chloride 106 mmol/L (98-107) 02/07/25:
Carbon Dioxide 19 mmol/L (22-30) L 02/07/25:
BUN 21 mg/dl (7-17) H 02/07/25:
Creatinine 1.1 mg/dL (0.6-1.0) H 02/07/25:
Calcium 9.6 mg/dl (8.4-10.2) 02/07/25:
Total Bilirubin 2.2 mg/dl (0.2-1.3) H 02/07/25:
AST 363 U/L (14-36) H 02/07/25:
ALT 367 U/L (0-35) H 02/07/25:
Alkaline Phosphatase 1172 U/L (38-126) H 02/07/25:
Diagnostic Image Results:
02/07/25 US abdomen
The gallbladder is distended measuring up to 11.5 cm. There is mildly echogenic fluid/sludge within the gallbladder with mild gallbladder wall thickening and pericholecystic fluid. Negative Madison's sign. Findings likely represent hydropic
gallbladder although acute cholecystitis cannot be excluded.
Numerous hepatic lesions consistent with known metastasis. There is intrahepatic biliary duct dilation with common bile duct stent, similar to prior PET/CT.
Known pancreatic lesion consistent with malignancy measuring approximately 6.3 x 4.7 cm[address]
01/23/25 CT PET
1. Worsening hypermetabolic pancreatic cancer in the tail of the pancreas.
2. New hypermetabolic multifocal hepatic metastatic disease.
3. New rim of hypermetabolic uptake in the inferior medial right hepatic lobe adjacent to the gallbladder, which may be metastatic or inflammatory.
Abdominal US 09/14/24:
1. Slightly increased echogenicity in the liver, compatible with underlying hepatocellular disease, which most commonly relates to fatty infiltration of the liver.
2. Probable gallbladder sludge without sonographic evidence for discrete cholelithiasis or acute cholecystitis.
3. No intrahepatic or extrahepatic biliary ductal dilatation
MRCP 09/16/24: A common bile duct stent is in place. Moderate diffuse dilatation of the intrahepatic bile ducts. The extrahepatic bile ducts measure up to 9 mm in caliber and are mildly dilated. Segment of bile duct narrowing at the confluence of the
left and right hepatic ducts with the common hepatic duct with some lobular soft tissue signal intensity at this location that measures 1.8 cm (series 901, image 23). The gallbladder is moderately dilated. No evidence for cholelithiasis. The
patient's pancreatic tail mass is suboptimally evaluated in the absence of intravenous contrast and was not identified on the previous PET/CT. The main pancreatic duct is nondilated
Prior GI Procedures:
Colonoscopy: 06/2016 [place] The entire examined colon is normal.
EUS 09/2023 - Normal esophagus.
- Erythematous mucosa in the lesser curvature.
- Friable gastric mucosa. Biopsied.
- Normal duodenal bulb, first portion of the duodenum
and second portion of the duodenum.
- A mass was identified in the pancreatic tail. This
was staged Tx Nx M1 (based on metastasis to adrenal
gland and pending cytologic confirmation) by
endosonographic criteria.
- A mass measuring 23 mm by 21 mm was identified
endosonographically adjacent to the left adrenal gland
in close proximity to the pancreatic tail mass. Fine
needle aspiration performed.
09/11/23 ERCP Nelson Garvey MD - The major papilla appeared to be small.
- A pancreatic sphincterotomy was performed.
- One plastic stent was placed into the ventral
pancreatic duct.
- Failed biliary cannulation.
09/17/23 ERCP Nelson Garvey MD - A previously placed stent had migrated out of the
pancreatic duct.
- A single moderate biliary stricture was found. The
stricture was malignant appearing.
- The left main hepatic duct, right intrahepatic
branches and left intrahepatic branches were
moderately dilated, acquired.
- A biliary sphincterotomy was performed.
- The hepatic duct bifurcation was successfully
dilated.
- The hepatic duct bifurcation was successfully
dilated.
- One plastic stent was placed into the left hepatic
duct.
- One plastic stent was placed into the right hepatic
duct.
ERCP performed on 10/08/2023 Nelson Garvey MD Severe malignant biliary stricture. The left main hepatic and left intrahepatic branches were moderately dilated, 1 stent was removed from the left hepatic duct and 1 plastic stent was placed into the left
hepatic duct.
ERCP 09/19/24- Nelson Garvey MD - Two visibly occluded stents from the biliary tree
were seen in the major papilla.
- Frond-like nodularity and increased vascular pattern
of the common hepatic duct, bifurcation of the right
and left hepatic ducts and left main hepatic duct
mucosa was found.
- A single severe biliary stricture was found in the
common hepatic duct. The stricture was malignant
appearing.
- A single severe biliary stricture was found in the
common hepatic duct and left main hepatic duct. The
stricture was malignant appearing.
- The left main hepatic duct and left intrahepatic
branches were moderately dilated.
- The right intrahepatic branches were mildly dilated.
- Choledocholithiasis was found. Complete removal was
accomplished by balloon extraction.
- Two stents were removed from the biliary tree.
- Biopsy was performed at the hepatic duct bifurcation.
- The biliary tree was swept.
- One plastic stent was placed into the left hepatic
duct.
- One plastic stent was placed into the right hepatic
duct.
Assessment / Plan
-
Pt is a 74 year old female with h/o hyperlipidemia, osteoporosis, hepatic biloma, anemia, UTI, diagnosed with metastatic pancreatic cancer in 2022 with known mets to liver and retroperitoneal nodes. Her initial EUS�on 09/11/2023 showed 33 x 34 mm
mass in the tail of pancreas with secondary retroperitoneal mass measuring 23 x 21 mm adjacent to left adrenal gland.� FNA confirmed adenocarcinoma.� She also had friable and erythematous mucosa in the lesser curvature of the stomach and the biopsy
showed local invasion with adenocarcinoma.� ERCP was performed and biliary stents were placed to both left and right intrahepatic ducts.� Patient was started on chemotherapy on 09/30/2023.� She had a stent malfunction and ERCP had to be repeated on
10/08/2023 with removal of right intrahepatic ductal stent and placement of pigtail stent to the left intrahepatic duct.� She did well for about a year but returned with jaundice on 09/2024.� ERCP and cholangioscopy were performed which showed
malignant appearing mucosa extending from common hepatic duct, bifurcation, and left main hepatic duct.� Spy bite biopsy showed adenocarcinoma.� DPPS were placed into left and right hepatic ducts.�She has been receiving chemo with last dose about 1
week ago and Neulasta on 02/02/25. She had follow up with Dr. Garvey 01/30/25 with plan for histotripsy with Dr. Prescott at [facility] at [place] and discussed elective stent cabrera before or after procedure in March. She now present with fever up to 102.7
in ER with elevated LFT's noted bili 2.2, AST 363, ALT 367, alk phos 1172 in ER. Most recent imaging with PET 01/23 with worsening pancreatic CA in tail of pancreas, new multifocal mets and rim uptake inferior medial right lobe adjacent to
gallbladder- mets vs inflammation. US abdomen on admission with gallbladder distention up to 11.5 cm with fluid/sludge in GB and mild GBWT and fluid. Noted numerous mets and pancreatic lesion 6.3x 4.7 cm. No anticoagulation prior to admission.
-fever
-increased LFT's
-chronic intermittent upper abdominal band like pain.
-metastatic pancreatic CA with mets to liver, nodes
-recent chemo and Neulasta
-gallbladder distention
-leukocytosis in setting of recent Neulasta
other medical problems:
-hyperlipidemia
-osteoporosis
-hx hepatic biloma
-anemia
-UTI
PLAN:
Etiology of fever with elevated LFT's related to biliary obstruction with hx stent, cholecystitis with GB inflammation on imaging, recent chemo vs other
cont abx
await blood cx
pt stable with mild hypotension but no tachycardia or recurrent fever since admission
trend LFT's repeat LFT's pending this am
will add lipase level
for MRCP this am
for surgical eval with concern for cholecystis
will review with Dr. Garvey need for biliary stent change
NPO-- pending surgical eval and MRI ok from GI for clear diet later today - no plan for GI procedure today
pain control per hospitalist team
-
-
Thank you for consultation and allowing me to participate in the patient's care. Please call the clinical education assistant GI physician during the after hours with any questions or concerns.
[2025-02-08 08:35] LABS: Hematocrit 28.2 % (37.0-47.0); Hemoglobin 9.3 g/dL (12.0-16.0); Mean Corpuscular Hgb 32.4 pg (27.0-31.0); Mean Corpuscular Volume 98.3 fL (81.0-99.0); Mean Platelet Volume 10.2 fL (7.4-10.4); Platelet Count 135 10^3/uL (130-400); Red Blood Cell Count 2.87 10^6/uL (4.20-5.40); Red Cell Dist. Width 17.2 % (11.5-14.5); White Blood Cell Count 28.6 10^3/uL (4.8-10.8)
[2025-02-08] MEDS: HEPARIN 5000 UNITS SC ×2 (09:24→21:59)
[2025-02-08 09:26] LABS: ALT (SGPT) 266 U/L (0-35); AST (SGOT) 173 U/L (14-36); Alkaline Phosphatase 939 U/L (38-126); Blood Urea Nitrogen 22 mg/dl (7-17); Calcium 8.3 mg/dl (8.4-10.2); Carbon Dioxide 23 mmol/L (22-30); Chloride 109 mmol/L (98-107); Estimated Creatinine Clearance 32 ml/min; Glucose 91 mg/dl (70-99); HDL Cholesterol 38 mg/dl; Potassium 3.9 mmol/L (3.5-5.1); Sodium 139 mmol/L (135-145); Total Bilirubin 1.8 mg/dl (0.2-1.3); Total Cholesterol 87 mg/dl (50-199); Total Protein 5.4 g/dl (6.3-8.2); eGFR 47.21
[2025-02-08 11:12] LABS: LDL Cholesterol, Calculated 36 mg/dl; Lipase 23 U/L (23-300); Triglyceride 68 mg/dl (10-149); Very Low Density Lipoprotein 13 mg/dl (0-30)
--- NOTE | 2025-02-08 13:40 | CON.GS ---
Consultation
-
Requesting Provider: Leonardo
Performing Provider: Mirta
Reason for Consultation: ACC
Medical History
-
Chief Complaint: Abd pain
History of Present Illness:
74F with known hx of stage IV panc adenoCA with liver, stomach and RP mets and existing CBD stent placed for malignant obstruction p/w 24 hrs of fever and malaise a/w RUQ pain. Fever here to 102.7F and profound leukocytosis likely partly 2/2 recent
neulasta dosing. She is currently on second line chemo after failing first line. She has a liver lesion ablation scheduled for March at [place]. ERCP in 10/01 with stent and again a week later for stent malfunction. Recurrent jaundice a year later
with rpt ERCP showing malignant changes at CHD, bifurcation and left main hepatic ducts, Stent is currently in place to left and right hepatic ducts. Plan was for elective stent change next month.
Past Medical History
Past Medical History: Other (Cancer (metastatic pancreatic Cancer with prior biliary stenting and mets to liver and nodes), HTN and Other (osteoporosis , klebsiella UTI, anemia, hepatic biloma)
Past Surgical History: Other (Orthopedic (elbow fx ) and Other (tubal ligation, breast implants, port placement )
Social History
Tobacco: Non-Smoker
Alcohol: None
Drug: None
Personal:
Living: With Family
Family History
Family History: Reviewed & Noncontributory
Allergies / Home Medications
Allergy/AdvReac Type Severity Reaction Status Date / Time
No Known Allergies Allergy Verified 02/07/25 18:37
�Medication �Instructions �Recorded �Confirmed �Type
denosumab 60 mg/mL subcutaneous 60 mg SC [id number] bone health 09/11/23 02/08/25 History
syringe (Prolia)
lidocaine-prilocaine 2.5 %-2.5 % 1 applic topical DAILYPRN PRN 10/05/23 02/08/25 History
topical cream prior to port access
diphenoxylate-atropine 2.5 2 tab PO BIDPRN PRN dairrhea 09/16/24 02/08/25 History
mg-0.025 mg tablet
therapeutic multivitamin 1 tab PO DAILY Supplement 09/16/24 02/08/25 History
vitamin B complex 1 tab PO DAILY Supplement 09/16/24 02/08/25 History
oxycodone 5 mg tablet 5 mg PO BIDPRN PRN moderate severe 09/21/24 02/08/25 Rx
pain #10 tabs
vitamin [id number]-[id number] acid 1 tab PO DAILY 02/08/25 02/08/25 History
Review of Systems
-
A 10 point review of systems was completed, and was negative except as per HPI.
Physical Exam
Vital Signs
Temp Pulse Resp BP Pulse Ox
98.1 F 59 16 102/54 99
02/08/25 07:41 02/08/25 07:41 02/08/25 07:41 02/08/25 07:41 02/08/25 07:41
02/07/25 02/08/25 02/09/25
06:59 06:59 06:59
Actual Weight 49.555 kg
Body Mass Index (BMI) 19.4
Lab Results
02/08/25 08:11
02/08/25 08:11
WBC 28.6 10^3/uL (4.8-10.8) H 02/08/25 08:11
Hgb 9.3 g/dL (12.0-16.0) L 02/08/25 08:11
Hct 28.2 % (37.0-47.0) L 02/08/25 08:11
Plt Count 135 10^3/uL (130-400) D 02/08/25 08:11
Abs Immat Gran (auto) 3.4 10^3/uL (0-0.05) H 02/07/25 21:27
Neutrophils % 87.5 % (42.2-75.2) H 02/07/25 21:27
Physical Exam
General: No Apparent Distress
HEENT: Normocephalic and Anicteric
GI: Soft, Non Distended and Tender (mild ttp to epigastrium and RUQ)
Skin: Warm and Dry
Neuro: AO x 3
Psych: Calm
Data Reviewed
-
Ultrasound: Image Personally Visualized and interpreted, Report Reviewed by me and Discussed with Patient
MRI: Image Personally Visualized and interpreted, Report Reviewed by me and Discussed with Patient
Labs: Labs Reviewed by me and Discussed with Patient
Old Records: Reviewed
Assessment / Plan
-
74F with fever, leukocytosis and RUQ pain in setting of advanced stage IV pancreatic adenoCA with proven mets to proximal bile ducts (and stomach, RP, liver)
Febrile on admit but not since, otherwise VSS
Profound leukocytosis (recent neulasta/chemo)
US with distended gb with stones and mild GBWT, concern for contained perforation on my interpretation
MRCP more concerning for contained gb perf, occlusion of proximal bile ducts likely including cystic duct
In light of current findings, with fever/WBC/RUQ ttp, immunosuppression, dilation of gb with concern for contained perf and possible malignant occlusion of cystic duct, recommend perc deejay tube
This should hopefully allow prompt return to chemo, unclear how this would affect planned hepatic lesion ablation
HIDA will be unhelpful in setting of bile duct stents
Surgery in setting of stage IV cancer would be high risk and very likely delay chemo
She was advised that many patients who undergo deejay drain in setting of panc/bili malignancy do not progress to interval cholecystectomy
She will also benefit from GI eval for possible rpt ERCP and stent exchange
We discussed the complex and high risk nature of her presentation and how current mgmt may affect plan for CA tx going fwd. She asked that I not update her at this time. All ?s answered.
Plan:
IR consult for perc deejay tube
IV abx
GI consult
All other care as per primary team
Will follow
--- NOTE | 2025-02-08 13:44 | W.PN.HOSP.TC ---
Today's Communication/Plan
-
IV antibiotics
Follow cultures
N.p.o. for now
Stent exchange tomorrow
Possible percutaneous cholecystotomy today
Assessment / Plan
Assessment / Plan
#Acute cholangitis
#Contained gallbladder perforation
#Biliary obstruction s/p CBD stent and stent exchange (09/19/2024)
-Presented with AST 363, ALT 367, ALP 1172, T. bili 1.8; also with WBC near 55, temperature 102.7 �F
-Suspicion for recurrent biliary obstruction with superimposed cholangitis; no circulatory shock or AMS
-Blood cultures x 2 taken on arrival, was started on IV Zosyn and maintenance fluids
-MRCP today showed diffuse intrahepatic biliary dilation and signs of stricture, and likely neoplastic
-GI and surgery following; planning for possible percutaneous cholecystotomy and stent exchange
Plan
-Continue with IV Zosyn and follow blood cultures
-CBD stent exchange tomorrow with GI
-Percutaneous cholecystotomy today with general surgery
-Trend CBC, LFTs, temperature curve
#Stage IV pancreatic cancer
#Cancer metastasis to liver and retroperitoneal LNs
#Anemia of chronic disease
-Diagnosed 2022 on EUS showing 33 x 34 mm mass of the tail of the pancreas; FNA confirmed adenocarcinoma
-Started on chemotherapy in September 2023; has had multiple CBD stent placements for obstructive disease
-Follows with Dr. Prescott at [place], Dr. You locally
#CKD stage III
-Creatinine baseline in the range of 1.1-1.4; CrCl 25-36 since September 2024
-Unclear etiology; does not have signs of acidemia, bone mineral disease
-Renal function stable and near baseline, appears euvolemic
-Trend BMP
#Dyslipidemia
-No known ASCVD history
-Not currently on any statin or antilipid therapies
#Osteoporosis
-Home medications include Prolia every 6-month
DVT prophylaxis: Subcu heparin
Diet: N.p.o. for now
CODE STATUS: Full code
Anticipated Discharge: > 48 hours
Subjective/Interval History
-
Date of Service: February 08, 2025
Seen and examined at the bedside. No acute events reported overnight. AFVSS this morning
Had MRCP this morning, demonstrates findings consistent with contained perforation of the gallbladder. Similar finding seen on previous ultrasound
Denies any new complaints this morning
Objective Data
-
Labs:
Laboratory Results
02/08/25 02/08/25
08:11 13:35
WBC 28.6 H
Hgb 9.3 L
Hct 28.2 L
Plt Count 135 D
PT Pending
INR Pending
Sodium 139
Potassium 3.9
Chloride 109 H
Carbon Dioxide 23
BUN 22 H
Creatinine 1.2 H
Glucose 91
Calcium 8.3 L
Total Bilirubin 1.8 H
AST 173 H
ALT 266 H
Alkaline Phosphatase 939 H
Vital Signs:
Vital Signs
Temp Pulse Resp BP Pulse Ox
98.1 F 59 16 102/54 99
02/08/25 07:41 02/08/25 07:41 02/08/25 07:41 02/08/25 07:41 02/08/25 07:41
Review of Systems
-
History Source: Patient
All other systems: Reviewed and negative
Physical Exam
-
General: Well Developed, No Apparent Distress and Other (Thin and frail appearing)
HEENT: Normocephalic, Atraumatic, Moist Mucous Membranes and Anicteric
Respiratory: Clear to Auscultation and Non Labored Respirations
Cardiac: Regular Rhythm and S1/S2; Negative Murmur, Rub or Gallop
GI: Soft, Normal Bowel Sounds, Tender and Distended
Musculoskeletal: No Clubbing, No Cyanosis and No Edema
Skin: Warm, Dry and Normal Turgor; Negative Rash or Jaundice
Neuro: AO x 3 and Nonfocal/Grossly Intact
Psych: Calm
Data Reviewed
-
Labs: Labs Reviewed by me and Discussed with Patient
[2025-02-08 14:03] LABS: INR 1.04; PT 14.1 Sec (11.4-14.6)
--- NOTE | 2025-02-08 14:25 | CM ---
Met with patient to obtain information for assessment. Patient stated that she lives with her spouse in a [place] and over community. The house is two stories, however, she and her spouse do not go up and down to the second floor. There is one step to
enter the home. Patient has been independent with her ADLs, personal care, dressing bathing. 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 Patient stated that she stays active and walks sometimes 70 miles a week.
Patient has a prescription plan and uses, [facility] in [place] on [phone] for all of her medications.
Her provider is Sabrina Gómez.
Patient will most likely have drain placed after surgery. Will explore needs after OR.
Plan: Case management will continue to follow and assist with discharge planning. Home, will check to determine if patient will need VN.
[2025-02-08] MEDS: DILAUDID 0.5 MG IV ×2 (18:00→21:59)
[2025-02-09] MEDS: DILAUDID 0.5 MG IV ×4 (02:07→22:33)
[2025-02-09] MEDS: ZOSYN 50 IV ×4 (05:59→23:41)
[2025-02-09 06:00] VITALS: BMI 19.9
[2025-02-09] MEDS: HEPARIN 5000 UNITS SC ×2 (07:18→19:47)
[2025-02-09] MEDS: LR 1000 IV (07:19)
[2025-02-09 07:50] VITALS: BP 111/73
[2025-02-09 07:52] LABS: INR 1.04; PT 14.2 Sec (11.4-14.6)
[2025-02-09 08:02] LABS: Hematocrit 29.2 % (37.0-47.0); Hemoglobin 9.6 g/dL (12.0-16.0); Mean Corp Hgb Conc. 32.9 g/dL (33.0-37.0); Mean Corpuscular Hgb 32.3 pg (27.0-31.0); Mean Corpuscular Volume 98.3 fL (81.0-99.0); Platelet Count 141 10^3/uL (130-400); Red Blood Cell Count 2.97 10^6/uL (4.20-5.40); Red Cell Dist. Width 17.4 % (11.5-14.5); White Blood Cell Count 35.4 10^3/uL (4.8-10.8)
--- NOTE | 2025-02-09 08:22 | W.PN.GI.CBS2 ---
Today's Communication / Plan
-
Okay for clear liquids, continue abx. Timing of ERCP TBD.
Assessment / Plan
-
74 year old female with h/o hyperlipidemia, osteoporosis, hepatic biloma, anemia, UTI, diagnosed with metastatic pancreatic cancer in 2022 with known mets to liver and retroperitoneal nodes. Her initial EUS�on 09/11/2023 showed 33 x 34 mm mass in
the tail of pancreas with secondary retroperitoneal mass measuring 23 x 21 mm adjacent to left adrenal gland.� FNA confirmed adenocarcinoma.� She also had friable and erythematous mucosa in the lesser curvature of the stomach and the biopsy showed
local invasion with adenocarcinoma.� ERCP was performed and biliary stents were placed to both left and right intrahepatic ducts.� Patient was started on chemotherapy on 09/30/2023.� She had a stent malfunction and ERCP had to be repeated on
10/08/2023 with removal of right intrahepatic ductal stent and placement of pigtail stent to the left intrahepatic duct, which lasted her quite a long time, presenting with obstructive jaundice in 09/2024, requiring stent exchange. ERCP and
cholangioscopy were performed which showed malignant appearing mucosa extending from common hepatic duct, bifurcation, and left main hepatic duct.� Spy bite biopsy showed adenocarcinoma.� DPPS were placed into left and right hepatic ducts. She
follows with Dr. Prescott at [facility] as well as Dr. You. She was scheduled to have stent exchange with Dr. Garvey on 03/09, however, reports subjective fever with chills at home as well as acute on chronic abdominal pain found to be febrile on
admission with a temperature of 102.7. Recent imaging with PET showed worsening pancreatic Ca in tail of pancreas, new multifocal mets and rim uptake inferior medial right lobe adjacent to gallbladder- mets vs inflammation. US abdomen on admission
with gallbladder distention up to 11.5 cm with fluid/sludge in GB and mild GBWT and fluid. Follow-up MRCP yesterday showed contained gallbladder perforation as well as CBD stone. She is s/p perc deejay drain on 02/08 with improvement in LFTs and
leukocytosis. She received Neulasta prior to her admission so that is certainly contributing to the degree of her leukocytosis.
A/P: Contained gallbladder perforation s/p perc deejay tube with concern for mild cholangitis with CBD stone found on MRCP
-continue abx
-okay for clear liquids
-holding on ERCP today in light of findings on MRCP yesterday, now s/p perc deejay
-will discuss performing ERCP tomorrow
Subjective
Subjective
Date of Service: February 09, 2025
MRCP performed yesterday afternoon showed concerns for contained gallbladder perforation, occlusion of proximal bile ducts likely including cystic duct as well as CBD stone. She subsequently had an IR perc deejay drain placed given she is a high
surgical risk. This morning, she reports the abdominal pain has nearly subsided, just some back pain from the procedure.
Objective
Data Reviewed
Laboratory Data:
Laboratory Results
02/09/25 07:31
Laboratory Results
PT 14.2 Sec (11.4-14.6) 02/09/25 07:31
INR 1.04 02/09/25 07:31
Total Bilirubin 1.8 mg/dl (0.2-1.3) H 02/08/25 08:11
AST 173 U/L (14-36) H 02/08/25 08:11
ALT 266 U/L (0-35) H 02/08/25 08:11
Alkaline Phosphatase 939 U/L (38-126) H 02/08/25 08:11
Lipase 23 U/L (23-300) 02/08/25 08:11
Vital Signs and I&O:
Vital Signs
Temp Pulse Resp BP Pulse Ox
97.8 F 81 17 111/73 96
02/09/25 07:50 02/09/25 07:50 02/09/25 07:50 02/09/25 07:50 02/09/25 07:50
I&O
02/08/25 02/09/25 02/10/25
06:59 06:59 06:59
Intake Total 2975 / 2975
Output Total 85 / 85
Balance 2890 / 2890
Physical Exam
Physical Exam
HEENT: Other (Icteric)
Neuro: Non Focal
GEN: Appears well, in no acute distress
ABDOMEN: +BS, mild TTP in RUQ and epigastrium, no rebound or guarding. + perc deejay drain with small amount of serosanguinous fluid
[2025-02-09 08:33] LABS: ALT (SGPT) 173 U/L (0-35); AST (SGOT) 67 U/L (14-36); Albumin 2.8 g/dl (3.5-5.0); Alkaline Phosphatase 909 U/L (38-126); Blood Urea Nitrogen 20 mg/dl (7-17); Calcium 7.8 mg/dl (8.4-10.2); Carbon Dioxide 22 mmol/L (22-30); Chloride 106 mmol/L (98-107); Direct Bilirubin 0.7 mg/dl (0.0-0.4); Estimated Creatinine Clearance 33 ml/min; Glucose 63 mg/dl (70-99); Potassium 4.1 mmol/L (3.5-5.1); Sodium 136 mmol/L (135-145); Total Bilirubin 1.3 mg/dl (0.2-1.3); Total Protein 5.2 g/dl (6.3-8.2); eGFR 47.21
--- NOTE | 2025-02-09 09:16 | PTCARENOTE ---
morning glucose 63 on labs. pt given juice to drink and will recheck accucheck.
[2025-02-09 09:27] LABS: % Basophils 0.1 % (0-2); % Eosinophils 0.7 % (0-6); % Immature Granulocytes 4.6 % (0-0.5); % Lymphocytes 2.9 % (20.5-51.1); % Monocytes 5.2 % (1.7-9.3); % Neutrophils 86.5 % (42.2-75.2); Absolute Eosinophils 0.3 10^3/uL (0-0.7); Absolute Immature Granulocytes 1.6 10^3/uL (0-0.05); Absolute Monocytes 1.9 10^3/uL (0.1-0.6); Absolute Neutrophils 30.6 10^3/uL (1.4-6.5); Nucleated Red Blood Cells % 0 %
[2025-02-09 10:13] LABS: Glucose - Point of Care 104 mg/dl (70-99)
--- NOTE | 2025-02-09 10:59 | W.PN.GS2 ---
Today's Communication / Plan
-
`
Assessment / Plan
-
Assessment: 74-year-old female with metastatic pancreatic adeno CA (bile ducts, stomach, retroperitoneum, liver) presenting with acute calculus cholecystitis/cystic duct obstruction
Percutaneous cholecystostomy tube placed with clinical improvement and good response.
Mucopurulent drainage from IR drain -cultures pending; Gram stain with many WBCs
Plan: Percutaneous cholecystostomy tube to remain in place
From a surgical standpoint okay to advance diet as tolerated -GI following for possible ERCP so will defer dietary advancement to GI service
Currently on Zosyn - follow biliary cultures from IR drain
Counseled patient regarding drain care
Will need flushes, and drain care instructions. May benefit from home visiting nursing initially to assist with percutaneous cholecystostomy tube care.
Advised patient that it is safe to shower with IR drain in place.
Subjective Data
-
Date of Service: February 09, 2025
Patient seen and examined. at bedside.
She feels much better today. Presenting abdominal pain has resolved.
Appetite returning.
Advising that she is looking forward to discharge from hospital soon
Tolerated liquids
Objective Data
-
Intake and Output
02/08/25 02/09/25 02/10/25
06:59 06:59 06:59
Intake Total 2975 / 2975
Output Total
Balance 2890 / 2890
Intake:
Oral fluids 520 / 520
IV fluids (Total) 2400 / 2400
IV piggybacks 50 / 50
Amount instilled into Drain (
Total)
Right Upper Abdomen Placed in
IR
Output:
Drain Output (Total)
Right Upper Abdomen Placed in
IR
Other:
Number of approximated LARGE 1
amounts of urine
How many times incontinent 3
MODERATE amount urine
Vital Signs
Temp Pulse Resp BP Pulse Ox
97.8 F 81 17 111/73 96
02/09/25 07:50 02/09/25 07:50 02/09/25 07:50 02/09/25 07:50 02/09/25 07:50
Lab Results
02/09/25 07:31
02/09/25 07:31
Calcium 7.8 mg/dl (8.4-10.2) L 02/09/25 07:31
Total Bilirubin 1.3 mg/dl (0.2-1.3) 02/09/25 07:31
Direct Bilirubin 0.7 mg/dl (0.0-0.4) H 02/09/25 07:31
AST 67 U/L (14-36) H 02/09/25 07:31
ALT 173 U/L (0-35) H 02/09/25 07:31
Alkaline Phosphatase 909 U/L (38-126) H 02/09/25 07:31
Total Protein 5.2 g/dl (6.3-8.2) L 02/09/25 07:31
Albumin 2.8 g/dl (3.5-5.0) L 02/09/25 07:31
Physical Exam
-
NAD AAOx3
ABD: Soft, nondistended, no tenderness on palpation except minimally at IR drain site.
Right sided IR drain going to gravity bag with purulent light sanguinous/mucoid bilious drainage
--- NOTE | 2025-02-09 12:07 | W.PN.HOSP.TC ---
Addendum entered and electronically signed by Josué Patterson DO 02/10/25 12:44:
CDI: Sepsis secondary to cholangitis and cholecystitis present on arrival, has improved clinically and no longer meeting SIRS criteria
Original Note:
Today's Communication/Plan
-
Continue IV Zosyn and follow cultures
Monitor cholecystotomy tube output
Trend CBC and temperature curve
Planning for CBD stent exchange with GI
Trend LFTs
Assessment / Plan
Assessment / Plan
#Acute cholangitis
#Contained gallbladder perforation
#Biliary obstruction s/p CBD stent and stent exchange (09/19/2024)
-Presented with AST 363, ALT 367, ALP 1172, T. bili 1.8; also with WBC near 55, temperature 102.7 �F
-Suspicion for recurrent biliary obstruction with superimposed cholangitis; no circulatory shock or AMS
-Blood cultures x 2 taken on arrival, was started on IV Zosyn and maintenance fluids
-MRCP today showed diffuse intrahepatic biliary dilation and signs of stricture, and likely neoplastic
-GI and surgery following; Status post percutaneous cholecystotomy on 02/08, green purulent discharge, culture sent
Plan
-Continue with IV Zosyn, follow blood and cholecystotomy cultures
-ERCP with CBD stent exchange tomorrow with GI
-Trend CBC, LFTs, temperature curve
-Monitor cholecystotomy tube output
#Stage IV pancreatic cancer
#Cancer metastasis to liver and retroperitoneal LNs
#Anemia of chronic disease
-Diagnosed 2022 on EUS showing 33 x 34 mm mass of the tail of the pancreas; FNA confirmed adenocarcinoma
-Started on chemotherapy in September 2023; has had multiple CBD stent placements for obstructive disease
-Follows with Dr. Prescott at [facility], Dr. You locally
#CKD stage III
-Creatinine baseline in the range of 1.1-1.4; CrCl 25-36 since September 2024
-Unclear etiology; does not have signs of acidemia, bone mineral disease
-Renal function stable and near baseline, appears euvolemic
-Trend BMP
#Dyslipidemia
-No known ASCVD history
-Not currently on any statin or antilipid therapies
#Osteoporosis
-Home medications include Prolia every 6-month
DVT prophylaxis: Subcu heparin
Diet: CLD, n.p.o. after midnight
CODE STATUS: Full code
Anticipated Discharge: 24 - 48 hours
Subjective/Interval History
-
Date of Service: February 09, 2025
Seen and examined at the bedside. No acute events overnight. AFVSS this morning
Had successful percutaneous cholecystotomy tube placed with purulent green drainage subsequently. GI planning for CBD stent exchange on 02/10
Patient states she feels well today, mild pain at site of tube placement. Frustrated at possibility that stent exchange would not be performed tomorrow
Objective Data
-
Labs:
Laboratory Results
02/09/25
07:31
WBC 35.4 H
Hgb 9.6 L
Hct 29.2 L
Plt Count 141
PT 14.2
INR 1.04
Sodium 136
Potassium 4.1
Chloride 106
Carbon Dioxide 22
BUN 20 H
Creatinine 1.2 H
Glucose 63 L
Calcium 7.8 L
Total Bilirubin 1.3
AST 67 H
ALT 173 H
Alkaline Phosphatase 909 H
Vital Signs:
Vital Signs
Temp Pulse Resp BP Pulse Ox
97.8 F 81 17 111/73 96
02/09/25 07:50 02/09/25 07:50 02/09/25 07:50 02/09/25 07:50 02/09/25 07:50
I&O
02/08/25 02/09/25 02/10/25
06:59 06:59 06:59
Intake Total 2975 / 2975 5 / 5
Output Total 85 / 85
Balance 2890 / 2890
Review of Systems
-
History Source: Patient
All other systems: Reviewed and negative
Physical Exam
-
General: Well Developed, No Apparent Distress, Appears Chronically Ill and Other (Thin and frail appearing)
HEENT: Normocephalic, Atraumatic, Moist Mucous Membranes and Anicteric
Respiratory: Clear to Auscultation and Non Labored Respirations
Cardiac: Regular Rhythm and S1/S2; Negative Murmur, Rub or Gallop
GI: Soft, Nontender, Nondistended, Normal Bowel Sounds and Other (Mild right flank tenderness at site of percutaneous cholecystotomy; no infectious findings)
Musculoskeletal: No Clubbing, No Cyanosis and No Edema
Skin: Warm, Dry and Normal Turgor; Negative Rash
Neuro: AO x 3 and Nonfocal/Grossly Intact; Negative Tremors
Psych: Calm
Data Reviewed
-
Labs: Labs Reviewed by me, Discussed with Physician (Gastroenterology) and Discussed with Family
[2025-02-09 15:34] VITALS: BP 125/61
--- NOTE | 2025-02-09 15:34 | CM ---
CM following re: discharge planning.
Reviewed pt's chart, met with pt.
Pt reports she lives with her spouse in a 2SH 55 and over community and pt described herself as independent in all areas [employer]OMOT[employer].
Per chart review pt will have SARAH drain at discharge and she will need VN services. Pt is aware, expressed her agreement. VN choices provided, pt preferred [facility]. A referral to [facility] made.
D/C plan: home with [facility] and family support. Spouse to transport at discharge.
CM will follow with discharge plan updates as hospitalization progresses
--- NOTE | 2025-02-09 19:46 | SUR.PHASEI ---
report given to ronal RN. pt to be transferred to [address] [place] [address] shortly
[2025-02-09 20:07] VITALS: BP 121/63
[2025-02-09 22:50] VITALS: BP 117/57
[2025-02-10] VITALS (9 sets, daily range): BP systolic 124–147; BP diastolic 62–85
[2025-02-10] MEDS: ZOSYN 50 IV ×3 (06:06→23:09)
[2025-02-10 06:09] LABS: Hematocrit 30.3 % (37.0-47.0); Hemoglobin 9.9 g/dL (12.0-16.0); Mean Corp Hgb Conc. 32.7 g/dL (33.0-37.0); Mean Corpuscular Hgb 32.2 pg (27.0-31.0); Mean Corpuscular Volume 98.7 fL (81.0-99.0); Mean Platelet Volume 9.8 fL (7.4-10.4); Platelet Count 142 10^3/uL (130-400); Red Blood Cell Count 3.07 10^6/uL (4.20-5.40); Red Cell Dist. Width 17.6 % (11.5-14.5); White Blood Cell Count 44.7 10^3/uL (4.8-10.8)
[2025-02-10 06:27] LABS: ALT (SGPT) 126 U/L (0-35); AST (SGOT) 40 U/L (14-36); Alkaline Phosphatase 941 U/L (38-126); Blood Urea Nitrogen 17 mg/dl (7-17); Calcium 7.7 mg/dl (8.4-10.2); Carbon Dioxide 21 mmol/L (22-30); Chloride 106 mmol/L (98-107); Direct Bilirubin 0.5 mg/dl (0.0-0.4); Estimated Creatinine Clearance 33 ml/min; Glucose 60 mg/dl (70-99); Sodium 138 mmol/L (135-145); Total Protein 5.4 g/dl (6.3-8.2); eGFR 47.21
[2025-02-10 08:23] LABS: % Eosinophils 0.5 % (0-6); % Immature Granulocytes 5.1 % (0-0.5); % Lymphocytes 2.9 % (20.5-51.1); % Monocytes 4.1 % (1.7-9.3); % Neutrophils 87.4 % (42.2-75.2); Absolute Eosinophils 0.2 10^3/uL (0-0.7); Absolute Immature Granulocytes 2.3 10^3/uL (0-0.05); Absolute Lymphocytes 1.3 10^3/uL (1.2-3.4); Absolute Monocytes 1.9 10^3/uL (0.1-0.6); Nucleated Red Blood Cells % 0 %
[2025-02-10] MEDS: DEXTROSE 50% SYRINGE 12.5 GRAMS IV (09:08)
[2025-02-10] MEDS: HEPARIN 5000 UNITS SC ×2 (09:08→21:17)
--- NOTE | 2025-02-10 09:15 | PN.CDI ---
CDI
- -
CDI:
Physician Documentation Request
Admit Date: 02/07/25 23:50
Dear Doctor Leonardo,
Please review the following and provide your response in the progress notes.
Clinical Indicators:
- On admission: WBC 54.9, T max 102.7, HR 115
- IV abx Vanco, Zosyn
- 4.5L IVF
- Patient admit with acute cholangitis and gallbladder perforation
Please clarify which of the following most accurately describes the status of the patient's infection:
Sepsis
- Systemic manifestations of infection, with 2 or more SIRS criteria which include:
- Fever >100.4 degrees F or hypothermia < 96.8 degrees F
- Leukocytosis - WBC > 12,000 or leukopenia - WBC < 4,000 or > 10% bands
- Tachycardia > 90 beats per minute
- Tachypnea - RR > 20 breaths per minute or PaCO2 , 32mmHg
Source: Merck Manual 2013
- Indicate the known or suspected organism
- Indicate the known or suspected underlying infection, such as UTI, pneumonia or cellulitis
- Indicate if a suspected bacterial infection of unknown source
- Indicate if associated with an implanted device such as a F/C, PICC line, orthopedic hardware, etc.
Localized Infection Only, Without Systemic Illness
- indicate the site/source, such as UTI, pneumonia etc.
Other
Use of terms such as suspected, likely, concern for, or probable (associated with a specific diagnosis that is being evaluated, monitored, or treated as if it exists) are acceptable and can be coded in the inpatient setting, when documented at the
time of discharge.
Thank you,
Idris Valerio RN
CDI Specialist
Please use your independent medical judgment in providing your response.
[2025-02-10 09:38] LABS: Glucose - Point of Care 145 mg/dl (70-99)
[2025-02-10] MEDS: DILAUDID 0.5 MG IV (10:38)
--- NOTE | 2025-02-10 12:44 | W.PN.HOSP.TC ---
Today's Communication/Plan
-
N.p.o. for stent exchange with GI
Continue IV Zosyn
Trend LFTs and CBC
Monitor percutaneous cholecystotomy
Assessment / Plan
Assessment / Plan
#Acute cholangitis
#Contained gallbladder perforation
#Biliary obstruction s/p CBD stent and stent exchange (09/19/2024)
-Presented with AST 363, ALT 367, ALP 1172, T. bili 1.8; also with WBC near 55, temperature 102.7 �F
-Suspicion for recurrent biliary obstruction with superimposed cholangitis; no circulatory shock or AMS
-Blood cultures x 2 taken on arrival, was started on IV Zosyn and maintenance fluids
-MRCP today showed diffuse intrahepatic biliary dilation and signs of stricture, and likely neoplastic
-GI and surgery following; Status post percutaneous cholecystotomy on 02/08, green purulent discharge, culture sent
Plan
-Continue with IV Zosyn, follow blood and cholecystotomy cultures
-ERCP with CBD stent exchange today with GI
-Trend CBC, LFTs, temperature curve
-Monitor cholecystotomy tube output
#Stage IV pancreatic cancer
#Cancer metastasis to liver and retroperitoneal LNs
#Anemia of chronic disease
-Diagnosed 2022 on EUS showing 33 x 34 mm mass of the tail of the pancreas; FNA confirmed adenocarcinoma
-Started on chemotherapy in September 2023; has had multiple CBD stent placements for obstructive disease
-Follows with Dr. Prescott at [facility], Dr. You locally
#CKD stage III
-Creatinine baseline in the range of 1.1-1.4; CrCl 25-36 since September 2024
-Unclear etiology; does not have signs of acidemia, bone mineral disease
-Renal function stable and near baseline, appears euvolemic
-Trend BMP
#Dyslipidemia
-No known ASCVD history
-Not currently on any statin or antilipid therapies
#Osteoporosis
-Home medications include Prolia every 6-month
DVT prophylaxis: Subcu heparin
Diet: N.p.o. in preparation of stent exchange
CODE STATUS: Full code
Anticipated Discharge: 24 - 48 hours
Subjective/Interval History
-
Date of Service: February 10, 2025
Seen and examined at the bedside. No acute events reported overnight. AFVSS this morning
She was walking the halls with her , plans for ERCP with CBD stent exchange at 340 PM
She denies any new complaints as of this morning.
Objective Data
-
Labs:
Laboratory Results
02/10/25
05:26
WBC 44.7 H*
Hgb 9.9 L
Hct 30.3 L
Plt Count 142
Sodium 138
Potassium 4.0
Chloride 106
Carbon Dioxide 21 L
BUN 17
Creatinine 1.2 H
Glucose 60 L
Calcium 7.7 L
Total Bilirubin 1.0
AST 40 H
ALT 126 H
Alkaline Phosphatase 941 H
Vital Signs:
Vital Signs
Temp Pulse Resp BP Pulse Ox
98.1 F 63 16 128/67 96
02/10/25 07:05 02/10/25 07:05 02/10/25 07:05 02/10/25 07:05 02/10/25 07:05
I&O
02/09/25 02/10/25 02/11/25
06:59 06:59 06:59
Intake Total 2975 / 2975 1105 / 1105
Output Total 85 / 85
Balance 2890 / 2890 1105 / 1105
Review of Systems
-
History Source: Patient
All other systems: Reviewed and negative
Physical Exam
-
General: Well Developed, No Apparent Distress and Comfortable
HEENT: Normocephalic, Atraumatic, Moist Mucous Membranes and Anicteric
Respiratory: Clear to Auscultation and Non Labored Respirations
Cardiac: Regular Rhythm and S1/S2; Negative Murmur, Rub or Gallop
GI: Soft, Nontender, Nondistended, Normal Bowel Sounds and Other (Cholecystotomy tube present, no signs of infection)
Musculoskeletal: No Clubbing, No Cyanosis and No Edema
Skin: Warm, Dry and Normal Turgor; Negative Rash
Neuro: AO x 3 and Nonfocal/Grossly Intact; Negative Tremors
Psych: Calm
Data Reviewed
-
Labs: Labs Reviewed by me and Discussed with Patient
--- NOTE | 2025-02-10 14:00 | PTOTSP ---
Chart reviewed, spoke with nurse. Patient observed ambulating in the hallway earlier with her . Therapist spoke with the patient, who denied difficulty with mobility and wants to keep moving while here to keep her strength. Encouraged
continued mobility while hospitalized. No PT needs identified at this time, will sign off. Patient is aware our services are available if needed.
--- NOTE | 2025-02-10 18:40 | PTCARENOTE ---
Patient return from pacu post ERCP. Vs documented. no s/s of distress noted. plan of care ongoing. call chandler within reach.
[2025-02-10] MEDS: ZOSYN IV (20:00)
[2025-02-10] MEDS: ROXICODONE 5 MG PO (22:05)
[2025-02-11] MEDS: TYLENOL 650 MG PO ×3 (03:34→17:06)
[2025-02-11] MEDS: ZOSYN 50 IV ×2 (05:08→11:01)
[2025-02-11 05:32] VITALS: BMI 19.7
[2025-02-11 05:46] LABS: Hematocrit 31.3 % (37.0-47.0); Hemoglobin 10.5 g/dL (12.0-16.0); Mean Corp Hgb Conc. 33.5 g/dL (33.0-37.0); Mean Corpuscular Hgb 32.7 pg (27.0-31.0); Mean Corpuscular Volume 97.5 fL (81.0-99.0); Mean Platelet Volume 10.5 fL (7.4-10.4); Platelet Count 150 10^3/uL (130-400); Red Blood Cell Count 3.21 10^6/uL (4.20-5.40); Red Cell Dist. Width 17.8 % (11.5-14.5); White Blood Cell Count 59.9 10^3/uL (4.8-10.8)
[2025-02-11 05:59] LABS: ALT (SGPT) 96 U/L (0-35); AST (SGOT) 31 U/L (14-36); Albumin 3.1 g/dl (3.5-5.0); Alkaline Phosphatase 968 U/L (38-126); Blood Urea Nitrogen 16 mg/dl (7-17); Calcium 7.6 mg/dl (8.4-10.2); Carbon Dioxide 20 mmol/L (22-30); Chloride 105 mmol/L (98-107); Direct Bilirubin 0.5 mg/dl (0.0-0.4); Estimated Creatinine Clearance 32 ml/min; Glucose 100 mg/dl (70-99); Potassium 4.2 mmol/L (3.5-5.1); Sodium 137 mmol/L (135-145); Total Bilirubin 0.8 mg/dl (0.2-1.3); Total Protein 5.5 g/dl (6.3-8.2); eGFR 47.21
[2025-02-11 07:05] VITALS: BP 121/70
[2025-02-11 08:44] LABS: % Basophils 0.1 % (0-2); % Immature Granulocytes 6.3 % (0-0.5); % Lymphocytes 2.8 % (20.5-51.1); % Monocytes 3.1 % (1.7-9.3); % Neutrophils 87.7 % (42.2-75.2); Absolute Basophils 0.1 10^3/uL (0-0.2); Absolute Immature Granulocytes 3.8 10^3/uL (0-0.05); Absolute Lymphocytes 1.7 10^3/uL (1.2-3.4); Absolute Monocytes 1.9 10^3/uL (0.1-0.6); Absolute Neutrophils 52.5 10^3/uL (1.4-6.5); Nucleated Red Blood Cells % 0 %
--- NOTE | 2025-02-11 08:59 | W.PN.GI.CBS2 ---
Today's Communication / Plan
-
s/p ERCP for stent exchange yesterday, LFTs improving. Okay to advance diet. Okay to d/c from GI perspective with abx once medically cleared
Assessment / Plan
-
74 year old female with h/o hyperlipidemia, osteoporosis, hepatic biloma, anemia, UTI, diagnosed with metastatic pancreatic cancer in 2022 with known mets to liver and retroperitoneal nodes. Her initial EUS�on 09/11/2023 showed 33 x 34 mm mass in
the tail of pancreas with secondary retroperitoneal mass measuring 23 x 21 mm adjacent to left adrenal gland.� FNA confirmed adenocarcinoma.� She also had friable and erythematous mucosa in the lesser curvature of the stomach and the biopsy showed
local invasion with adenocarcinoma.� ERCP was performed and biliary stents were placed to both left and right intrahepatic ducts.� Patient was started on chemotherapy on 09/30/2023.� She had a stent malfunction and ERCP had to be repeated on
10/08/2023 with removal of right intrahepatic ductal stent and placement of pigtail stent to the left intrahepatic duct, which lasted her quite a long time, presenting with obstructive jaundice in 09/2024, requiring stent exchange. ERCP and
cholangioscopy were performed which showed malignant appearing mucosa extending from common hepatic duct, bifurcation, and left main hepatic duct.� Spy bite biopsy showed adenocarcinoma.� DPPS were placed into left and right hepatic ducts. She
follows with Dr. Prescott at [facility] as well as Dr. You. She was scheduled to have stent exchange with Dr. Garvey on 03/09, however, reports subjective fever with chills at home as well as acute on chronic abdominal pain found to be febrile on
admission with a temperature of 102.7. Recent imaging with PET showed worsening pancreatic Ca in tail of pancreas, new multifocal mets and rim uptake inferior medial right lobe adjacent to gallbladder- mets vs inflammation. US abdomen on admission
with gallbladder distention up to 11.5 cm with fluid/sludge in GB and mild GBWT and fluid. Follow-up MRCP yesterday showed contained gallbladder perforation as well as CBD stone. She is s/p perc deejay drain on 02/08 with improvement in LFTs and
leukocytosis. She received Neulasta prior to her admission so that is certainly contributing to the degree of her leukocytosis.
A/P: Contained gallbladder perforation s/p perc deejay tube with concern for mild cholangitis with CBD stone found on MRCP
-continue abx; prelim bile culture +gram positive cocci; BCx negative
-okay to advance to regular diet
-s/p ERCP yesterday with Dr. Garvey, two partially occluded stents found along with known malignant appearing biliary stricture; stents removed and new plastic stents placed in the right and left hepatic ducts
-will arrange for follow-up with Dr. Garvey in 4 months (our office will call her to schedule)
-LFTs improving
-GI will sign off, please call with questions
Subjective
Subjective
Date of Service: February 11, 2025
Patient seen in follow-up, she is very relieved she was able to have her stent exchange performed by Dr. Garvey yesterday. Findings below:
Impression: - Two partially occluded stents from the biliary tree
were seen in the major papilla.
- A single severe biliary stricture was found. The
stricture was malignant appearing.
- The left main hepatic duct, right main hepatic duct
and right intrahepatic branches were mildly dilated.
- Two stents were removed from the left hepatic duct
and the right hepatic duct.
- The biliary tree was swept and sludge was found.
- One plastic stent was placed into the right hepatic
duct.
- One plastic stent was placed into the left hepatic
duct.
Objective
Data Reviewed
Laboratory Data:
Laboratory Results
02/11/25 05:06
02/11/25 05:06
Laboratory Results
PT 14.2 Sec (11.4-14.6) 02/09/25 07:31
INR 1.04 02/09/25 07:31
Total Bilirubin 0.8 mg/dl (0.2-1.3) 02/11/25 05:06
AST 31 U/L (14-36) 02/11/25 05:06
ALT 96 U/L (0-35) H 02/11/25 05:06
Alkaline Phosphatase 968 U/L (38-126) H 02/11/25 05:06
Lipase 23 U/L (23-300) 02/08/25 08:11
Vital Signs and I&O:
Vital Signs
Temp Pulse Resp BP Pulse Ox
98.0 F 65 16 121/70 98
02/11/25 07:05 02/11/25 07:05 02/11/25 07:05 02/11/25 07:05 02/11/25 07:05
I&O
02/10/25 02/11/25 02/12/25
06:59 06:59 06:59
Intake Total 1105 / 1105 820 / 820
Output Total
Balance 1105 / 1105 810 / 810
Physical Exam
Physical Exam
HEENT: Other (Icteric)
Neuro: Non Focal
GEN: Appears well, in no acute distress
ABDOMEN: +BS, mild TTP in RUQ and epigastrium, no rebound or guarding. + perc deejay drain with small amount of serosanguinous fluid
[2025-02-11] MEDS: HEPARIN 5000 UNITS SC (09:05)
--- NOTE | 2025-02-11 12:06 | W.PN.HOSP.TC ---
Today's Communication/Plan
-
Transition to Augmentin for 14 days of antibiotics
Escalate diet
OP surgery and GI follow-up
Discharge when tolerating full diet
Assessment / Plan
Assessment / Plan
#Acute cholangitis
#Contained gallbladder perforation
#Biliary obstruction s/p CBD stent and stent exchange (09/19/2024)
#Malignant biliary stricture
-Presented with AST 363, ALT 367, ALP 1172, T. bili 1.8; also with WBC near 55, temperature 102.7 �F
-Suspicion for recurrent biliary obstruction with superimposed cholangitis; no circulatory shock or AMS
-Blood cultures x 2 taken on arrival, NGTD, was started on IV Zosyn and maintenance fluids
-MRCP today showed diffuse intrahepatic biliary dilation and signs of stricture, and likely neoplastic
-GI and surgery following; Status post percutaneous cholecystotomy on 02/08, green purulent discharge, cultures NGTD
-LFTs downtrending following stent exchange; determine to have malignant stricture within biliary ducts
Plan
-Transition to Augmentin to complete 14-day course of antibiotic
-Outpatient follow-up with gastroenterology and general surgery
-Monitor cholecystotomy tube output, flushes daily at DC
-Trend CBC, LFTs, temperature curve
#Stage IV pancreatic cancer
#Cancer metastasis to liver and retroperitoneal LNs
#Anemia of chronic disease
-Diagnosed 2022 on EUS showing 33 x 34 mm mass of the tail of the pancreas; FNA confirmed adenocarcinoma
-Started on chemotherapy in September 2023; has had multiple CBD stent placements for obstructive disease
-Follows with Dr. Prescott at [facility], Dr. You locally
#CKD stage III
-Creatinine baseline in the range of 1.1-1.4; CrCl 25-36 since September 2024
-Unclear etiology; does not have signs of acidemia, bone mineral disease
-Renal function stable and near baseline, appears euvolemic
-Trend BMP
#Dyslipidemia
-No known ASCVD history
-Not currently on any statin or antilipid therapies
#Osteoporosis
-Home medications include Prolia every 6-month
DVT prophylaxis: Subcu heparin
Diet: Regular diet
CODE STATUS: Full code
Anticipated Discharge: Today
Subjective/Interval History
-
Date of Service: February 11, 2025
Seen and examined at the bedside. No acute events reported overnight. AFVSS
Successful stent exchange, discovery of malignant biliary stricture. LFTs downtrending today, diet advanced to regular
Denies any new complaints. States she would prefer discharge today so she can attend [facility]
Objective Data
-
Labs:
Laboratory Results
02/11/25
05:06
WBC 59.9 H*
Hgb 10.5 L
Hct 31.3 L
Plt Count 150
Sodium 137
Potassium 4.2
Chloride 105
Carbon Dioxide 20 L
BUN 16
Creatinine 1.2 H
Glucose 100 H
Calcium 7.6 L
Total Bilirubin 0.8
AST 31
ALT 96 H
Alkaline Phosphatase 968 H
Vital Signs:
Vital Signs
Temp Pulse Resp BP Pulse Ox
98.0 F 65 16 121/70 98
02/11/25 07:05 02/11/25 07:05 02/11/25 07:05 02/11/25 07:05 02/11/25 09:26
I&O
02/10/25 02/11/25 02/12/25
06:59 06:59 06:59
Intake Total 1105 / 1105 820 / 820 5
Output Total
Balance 1105 / 1105 810 / 810
Review of Systems
-
History Source: Patient
All other systems: Reviewed and negative
Physical Exam
-
General: Well Developed, No Apparent Distress, Appears Chronically Ill and Other (Cachectic and frail)
HEENT: Normocephalic, Atraumatic, Moist Mucous Membranes and Anicteric
Respiratory: Clear to Auscultation and Non Labored Respirations
Cardiac: Regular Rhythm and S1/S2; Negative Murmur, Rub or Gallop
GI: Soft, Nondistended, Normal Bowel Sounds and Tender (Mild, generalized, no peritoneal signs)
Musculoskeletal: No Clubbing, No Cyanosis and No Edema
Skin: Warm, Dry and Normal Turgor; Negative Rash
Neuro: AO x 3 and Nonfocal/Grossly Intact
Psych: Calm
Data Reviewed
-
Labs: Labs Reviewed by me, Discussed with Physician (General surgeon) and Discussed with Patient
--- NOTE | 2025-02-11 13:14 | CM ---
Patient seen at bedside with patient . Patient to be followed with [facility]. CM called to [facility] weekend liaison and update provided. Patient completed IMM form and patient to transport. Nurse to review flush for drain with patient .
CM will follow for discharge planning needs.
Plan; home with [facility] to follow
[2025-02-11 15:05] VITALS: BP 132/68
--- NOTE | 2025-02-11 16:57 | W.DCSUMMARY ---
Discharge Summary
Discharge Data
Date of Admission: 02/07/25
Date of Discharge: 02/11/25
Total time spent discharging patient (in min): 33
-
Pending Results: No
Hospital Course
Discharging Physician : Josué Patterson DO
Disposition : Home with home care
Principal Discharge diagnosis :
Acute cholangitis
Acute cholecystitis with contained gallbladder perforation
Status post percutaneous cholecystotomy tube
Status post CBD stent exchange and lysis
Malignant biliary stricture
Chronic Discharge diagnosis :
Stage IV pancreatic cancer with liver metastases on chemotherapy
Status post CBD stent x 3
CKD stage IIIa
AOCD
Chemotherapy associated diarrhea
Hospital Course :
74-year-old female that presented to the hospital with right upper quadrant abdomen pain, fever and nausea that started morning of arrival. Was associated with fever, temperature 102.5 �F in the ED. Chronically elevated leukocytosis in the context
of cancer. Ultrasound abdomen in the ED demonstrated signs of acute cholecystitis with mild wall thickening. Follow-up MRI and MRCP of the abdomen demonstrated cholecystitis with contained gallbladder perforation. General surgery was consulted,
patient too high risk for laparoscopic procedure with metastatic cancer. Percutaneous cholecystotomy tube was placed in the hospital. Subsequently was seen by advanced endoscopist for ERCP that demonstrated a malignant appearing biliary stricture
and 2 partially occluded stents within the biliary tree. 2 stents placed into the right hepatic duct and left hepatic duct respectively. LFTs down trended and patient symptomatically improved. Was treated with IV Zosyn upon arrival which was
transitioned to oral Augmentin to complete 14-day course of antibiotic at time of discharge. Was encouraged to follow-up with her family doctor, oncologist, herb digger after discharge from the hospital. Schedule follow-up with general
surgery to be seen in the office, instructions provided for percutaneous cholecystotomy tube flushes.
Consultants :
Gastroenterology: Evelin Millard DO
Advanced endoscopist: Nelson Garvey MD
General Surgery: Blaine Mathias MD
Important imaging findings :
Abdomen ultrasound (02/07/2025)
IMPRESSION: The gallbladder is distended measuring up to 11.5 cm. There is mildly echogenic fluid/sludge within the gallbladder with mild gallbladder wall thickening and pericholecystic fluid. Negative Madison's sign. Findings likely represent
hydropic gallbladder although acute cholecystitis cannot be excluded. Numerous hepatic lesions consistent with known metastasis. There is intrahepatic biliary duct dilation with common bile duct stent, similar to prior PET/CT. Known pancreatic
lesion consistent with malignancy measuring approximately 6.3 x 4.7 cm.
MRI of abdomen without contrast/MRCP (02/08/2025)
IMPRESSION: There is severe diffuse intrahepatic bile duct dilation. Focal area of loss of bile duct signal at the junction of the right common and left common hepatic ducts, also involving the cystic duct insertion. This most likely represents
neoplastic disease, although could conceivably represent a nonneoplastic stricture. The gallbladder is distended. There is also a lobulated fluid signal extending lateral and anterior to the gallbladder wall, suggesting contained gallbladder
perforation. In the superior aspect of the common bile duct, there is a rounded filling defect, compatible with bile duct calculus. Hepatic metastatic disease. 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
carcinoma invading the spleen.
Procedure findings :
Percutaneous cholecystotomy (02/08/2025)
FINDINGS: Return of green purulent appearing bile from the gallbladder, sample sent for microbiology. 10 mL was evacuated during catheter placement. Contrast injections showed satisfactory position of the cholecystostomy tube. There was no
opacification of the cystic duct.
IMPRESSION: Ultrasound and fluoroscopically guided percutaneous cholecystostomy tube placement as described.
ERCP (02/10/2025)
Impression:
- Two partially occluded stents from the biliary tree were seen in the major papilla.
- A single severe biliary stricture was found. The stricture was malignant appearing.
- The left main hepatic duct, right main hepatic duct and right intrahepatic branches were mildly dilated.
- Two stents were removed from the left hepatic duct and the right hepatic duct.
- The biliary tree was swept and sludge was found.
- One plastic stent was placed into the right hepatic duct.
- One plastic stent was placed into the left hepatic duct.
Recommendation:
- Return patient to [facility] for [facility] care.
- Clear liquid diet today.
- Check liver enzymes (AST, ALT, alkaline phosphatase, bilirubin) tomorrow.
- Return to my office in 4 months.
Follow-up :
Follow-up with PCP in 1 to 2 weeks from discharge
Follow-up in office with general surgery in 2 to 4 weeks (tube flush instructions provided)
Continue Augmentin 875-125 mg every 12 hours through the end of 02/21/2025
Repeat CBC and LFTs 5 days after discharge
Discharge Plan
-
Patient Disposition: Home (Routine Discharge)
Discharge Diagnosis/Procedures: Acute cholecystitis with contained gallbladder perforation
Malignant stricture of the biliary ducts
Status post bile duct stent exchange
Status post percutaneous cholecystotomy tube
Metastatic pancreatic cancer
Condition: Fair
Diet: No restrictions
Activity: As tolerated
Driving Restrictions: Not until seen by your Dr
Bathing Restrictions: Keep cholecystotomy tube dry
Blood Work: CBC, LFTs 5 days after discharge from the hospital
Activity Restrictions/Additional Instructions:
Cholecystotomy tube care: See IR handout for drain care. You will need to flush it daily (towards the body) with 5ml of sterile normal saline. Follow up with your surgeon regarding next steps.
Follow-up: Family doctor within 1 to 2 weeks, general surgeon in 2 to 4 weeks (referral provided below), oncology as previously scheduled, GI as previously scheduled (referral provided if new GI needed)
Referrals:
Stanley Kirby MD [Active] - in two to four weeks
Sabrina Gómez MD [Family Provider] -
Evelin Millard DO [Active] -
Additional Discharge Medication Instructions: Continue Augmentin 875-125 mg tablet every 12 hours for 10 days after discharge (last day 02/21/2025)
Use sodium chloride flush as directed by surgery team
Prescriptions:
New
sodium chloride 0.9 % (flush) [Normal Saline Flush] Syringe
5 ml intra-catheter DAILY Qty: 350 0RF
Rx Instructions:
Forward flush perc cholecystostomy drain with 5ml of sterile NSS daily
amoxicillin-pot clavulanate 875-125 mg tablet
1 tab PO Q12H 10 Days Qty: 20 0RF
Continued
Prolia 60 mg/mL Syringe
60 mg SC [id number]
lidocaine-prilocaine 2.5-2.5 % cream
1 applic topical DAILYPRN PRN (Reason: prior to port access)
vitamin B complex Tablet Extended Release
1 tab PO DAILY
diphenoxylate-atropine 2.5-0.025 mg tablet
2 tab PO BIDPRN PRN (Reason: dairrhea)
therapeutic multivitamin Tablet
1 tab PO DAILY
oxycodone 5 mg Tablet
5 mg PO BIDPRN PRN (Reason: moderate severe pain) Qty: 10 0RF
vitamin O29-xteqr acid
1 tab PO DAILY
Rx Instructions:
unsure of dose
Discharge Orders:
Discharge Patient (As Directed); Ordered 02/11/25
Ordered By: Josué Patterson
Discharge Date and Time
Print Language: [place]
--- NOTE | 2025-02-11 18:30 | PTCARENOTE ---
Patient discharged home with [facility]. R subq port de-accessed by IV nurse, vitals taken by tech. Patient eating regular diet, states occasional abdominal soreness and diarrhea with urgency after eating; per patient, patient experiences diarrhea with
urgency from chemo and takes prescription anti-diarrheal medication at home regularly. MD and GI made aware of patient's diarrhea, stated patient okay for discharge if she feels better and wants to go; this RN discussed with patient, patient stated
to this RN she wants to go home this evening despite diarrhea and feels safe/ready to do so. This RN reviewed discharge instructions/medications with patient and patient's spouse; patient provided educational paper from IR on deejay drain, this RN
instructed patient and patient's on how to flush deejay drain with 5cc NSS, patient provided gauze pads, tegaderm, and tape for deejay drain dressing. This RN clarified with general surgery that patient can shower with drain and place fresh
dry dressing overtop insertion site when done, patient okay to shower per general surgery note and discharge instructions. Script for outpatient labs given to patient. Per patient, [facility] scheduled to arrive at patient's home for visit at 0830 tomorrow
AM. Patient dressed with assistance of this RN, belongings gathered in room with assistance of spouse, patient taken down to spouse's car via staff escort and wheelchair.
== END 2025-02-11 18:59 | disposition home health service (06) | DRG 871 ==
LOC: 2 NORTH 23:50
PROVIDERS: Clinical Nurse Specialist Family Health; Internal Medicine Gastroenterology; Nurse Practitioner Adult Health; Radiology Vascular & Interventional Radiology; ADMITTING PHYSICIAN Internal Medicine; ATTENDING PHYSICIAN Internal Medicine; CONSULT PHYSICIAN Surgery; EMERGENCY PHYSICIAN Emergency Medicine; FAMILY PHYSICIAN Family Medicine; OTHER PHYSICIAN Internal Medicine
PROC: 0F9430Z Drainage of Gallbladder with Drainage Device, Percutaneous Approach (ICD-10-PCS; 2025-02-08)
PROC: 0F758DZ Dilation of Right Hepatic Duct with Intraluminal Device, Via Natural or Artificial Opening Endoscopic (ICD-10-PCS; 2025-02-10)
PROC: 0FPB8DZ Removal of Intraluminal Device from Hepatobiliary Duct, Via Natural or Artificial Opening Endoscopic (ICD-10-PCS; 2025-02-10)
PROC: 0F768DZ Dilation of Left Hepatic Duct with Intraluminal Device, Via Natural or Artificial Opening Endoscopic (ICD-10-PCS; 2025-02-10)
DX: A41.9 Sepsis, unspecified organism (principal); K83.1 Obstruction of bile duct; K82.A2 Perforation of gallbladder in cholecystitis; C25.2 Malignant neoplasm of tail of pancreas; C78.7 Secondary malignant neoplasm of liver and intrahepatic bile duct; C78.6 Secondary malignant neoplasm of retroperitoneum and peritoneum; K83.09 Other cholangitis; K52.1 Toxic gastroenteritis and colitis; D84.9 Immunodeficiency, unspecified; K81.0 Acute cholecystitis; D63.0 Anemia in neoplastic disease; M81.0 Age-related osteoporosis without current pathological fracture; N18.30 Chronic kidney disease, stage 3 unspecified; I12.9 Hypertensive chronic kidney disease with stage 1 through stage 4 chronic kidney disease, or unspecified chronic kidney disease; E78.5 Hyperlipidemia, unspecified; T45.1X5A Adverse effect of antineoplastic and immunosuppressive drugs, initial encounter; G89.29 Other chronic pain; Z79.899 Other long term (current) drug therapy
CPT/HCPCS: 36415; 47490; 71046; 74181; 74330; 76000; 76700; 80053; 80061; 82248; 82962; 83605; 83690; 85025; 85610; 87015; 87040; 87070; 87077; 87186; 87205; 87502; 87811; 96361; 96365; 96375; 97166; 99152; 99285; C1729; C1769; C2617

== ENCOUNTER → 2025-02-13 14:44 | Outpatient (REF) | payer MEDICARE, OTHER, SELFPAY ==
[2025-02-13 15:48] LABS: ALT (SGPT) 59 U/L (0-35); AST (SGOT) 28 U/L (14-36); Albumin 3.8 g/dl (3.5-5.0); Alkaline Phosphatase 781 U/L (38-126); Blood Urea Nitrogen 16 mg/dl (7-17); Calcium 8.4 mg/dl (8.4-10.2); Carbon Dioxide 25 mmol/L (22-30); Chloride 107 mmol/L (98-107); Glucose 96 mg/dl (70-99); Potassium 3.6 mmol/L (3.5-5.1); Sodium 140 mmol/L (135-145); Total Bilirubin 0.6 mg/dl (0.2-1.3); Total Protein 6.2 g/dl (6.3-8.2); eGFR 58.75
[2025-02-13 18:53] LABS: % Basophils 0.1 % (0-2); % Eosinophils 0.4 % (0-6); % Immature Granulocytes 3.3 % (0-0.5); % Monocytes 3.6 % (1.7-9.3); % Neutrophils 88.6 % (42.2-75.2); Absolute Basophils 0.1 10^3/uL (0-0.2); Absolute Eosinophils 0.2 10^3/uL (0-0.7); Absolute Immature Granulocytes 1.5 10^3/uL (0-0.05); Absolute Lymphocytes 1.8 10^3/uL (1.2-3.4); Absolute Monocytes 1.6 10^3/uL (0.1-0.6); Hematocrit 29.5 % (37.0-47.0); Hemoglobin 9.6 g/dL (12.0-16.0); Mean Corp Hgb Conc. 32.5 g/dL (33.0-37.0); Mean Corpuscular Hgb 32.7 pg (27.0-31.0); Mean Corpuscular Volume 100.3 fL (81.0-99.0); Mean Platelet Volume 10.4 fL (7.4-10.4); Nucleated Red Blood Cells % 0 %; Platelet Count 161 10^3/uL (130-400); Red Blood Cell Count 2.94 10^6/uL (4.20-5.40); White Blood Cell Count 45.1 10^3/uL (4.8-10.8)
[2025-02-16 02:08] LABS: CA 19-9 711 U/mL (<=35)
== END ==
LOC: REG 14:44
PROVIDERS: ATTENDING PHYSICIAN Internal Medicine Hematology & Oncology; FAMILY PHYSICIAN Family Medicine; OTHER PHYSICIAN Physician Assistant; REFERRING PHYSICIAN Internal Medicine Hospice and Palliative Medicine
DX: C78.7 Secondary malignant neoplasm of liver and intrahepatic bile duct (principal); C25.2 Malignant neoplasm of tail of pancreas; D64.81 Anemia due to antineoplastic chemotherapy; E87.6 Hypokalemia; D50.9 Iron deficiency anemia, unspecified
CPT/HCPCS: 36415; 80053; 85025; 86301

== ENCOUNTER → 2025-02-15 10:18 | Outpatient (REF) | payer MEDICARE, OTHER, SELFPAY ==
[2025-02-15 11:32] LABS: Iron 31 ug/dl (37-170)
[2025-02-15 11:42] LABS: Percent Saturation 14 % (20-50); Total Iron Binding Capacity 219 ug/dl (265-497)
== END ==
LOC: OIDL 10:18
PROVIDERS: ATTENDING PHYSICIAN Nurse Practitioner Adult Health
DX: C78.7 Secondary malignant neoplasm of liver and intrahepatic bile duct (principal)
CPT/HCPCS: 82728; 83540; 83550

== ENCOUNTER → 2025-02-27 14:54 | Outpatient (REF) | payer MEDICARE, OTHER, SELFPAY ==
[2025-02-27 15:39] LABS: Hematocrit 29.8 % (37.0-47.0); Hemoglobin 9.6 g/dL (12.0-16.0); Mean Corp Hgb Conc. 32.2 g/dL (33.0-37.0); Mean Corpuscular Hgb 31.9 pg (27.0-31.0); Mean Platelet Volume 9.8 fL (7.4-10.4); Platelet Count 166 10^3/uL (130-400); Red Blood Cell Count 3.01 10^6/uL (4.20-5.40); Red Cell Dist. Width 18.9 % (11.5-14.5)
[2025-02-27 15:45] LABS: ALT (SGPT) 58 U/L (0-35); AST (SGOT) 45 U/L (14-36); Albumin 3.8 g/dl (3.5-5.0); Alkaline Phosphatase 697 U/L (38-126); Blood Urea Nitrogen 29 mg/dl (7-17); Carbon Dioxide 27 mmol/L (22-30); Chloride 101 mmol/L (98-107); Glucose 128 mg/dl (70-99); Potassium 4.8 mmol/L (3.5-5.1); Sodium 138 mmol/L (135-145); Total Bilirubin 0.9 mg/dl (0.2-1.3); Total Protein 6.7 g/dl (6.3-8.2); eGFR 42.88
[2025-02-27 16:57] LABS: % Basophils 0.3 % (0-2); % Eosinophils 0.8 % (0-6); % Immature Granulocytes 2.1 % (0-0.5); % Lymphocytes 3.6 % (20.5-51.1); % Neutrophils 88.2 % (42.2-75.2); Absolute Basophils 0.1 10^3/uL (0-0.2); Absolute Eosinophils 0.2 10^3/uL (0-0.7); Absolute Immature Granulocytes 0.6 10^3/uL (0-0.05); Absolute Monocytes 1.5 10^3/uL (0.1-0.6); Absolute Neutrophils 25.6 10^3/uL (1.4-6.5); Nucleated Red Blood Cells % 0 %
== END ==
LOC: REG 14:54
PROVIDERS: ATTENDING PHYSICIAN Internal Medicine Hematology & Oncology; FAMILY PHYSICIAN Family Medicine; REFERRING PHYSICIAN Internal Medicine Hospice and Palliative Medicine
DX: C78.7 Secondary malignant neoplasm of liver and intrahepatic bile duct (principal); C25.2 Malignant neoplasm of tail of pancreas; D64.81 Anemia due to antineoplastic chemotherapy; E87.6 Hypokalemia; D50.9 Iron deficiency anemia, unspecified
CPT/HCPCS: 36415; 80053; 85025; 86301

== ENCOUNTER → 2025-03-01 09:45 | Outpatient (REF) | payer MEDICARE, OTHER, SELFPAY ==
[2025-03-01 11:24] LABS: Iron 35 ug/dl (37-170); LDH 252 U/L (120-246)
[2025-03-01 11:33] LABS: Percent Saturation 15 % (20-50); Total Iron Binding Capacity 224 ug/dl (265-497)
== END ==
LOC: OIDL 09:45
PROVIDERS: ATTENDING PHYSICIAN Nurse Practitioner Adult Health
DX: C78.7 Secondary malignant neoplasm of liver and intrahepatic bile duct (principal); C25.2 Malignant neoplasm of tail of pancreas; D64.81 Anemia due to antineoplastic chemotherapy
CPT/HCPCS: 82728; 83540; 83550; 83615

== ENCOUNTER → 2025-03-03 13:03 | Outpatient (REF) | payer MEDICARE, OTHER, SELFPAY | LOC: RAD 13:03 | PROVIDERS: ATTENDING PHYSICIAN Nurse Practitioner Primary Care; FAMILY PHYSICIAN Family Medicine | DX: C78.7 Secondary malignant neoplasm of liver and intrahepatic bile duct (principal); C25.2 Malignant neoplasm of tail of pancreas; D64.81 Anemia due to antineoplastic chemotherapy; E87.6 Hypokalemia; D50.9 Iron deficiency anemia, unspecified; M79.605 Pain in left leg | CPT/HCPCS: 93971 ==

== ENCOUNTER 2025-03-04 09:32 | Emergency (ER) | payer MEDICARE, OTHER, SELFPAY ==
[2025-03-04 09:36] VITALS: BP 98/58
--- NOTE | 2025-03-04 10:55 | ED.GENMED ---
History of Present Illness
General
Chief Complaint: DVT/Possible Blood Clot
Source: patient
Exam Limitations: none
Time Seen by Provider: 03/04/25 10:49
Nursing documentation reviewed up to this point in time: agreed with
History of Present Illness
History of Present Illness:
74-year-old female with pancreatic cancer diagnosed about a year and a half ago had left lower extremity pain and came here for a LLE ultrasound yesterday and she does not have the results yet, she is here today because in the middle the night she
developed right calf pain and is concerned about a clot. She denies chest pain or trouble breathing.
She has a cholecystostomy drain from a 'ruptured gallbladder that they cannot do surgery on because of my pancreatic cancer.'
Patient denies chest pain or trouble breathing.
Past History
Past History
ED Past Medical History: Cancer (Pancreatic, Liver, Spleen, stomach)
ED Past Surgical History: Gynecological (Tubal, ), Orthopedic (elbow Fracture, ) and Other (Breast Implants, Liver stents)
Social History
Tobacco: Non-smoker
Alcohol: None
Personal:
Living: with family
Review of Systems
Review of Systems
Allergies reviewed?: Yes
All Other Systems: ROS reviewed and negative except as documented in HPI and ROS
Constitutional: Denies fever
Respiratory: Denies trouble breathing
Cardiac: Denies chest pain
ABD/GI: Denies abdominal pain, nausea, vomiting or diarrhea
: Denies dysuria, frequency or difficulty voiding
Musculoskeletal: Reports other (pain both calves)
Neurological: Reports no symptoms
Phy Exam
Physical Exam
Physical Exam:
GENERAL: No acute distress. A&Ox3.
CONSTITUTIONAL: Afebrile.
EYES: clear, conjunctivae normal
ENMT: moist mucus membranes, Pharynx nl
RESPIRATORY: Regular respirations, nonlabored, lungs clear.
CARDIOVASCULAR: Regular rate and rhythm, no murmurs, no rubs.
GI: Soft, nontender, normal BS
MUSCULOSKELETAL: Moves with ease. Well perfused.
SKIN: Warm, dry, pale
PSYCH: Normal mood and affect. Well kept, interactive and appropriate
NEUROLOGIC: Awake, alert and oriented. No focal neurological deficits
Course
Orders/Labs/Results
Orders:
Orders
03/04/25 10:46
US Periph Venous LOWER Ext RT Urgent
Comment:
Reason For Exam: hx CA and prev DVT
Vital Signs
Initial and Last Documented VS:
Initial Vital Signs
Temp Pulse Resp BP Pulse Ox
98 F 78 18 98/58 100
03/04/25 09:36 03/04/25 09:36 03/04/25 09:36 03/04/25 09:36 03/04/25 09:36
Last Documented Vital Signs
Temp Pulse Resp BP Pulse Ox
98 F 74 18 104/65 99
03/04/25 09:36 03/04/25 14:00 03/04/25 14:00 03/04/25 14:00 03/04/25 14:00
MDM/Problems Addressed
Differential Diagnosis Includes:
DVT, superficial phlebitis, thrombosis, muscle strain
MDM/Problems Addressed:
74-year-old female with pancreatic cancer diagnosed about a year and a half ago had left lower extremity pain and came here for a LLE ultrasound yesterday and she does not have the results yet, she is here today because in the middle the night she
developed right calf pain and is concerned about a clot. She denies chest pain or trouble breathing.
She has a cholecystostomy drain from a 'ruptured gallbladder that they cannot do surgery on because of my pancreatic cancer.'
Patient denies chest pain or trouble breathing.
Records reviewed, ultrasound from yesterday's left lower extremity radiology report: IMPRESSION:
No sonographic evidence for LEFT lower extremity deep venous thrombosis.
Occlusive thrombus identified within the left small saphenous vein and also within a cluster of varicosities within the posterior left calf compatible with superficial thrombophlebitis. Morning yeah
Preliminary report called to the referring clinician's office by the radiology administrative secretary on 03/03/2025 2:03 PM per Radiology Department protocol. Report also to be faxed.
1:45 p.m.
[facility] Radiology report read: IMPRESSION:
Tubular-shaped region of hypoechogenicity in the posterior right calf at the site of the patient's pain. Diagnostic possibilities are (1) acute thrombosis of the short saphenous vein or (2) a fluid collection or hematoma secondary to a muscle strain.
Both ultrasounds show no DVT, both extremities are with superficial thrombosis. There is
7 x 7 cm mild erythema, warmth and mild tenderness around the right upper calf area, minimal swelling of pain few varicosities also
20 x 11 cm area erythema, warmth and mild tenderness, minimal swelling left calf, few varicose veins noted.
Patient has mild tenderness at both of the sites, varicose veins noted, no swelling no cellulitis,, distal neurovascular intact.
Rx for Doxycycline sent to pt pharmacy for cellulitis
*Critical Care Note
Total Time (30-74mins, 75-104mins- exclusive of procedures): Not Applicable
ED Attending Note
-
Portions of this chart may have been created with voice recognition software.� Occasional wrong word or��sound alike� substitutions may have occurred due to the inherent limitations of voice recognition software.
Discharge Plan
Departure
Patient Disposition: Home (Routine Discharge)
Date of Disposition: 03/04/25
Time of Disposition: 14:05
Patient with high blood pressure during this ER visit?: No
Condition: Good
Discharge Problem:
Acute superficial venous thrombosis of right lower extremity, Acute superficial venous thrombosis of left lower extremity, Cellulitis of both lower extremities
Instructions: Cellulitis (Skin Infection), Adult (DC), Superficial vein phlebitis and thrombosis
Prescriptions:
New
doxycycline hyclate 100 mg tablet
100 mg PO BID Qty: 20 0RF
No Action
Prolia 60 mg/mL Syringe
60 mg SC [id number]
lidocaine-prilocaine 2.5-2.5 % cream
1 applic topical DAILYPRN PRN (Reason: prior to port access)
vitamin B complex Tablet Extended Release
1 tab PO DAILY
diphenoxylate-atropine 2.5-0.025 mg tablet
2 tab PO BIDPRN PRN (Reason: dairrhea)
therapeutic multivitamin Tablet
1 tab PO DAILY
oxycodone 5 mg Tablet
5 mg PO BIDPRN PRN (Reason: moderate severe pain) Qty: 10 0RF
vitamin S89-qtbuq acid
1 tab PO DAILY
Rx Instructions:
unsure of dose
sodium chloride 0.9 % (flush) [Normal Saline Flush] Syringe
5 ml intra-catheter DAILY Qty: 350 0RF
Rx Instructions:
Forward flush perc cholecystostomy drain with 5ml of sterile NSS daily
amoxicillin-pot clavulanate 875-125 mg tablet
1 tab PO Q12H 10 Days Qty: 20 0RF
Referrals:
Sabrina Gómez MD [Family Provider] - Follow up in 5-7 days
Activity Restrictions/Additional Instructions:
As we discussed, there are no deep vein clots. You have superficial clots in both of your calfs. Tylenol or ibuprofen as needed for pain.
Warm moist compresses for 20 minutes 3 times a day is much as you can
I sent a prescription to your pharmacy for doxycycline antibiotic because of the redness around the areas are concerning for cellulitis
Interventions
Interventions:
*Risk Screen - Suicide Last Done: 03/04/25 09:36
*General Assessment Last Done: 03/04/25 09:36
*Neglect/Abuse Screening Last Done: 03/04/25 09:36
*ED- Fall Risk Assessment Last Done: 03/04/25 11:43
*ED COVID-19 Vaccine History Last Done: 03/04/25 11:43
*Nursing Disposition Last Done: 03/04/25 14:35
ED- Cardiac Assessment Last Done: 03/04/25 11:51
ED- Pulmonary Assessment Last Done: 03/04/25 11:51
ED-Peripheral Vascular Assessment Last Done: 03/04/25 11:51
ED-Skin Assessment Last Done: 03/04/25 11:51
Discharge Date and Time
Discharge Date/Time: 03/04/25 14:45
Print Language: [id number]
[2025-03-04 11:42] VITALS: BMI 19.3
[2025-03-04 11:50] VITALS: BP 105/69
[2025-03-04 14:00] VITALS: BP 104/65
== END 2025-03-04 14:45 | disposition home or self-care (01) ==
LOC: EMR 09:32
PROVIDERS: EMERGENCY PHYSICIAN Emergency Medicine; FAMILY PHYSICIAN Family Medicine
DX: I82.813 Embolism and thrombosis of superficial veins of lower extremities, bilateral (principal); L03.115 Cellulitis of right lower limb; L03.116 Cellulitis of left lower limb
CPT/HCPCS: 99284; 93971

== ENCOUNTER → 2025-03-08 09:09 | Outpatient (REF) | payer MEDICARE, OTHER, SELFPAY ==
[2025-03-08 09:40] VITALS: BP 131/76; BP_SYST 72
== END ==
LOC: RADI 09:09
PROVIDERS: ATTENDING PHYSICIAN Surgery
DX: Z43.4 Encounter for attention to other artificial openings of digestive tract (principal); K80.00 Calculus of gallbladder with acute cholecystitis without obstruction
CPT/HCPCS: 47531

== ENCOUNTER → 2025-03-13 14:13 | Outpatient (REF) | payer MEDICARE, OTHER, SELFPAY ==
[2025-03-13 15:21] LABS: Hematocrit 34.4 % (37.0-47.0); Hemoglobin 11.1 g/dL (12.0-16.0); Mean Corp Hgb Conc. 32.3 g/dL (33.0-37.0); Mean Corpuscular Hgb 31.9 pg (27.0-31.0); Mean Corpuscular Volume 98.9 fL (81.0-99.0); Mean Platelet Volume 10.4 fL (7.4-10.4); Platelet Count 239 10^3/uL (130-400); Red Blood Cell Count 3.48 10^6/uL (4.20-5.40); Red Cell Dist. Width 18.6 % (11.5-14.5); White Blood Cell Count 27.9 10^3/uL (4.8-10.8)
[2025-03-13 15:24] LABS: ALT (SGPT) 42 U/L (0-35); AST (SGOT) 36 U/L (14-36); Albumin 4.8 g/dl (3.5-5.0); Alkaline Phosphatase 1008 U/L (38-126); Blood Urea Nitrogen 31 mg/dl (7-17); Calcium 9.5 mg/dl (8.4-10.2); Carbon Dioxide 21 mmol/L (22-30); Chloride 100 mmol/L (98-107); Glucose 88 mg/dl (70-99); Potassium 4.5 mmol/L (3.5-5.1); Sodium 137 mmol/L (135-145); Total Bilirubin 1.1 mg/dl (0.2-1.3); Total Protein 8.1 g/dl (6.3-8.2)
[2025-03-13 15:47] LABS: INR 1.26; PT 16.1 Sec (11.4-14.6)
[2025-03-13 15:49] LABS: % Basophils 0.3 % (0-2); % Eosinophils 0.7 % (0-6); % Monocytes 4.2 % (1.7-9.3); % Neutrophils 88.8 % (42.2-75.2); Absolute Basophils 0.1 10^3/uL (0-0.2); Absolute Eosinophils 0.2 10^3/uL (0-0.7); Absolute Immature Granulocytes 0.6 10^3/uL (0-0.05); Absolute Lymphocytes 1.1 10^3/uL (1.2-3.4); Absolute Monocytes 1.2 10^3/uL (0.1-0.6); Absolute Neutrophils 24.8 10^3/uL (1.4-6.5); Nucleated Red Blood Cells % 0 %
[2025-03-13 15:51] LABS: APTT 33.8 Sec (23.4-35.0)
== END ==
LOC: RCS 14:13
PROVIDERS: ATTENDING PHYSICIAN Internal Medicine Hematology & Oncology; FAMILY PHYSICIAN Family Medicine; OTHER PHYSICIAN Internal Medicine Hospice and Palliative Medicine; REFERRING PHYSICIAN Physician Assistant
DX: C78.7 Secondary malignant neoplasm of liver and intrahepatic bile duct (principal); C25.2 Malignant neoplasm of tail of pancreas; D64.81 Anemia due to antineoplastic chemotherapy; E87.6 Hypokalemia; D50.9 Iron deficiency anemia, unspecified
CPT/HCPCS: 36415; 80053; 85025; 85610; 85730; 86301; 93005

== ENCOUNTER → 2025-03-16 16:14 | Outpatient (REF) | payer MEDICARE, OTHER, SELFPAY ==
[2025-03-16 12:44] LABS: % Basophils 0.2 % (0-2); % Eosinophils 0.2 % (0-6); % Immature Granulocytes 0.7 % (0-0.5); % Lymphocytes 1.4 % (20.5-51.1); % Monocytes 2.7 % (1.7-9.3); % Neutrophils 94.8 % (42.2-75.2); Absolute Immature Granulocytes 0.2 10^3/uL (0-0.05); Absolute Lymphocytes 0.3 10^3/uL (1.2-3.4); Absolute Monocytes 0.6 10^3/uL (0.1-0.6); Absolute Neutrophils 21.9 10^3/uL (1.4-6.5); Hematocrit 30.7 % (37.0-47.0); Hemoglobin 9.8 g/dL (12.0-16.0); Mean Corp Hgb Conc. 31.9 g/dL (33.0-37.0); Mean Corpuscular Hgb 31.3 pg (27.0-31.0); Mean Corpuscular Volume 98.1 fL (81.0-99.0); Mean Platelet Volume 10.4 fL (7.4-10.4); Platelet Count 290 10^3/uL (130-400); Red Blood Cell Count 3.13 10^6/uL (4.20-5.40); Red Cell Dist. Width 17.7 % (11.5-14.5); White Blood Cell Count 23.1 10^3/uL (4.8-10.8)
[2025-03-16 14:09] LABS: ALT (SGPT) 28 U/L (0-35); AST (SGOT) 31 U/L (14-36); Albumin 3.6 g/dl (3.5-5.0); Alkaline Phosphatase 670 U/L (38-126); Amylase 40 U/L (30-110); Blood Urea Nitrogen 33 mg/dl (7-17); Calcium 8.8 mg/dl (8.4-10.2); Carbon Dioxide 19 mmol/L (22-30); Chloride 102 mmol/L (98-107); Direct Bilirubin 0.4 mg/dl (0.0-0.4); Glucose 167 mg/dl (70-99); Lipase 39 U/L (23-300); Potassium 4.6 mmol/L (3.5-5.1); Sodium 135 mmol/L (135-145); Total Bilirubin 1.1 mg/dl (0.2-1.3); Total Protein 6.6 g/dl (6.3-8.2)
== END ==
LOC: OIDL 16:14
PROVIDERS: ATTENDING PHYSICIAN Nurse Practitioner Adult Health
DX: C78.7 Secondary malignant neoplasm of liver and intrahepatic bile duct (principal); C25.2 Malignant neoplasm of tail of pancreas
CPT/HCPCS: 80048; 80076; 82150; 83690; 85025

== ENCOUNTER 2025-03-20 17:48 | Inpatient (IN) | payer MEDICARE, OTHER, SELFPAY ==
[2025-03-20] VITALS (16 sets, daily range): BP systolic 102–120; BP diastolic 50–71; BMI 18.8
--- NOTE | 2025-03-20 12:22 | ED.GENMED ---
History of Present Illness
General
Chief Complaint: Rectal Bleeding
Source: patient
Exam Limitations: none
Time Seen by Provider: 03/20/25 11:53
History of Present Illness
History of Present Illness:
74yoF with a history of metastatic pancreatic cancer and DVT on Eliquis presenting with her for evaluation of dark stools. Patient reports black stools for the past 3 days. She has also been experiencing right sided abdominal pain over the
past week or so. She had a fever of 102 four days ago but has not had any fevers since. She is feeling very weak which she attributes to her chemotherapy, last treatment was 5 days ago. She denies any dizziness, syncope, chest pain, shortness of
breath. She is scheduled to have a histotripsy procedure in 4 days at [facility].
Past History
Past History
ED Past Medical History: Cancer (Pancreatic, Liver, Spleen, stomach)
ED Past Surgical History: Gynecological (Tubal, ), Orthopedic (elbow Fracture, ) and Other (Breast Implants, Liver stents)
Social History
Tobacco: Non-smoker
Alcohol: None
Personal:
Living: with family
Phy Exam
General Physical Exam
General Presentation: no apparent distress
General Skin: warm, dry and pale
General Habitus: elderly, failure to thrive and frail
General Mental: alert
ENT Exam
ENT Exam: normocephalic
Cardiovascular Exam
Cardiovascular Exam: regular rate/rhythm
Pulmonary Exam
Pulmonary Exam: lungs clear, no respiratory distress, no rales, no crackles and no rhonchi
Gastrointestinal Exam
Gastrointestinal Exam: non tender, soft and non distended
Stool: other (Stool black and hemoccult positive.)
Neurological Exam
Neurological Exam: alert
Namita Coma Scale
Eye Opening: Spontaneous
Verbal Response: Oriented
Motor Response: Obeys Commands
GCS Total Score: 15
Skin Exam
Skin Exam: warm/dry and pallor
Psychiatric Exam
Psychiatric Exam: normal mood/affect
Course
Orders/Labs/Results
Orders:
Orders
03/20/25 12:20
Iohexol [Omnipaque] See Protocol PO NOW STA
03/20/25 12:21
Pantoprazole [Protonix IV] 40 mg IV NOW STA
03/20/25 12:31
Basic Metabolic Panel Urgent
Complete Blood Count/With Diff Urgent
Lactate Level [Lactic Acid] Urgent
Lipase Urgent
PTT Urgent
Prothrombin Time Urgent
03/20/25 13:34
Type+Screen Urgent
BBK Wristband Number:
03/20/25 13:46
Blood Bank Products [* Blood Bank Products] Urgent
Blood Bank Products: *Packed RBC Leuko(PRBC's)
Quantity: 2
Transfuse Today: Yes
Reason: Anemia
03/20/25 13:49
CT Abd/pel W Iv And Oral Contr Urgent
Reason For Exam: R sided abd pain, GI bleed
03/20/25 16:32
Admit/Transfer Patient As Directed
Co-Sign Provider:
Level of Care: Inpatient admission
Assign to:: Telemetry
Physician / Group: [email or web address]
Diagnosis: HoB POS Black stool GIB, Pre renal TREMAINE, Advanced IV Pancreatic CA,
Reason for Telemetry: Other
Other Reason for Telemetry: HoB POS Black stool GIB, Pre renal TREMAINE, Advanced IV Pancrea
Date to Stop Telemetry: 03/22/25
Time to Stop Telemetry: 11:00
Reason for Hospitalization: HoB POS Black stool GIB, Pre renal TREMAINE, Advanced IV Pancreatic CA,
Expected length of stay greater than two midnights?: Yes
ELOS- Estimated Length of Stay in days: 3
I certify the patient meets the requirements for IP care: Yes
03/20/25 16:35
Code Status As Directed
Resuscitation Status: Full Code
03/20/25 17:07
Add On- LAB Routine
Tests Added?: LFT's
03/22/25 11:00
DC Protocol for Telemetry ONCE
Abnormal Lab Results
03/20/25 03/20/25
12:31 13:34
WBC 18.0 H 10^3/uL
(4.8-10.8)
RBC 1.92 L 10^6/uL
(4.20-5.40)
Hgb 6.1 L* D g/dL
(12.0-16.0)
Hct 18.4 L* %
(37.0-47.0)
MCH 31.8 H pg
(27.0-31.0)
RDW 17.3 H %
(11.5-14.5)
Abs Immat Gran (auto) 0.1 H 10^3/uL
(0-0.05)
Absolute Neuts (auto) 16.2 H 10^3/uL
(1.4-6.5)
Absolute Lymphs (auto) 0.8 L 10^3/uL
(1.2-3.4)
Absolute Monos (auto) 0.7 H 10^3/uL
(0.1-0.6)
Neutrophils % 90.1 H %
(42.2-75.2)
Lymphocytes % 4.4 L %
(20.5-51.1)
PT 16.0 H Sec
(11.4-14.6)
Carbon Dioxide 20 L mmol/L
(22-30)
BUN 47 H mg/dl
(7-17)
Creatinine 1.4 H mg/dL
(0.6-1.0)
Crossmatch IS Only See Detail
03/20/25 12:31
03/20/25 12:31
Vital Signs
Initial and Last Documented VS:
Initial Vital Signs
Temp Pulse Resp BP Pulse Ox
98.1 F 87 16 109/58 100
03/20/25 09:46 03/20/25 09:46 03/20/25 09:46 03/20/25 09:46 03/20/25 09:46
Last Documented Vital Signs
Temp Pulse Resp BP Pulse Ox
98.9 F 86 18 106/56 99
03/20/25 16:01 03/20/25 17:15 03/20/25 17:15 03/20/25 16:10 03/20/25 13:19
MDM/Problems Addressed
Differential Diagnosis Includes:
74yoF here with dark stools x 3 days. Hx of metastatic pancreatic cancer. On Eliquis for DVT. VSS. Patient is pale right and chronically ill-appearing on exam. Stool sample provided and stool appears black and is Hemoccult positive. Differential
diagnosis includes but is not limited to: Gastritis, peptic ulcer disease, AVM, bleeding related to malignancy, blood loss anemia
Initial ED plan: Check abdominal labs, lactate, coags, type and screen, and CT abdomen with IV/PO contrast. 40mg IV Protonix ordered.
*Critical Care Note
Total Time (30-74mins, 75-104mins- exclusive of procedures): Not Applicable
Update Note
Update Note:
Hemoglobin 6.1, down from 9.8 four days ago. BUN elevated at 47. CT shows worsening metastatic disease with thrombosis of distal splenic vein and findings suggesting partial thrombosis of R portal vein. Consent obtained and 2 units PRBCs. GI
notified and patient admitted for further management.
ED Attending Note
-
Portions of this chart may have been created with voice recognition software.� Occasional wrong word or��sound alike� substitutions may have occurred due to the inherent limitations of voice recognition software.
Discharge Plan
Departure
Patient Disposition: Admit
Date of Disposition: 03/20/25
Time of Disposition: 16:02
Presentation/result/management discussed w/ accepting MD/DO: Hospitalist
Discharge Problem:
GI bleed
Prescriptions:
No Action
Prolia 60 mg/mL Syringe
60 mg SC [id number]
diphenoxylate-atropine 2.5-0.025 mg tablet
2 tab PO Q6HPRN PRN (Reason: dairrhea)
therapeutic multivitamin Tablet
1 tab PO DAILY
cyanocobalamin (vitamin B-12) 1,000 mcg Tablet
1,000 mcg PO DAILY
lidocaine-prilocaine 2.5-2.5 % Cream
1 applic TOPICAL DAILYPRN PRN (Reason: PORT ACCESS)
lorazepam 0.5 mg Tablet
0.5 mg PO HS
diphenhydramine-acetaminophen [Acetaminophen PM] 25-500 mg Tablet
2 tab PO HS
loratadine [Claritin] 10 mg Tablet
10 mg PO DIRECTED
Rx Instructions:
TAKE THE DAY OF CHEMO AND 4 DAYS AFTER
amoxicillin-pot clavulanate [Augmentin] 875-125 mg Tablet
1 tab PO BID
Rx Instructions:
START ON 03/17/25 FOR 10 DAYS
calcium carbonate-vitamin D3 [Calcium 600 + D(3)] 600 mg-10 mcg (400 unit) Tablet
1 tab PO DAILY
cholecalciferol (vitamin D3) [Vitamin D3] 50 mcg (2,000 unit) Tablet
50 mcg PO DAILY
Eliquis 5 mg Tablet
5 mg PO BID
Referrals:
Sabrina Gómez MD [Family Provider] -
Interventions
Interventions:
*Risk Screen - Suicide Last Done: 03/20/25 09:50
*General Assessment Last Done: 03/20/25 12:04
*Neglect/Abuse Screening Last Done: 03/20/25 09:50
TF-Uzatme-Wqmalegtcj Assessment Last Done: 03/20/25 12:04
ED- Cardiac Assessment Last Done: 03/20/25 12:04
ED- Pulmonary Assessment Last Done: 03/20/25 12:04
Discharge Date and Time
Print Language: GHANAIAN
[2025-03-20] MEDS: OMNIPAQUE 50 ML PO (12:31)
[2025-03-20] MEDS: PROTONIX IV 40 MG IV (12:31)
[2025-03-20 13:34] LABS: % Basophils 0.3 % (0-2); % Eosinophils 0.8 % (0-6); % Immature Granulocytes 0.5 % (0-0.5); % Lymphocytes 4.4 % (20.5-51.1); % Monocytes 3.9 % (1.7-9.3); % Neutrophils 90.1 % (42.2-75.2); Absolute Basophils 0.1 10^3/uL (0-0.2); Absolute Eosinophils 0.2 10^3/uL (0-0.7); Absolute Immature Granulocytes 0.1 10^3/uL (0-0.05); Absolute Lymphocytes 0.8 10^3/uL (1.2-3.4); Absolute Monocytes 0.7 10^3/uL (0.1-0.6); Absolute Neutrophils 16.2 10^3/uL (1.4-6.5); Hematocrit 18.4 % (37.0-47.0); Hemoglobin 6.1 g/dL (12.0-16.0); Mean Corp Hgb Conc. 33.2 g/dL (33.0-37.0); Mean Corpuscular Hgb 31.8 pg (27.0-31.0); Mean Corpuscular Volume 95.8 fL (81.0-99.0); Mean Platelet Volume 10.1 fL (7.4-10.4); Nucleated Red Blood Cells % 0 %; Platelet Count 153 10^3/uL (130-400); Red Blood Cell Count 1.92 10^6/uL (4.20-5.40); Red Cell Dist. Width 17.3 % (11.5-14.5)
[2025-03-20 13:38] LABS: INR 1.25
[2025-03-20 13:40] LABS: Lactic Acid 1.1 mmol/L (0.7-2.0)
[2025-03-20 13:47] LABS: Blood Urea Nitrogen 47 mg/dl (7-17); Calcium 8.5 mg/dl (8.4-10.2); Carbon Dioxide 20 mmol/L (22-30); Chloride 107 mmol/L (98-107); Glucose 88 mg/dl (70-99); Lipase 53 U/L (23-300); Sodium 135 mmol/L (135-145); eGFR 39.23
--- NOTE | 2025-03-20 16:06 | CON.GI ---
Addendum entered and electronically signed by Josué Pozo MD 03/20/25 17:19:
Patient seen and examined, agree with nurse practitioner note. The patient is a 74-year-old female with complicated past medical history as noted who presents with melena. She has a history of metastatic pancreatic cancer, has had multiple ERCPs
for stent exchange in the past. Recently she was admitted in February with lower extremity swelling, found to have occlusive thrombus in the left small saphenous vein and cluster of varicosities posterior left calf consistent with thrombophlebitis and
possible acute thrombus of the short saphenous vein or hematoma. She was started on doxycycline and started on 10-day course of Eliquis. She now reports melena for the past few days, and hemoglobin down to 6 from 9.8 on March 16. She denies any
lightheadedness or dizziness, nausea or vomiting though does have some mild heartburn. She does admit to fatigue over these past couple of days. On exam she has some fullness in the epigastrium though no tenderness and is otherwise unremarkable.
1. GI bleed: In the setting of anticoagulation, likely upper, possible peptic ulcer disease versus hemobilia/tumor bleeding. Prior to anticoagulation she never had signs of bleeding. She is hemodynamically stable and doubt brisk active bleeding
now. She last took her Eliquis this morning. At this point she is for blood transfusion, we will continue supportive care with PPI, clear liquids for now and continue to trend hemoglobin. Will plan EGD on Thursday after Eliquis washout or sooner
if signs of brisk active bleeding. Hematology's been consulted, unclear if she needs further anticoagulation anyway.
Original Note:
Consultation
-
Date/Time Consultation Requested: 03/20/25 1600
Date/Time Consultation Performed: 03/20/25 1605
Requesting Provider: Alberta Tierney PA-C
Performing Provider: KECIA Diaz, Kristofer Pozo MD
Reason for Consultation: anemia, dark stools
Medical History
Chief Complaint / HPI
Chief Complaint: Jaundice
History of Present Illness:
Pt is a 74 year old female with h/o hyperlipidemia, osteoporosis, hepatic biloma, anemia, UTI, diagnosed with metastatic pancreatic cancer in 2022 with known mets to liver and retroperitoneal nodes. Her initial EUS�on 09/11/2023 showed 33 x 34 mm
mass in the tail of pancreas with secondary retroperitoneal mass measuring 23 x 21 mm adjacent to left adrenal gland.� FNA confirmed adenocarcinoma.� She also had friable and erythematous mucosa in the lesser curvature of the stomach and the biopsy
showed local invasion with adenocarcinoma.� ERCP was performed and biliary stents were placed to both left and right intrahepatic ducts.� Patient was started on chemotherapy on 09/30/2023.� She had a stent malfunction and ERCP had to be repeated on
10/08/2023 with removal of right intrahepatic ductal stent and placement of pigtail stent to the left intrahepatic duct.� She did well for about a year but returned with jaundice on 09/2024.� ERCP and cholangioscopy were performed which showed
malignant appearing mucosa extending from common hepatic duct, bifurcation, and left main hepatic duct.� Spy bite biopsy showed adenocarcinoma.� DPPS were placed into left and right hepatic ducts.�She has been receiving chemo with last dose about 1
week ago(new chemo per patient) and Neulasta on 02/02/25. She had follow up with Dr. Garvey 01/30/25 with plan for histotripsy with Dr. Prescott at [facility] [place] (due to go 03/24). She presented to 02/07 with fever. She was seen by surgery and
recommended percutaneous deejay tube and also went for ERCP with stent exchange with noted 2 partially occluded stents in biliary tree with malignant stricture. Pt now returns with drop in hbg and black stools. She returned 03/03 with LE swelling
and noted occlusive thrombus left small saphaneous vein and cluster or varicosities posterior left calf c/w thrombophlebitis and right Doppler study with possible acute thrombosis of short saphenous vein or hematoma. Pt was given script for
Doxycycline. She had further follow up with Dr. Shelia watson and was placed on 10 days course of Eliquis(on day 9 on admission).
In review with patient she had chemo last week then noted fever . She then started Thursday with black stool and advised ER but wanted to wait til after Mothers day. On admission noted hbg 6 down from 9.8 on 03/16. She admits to fatigue
and mild GERD. She admit to mild pain around left sided perc tube. She has chronic diarrhea that has been controlled on Lomotil 2 tabs daily but increased with recent black stools. She otherwise denies odynophagia, dysphagia, nausea, vomiting,
constipation or red blood in stools. Hx recent multiple ERCP's, no EGD and colonoscopy 2015.
Past Medical History
Past Medical History: Cancer (metastatic pancreatic Cancer with prior biliary stenting and mets to liver and nodes), HTN and Other (osteoporosis , klebsiella UTI, anemia, hepatic biloma)
Past Surgical History: Orthopedic (elbow fx ) and Other (tubal ligation, breast implants, port placement )
Social History
Tobacco: Non-Smoker
Alcohol: None
Drug: None
Personal:
Living: With Family
Employment: Retired
Family History
Family History: Other (brother with lung CA)
Allergies / Home Medications
Allergy/AdvReac Type Severity Reaction Status Date / Time
No Known Allergies Allergy Verified 03/08/25 09:38
�Medication �Instructions �Recorded
denosumab 60 mg/mL subcutaneous 60 mg SC [id number] bone health 09/11/23
syringe (Prolia)
diphenoxylate-atropine 2.5 2 tab PO Q6HPRN PRN dairrhea 09/16/24
mg-0.025 mg tablet
therapeutic multivitamin 1 tab PO DAILY Supplement 09/16/24
amoxicillin 875 mg-potassium 1 tab PO BID 03/20/25
clavulanate 125 mg tablet
apixaban 5 mg tablet (Eliquis) 5 mg PO BID 03/20/25
calcium 600 mg (as 1 tab PO DAILY 03/20/25
carbonate)-vitamin D3 10 mcg (400
unit) tablet (Calcium 600 + D(3))
cholecalciferol (vitamin D3) 50 50 mcg PO DAILY 03/20/25
mcg (2,000 unit) tablet (Vitamin
D3)
cyanocobalamin (vitamin B-12) 1,000 mcg PO DAILY 03/20/25
1,000 mcg tablet
diphenhydramine 25 2 tab PO HS 03/20/25
mg-acetaminophen 500 mg tablet
(Acetaminophen PM)
lidocaine-prilocaine 2.5 %-2.5 % 1 applic topical DAILYPRN PRN PORT 03/20/25
topical cream ACCESS
loratadine 10 mg tablet (Claritin) 10 mg PO DIRECTED 03/20/25
lorazepam 0.5 mg tablet 0.5 mg PO HS 03/20/25
Review of Systems
-
History Source: Patient
Constitutional: Reports Weight Loss
EENT: Reports No Symptoms
Respiratory: Reports No Symptoms
Cardiac: Reports No Symptoms
Abdomen/GI: Reports Black Stools
: Reports No Symptoms
Skin: Reports Other (recent LE redness with improvement but still swelling and mild discomfort )
Neurological: Reports Weakness
Endocrine: Reports No Symptoms
Hematologic/Lymphatic: Reports Bleeding
Vital Signs
Temp Pulse Resp BP Pulse Ox
98.9 F 86 18 120/70 99
03/20/25 16:01 03/20/25 13:19 03/20/25 13:19 03/20/25 13:19 03/20/25 13:19
Physical Exam
Exam
General: Other (pale appearing )
HEENT: Normocephalic and Anicteric
Respiratory: Clear
Cardiac: Regular Rhythm, Peripheral Edema and Calf Tenderness
GI: Soft, Distended (mild ) and Other (mild around perc deejay tube which is capped )
Musculoskeletal: No Clubbing and No Cyanosis
Skin: Warm and Dry
Neuro: Awake, Alert and AO x 3
Psych: Calm
Results
WBC 18.0 10^3/uL (4.8-10.8) H 03/20/25 12:31
Hgb 6.1 g/dL (12.0-16.0) L* D 03/20/25 12:
Hct 18.4 % (37.0-47.0) L* 03/20/25 12:
MCV 95.8 fL (81.0-99.0) 03/20/25 12:
Plt Count 153 10^3/uL (130-400) D 03/20/25:
Absolute Neuts (auto) 16.2 10^3/uL (1.4-6.5) H 03/20/25:
PT 16.0 Sec (11.4-14.6) H 03/20/25:
INR 1.25 03/20/25:
APTT 31.0 Sec (23.4-35.0) 03/20/25
Sodium 135 mmol/L (135-145) 03/20/25
Potassium mmol/L (3.5-5.1) 03/20/25
Chloride 107 mmol/L (98-107) 03/20/25:
Carbon Dioxide 20 mmol/L (22-30) L 03/20/25
BUN 47 mg/dl (7-17) H 03/20/25:
Creatinine 1.4 mg/dL (0.6-1.0) H 03/20/25:
Calcium 8.5 mg/dl (8.4-10.2) 03/20/25 12:
Total Bilirubin Cancelled 03/20/25 12:
AST Cancelled 03/20/25 12:
ALT Cancelled 03/20/25:
Alkaline Phosphatase Cancelled 03/20/25:
Lipase 53 U/L (23-300) 03/20/25 12:
Diagnostic Image Results:
02/07/25 US abdomen
The gallbladder is distended measuring up to 11.5 cm. There is mildly echogenic fluid/sludge within the gallbladder with mild gallbladder wall thickening and pericholecystic fluid. Negative Madison's sign. Findings likely represent hydropic
gallbladder although acute cholecystitis cannot be excluded.
Numerous hepatic lesions consistent with known metastasis. There is intrahepatic biliary duct dilation with common bile duct stent, similar to prior PET/CT.
Known pancreatic lesion consistent with malignancy measuring approximately 6.3 x 4.[address] cm[address]
01/23/25 CT PET
1. Worsening hypermetabolic pancreatic cancer in the tail of the pancreas.
2. New hypermetabolic multifocal hepatic metastatic disease.
3. New rim of hypermetabolic uptake in the inferior medial right hepatic lobe adjacent to the gallbladder, which may be metastatic or inflammatory.
Abdominal US 09/14/24:
1. Slightly increased echogenicity in the liver, compatible with underlying hepatocellular disease, which most commonly relates to fatty infiltration of the liver.
2. Probable gallbladder sludge without sonographic evidence for discrete cholelithiasis or acute cholecystitis.
3. No intrahepatic or extrahepatic biliary ductal dilatation
MRCP 09/16/24: A common bile duct stent is in place. Moderate diffuse dilatation of the intrahepatic bile ducts. The extrahepatic bile ducts measure up to 9 mm in caliber and are mildly dilated. Segment of bile duct narrowing at the confluence of the
left and right hepatic ducts with the common hepatic duct with some lobular soft tissue signal intensity at this location that measures 1.8 cm (series 901, image 23). The gallbladder is moderately dilated. No evidence for cholelithiasis. The
patient's pancreatic tail mass is suboptimally evaluated in the absence of intravenous contrast and was not identified on the previous PET/CT. The main pancreatic duct is nondilated
Prior GI Procedures:
Colonoscopy: 06/2016 [facility] The entire examined colon is normal.
EUS 09/2023 - Normal esophagus.
- Erythematous mucosa in the lesser curvature.
- Friable gastric mucosa. Biopsied.
- Normal duodenal bulb, first portion of the duodenum
and second portion of the duodenum.
- A mass was identified in the pancreatic tail. This
was staged Tx Nx M1 (based on metastasis to adrenal
gland and pending cytologic confirmation) by
endosonographic criteria.
- A mass measuring 23 mm by 21 mm was identified
endosonographically adjacent to the left adrenal gland
in close proximity to the pancreatic tail mass. Fine
needle aspiration performed.
09/11/23 ERCP Nelson Garvey MD - The major papilla appeared to be small.
- A pancreatic sphincterotomy was performed.
- One plastic stent was placed into the ventral
pancreatic duct.
- Failed biliary cannulation.
09/17/23 ERCP Nelson Garvey MD - A previously placed stent had migrated out of the
pancreatic duct.
- A single moderate biliary stricture was found. The
stricture was malignant appearing.
- The left main hepatic duct, right intrahepatic
branches and left intrahepatic branches were
moderately dilated, acquired.
- A biliary sphincterotomy was performed.
- The hepatic duct bifurcation was successfully
dilated.
- The hepatic duct bifurcation was successfully
dilated.
- One plastic stent was placed into the left hepatic
duct.
- One plastic stent was placed into the right hepatic
duct.
ERCP performed on 10/08/2023 Nelson Garvey MD Severe malignant biliary stricture. The left main hepatic and left intrahepatic branches were moderately dilated, 1 stent was removed from the left hepatic duct and 1 plastic stent was placed into the left
hepatic duct.
ERCP 09/19/24- Nelson Garvey MD - Two visibly occluded stents from the biliary tree
were seen in the major papilla.
- Frond-like nodularity and increased vascular pattern
of the common hepatic duct, bifurcation of the right
and left hepatic ducts and left main hepatic duct
mucosa was found.
- A single severe biliary stricture was found in the
common hepatic duct. The stricture was malignant
appearing.
- A single severe biliary stricture was found in the
common hepatic duct and left main hepatic duct. The
stricture was malignant appearing.
- The left main hepatic duct and left intrahepatic
branches were moderately dilated.
- The right intrahepatic branches were mildly dilated.
- Choledocholithiasis was found. Complete removal was
accomplished by balloon extraction.
- Two stents were removed from the biliary tree.
- Biopsy was performed at the hepatic duct bifurcation.
- The biliary tree was swept.
- One plastic stent was placed into the left hepatic
duct.
- One plastic stent was placed into the right hepatic
duct.
02/10/25 ERCP--- Two partially occluded stents from the biliary tree
were seen in the major papilla.
- A single severe biliary stricture was found. The
stricture was malignant appearing.
- The left main hepatic duct, right main hepatic duct
and right intrahepatic branches were mildly dilated.
- Two stents were removed from the left hepatic duct
and the right hepatic duct.
- The biliary tree was swept and sludge was found.
- One plastic stent was placed into the right hepatic
duct.
- One plastic stent was placed into the left hepatic
duct.
Assessment / Plan
-
74 year old female with h/o hyperlipidemia, osteoporosis, hepatic biloma, anemia, UTI, diagnosed with metastatic pancreatic cancer in 2022 with known mets to liver and retroperitoneal nodes. See H+ P for details. She has had multiple ERCP with
stenting last 02/10 with also noted placement of perc deejay tube during that admission, chemo with recent treatment last week with Dr. You, recent thrombophlebitis and concern for acute thrombosis with antibiotic and 10 day course of Eliquis. On
day 6 she noted onset of black stools with fatigue. On admission noted drop in hbg to 6 down from 9.8 on 03/16. Hx recent multiple ERCP's, no EGD and colonoscopy 2015.
-symptomatic anemia
-melena
-recent Eliquis /abx use for possible acute thrombosis/thrombophlebitis
-metastatic pancreatic CA with mets to liver, nodes-recent chemo and Neulasta and hx multiple ERCP's with stenting
-recent acute cholecystitis with perc deejay tube in place
-recent chemo and Neulasta
-gallbladder distention
-chronic diarrhea on Lomotil prior to admission
-mild leukocytosis with fever last week
other medical problems:
-hyperlipidemia
-osteoporosis
-hx hepatic biloma
-anemia
-UTI
PLAN:
etiology of melena related to UGI bleeding in setting of newly started Eliquis- PUD, ectasia, mass vs other
agree with transfusion
trend hbg
Protonix gtt
ok for clear diet
Eliquis hold last dose 03/20 AM
plan for EGD after Eliquis wash out on 03/22
agree with oncology and IR eval for need for anticoagulation/filter
add LFT's for baseline with hx recent fever and multiple stenting procedures
pt is due to go to [facility] for histotripsy of liver lesions
-
-
Thank you for consultation and allowing me to participate in the patient's care. Please call the synchronous motor assembler GI physician during the after hours with any questions or concerns.
--- NOTE | 2025-03-20 16:15 | HPS.HSE ---
Family Physician
-
Family Physician: Sabrina Gómez
Chief Complaint
-
weakness
History of Present Illness
HPI
74F HX advanced metastatic pancreatic cancer, provoked DVT on Eliquis, ACDz , CKD3a, presenting with her for evaluation - reports dark stools for the past 3 days.
- experiencing right sided abdominal pain over the past week or so.
- fever of 102 four days ago but has not had any fevers since.
- feeling very weak which she attributes to her chemotherapy, last treatment was 5 days ago.
ROS
She denies any dizziness, syncope, chest pain, shortness of breath.
Medical History
Past Medical History
Past Medical History: Reports Other
Additional Past Medical History:
Metastatic pancreatic CA to liver, retroperitoneal lymph nodes
history of anemia with baseline around 9-10 due to chemo
hepatic biloma right hepatic lobe measuring 1.9 x 1.2 x 1.7 cm
Common bile duct stent in place
Obstructive jaundice due to pancreatic malignancy with stent exchange on 09/19/[address] Garvey
history of Klebsiella in urine
polymicrobial sepsis blood cultures for Klebsiella oxytoca and Enterobacter Cl[place]ae September 2023
Past Surgical History: Reports Other
Additional Past Surgical History:
On 09/19/2024 she had ERCP done by Dr. Garvey with removal of stones and stent exchange due to obstructive jaundice due to pancreatic malignancy,
Tubal ligation
Breast implants
Elbow fracture
PowerPort for chemo
Social History
Tobacco: Non-smoker
Alcohol: None
Drug: None
Personal:
Living: With Family
Employment: Retired
Family History
Family History: Other (12 brothers and sisters strong family history of diabetes 1 brother from lung cancer alcohol abuse, father diabetic, mother age 76 [place])
Allergies / Home Medications
Allergies reflects when Allergies were last updated in [facility].
Home Medications with original date entered in [facility]
Allergy/Medication List:
Allergies
Allergy/AdvReac Type Severity Reaction Status Date / Time
No Known Allergies Allergy Verified 02/07/25 18:37
Home Medications
denosumab 60 mg/mL subcutaneous syringe (Prolia) 60 mg SC [id number] bone health 09/11/23
lidocaine-prilocaine 2.5 %-2.5 % topical cream 1 applic topical DAILYPRN PRN prior to port access 10/05/23
diphenoxylate-atropine 2.5 mg-0.025 mg tablet 2 tab PO BIDPRN PRN dairrhea 09/16/24
therapeutic multivitamin 1 tab PO DAILY Supplement 09/16/24
vitamin B complex 1 tab PO DAILY Supplement 09/16/24
oxycodone 5 mg tablet 5 mg PO BIDPRN PRN moderate severe pain #10 tabs 09/21/24
Review of Systems
-
Constitutional: Reports Fatigue
EENT: Reports No Symptoms
Respiratory: Reports No Symptoms
Cardiac: Reports No Symptoms
Abdomen/GI: Reports No Symptoms
: Reports No Symptoms
Musculoskeletal: Reports No Symptoms
Skin: Reports No Symptoms
Neurological: Reports Weakness
Endocrine: Reports No Symptoms
Hematologic/Lymphatic: Reports No Symptoms
Psych: Reports No Symptoms
Physical Exam
Vital Signs
Vital Signs
Temp Pulse Resp BP Pulse Ox
98.9 F 86 18 120/70 99
03/20/25 16:01 03/20/25 13:19 03/20/25 13:19 03/20/25 13:19 03/20/25 13:19
Physical Exam
General: Comfortable and Conversant
HEENT: NormoCephalic, Anicteric, Moist mucous membranes, PERRLA, [place] Conjunctivae and No Ptosis
Respiratory: Clear; No Wheezes, Rales or Rhonchi
Cardiac: S1/S2 and Regular Rhythm; No Murmur, Rub, Gallop or Peripheral Edema
GI: Soft, Normal Bowel Sounds and Tender (Right upper quadrant)
Rectal: Deferred by Provider
Genito-urinary: Deferred by me
Musculoskeletal: No Clubbing, No Cyanosis and No Edema
Skin: Warm, Dry and Rash; No Jaundice
Neuro: AO x 3, No Motor Deficits, Nonfocal/grossly intact, Cranial Nerves Intact and No Sensory Deficits; No Slurred Speech, Facial Droop, Tremors or Sedated
Psych: Calm
Laboratory Results
-
03/20/25 12:31
03/20/25 12:31
Laboratory Results
PT 16.0 Sec (11.4-14.6) H 03/20/25 12:31
INR 1.25 03/20/25 12:31
APTT 31.0 Sec (23.4-35.0) 03/20/25 12:31
Lactic Acid 1.1 mmol/L (0.7-2.0) 03/20/25 12:31
Total Bilirubin Cancelled 03/20/25 12:31
AST Cancelled 03/20/25 12:31
ALT Cancelled 03/20/25 12:31
Alkaline Phosphatase Cancelled 03/20/25 12:31
Lipase 53 U/L (23-300) 03/20/25 12:31
Data Reviewed
-
CT Scan: Report Reviewed by me
Lab Data: Labs Reviewed by me
Old Records: Reviewed
Impression/Plan
-
Vital Signs
Temp Pulse Resp BP Pulse Ox
98.9 F 86 18 120/70 99
03/20/25 16:01 03/20/25 13:19 03/20/25 13:19 03/20/25 13:19 03/20/25 13:19
Labs
03/16/25 03/20/25
11:50 12:31
WBC 23.1 H 18.0 H
Hgb 9.8 L 6.1 L* D
MCV 95.8
BUN 33 H 47 H
Creatinine 1.1 H
eGFR 52.40 39.23
03/20/25 CT Abd/pel W Iv And Oral Contr
- Increasing hepatic metastatic disease.
- Mass in the junction of the pancreatic tail and splenic hilum, increasing.
This probably results in thrombosis of the distal splenic vein with prominent collaterals in the left upper quadrant including within the wall the stomach in the region of the gastrohepatic ligament.
- Findings suggesting partial thrombosis of the right portal vein, probably with collaterals/cavernous transformation.
- Mass within the pelvis posteriorly which appears to be separate from contrast opacified small bowel loops.
Main differential considerations of hematoma and neoplastic mass. Consideration for continued follow-up.
Last hospitalist admission: 02/07/25 - 02/11/25
Principal Discharge diagnosis :
Acute cholangitis
Acute cholecystitis with contained gallbladder perforation
Status post percutaneous cholecystotomy tube
Status post CBD stent exchange and lysis
Malignant biliary stricture
ASSESSMENT & PLAN
HoB POS Black stool GIB
Associated ACBLA - Hgb 6.1 on chr normocytic anemia with baseline Hgb 9s to 11s
On Eliquis for DVT
- Hold Eliquis
- blood consented
- agree with PRBCs
- PPI
- NPO and IVF
- GI consulted
HX provoked DVT- started on Eliquis for last few days
- Holding Eliquis due to acute GIB
- IR consulted for prophlactic IVCF evaluation
Pre renal TREMAINE due to GIB - current Cr 1.4
HX CKD 3a with baseline Cr 1.1, baseline eGFR low 50s
- Observe Cr in response to Hemoresuscitation
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
- not AC candidate due to acute UGIB
Advanced IV Pancreatic CA
Progressive metastatic pancreatic CA to liver and retroperitoneal LNs
Mass in the junction of the pancreatic tail and splenic hilum
Mass within the pelvis posteriorly which appears to be separate from contrast opacified small bowel loops.
HX Chemotherapy associated diarrhea
Of note: Status post CBD stent x 3, s/p CBD stent and stent exchange (09/19/2024)
- On chemo
- Oncology OP f/u
- Started on chemotherapy in September 2023
- Follows with Dr. Prescott at [facility], Dr. You locally
- She is scheduled to have a histotripsy procedure in 4 days at [facility].
- Onco consulted
Dyslipidemia
-No known ASCVD history
-Not currently on any statin or antilipid therapies
Osteoporosis
-Home medications include Prolia every 6-month
DVT Px: AC and Mechanical compression contraindicated
Full code
IP TLM
[2025-03-20] MEDS: ATIVAN 0.5 MG PO (22:18)
[2025-03-20] MEDS: LOMOTIL 2 TABLET PO (23:44)
[2025-03-20] MEDS: AUGMENTIN 500 MG/125 MG 1 TABLET PO (23:44)
[2025-03-21] VITALS (25 sets, daily range): BP systolic 93–111; BP diastolic 48–69; PULSE 78–92
[2025-03-21] MEDS: PROTONIX 100 IV (00:55)
[2025-03-21] MEDS: NSS 1000 IV ×2 (01:01→12:40)
[2025-03-21 03:15] LABS: Hematocrit 21.8 % (37.0-47.0); Hemoglobin 7.3 g/dL (12.0-16.0)
[2025-03-21 03:36] LABS: ALT (SGPT) 43 U/L (0-35); AST (SGOT) 36 U/L (14-36); Albumin 2.6 g/dl (3.5-5.0); Alkaline Phosphatase 942 U/L (38-126); Direct Bilirubin 0.3 mg/dl (0.0-0.4); Total Bilirubin 2.3 mg/dl (0.2-1.3); Total Protein 5.2 g/dl (6.3-8.2)
[2025-03-21 06:22] LABS: Hematocrit 21.4 % (37.0-47.0); Hemoglobin 7.1 g/dL (12.0-16.0); Mean Corp Hgb Conc. 33.2 g/dL (33.0-37.0); Mean Corpuscular Hgb 30.7 pg (27.0-31.0); Mean Corpuscular Volume 92.6 fL (81.0-99.0); Mean Platelet Volume 10.3 fL (7.4-10.4); Platelet Count 147 10^3/uL (130-400); Red Blood Cell Count 2.31 10^6/uL (4.20-5.40); Red Cell Dist. Width 19.3 % (11.5-14.5); White Blood Cell Count 19.4 10^3/uL (4.8-10.8)
--- NOTE | 2025-03-21 07:10 | W.PN.GI.CBS2 ---
Addendum entered and electronically signed by Ralf Reed MD 03/21/25 10:58:
I saw and examined the patient.
The [employer] or PA's note was reviewed and I agree with the note.
Comment: Reports brown stool this am
ABD soft mild distention, nontender
REC:
Hold eliquis
Plan EGD tomorrow to evaluate for UGI bleeding.
Hgb up to 7 after PRBC
If stable, hopeful d/c in time for appt at [facility] on Thursday for rx of liver mets with trial procedure
Original Note:
Today's Communication / Plan
-
logy of melena related to UGI bleeding in setting of newly started Eliquis- PUD, ectasia, mass vs other
s/p 2 units PRBC's given with hbg up to 7.1 cont to trend
cont Protonix gtt
CT as noted
ok for regular diet as only 1 stool overnight and improved hbg
Eliquis hold last dose 03/20 AM
plan for EGD after Eliquis wash out on 03/22
plan for anticoagulation per medical/oncology
I sent message to nursing and hospitals for update
pt is due to go to [facility] on Thursday for histotripsy of liver lesions
Assessment / Plan
-
74 year old female with h/o hyperlipidemia, osteoporosis, hepatic biloma, anemia, UTI, diagnosed with metastatic pancreatic cancer in 2022 with known mets to liver and retroperitoneal nodes. See H+ P for details. She has had multiple ERCP with
stenting last 02/10 with also noted placement of perc deejay tube during that admission, chemo with recent treatment last week with Dr. You, recent thrombophlebitis and concern for acute thrombosis with antibiotic and 10 day course of Eliquis. On
day 6 she noted onset of black stools with fatigue. On admission noted drop in hbg to 6 down from 9.8 on 03/16. Hx recent multiple ERCP's, no EGD and colonoscopy 2015.
03/20/25 CT A/p
Increasing hepatic metastatic disease.
Mass in the junction of the pancreatic tail and splenic hilum, increasing. This probably results in thrombosis of the distal splenic vein with prominent collaterals in the left upper quadrant including within the wall the stomach in the region of
the gastrohepatic ligament.
Findings suggesting partial thrombosis of the right portal vein, probably with collaterals/cavernous transformation.
Mass within the pelvis posteriorly which appears to be separate from contrast opacified small bowel loops. Main differential considerations of hematoma and neoplastic mass. Consideration for continued follow-up.
-symptomatic anemia
-melena
-metastatic pancreatic CA with mets to liver, nodes-recent chemo and Neulasta and hx multiple ERCP's with stenting
-recent Eliquis /abx use for possible acute thrombosis/thrombophlebitis
-CT with concern for partial thrombosis of right portal vein with collateral/cavernous transformation, thrombosis distal splenic vein
-increased LFT's
-CT with mass pelvis - neoplastic vs hematoma
-recent acute cholecystitis with perc deejay tube in place
-recent chemo and Neulasta
-gallbladder distention
-chronic diarrhea on Lomotil prior to admission
-mild leukocytosis with fever last week
-wt loss
other medical problems:
-hyperlipidemia
-osteoporosis
-hx hepatic biloma
-anemia
-UTI
PLAN:
etiology of melena related to UGI bleeding in setting of newly started Eliquis- PUD, ectasia, mass vs other
s/p 2 units PRBC's given with hbg up to 7.1 cont to trend
cont Protonix gtt
CT as noted
ok for regular diet as only 1 stool overnight and improved hbg
Eliquis hold last dose 03/20 AM
plan for EGD after Eliquis wash out on 03/22
plan for anticoagulation per medical/oncology
I sent message to nursing and hospitals for update
pt is due to go to [facility] on Thursday for histotripsy of liver lesions
Subjective
Subjective
Date of Service: March 21, 2025
NPO, one looser stool overnight
Objective
Data Reviewed
Laboratory Data:
Laboratory Results
03/21/25 05:38
03/20/25 12:31
Laboratory Results
PT 16.0 Sec (11.4-14.6) H 03/20/25 12:31
INR 1.25 03/20/25 12:31
APTT 31.0 Sec (23.4-35.0) 03/20/25 12:31
Total Bilirubin 2.3 mg/dl (0.2-1.3) H 03/21/25 02:54
AST 36 U/L (14-36) 03/21/25 02:54
ALT 43 U/L (0-35) H 03/21/25 02:54
Alkaline Phosphatase 942 U/L (38-126) H 03/21/25 02:54
Lipase 53 U/L (23-300) 03/20/25 12:31
Vital Signs and I&O:
Vital Signs
Temp Pulse Resp BP Pulse Ox
98.8 F 75 19 108/62 96
03/21/25 00:48 03/21/25 06:30 03/21/25 06:30 03/21/25 06:16 03/21/25 06:30
I&O
03/20/25 03/21/25 03/22/25
06:59 06:59 06:59
Intake Total 500 / 500
Balance 500 / 500
Physical Exam
Physical Exam
HEENT: Moist mucous membranes and Other (mild jaundice )
Cardiology: Normal Sinus Rhythm
Pulmonary: Clear
GI: Soft, Distended, Tender (minimal right sided ) and Other (deejay tube in place )
Extremities: Edema
Neuro: Non Focal
[2025-03-21] MEDS: PROTONIX IV (08:49)
[2025-03-21] MEDS: AUGMENTIN 500 MG/125 MG 1 TABLET PO ×2 (09:00→19:47)
--- NOTE | 2025-03-21 09:48 | CON.ONC ---
Plan
Plan
� Continue GI bleed prophylaxis per GI recommendations
� Continue to hold Eliquis�last dose 03/20 morning
� Plan for EGD tomorrow
� Continue to monitor hemoglobin and transfuse as needed
� Follow-up with oncology outpatient for continuation of chemotherapy and management of primary disease
�All other care per primary medical team
Patient History
History of Present Illness
74-year-old female with past medical history of CKD stage IIIa, hyperlipidemia, osteoporosis, hepatic biloma, anemia, ACD, provoked DVTs on Eliquis, and history of advanced metastatic pancreatic cancer to liver, currently on chemotherapy. She
presents to [facility] after 3 days of dark stools. She reports that last bowel movement was last night where she had dark diarrhea. Hemoglobin at time of admission was 6.1 and she received 2 units of blood. Hemoglobin this morning 7.1.
She was recently started on 10-day course of Eliquis, completed 7 days. Washout was initiated today on 03/21. She is planned for EGD tomorrow with GI.
Patient has been getting chemotherapy with [facility] under Dr. You. She is planned to see Dr. Reed at [place] on Thursday for discussions regarding lithotripsy for her liver lesions.
She reports no headaches, nausea, vomiting, chest pain, shortness of breath. She reports abdominal cramping with eating, abdominal fullness since time of diagnosis and cramping in extremities for the last year. He states that since she had
bilateral DVTs in her legs, her legs have become more swollen.
Patient Medication
�Medication �Instructions �Recorded �Confirmed �Last Taken �Type
denosumab 60 mg/mL subcutaneous 60 mg SC [id number] bone health 09/11/23 03/20/25 07/04/23 History
syringe (Prolia)
diphenoxylate-atropine 2.5 2 tab PO Q6HPRN PRN dairrhea 09/16/24 03/20/25 03/20/25 History
mg-0.025 mg tablet
therapeutic multivitamin 1 tab PO DAILY Supplement 09/16/24 03/20/2524 History
amoxicillin 875 mg-potassium 1 tab PO BID 03/20/25 03/20/25 03/20/25 History
clavulanate 125 mg tablet
apixaban 5 mg tablet (Eliquis) 5 mg PO BID 03/20/25 03/20/25 03/20/25 History
calcium 600 mg (as 1 tab PO DAILY 03/20/25 03/20/25 Unknown History
carbonate)-vitamin D3 10 mcg (400
unit) tablet (Calcium 600 + D(3))
cholecalciferol (vitamin D3) 50 50 mcg PO DAILY 03/20/25 03/20/25 Unknown History
mcg (2,000 unit) tablet (Vitamin
D3)
cyanocobalamin (vitamin B-12) 1,000 mcg PO DAILY 03/20/25 03/20/25 Unknown History
1,000 mcg tablet
diphenhydramine 25 2 tab PO HS 03/20/25 03/20/25 03/19/25 History
mg-acetaminophen 500 mg tablet
(Acetaminophen PM)
lidocaine-prilocaine 2.5 %-2.5 % 1 applic topical DAILYPRN PRN PORT 03/20/25 03/20/25 Unknown History
topical cream ACCESS
loratadine 10 mg tablet (Claritin) 10 mg PO DIRECTED 03/20/25 03/20/25 Unknown History
lorazepam 0.5 mg tablet 0.5 mg PO HS 03/20/25 03/20/25 03/19/25 History
Active Medications
Generic Name Dose Route Start Last Admin
Trade Name Freq PRN Reason Stop Dose Admin
Amoxicillin/Clavulanate Potassium 1 tablet 03/20/25 23:00 03/21/25 09:00
Amoxicillin (500 Mg)/Clavulanate (125 Mg) Tablet PO 1 tablet
Q12 JIE Administration
Diphenoxylate HCl/Atropine 2 tablet 03/21/25 08:38
Diphenoxylate/Atropine Tablet PO 04/18/25 08:37
Q6HPRN PRN
diarrhea
Heparin Sodium (Porcine) 500 unit 03/21/25 03:00
Heparin Flush Pf (100 Unit/Ml) 5 Ml Syringe IV 04/18/25 02:59
PER PROTOCOL JIE
Sodium Chloride 1,000 mls @ 80 mls/hr 03/21/25 00:00 03/21/25 01:01
Nss IV 1,000 mls
[id number] JIE Administration
Pantoprazole Sodium 80 mg in 100 mls @ 10 mls/hr 03/21/25 00:00 03/21/25 08:49
Protonix IV Not Given
Q10H JIE
8 MG/HR
Lorazepam 0.5 mg 03/20/25 22:00 03/20/25 22:18
Lorazepam 0.5 Mg Tablet PO 04/17/25 21:59 0.5 mg
HS JIE Administration
Sodium Chloride 0 flush 03/20/25 20:00
Sodium Chloride 0.9% (Flush) Syringe IV 04/17/25 19:59
PER PROTOCOL JIE
Review of Systems
-
History Source: Patient
Constitutional: Reports Weakness
EENT: Reports No Symptoms
Respiratory: Reports No Symptoms
Cardiac: Reports No Symptoms
GI: Reports Abdominal Pain, Diarrhea, Black Stools and Bloated
: Reports No Symptoms
Musculoskeletal: Reports Muscle Pain
Physical Exam
-
General: No Apparent Distress, Comfortable, Conversant, Appears Chronically Ill and Cachetic
GI: Soft, Distended and Tense (mild)
Musculoskeletal: No Clubbing and No Cyanosis
Skin: Warm and Dry
Psych: Calm
Labs
Lab Results
WBC 19.4 10^3/uL (4.8-10.8) H 03/21/25 05:38
RBC 2.31 10^6/uL (4.20-5.40) L 03/21/25 05:38
Hgb 7.1 g/dL (12.0-16.0) L 03/21/25 05:38
Hct 21.4 % (37.0-47.0) L 03/21/25 05:38
MCV 92.6 fL (81.0-99.0) 03/21/25 05:38
MCH 30.7 pg (27.0-31.0) 03/21/25 05:38
MCHC 33.2 g/dL (33.0-37.0) 03/21/25 05:38
RDW 19.3 % (11.5-14.5) H 03/21/25 05:38
Plt Count 147 10^3/uL (130-400) 03/21/25 05:38
MPV 10.3 fL (7.4-10.4) 03/21/25 05:38
Abs Immat Gran (auto) 0.1 10^3/uL (0-0.05) H 03/20/25 12:31
Absolute Neuts (auto) 16.2 10^3/uL (1.4-6.5) H 03/20/25 12:31
Absolute Lymphs (auto) 0.8 10^3/uL (1.2-3.4) L 03/20/25 12:31
Absolute Monos (auto) 0.7 10^3/uL (0.1-0.6) H 03/20/25 12:31
Absolute Eos (auto) 0.2 10^3/uL (0-0.7) 03/20/25 12:31
Absolute Basos (auto) 0.1 10^3/uL (0-0.2) 03/20/25 12:
Immature Gran % 0.5 % (0-0.5) 03/20/25 12:
Neutrophils % 90.1 % (42.2-75.2) H 03/20/25 12:
Lymphocytes % 4.4 % (20.5-51.1) L 03/20/25 12:
Monocytes % 3.9 % (1.7-9.3) 03/20/25 12:31
Eosinophils % 0.8 % (0-6) 03/20/25 12:31
Basophils % 0.3 % (0-2) 03/20/25 12:31
Creatinine 1.4 mg/dL (0.6-1.0) H 03/20/25 12:31
Vital Signs
Vital Signs
Temp Pulse Resp BP Pulse Ox
98.1 F 78 19 108/54 96
03/21/25 07:45 03/21/25 07:45 03/21/25 07:45 03/21/25 07:00 03/21/25 07:45
--- NOTE | 2025-03-21 10:01 | W.PN.HOSP.TC ---
Today's Communication/Plan
-
give another unit of RBCs, will be total 3 units
Assessment / Plan
Assessment / Plan
Physical Exam
General: Comfortable, not in respiratory distress and Conversant
HEENT: Normocephalic, Anicteric, Moist mucous membranes, PERRLA, [place] Conjunctivae and No Ptosis
Respiratory: limited, no Wheezes, Rales or Rhonchi
Cardiac: S1/S2
GI: Soft, Normal Bowel Sounds and not tender.
Genito-urinary: No hematuria
Musculoskeletal: No Clubbing, No Cyanosis and No Edema
Skin: Warm, Dry and Rash; No Jaundice
Neuro: AO x 3, No Motor Deficits, Nonfocal/grossly intact. No Slurred Speech, Facial Droop, Tremors or Sedated
Psych: Calm
A/P:
# acute blood loss anemia exacerbated by Eliquis
Presented with Melena
No abdominal pain or tenderness on exam. No rectal bleeding.
- Hold Eliquis
- blood consented
- agree with PRBCs. Given two units , will give another unit
- PPI
- liquid diet, for EGD 03/22 after Eliquis washout.
Appreciate GI help.
HX provoked DVT- started on Eliquis for last few days
- Holding Eliquis due to acute GIB. She might not need AC, will d/w hematology.
TREMAINE due to GIB - current Cr 1.4
HX CKD 3a with baseline Cr 1.1, baseline eGFR low 50s
repeat BMP in am
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
- not AC candidate due to acute UGIB
Advanced IV Pancreatic CA
Progressive metastatic pancreatic CA to liver and retroperitoneal LNs
Mass in the junction of the pancreatic tail and splenic hilum
Mass within the pelvis posteriorly which appears to be separate from contrast opacified small bowel loops.
HX Chemotherapy associated diarrhea
Of note: Status post CBD stent x 3, s/p CBD stent and stent exchange (09/19/2024)
- On chemo
- Oncology OP f/u
- Started on chemotherapy in September 2023
- Follows with Dr. Prescott at [facility], Dr. You locally
- She is scheduled to have a histotripsy procedure in 4 days at [facility].
- Onco consulted
Dyslipidemia
-No known ASCVD history
-Not currently on any statin or antilipid therapies
Osteoporosis
-Home medications include Prolia every 6-month
DVT Px: AC and Mechanical compression contraindicated
Full code
Total time spent to see the patient, examine the patient, review data and lab results, discuss treatment plan with patient, nursing staff around 55 minutes.
Anticipated Discharge: > 48 hours
Subjective/Interval History
-
Date of Service: March 21, 2025
No chest pain
No nausea
No sob
No abdominal pain
Objective Data
-
Labs:
Laboratory Results
03/20/25 03/21/25 03/21/25
18:45 02:54 05:38
WBC 19.4 H
Hgb Cancelled 7.3 L 7.1 L
Hct Cancelled 21.8 L 21.4 L
Plt Count 147
Total Bilirubin 2.3 H
AST 36
ALT 43 H
Alkaline Phosphatase 942 H
Vital Signs:
Vital Signs
Temp Pulse Resp BP Pulse Ox
98.1 F 78 19 108/54 96
03/21/25 07:45 03/21/25 07:45 03/21/25 07:45 03/21/25 07:00 03/21/25 07:45
I&O
03/20/25 03/21/25 03/22/25
06:59 06:59 06:59
Intake Total 500 / 500
Balance 500 / 500
[2025-03-21] MEDS: LOMOTIL 2 TABLET PO ×2 (10:32→19:29)
[2025-03-21] MEDS: PROTONIX IV 40 MG IV (19:49)
[2025-03-21] MEDS: NSS (PRESERVATIVE FREE) 10 ML IV (19:50)
[2025-03-21] MEDS: ATIVAN 0.5 MG PO (21:03)
[2025-03-22] VITALS (17 sets, daily range): BP systolic 14–118; BP diastolic 52–71
[2025-03-22] MEDS: NSS 1000 IV (02:54)
[2025-03-22 03:47] LABS: ALT (SGPT) 37 U/L (0-35); AST (SGOT) 32 U/L (14-36); Albumin 2.7 g/dl (3.5-5.0); Alkaline Phosphatase 1015 U/L (38-126); Blood Urea Nitrogen 22 mg/dl (7-17); Carbon Dioxide 22 mmol/L (22-30); Chloride 111 mmol/L (98-107); Estimated Creatinine Clearance 31 ml/min; Glucose 91 mg/dl (70-99); Potassium 4.3 mmol/L (3.5-5.1); Sodium 138 mmol/L (135-145); Total Bilirubin 0.7 mg/dl (0.2-1.3); Total Protein 5.3 g/dl (6.3-8.2); eGFR 47.21
[2025-03-22 03:48] LABS: Hemoglobin 8.3 g/dL (12.0-16.0); Mean Corp Hgb Conc. 33.2 g/dL (33.0-37.0); Mean Corpuscular Hgb 30.9 pg (27.0-31.0); Mean Corpuscular Volume 92.9 fL (81.0-99.0); Mean Platelet Volume 10.3 fL (7.4-10.4); Platelet Count 139 10^3/uL (130-400); Red Blood Cell Count 2.69 10^6/uL (4.20-5.40); Red Cell Dist. Width 18.9 % (11.5-14.5); White Blood Cell Count 22.6 10^3/uL (4.8-10.8)
--- NOTE | 2025-03-22 07:40 | W.PN.ONC2 ---
Today's Communication / Plan
-
.
Impression
Impression
74-year-old female with past medical history of CKD stage IIIa, hyperlipidemia, osteoporosis, hepatic biloma, anemia, ACD, provoked DVTs on Eliquis, and history of advanced metastatic pancreatic cancer to liver, currently on chemotherapy awaiting
EGD for recent upper GI bleed.
Plan
Plan
� Continue GI bleed prophylaxis per GI recommendations
� Continue to hold Eliquis�last dose 5/ morning.
�Continue n.p.o.
� Plan for EGD today
� Continue to monitor hemoglobin and transfuse as needed
� Follow-up with oncology outpatient for continuation of chemotherapy and management of primary disease
�All other care per primary medical team
Subjective/Objective
Chief Complaint
UGIB
Subjective
74-year-old female with past medical history of CKD stage IIIa, hyperlipidemia, osteoporosis, hepatic biloma, anemia, ACD, provoked DVTs on Eliquis, and history of advanced metastatic pancreatic cancer to liver, currently on chemotherapy. She
reports that overnight she had no acute events. Stool as of yesterday is now back to normal color. She is currently n.p.o. with plans for EGD today. Overnight patient required 1 unit of blood, totaling 3 units of blood during stay. Hemoglobin is
currently 8.3.
She reports no headaches, nausea, vomiting, chest pain, shortness of breath or numbness and tingling in extremities. She reiterated the importance and urgency of her being discharged and time for her appointment on Thursday at [place].
Vital Signs:
Vital Signs
Temp Pulse Resp BP Pulse Ox
98.7 F 77 21 92/54 96
03/21/25 20:11 03/22/25 06:45 03/22/25 06:45 03/22/25 04:23 03/22/25 06:45
Lab Results:
Laboratory Data
WBC 22.6 10^3/uL (4.8-10.8) H 03/22/25 03:09
Hgb 8.3 g/dL (12.0-16.0) L 03/22/25 03:09
Plt Count 139 10^3/uL (130-400) 03/22/25 03:09
PT 16.0 Sec (11.4-14.6) H 03/20/25 12:31
INR 1.25 03/20/25 12:31
APTT 31.0 Sec (23.4-35.0) 03/20/25 12:31
eGFR 47.21 03/22/25 03:09
Physical Exam
General: Alert and oriented x 3, well-groomed, conversant, not in distress
GI: Soft and Distended
Review of Systems
Review of Systems
Reviewed and negative unless otherwise stated.
[2025-03-22] MEDS: AUGMENTIN 500 MG/125 MG 1 TABLET PO (08:51)
[2025-03-22] MEDS: NSS (PRESERVATIVE FREE) 10 ML IV (08:53)
[2025-03-22] MEDS: PROTONIX IV 40 MG IV (08:53)
[2025-03-22] MEDS: LOMOTIL 2 TABLET PO (09:06)
--- NOTE | 2025-03-22 10:09 | CM ---
Addendum entered by Gaby Vasquez 03/22/25 10:11:
Of note, recently closed to [facility]
Original Note:
CM attempted bedside meeting with pt
Off unit for testing
Pt admitted to [facility] month prior
Pt resides with her spouse in a [address] in [address] [address], [address]
Pt has 1st floor set up
Pt is indep with her ADLs,no DMEs
Very active at baseline and currently receiving chemo
PCP- Sabrina Gómez
Rx- [facility]
Discharge Disposition- anticipate home no needs
--- NOTE | 2025-03-22 11:01 | W.PN.UPDATE ---
Update Note
Progress Note Update
EGD done
Large gastric varices in fundus, no bleeding
Two plastic stents in ampulla
REC:
Hold anticoagulation given GI bleed and large gastric varices
Resume diet
--- NOTE | 2025-03-22 11:45 | W.PN.HOSP.TC ---
Today's Communication/Plan
-
dc
Assessment / Plan
Assessment / Plan
Physical Exam
General: Comfortable, not in respiratory distress and Conversant
HEENT: Normocephalic, Anicteric, Moist mucous membranes, PERRLA, [place] Conjunctivae and No Ptosis
Respiratory: limited, no Wheezes, Rales or Rhonchi
Cardiac: S1/S2
GI: Soft, Normal Bowel Sounds and not tender.
Genito-urinary: No hematuria
Musculoskeletal: No Clubbing, No Cyanosis and No Edema
Skin: Warm, Dry and Rash; No Jaundice
Neuro: AO x 3, No Motor Deficits, Nonfocal/grossly intact. No Slurred Speech, Facial Droop, Tremors or Sedated
Psych: Calm
A/P:
# acute blood loss anemia exacerbated by Eliquis
Presented with Melena
No abdominal pain or tenderness on exam. No rectal bleeding.
- Hold Eliquis
- blood consented
- agree with PRBCs. Given 3 units total, HGB up to 8, had normal brown colored stool with no pain or nausea.
- PPI
- liquid diet, for EGD 03/22 after Eliquis washout.
Appreciate GI help.
HX provoked DVT- started on Eliquis for last few days
- Holding Eliquis due to acute GIB. She might not need AC, will d/w hematology.
TREMAINE due to GIB - current Cr 1.4
HX CKD 3a with baseline Cr 1.1, baseline eGFR low 50s
repeat BMP in am
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
- not AC candidate due to acute UGIB
Advanced IV Pancreatic CA
Progressive metastatic pancreatic CA to liver and retroperitoneal LNs
Mass in the junction of the pancreatic tail and splenic hilum
Mass within the pelvis posteriorly which appears to be separate from contrast opacified small bowel loops.
HX Chemotherapy associated diarrhea
Of note: Status post CBD stent x 3, s/p CBD stent and stent exchange (09/19/2024)
- On chemo
- Oncology OP f/u
- Started on chemotherapy in September 2023
- Follows with Dr. Prescott at [facility], Dr. You locally
- She is scheduled to have a histotripsy procedure in 4 days at [facility].
- Onco consulted
Dyslipidemia
-No known ASCVD history
-Not currently on any statin or antilipid therapies
Osteoporosis
-Home medications include Prolia every 6-month
DVT Px: AC and Mechanical compression contraindicated
Full code
Total dc time spent to see the patient, examine the patient, review data and lab results, discuss discharge treatment plan with patient, GI, nursing staff around 65 minutes.
Anticipated Discharge: Today
Subjective/Interval History
-
Date of Service: March 22, 2025
Earlier
No pain
Objective Data
-
Labs:
Laboratory Results
03/22/25
03:09
WBC 22.6 H
Hgb 8.3 L
Hct 25.0 L
Plt Count 139
Sodium 138
Potassium 4.3
Chloride 111 H
Carbon Dioxide 22
BUN 22 H
Creatinine 1.2 H
Glucose 91
Calcium 7.0 L D
Total Bilirubin 0.7 D
AST 32
ALT 37 H
Alkaline Phosphatase 1015 H
Vital Signs:
Vital Signs
Temp Pulse Resp BP Pulse Ox
97.2 F 82 14 113/61 98
03/22/25 11:00 03/22/25 11:17 03/22/25 11:17 03/22/25 11:15 03/22/25 11:17
I&O
03/21/25 03/22/25 03/23/25
06:59 06:59 06:59
Intake Total 500 / 500 1210 / 1210
Balance 500 / 500 1210 / 1210
--- NOTE | 2025-03-22 12:25 | W.PN.UPDATE ---
Update Note
Progress Note Update
I was called from PACU to dc the patient
Patient had endoscopic evaluation and she is hemodynamic stable with no pain
Patient wants to go home(I am going to walk out)
Patient feels better, advised to come back to the hospital if she develops symptoms. Discussed with GI, okay to resume diet, holding anticoagulation
Discussed with PACU nurse, will try solid food before discharge
End
--- NOTE | 2025-03-22 18:14 | W.DCSUMMARY ---
Discharge Summary
Discharge Data
Date of Admission: 03/20/25
Date of Discharge: 03/22/25
-
Pending Results: No
Hospital Course
74 years old female presented with history of black stools. Patient did not have significant abdominal pain. Patient has chronic abdominal discomfort related to metastatic pancreatic cancer. Patient was diagnosed with acute blood loss anemia
secondary to GI bleeding exacerbated by the use of Eliquis. Admission hemoglobin was 6.1. Patient received total of 3 units of blood transfusion in the hospital. Hemoglobin upon discharge was 8.3. Patient had mild renal insufficiency with
creatinine 1.4, creatinine went down to 1.2 upon discharge which was approaching her baseline. Gastroenterology on the oncologist services followed the patient. Patient underwent upper endoscopy that showed type I isolated nonbleeding gastric
varices. Plastic stents in the duodenum with no complications. Upon discussing need for further system anticoagulation,ic recommendation by oncology to stop further doses. Patient also expressed her wish to avoid further use of Eliquis to avoid
similar episodes of GI bleeding. Patient wanted to leave the hospital shortly after her EGD. She remained hemodynamically stable. She was able to tolerate diet. Patient was discharged home in a stable condition.
Discharge Plan
-
Patient Disposition: Home (Routine Discharge)
Discharge Diagnosis/Procedures: GI bleeding with acute blood loss anemia exacerbated by use of Eliquis.
He received 3 units of blood transfusion. Your hemoglobin went up to 8.3.
You are seen by oncology and gastroenterology. You had EGD that showed type I isolated gastric varices without bleeding, recommendation to hold anticoagulation.
Follow up with your oncologist and primary care doctor within a week or 2.
Diet: As tolerated
Referrals:
Sabrina Gómez MD [Family Provider] -
Prescriptions:
Continued
Prolia 60 mg/mL Syringe
60 mg SC [id number]
diphenoxylate-atropine 2.5-0.025 mg tablet
2 tab PO Q6HPRN PRN (Reason: dairrhea)
therapeutic multivitamin Tablet
1 tab PO DAILY
cyanocobalamin (vitamin B-12) 1,000 mcg Tablet
1,000 mcg PO DAILY
lidocaine-prilocaine 2.5-2.5 % Cream
1 applic TOPICAL DAILYPRN PRN (Reason: PORT ACCESS)
lorazepam 0.5 mg Tablet
0.5 mg PO HS
diphenhydramine-acetaminophen [Acetaminophen PM] 25-500 mg Tablet
2 tab PO HS
loratadine [Claritin] 10 mg Tablet
10 mg PO DIRECTED
Rx Instructions:
TAKE THE DAY OF CHEMO AND 4 DAYS AFTER
amoxicillin-pot clavulanate 875-125 mg Tablet
1 tab PO BID
Rx Instructions:
START ON 03/17/25 FOR 10 DAYS
calcium carbonate-vitamin D3 [Calcium 600 + D(3)] 600 mg-10 mcg (400 unit) Tablet
1 tab PO DAILY
cholecalciferol (vitamin D3) [Vitamin D3] 50 mcg (2,000 unit) Tablet
50 mcg PO DAILY
Discontinued
Eliquis 5 mg Tablet
5 mg PO BID
Discharge Orders:
Discharge Patient (As Directed); Ordered 03/22/25
Ordered By: Rodney Qureshi
Discharge Date and Time
Discharge Date/Time: 03/22/25 13:08
Print Language: SAMI
== END 2025-03-22 13:08 | disposition home or self-care (01) | DRG 377 ==
LOC: PACUI 17:48
PROVIDERS: Nurse Practitioner Adult Health; Physician Assistant; Specialist; ADMITTING PHYSICIAN Internal Medicine; ATTENDING PHYSICIAN Internal Medicine; CONSULT PHYSICIAN Internal Medicine Gastroenterology; CONSULT PHYSICIAN Internal Medicine Hematology & Oncology; EMERGENCY PHYSICIAN Emergency Medicine; FAMILY PHYSICIAN Family Medicine
PROC: 30233N1 Transfusion of Nonautologous Red Blood Cells into Peripheral Vein, Percutaneous Approach (ICD-10-PCS; 2025-03-20)
PROC: 0DJ08ZZ Inspection of Upper Intestinal Tract, Via Natural or Artificial Opening Endoscopic (ICD-10-PCS; 2025-03-22)
DX: K92.2 Gastrointestinal hemorrhage, unspecified (principal); I81 Portal vein thrombosis; D68.32 Hemorrhagic disorder due to extrinsic circulating anticoagulants; C25.2 Malignant neoplasm of tail of pancreas; C78.7 Secondary malignant neoplasm of liver and intrahepatic bile duct; N39.0 Urinary tract infection, site not specified; D62 Acute posthemorrhagic anemia; N17.9 Acute kidney failure, unspecified; R64 Cachexia; Z68.1 Body mass index [BMI] 19.9 or less, adult; I82.890 Acute embolism and thrombosis of other specified veins; R17 Unspecified jaundice; M81.0 Age-related osteoporosis without current pathological fracture; I86.4 Gastric varices; Z92.21 Personal history of antineoplastic chemotherapy; Z86.72 Personal history of thrombophlebitis; Z81.1 Family history of alcohol abuse and dependence; Z79.01 Long term (current) use of anticoagulants; R62.7 Adult failure to thrive; N18.31 Chronic kidney disease, stage 3a; I12.9 Hypertensive chronic kidney disease with stage 1 through stage 4 chronic kidney disease, or unspecified chronic kidney disease
CPT/HCPCS: 74177; 80048; 80053; 80076; 83605; 83690; 85014; 85018; 85025; 85027; 85610; 85730; 86850; 86900; 86901; 86920; P9016; Q9967

== ENCOUNTER → 2025-03-27 14:28 | Outpatient (REF) | payer MEDICARE, OTHER, SELFPAY ==
[2025-03-27 15:33] LABS: ALT (SGPT) 71 U/L (0-35); AST (SGOT) 42 U/L (14-36); Albumin 3.3 g/dl (3.5-5.0); Blood Urea Nitrogen 14 mg/dl (7-17); Carbon Dioxide 24 mmol/L (22-30); Chloride 104 mmol/L (98-107); Glucose 106 mg/dl (70-99); Sodium 133 mmol/L (135-145); Total Bilirubin 0.9 mg/dl (0.2-1.3); Total Protein 6.1 g/dl (6.3-8.2); eGFR 58.75
[2025-03-27 15:43] LABS: Alkaline Phosphatase 1435 U/L (38-126)
[2025-03-27 16:15] LABS: % Basophils 0.4 % (0-2); % Eosinophils 0.3 % (0-6); % Immature Granulocytes 3.1 % (0-0.5); % Lymphocytes 2.7 % (20.5-51.1); % Monocytes 4.5 % (1.7-9.3); Absolute Basophils 0.2 10^3/uL (0-0.2); Absolute Eosinophils 0.1 10^3/uL (0-0.7); Absolute Immature Granulocytes 1.3 10^3/uL (0-0.05); Absolute Lymphocytes 1.1 10^3/uL (1.2-3.4); Absolute Monocytes 1.8 10^3/uL (0.1-0.6); Absolute Neutrophils 35.7 10^3/uL (1.4-6.5); Hematocrit 28.7 % (37.0-47.0); Hemoglobin 9.3 g/dL (12.0-16.0); Mean Corp Hgb Conc. 32.4 g/dL (33.0-37.0); Mean Corpuscular Volume 95.7 fL (81.0-99.0); Mean Platelet Volume 10.3 fL (7.4-10.4); Nucleated Red Blood Cells % 0 %; Platelet Count 287 10^3/uL (130-400); Red Cell Dist. Width 18.6 % (11.5-14.5); White Blood Cell Count 40.1 10^3/uL (4.8-10.8)
[2025-03-30 05:59] LABS: CA 19-9 999 U/mL (<=35)
== END ==
LOC: REG 14:28
PROVIDERS: ATTENDING PHYSICIAN Internal Medicine Hematology & Oncology; FAMILY PHYSICIAN Family Medicine
DX: C78.7 Secondary malignant neoplasm of liver and intrahepatic bile duct (principal); C25.2 Malignant neoplasm of tail of pancreas; D64.81 Anemia due to antineoplastic chemotherapy; E87.6 Hypokalemia; D50.9 Iron deficiency anemia, unspecified
CPT/HCPCS: 36415; 80053; 85025; 86301

== ENCOUNTER → 2025-03-29 14:25 | Outpatient (REF) | payer MEDICARE, OTHER, SELFPAY ==
[2025-03-29 10:00] LABS: % Basophils 0.2 % (0-2); % Eosinophils 0.3 % (0-6); % Lymphocytes 2.3 % (20.5-51.1); % Monocytes 5.6 % (1.7-9.3); % Neutrophils 90.6 % (42.2-75.2); Absolute Basophils 0.1 10^3/uL (0-0.2); Absolute Eosinophils 0.1 10^3/uL (0-0.7); Absolute Immature Granulocytes 0.3 10^3/uL (0-0.05); Absolute Lymphocytes 0.8 10^3/uL (1.2-3.4); Absolute Monocytes 1.8 10^3/uL (0.1-0.6); Absolute Neutrophils 29.9 10^3/uL (1.4-6.5); Hemoglobin 8.4 g/dL (12.0-16.0); Mean Corp Hgb Conc. 32.3 g/dL (33.0-37.0); Mean Corpuscular Volume 95.9 fL (81.0-99.0); Mean Platelet Volume 9.8 fL (7.4-10.4); Platelet Count 268 10^3/uL (130-400); Red Blood Cell Count 2.71 10^6/uL (4.20-5.40); Red Cell Dist. Width 18.1 % (11.5-14.5)
[2025-03-29 12:18] LABS: Iron 24 ug/dl (37-170)
[2025-03-29 12:28] LABS: Percent Saturation 13 % (20-50); Total Iron Binding Capacity 176 ug/dl (265-497)
== END ==
LOC: OIDL 14:25
PROVIDERS: ATTENDING PHYSICIAN Internal Medicine Hematology & Oncology
DX: C78.7 Secondary malignant neoplasm of liver and intrahepatic bile duct (principal); C25.2 Malignant neoplasm of tail of pancreas; D64.81 Anemia due to antineoplastic chemotherapy
CPT/HCPCS: 82728; 83540; 83550; 85025

== ENCOUNTER 2025-04-04 22:55 | Inpatient (IN) | payer MEDICARE, OTHER, SELFPAY ==
[2025-04-04] VITALS (10 sets, daily range): BP systolic 91–107; BP diastolic 51–78; BMI 19.5
--- NOTE | 2025-04-04 19:26 | ED.GENMED ---
History of Present Illness
<Chantel Fabian PA-C - Last Filed: 04/05/25 04:16>
General
Chief Complaint: Abnormal Lab Value
Source: patient and spouse ( at bedside)
Exam Limitations: none
Time Seen by Provider: 04/04/25 18:32
Nursing documentation reviewed up to this point in time: agreed with
History of Present Illness
History of Present Illness:
Patient is a 74-year-old female currently undergoing treatment for stage IV metastatic pancreatic cancer who presents to the emergency department with concerns of abnormal lab work outpatient. Patient reports a few days of worsening fatigue and
mild shortness of breath. She does also note having dark stools over the past few days. Patient denies any hemoptysis or hematochezia. She denies any abdominal pain. Patient also feels if she has not been urinating much despite starting Lasix 20
mg. Patient had lab work drawn outpatient today and was contacted by her oncologist to present to the emergency department given she had a hemoglobin of 6.0.
Patient denies any recent fever or chills. No chest pain. No syncopal episodes.
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
Patient was recently admitted to the hospital for acute upper GI bleeding exacerbated by Eliquis for bilateral DVTs. She is no longer anticoagulated given GI bleeding.
Patient is currently receiving treatment for stage IV metastatic pancreatic cancer with chemotherapy. She also reports recent histotripsy.
Past History
<Chantel Fabian PA-C - Last Filed: 04/05/25 04:16>
Past History
ED Past Medical History: Cancer (Pancreatic, Liver, Spleen, stomach)
ED Past Surgical History: Gynecological (Tubal, ), Orthopedic (elbow Fracture, ) and Other (Breast Implants, Liver stents)
Social History
Tobacco: Non-smoker
Alcohol: None
Personal:
Living: with family
Review of Systems
<Chantel Fabian PA-C - Last Filed: 04/05/25 04:16>
Review of Systems
Allergies reviewed?: Yes
All Other Systems: ROS reviewed and negative except as documented in HPI and ROS
Phy Exam
<Chantel Fabian PA-C - Last Filed: 04/05/25 04:16>
Physical Exam
Physical Exam:
Vitals: BP soft, afebrile
General: Patient is cachectic.
Skin: Pale. Warm and dry.
Head: Normocephalic, atraumatic
Eyes: Sclera nonicteric.
Throat: Protecting airway
Neck: Normal ROM, no cervical spine tenderness, no meningismus
Cardiac: Regular rate and rhythm, no murmurs. Port right upper chest wall.
Pulm: Normal respiratory effort, no wheezes, rales, rhonchi heard on exam
Abdomen: Abdomen soft and nontender. Cholecystostomy drain in place right mid abdomen.
Rectal: Soft brown stool in vault. Heme positive
Extremities: Bilateral lower extremity edema. Palpable DP pulses bilaterally
Neuro: AAOx3. No focal neurologic deficits.
Psychiatric: Normal affect.
Course
<Chantel Fabian PA-C - Last Filed: 04/05/25 04:16>
Orders/Labs/Results
Orders:
Orders
04/04/25 Dinner
NPO
Allow oral meds: Yes
Allow clear liquids: Sips of Clears
NPO with Ice Chips: Yes
04/04/25 19:11
Electrocardiogram (*1) Urgent
Reason for Study: Fatigue / Weakness
EKG- Treatment ONCE
04/04/25 19:26
Pantoprazole [Protonix IV] 80 mg IV NOW STA
04/04/25 19:34
Type+Screen Urgent
Complete Blood Count/With Diff Urgent
Comprehensive Metabolic Panel Urgent
NT-proBNP Urgent
04/04/25 20:00
* Blood Bank Products Urgent
Blood Bank Products: *Packed RBC Leuko(PRBC's)
Quantity: 1
Transfuse Today: Yes
Reason: Anemia
04/04/25 20:29
Blood Bank Products [* Blood Bank Products] Urgent
Blood Bank Products: *Packed RBC Leuko(PRBC's)
Quantity: 1
Transfuse Today: Yes
Reason: Anemia
04/04/25 22:00
Flush (0.9% Sodium Chloride) [Flush (Nss)] See Dose Instructions IV PER PROTOCOL
04/04/25 22:32
Admit/Transfer Patient As Directed
Co-Sign Provider:
Level of Care: Inpatient admission
Assign to:: Telemetry
Physician / Group: tony ashley
Diagnosis: gi bleed upper symptomtic anemia, chronic leg pain, pancreatic ca met lver
Reason for Telemetry: Arrhythmia
Date to Stop Telemetry: 04/07/25
Time to Stop Telemetry: 11:00
Reason for Hospitalization: gi bleed upper symptomtic anemia, chronic leg pain, pancreatic ca met lver
Expected length of stay greater than two midnights?: Yes
ELOS- Estimated Length of Stay in days: 5
I certify the patient meets the requirements for IP care: Yes
Code Status As Directed
Resuscitation Status: Full Code
04/04/25 22:38
PRN Pain Medication Management As Directed
May give lesser potent ordered pain med per pt: Yes
preference::
Protocol:: Medication orders for pain may be administered in a
manner that supports deferring to patient preference
when the pt is:
- Requesting an ordered lesser potent pain medication.
Least to most potent pain medications are defined
as: acetaminophen < NSAID < tramadol < opioids
(morphine, oxycodone, hydromorphone).
- Requesting a lesser dose of the same medication IF
ORDERED.
- Requesting a less intrusive route of administration
if both routes are prescribed by the provider (PO <
IV).
04/04/25 22:48
Bladder Scan As Directed
Follow Bladder Retention/Intermittent Cath Algorithm?: Yes
PRN if no void in __ hours: 6
Frequency: Per Retention Algorithm
If Bladder Scan Result >: 400
then:: Straight cath
Straight Cath As Directed
Frequency: Per Retention Algorithm
Additional Instructions: straight cath as needed per acute urinary retention algorithm for 24 hrs
Additional Instructions: for bladder scan greater than 400 mL
04/04/25 22:49
Urinalysis Reflex To Culture Routine
04/04/25 23:54
Acetaminophen [Tylenol] 650 mg PO Q4HPRN PRN
Diphenoxylate / Atropine [Lomotil] 1 tablet PO BIDPRN PRN
Ondansetron Injectable [Zofran] 4 mg IV Q6HPRN PRN
Oxycodone [Roxicodone] 5 mg PO Q6HPRN PRN
04/04/25 23:54
Consult Notification Routine
Specialty to Notify: Gastroenterology
Consult Notification Routine
Specialty to Notify: Hematology
GASTROINTESTINAL CONSULT Routine
Consulting Provider: Pascale Martinez
Was physician already notified: No
Reason for consult: gi bleed hgb 5, varice, pancreatic ca stage 4
HEMATOLOGY CONSULT Routine
Consulting Provider: Kapil Cowan
Was physician already notified: No
Reason for consult: gi bleed hgb 5, varice, pancreatic ca stage 4
VTE Contraindication Routine
VTE Mechanical Device Contraindication: Medical Contraindication
Pharmocologic Contraindication: Medical Contraindication
Comment: Patient with bilateral clots lower legs and GI bleed
Activity As Directed
Activity Level: With Assistance
Intake/ Output As Directed
Frequency: Per unit guidelines
Vital Signs As Directed
Frequency: Per unit guidelines
Weight As Directed
Frequency: Daily
Pt Eval And Treat Routine
Activity Level: As Tolerated
04/05/25 05:00
Complete Blood Count/With Diff IN AM
H&H Q8H
04/05/25 06:00
Comprehensive Metabolic Panel IN AM
Magnesium IN AM
04/05/25 08:00
Amoxicillin 875 mg/Clav 125 mg [Augmentin 875 mg/125 mg] 1 tablet PO BID
Diphenoxylate / Atropine [Lomotil] 2 tablet PO DAILY
Multivitamin [Theragran] 1 tablet PO DAILY
Oxycodone [Roxicodone] 5 mg PO BID@
Pantoprazole [Protonix IV] 40 mg IV BID
04/05/25 13:00
H&H Q8H
04/05/25 21:00
H&H Q8H
04/05/25 22:00
Diphenhydramine [Benadryl] 25 mg PO HS
Lorazepam [Ativan] 0.5 mg PO HS
04/06/25 05:00
H&H Q8H
04/06/25 06:00
Complete Blood Count/With Diff IN AM
Comprehensive Metabolic Panel IN AM
04/06/25 13:00
H&H Q8H
04/06/25 21:00
H&H Q8H
04/07/25 06:00
Complete Blood Count/With Diff IN AM
Comprehensive Metabolic Panel IN AM
04/07/25 11:00
DC Protocol for Telemetry ONCE
04/08/25 06:00
Complete Blood Count/With Diff IN AM
Comprehensive Metabolic Panel IN AM
Abnormal Lab Results
04/04/25
19:34
WBC 13.9 H 10^3/uL
(4.8-10.8)
RBC 1.64 L 10^6/uL
(4.20-5.40)
Hgb 5.0 L* g/dL
(12.0-16.0)
Hct 15.6 L* %
(37.0-47.0)
MCHC 32.1 L g/dL
(33.0-37.0)
RDW 18.0 H %
(11.5-14.5)
Plt Count 69 L 10^3/uL
(130-400)
MPV 10.6 H fL
(7.4-10.4)
Abs Immat Gran (auto) 0.1 H 10^3/uL
(0-0.05)
Absolute Neuts (auto) 12.2 H 10^3/uL
(1.4-6.5)
Absolute Lymphs (auto) 0.6 L 10^3/uL
(1.2-3.4)
Absolute Monos (auto) 0.9 H 10^3/uL
(0.1-0.6)
Immature Gran % 0.8 H %
(0-0.5)
Neutrophils % 87.7 H %
(42.2-75.2)
Lymphocytes % 4.5 L %
(20.5-51.1)
Sodium 130 L mmol/L
(135-145)
BUN 23 H mg/dl
(7-17)
Creatinine 1.2 H mg/dL
(0.6-1.0)
Glucose 130 H mg/dl
(70-99)
Calcium 7.3 L mg/dl
(8.4-10.2)
Alkaline Phosphatase 704 H U/L
(38-126)
Total Protein 5.2 L g/dl
(6.3-8.2)
Albumin 2.6 L g/dl
(3.5-5.0)
Crossmatch IS Only See Detail
04/04/25 19:34
04/04/25 19:34
Vital Signs
Initial and Last Documented VS:
Initial Vital Signs
Temp Pulse Resp BP Pulse Ox
98.7 F 100 17 99/78 99
04/04/25 18:25 04/04/25 18:25 04/04/25 18:25 04/04/25 18:25 04/04/25 18:25
Last Documented Vital Signs
Temp Pulse Resp BP Pulse Ox
98.3 F 68 18 91/52 98
04/05/25 02:49 04/05/25 02:51 04/05/25 02:49 04/05/25 02:51 04/05/25 02:49
<Jose Soriano MD - Last Filed: 04/04/25 20:36>
Orders/Labs/Results
Orders:
Orders
04/04/25 Dinner
NPO
Allow oral meds: Yes
Allow clear liquids: Sips of Clears
NPO with Ice Chips: Yes
04/04/25 19:11
Electrocardiogram (*1) Urgent
Reason for Study: Fatigue / Weakness
EKG- Treatment ONCE
04/04/25 19:26
Pantoprazole [Protonix IV] 80 mg IV NOW STA
04/04/25 19:34
Type+Screen Urgent
Complete Blood Count/With Diff Urgent
Comprehensive Metabolic Panel Urgent
NT-proBNP Urgent
04/04/25 20:00
* Blood Bank Products Urgent
Blood Bank Products: *Packed RBC Leuko(PRBC's)
Quantity: 1
Transfuse Today: Yes
Reason: Anemia
04/04/25 20:29
Blood Bank Products [* Blood Bank Products] Urgent
Blood Bank Products: *Packed RBC Leuko(PRBC's)
Quantity: 1
Transfuse Today: Yes
Reason: Anemia
04/04/25 22:00
Flush (0.9% Sodium Chloride) [Flush (Nss)] See Dose Instructions IV PER PROTOCOL
04/04/25 22:32
Admit/Transfer Patient As Directed
Co-Sign Provider:
Level of Care: Inpatient admission
Assign to:: Telemetry
Physician / Group: tony ashley
Diagnosis: gi bleed upper symptomtic anemia, chronic leg pain, pancreatic ca met lver
Reason for Telemetry: Arrhythmia
Date to Stop Telemetry: 04/07/25
Time to Stop Telemetry: 11:00
Reason for Hospitalization: gi bleed upper symptomtic anemia, chronic leg pain, pancreatic ca met lver
Expected length of stay greater than two midnights?: Yes
ELOS- Estimated Length of Stay in days: 5
I certify the patient meets the requirements for IP care: Yes
Code Status As Directed
Resuscitation Status: Full Code
04/04/25 22:38
PRN Pain Medication Management As Directed
May give lesser potent ordered pain med per pt: Yes
preference::
Protocol:: Medication orders for pain may be administered in a
manner that supports deferring to patient preference
when the pt is:
- Requesting an ordered lesser potent pain medication.
Least to most potent pain medications are defined
as: acetaminophen < NSAID < tramadol < opioids
(morphine, oxycodone, hydromorphone).
- Requesting a lesser dose of the same medication IF
ORDERED.
- Requesting a less intrusive route of administration
if both routes are prescribed by the provider (PO <
IV).
04/04/25 22:48
Bladder Scan As Directed
Follow Bladder Retention/Intermittent Cath Algorithm?: Yes
PRN if no void in __ hours: 6
Frequency: Per Retention Algorithm
If Bladder Scan Result >: 400
then:: Straight cath
Straight Cath As Directed
Frequency: Per Retention Algorithm
Additional Instructions: straight cath as needed per acute urinary retention algorithm for 24 hrs
Additional Instructions: for bladder scan greater than 400 mL
04/04/25 22:49
Urinalysis Reflex To Culture Routine
04/04/25 23:54
Acetaminophen [Tylenol] 650 mg PO Q4HPRN PRN
Diphenoxylate / Atropine [Lomotil] 1 tablet PO BIDPRN PRN
Ondansetron Injectable [Zofran] 4 mg IV Q6HPRN PRN
Oxycodone [Roxicodone] 5 mg PO Q6HPRN PRN
04/04/25 23:54
Consult Notification Routine
Specialty to Notify: Gastroenterology
Consult Notification Routine
Specialty to Notify: Hematology
GASTROINTESTINAL CONSULT Routine
Consulting Provider: Pascale Martinez
Was physician already notified: No
Reason for consult: gi bleed hgb 5, varice, pancreatic ca stage 4
HEMATOLOGY CONSULT Routine
Consulting Provider: Kapil Cowan
Was physician already notified: No
Reason for consult: gi bleed hgb 5, varice, pancreatic ca stage 4
VTE Contraindication Routine
VTE Mechanical Device Contraindication: Medical Contraindication
Pharmocologic Contraindication: Medical Contraindication
Comment: Patient with bilateral clots lower legs and GI bleed
Activity As Directed
Activity Level: With Assistance
Intake/ Output As Directed
Frequency: Per unit guidelines
Vital Signs As Directed
Frequency: Per unit guidelines
Weight As Directed
Frequency: Daily
Pt Eval And Treat Routine
Activity Level: As Tolerated
04/05/25 05:00
Complete Blood Count/With Diff IN AM
H&H Q8H
04/05/25 06:00
Comprehensive Metabolic Panel IN AM
Magnesium IN AM
04/05/25 08:00
Amoxicillin 875 mg/Clav 125 mg [Augmentin 875 mg/125 mg] 1 tablet PO BID
Diphenoxylate / Atropine [Lomotil] 2 tablet PO DAILY
Multivitamin [Theragran] 1 tablet PO DAILY
Oxycodone [Roxicodone] 5 mg PO BID@
Pantoprazole [Protonix IV] 40 mg IV BID
04/05/25 13:00
H&H Q8H
04/05/25 21:00
H&H Q8H
04/05/25 22:00
Diphenhydramine [Benadryl] 25 mg PO HS
Lorazepam [Ativan] 0.5 mg PO HS
04/06/25 05:00
H&H Q8H
04/06/25 06:00
Complete Blood Count/With Diff IN AM
Comprehensive Metabolic Panel IN AM
04/06/25 13:00
H&H Q8H
04/06/25 21:00
H&H Q8H
04/07/25 06:00
Complete Blood Count/With Diff IN AM
Comprehensive Metabolic Panel IN AM
04/07/25 11:00
DC Protocol for Telemetry ONCE
04/08/25 06:00
Complete Blood Count/With Diff IN AM
Comprehensive Metabolic Panel IN AM
Abnormal Lab Results
04/04/25
19:34
WBC 13.9 H 10^3/uL
(4.8-10.8)
RBC 1.64 L 10^6/uL
(4.20-5.40)
Hgb 5.0 L* g/dL
(12.0-16.0)
Hct 15.6 L* %
(37.0-47.0)
MCHC 32.1 L g/dL
(33.0-37.0)
RDW 18.0 H %
(11.5-14.5)
Plt Count 69 L 10^3/uL
(130-400)
MPV 10.6 H fL
(7.4-10.4)
Abs Immat Gran (auto) 0.1 H 10^3/uL
(0-0.05)
Absolute Neuts (auto) 12.2 H 10^3/uL
(1.4-6.5)
Absolute Lymphs (auto) 0.6 L 10^3/uL
(1.2-3.4)
Absolute Monos (auto) 0.9 H 10^3/uL
(0.1-0.6)
Immature Gran % 0.8 H %
(0-0.5)
Neutrophils % 87.7 H %
(42.2-75.2)
Lymphocytes % 4.5 L %
(20.5-51.1)
Sodium 130 L mmol/L
(135-145)
BUN 23 H mg/dl
(7-17)
Creatinine 1.2 H mg/dL
(0.6-1.0)
Glucose 130 H mg/dl
(70-99)
Calcium 7.3 L mg/dl
(8.4-10.2)
Alkaline Phosphatase 704 H U/L
(38-126)
Total Protein 5.2 L g/dl
(6.3-8.2)
Albumin 2.6 L g/dl
(3.5-5.0)
Crossmatch IS Only See Detail
04/04/25 19:34
04/04/25 19:34
Vital Signs
Initial and Last Documented VS:
Initial Vital Signs
Temp Pulse Resp BP Pulse Ox
98.7 F 100 17 99/78 99
04/04/25 18:25 04/04/25 18:25 04/04/25 18:25 04/04/25 18:25 04/04/25 18:25
Last Documented Vital Signs
Temp Pulse Resp BP Pulse Ox
98.3 F 68 18 91/52 98
04/05/25 02:49 04/05/25 02:51 04/05/25 02:49 04/05/25 02:51 04/05/25 02:49
<Chantel Fabian PA-C - Last Filed: 04/05/25 04:16>
MDM/Problems Addressed
Differential Diagnosis Includes:
Not limited to: Upper GI bleeding, lower GI bleeding, medication side effect, progression of disease
MDM/Problems Addressed:
74 year-old female with history as documented presenting with fatigue and lightheadedness, along with abnormal outpatient lab work. Patient does report history of recent dark stools. No current anticoagulation given history of upper GI bleeding
despite known DVT�s in bilateral lower extremities. No chest pain. Patient has a soft BP on arrival, otherwise was stable. Physical exam as above. Patient weak and cachectic. Soft and nontender. Rectal exam reveals soft, brown, heme positive stool.
Labs show anemia with hemoglobin of 5.0 down from 8.3 at discharge from hospital (which was two weeks ago). Thrombocytopenia noted which is new. Mild hyponatremia and renal insufficiency noted as well as hypocalcemia.
Overall, impression is likely symptomatic anemia secondary to suspected upper G.I. bleeding. IV PPI given.. Blood consent signed and scanned into charts. Two units of blood ordered. Patient will require admission to the hospitalist for continued
management. Hospitalist aware.
Chronic conditions affecting care:
Stage IV metastatic pancreatic cancer
Acute Exacerbation and/or Progression of Chronic Illness:
Acute blood loss anemia secondary to suspected upper GI bleeding
<Chantel Fabian PA-C - Last Filed: 04/05/25 04:16>
*Pulse Oximetry
Patient hypoxic: no
*EKG
Interpreted by ED Provider?: NA
*Supervisor [place] Interpretation
Rate: normal
Interpretation: normal
Heart Rate: 76
Rhythm: sinus
*Critical Care Note
Total Time (30-74mins, 75-104mins- exclusive of procedures): Not Applicable
Data Reviewed
Review of Other/Old Records Reveals: Labs (Labs obtained outpatient today which show hemoglobin of 6.0 which is decreased from 8. at discharge) and Discharge Summary (Discharge summary from 03/22/2025 after admission for acute GI bleeding exacerbated
by Eliquis)
<Chantel Fabian PA-C - Last Filed: 04/05/25 04:16>
Patient Management
Discussion with other providers: Hospitalist
Escalation/DeEscalation of care consider admission/obs:
Admit indicated
ED Attending Note
<Chantel Fabian PA-C - Last Filed: 04/05/25 04:16>
-
Portions of this chart may have been created with voice recognition software.� Occasional wrong word or��sound alike� substitutions may have occurred due to the inherent limitations of voice recognition software.
<Jose Soriano MD - Last Filed: 04/04/25 20:36>
ED Attending Note
Patient seen and examined by attending physician: Yes
ED Attending Note:
I have seen and evaluated the patient with a [id number] encounter. I have spoken to the advance practicer provider and involved in the medical history, the physical exam, medical decision making.
Evaluation and management service: agree unless noted differently below.
Results interpretation: agree unless noted differently below.
Focused HPI: 74-year-old female with medical history of pancreatic cancer, bilateral DVT no longer on anticoagulation due to GI bleeding presents with hemoglobin found on outpatient labs. Was admitted 03/20 until 03/22 for GI bleeding after starting
Eliquis for DVT. Eliquis was discontinued. Hemoglobin stabilized after transfusion and she was discharged. Hemoglobin had been steady until repeat labs drawn today which showed drop of hemoglobin by 2 points. Patient has not noticed any grossly
bloody stools. She has felt very fatigued, mild shortness of breath. No chest pain. No dizziness.
Physical exam: Awake alert and oriented. Right chest wall port. Soft blood pressure 99/78, heart rate 100. She does appear pale. Dark stool heme positive per PA.
Medical Decision Makin-year-old female presents with anemia on outpatient labs that she has been symptomatic. Recent admission for GI bleeding in the setting of Eliquis for DVT. She is no longer on anticoagulation. Vitals and exam as above.
Her hemoglobin today is 5.0 down from discharge value of 8.4. Will transfuse 2 units of PRBCs. Start IV PPI. Admit for continued management.
Discharge Plan
Departure
Patient Disposition: Admit
Date of Disposition: 04/04/25
Time of Disposition: 21:03
Presentation/result/management discussed w/ accepting MD/DO: Hospitalist
Discharge Problem:
GI bleed
Interventions
Interventions:
*Risk Screen - Suicide Last Done: 04/04/25 18:26
*General Assessment Last Done: 04/04/25 18:26
*Neglect/Abuse Screening Last Done: 04/04/25 18:26
*ED- Fall Risk Assessment Last Done: 04/05/25 00:08
*ED COVID-19 Vaccine History Last Done: 04/04/25 18:26
*Nursing Disposition Last Done: 04/05/25 00:08
Discharge Date and Time
Discharge Date/Time: 04/05/25 00:09
[2025-04-04] MEDS: PROTONIX IV 80 MG IV (20:00)
[2025-04-04 20:27] LABS: % Basophils 0.1 % (0-2); % Eosinophils 0.6 % (0-6); % Immature Granulocytes 0.8 % (0-0.5); % Lymphocytes 4.5 % (20.5-51.1); % Monocytes 6.3 % (1.7-9.3); % Neutrophils 87.7 % (42.2-75.2); Absolute Eosinophils 0.1 10^3/uL (0-0.7); Absolute Immature Granulocytes 0.1 10^3/uL (0-0.05); Absolute Lymphocytes 0.6 10^3/uL (1.2-3.4); Absolute Monocytes 0.9 10^3/uL (0.1-0.6); Absolute Neutrophils 12.2 10^3/uL (1.4-6.5); Hematocrit 15.6 % (37.0-47.0); Mean Corp Hgb Conc. 32.1 g/dL (33.0-37.0); Mean Corpuscular Hgb 30.5 pg (27.0-31.0); Mean Corpuscular Volume 95.1 fL (81.0-99.0); Mean Platelet Volume 10.6 fL (7.4-10.4); Nucleated Red Blood Cells % 0 %; Platelet Count 69 10^3/uL (130-400); Red Blood Cell Count 1.64 10^6/uL (4.20-5.40); White Blood Cell Count 13.9 10^3/uL (4.8-10.8)
[2025-04-04 20:29] LABS: ALT (SGPT) 19 U/L (0-35); AST (SGOT) 26 U/L (14-36); Albumin 2.6 g/dl (3.5-5.0); Alkaline Phosphatase 704 U/L (38-126); Blood Urea Nitrogen 23 mg/dl (7-17); Calcium 7.3 mg/dl (8.4-10.2); Carbon Dioxide 23 mmol/L (22-30); Chloride 102 mmol/L (98-107); Glucose 130 mg/dl (70-99); Potassium 4.2 mmol/L (3.5-5.1); Sodium 130 mmol/L (135-145); Total Bilirubin 0.6 mg/dl (0.2-1.3); Total Protein 5.2 g/dl (6.3-8.2); eGFR 47.21
[2025-04-04 20:38] LABS: NT-proBNP 1220 pg/ml
--- NOTE | 2025-04-04 21:35 | HPS.HSE ---
Family Physician
-
Family Physician: Sabrina Gómez
Chief Complaint
-
Black stools x 3 days, nausea, fatigue, shortness of breath, bilateral leg edema increased, abnormal hemoglobin
History of Present Illness
74-year-old female returns to the hospital today complaining of black stool x 3 days, nausea, fatigue with shortness of breath and abnormal hemoglobin outpatient of 5. She also reports bilateral leg edema increased since Thursday 5 days ago. She was
started on a diuretic Lasix 20 mg daily for which she has been taking but she has not been voiding a lot. It is suspected she has recurrent GI bleed given heme positive stool today in ER along with hypotension 90s over 70s. She is also noted to be
thrombocytopenic with platelets of 69 and hypocalcemic with a calcium of 7.3 but corrected to 8.4. Blood consent was obtained in ER she is currently getting 2 units of PRBCs and was given 80 mg of IV Protonix. She tells me she had her hystotripsy
procedure at [facility] on 03/31 where the doctor found 10 tumors in her liver which had grown in a 6-week. He was only able to treat for other tumors. She has another appointment in approximately 3 to 4 weeks to treat an additional 4 tumors at a time.
She currently is taking Tylenol 500 mg with Benadryl 25 mg and Xanax 0.5 mg at night to help her sleep then as soon as she wakes up in the morning she has severe bilateral leg pain for which she is taking oxycodone around 7:30 AM and again around 5
PM, which she reports only takes the edge off. She is afraid to take anymore as she does not want to of an overdose. She reports she has had this prescription since 2022. She denies current headache, chest pain, palpitations, fever, chills,
abdominal pain, indigestion, rash, diarrhea.
She had recent admission 03/20 - 03/22/2025 due to black stools with blood loss anemia secondary to GI bleed exacerbated by use of Eliquis for bilateral lower leg DVTs. She had a hemoglobin at that time of 6.1 received 3 units of PRBCs in the
hospital and was discharged with a hemoglobin of 8.3 she underwent upper endoscopy that showed type I isolated nonbleeding gastric varices she has plastic stents in the duodenum with no complications. She has history of stage IV metastatic
pancreatic cancer with recommendation by oncology to stop Eliquis along with patient's wishes to avoid further use of Eliquis to avoid bleeding. She was able to tolerate diet and was discharged home in a stable condition. She has past medical
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
collaterals/cavernous transformation not AC candidate due to GI bleed, anemia baseline 9-10 due to chemo, CKD 3 A, hepatic biloma right hepatic lobe measuring 1.9 x 1.2 x 1.7 cm, Common bile duct stent in place
Obstructive jaundice due to pancreatic malignancy with ERCP/stent exchange on 09/19/[address] Gavrey , HX of Klebsiella in urine, Polymicrobial sepsis blood cultures for Klebsiella oxytoca and Enterobacter Cloacae September 2023
Medical History
Past Medical History
Past Medical History: Reports Other
Additional Past Medical History:
Metastatic pancreatic CA to liver, retroperitoneal lymph nodes
history of anemia with baseline around 9-10 due to chemo
hepatic biloma right hepatic lobe measuring 1.9 x 1.2 x 1.7 cm
Common bile duct stent in place
Obstructive jaundice due to pancreatic malignancy with stent exchange on 09/19/[address] Garvey
history of Klebsiella in urine
polymicrobial sepsis blood cultures for Klebsiella oxytoca and Enterobacter Cloacae September 2023
Past Surgical History: Reports Other
Additional Past Surgical History:
On 09/19/2024 she had ERCP done by Dr. Garvey with removal of stones and stent exchange due to obstructive jaundice due to pancreatic malignancy,
Tubal ligation
Breast implants
Elbow fracture
PowerPort for chemo
Social History
Tobacco: Non-smoker
Alcohol: None
Drug: None
Personal:
Living: With Family
Employment: Retired
Family History
Family History: Other (12 brothers and sisters strong family history of diabetes 1 brother from lung cancer alcohol abuse, father diabetic, mother age 76 [place])
Allergies / Home Medications
Allergies reflects when Allergies were last updated in [employer].
Home Medications with original date entered in [employer]
Allergy/Medication List:
Allergies
Allergy/AdvReac Type Severity Reaction Status Date / Time
No Known Allergies Allergy Verified 04/04/25 18:25
Home Medications
denosumab 60 mg/mL subcutaneous syringe (Prolia) 60 mg SC [id number] bone health 09/11/23
diphenoxylate-atropine 2.5 mg-0.025 mg tablet 2 tab PO DAILY 09/16/24
therapeutic multivitamin 1 tab PO DAILY Supplement 09/16/24
amoxicillin 875 mg-potassium clavulanate 125 mg tablet 1 tab PO BID 03/20/25
calcium 600 mg (as carbonate)-vitamin D3 10 mcg (400 unit) tablet (Calcium 600 + D(3)) 1 tab PO DAILY 03/20/25
cholecalciferol (vitamin D3) 50 mcg (2,000 unit) tablet (Vitamin D3) 50 mcg PO DAILY 03/20/25
cyanocobalamin (vitamin B-12) 1,000 mcg tablet 1,000 mcg PO DAILY 03/20/25
diphenhydramine 25 mg-acetaminophen 500 mg tablet (Acetaminophen PM) 1 tab PO HS 03/20/25
lidocaine-prilocaine 2.5 %-2.5 % topical cream 1 applic topical DAILYPRN PRN PORT ACCESS 03/20/25
loratadine 10 mg tablet (Claritin) 10 mg PO DIRECTED 03/20/25
lorazepam 0.5 mg tablet 0.5 mg PO HS 03/20/25
diphenoxylate-atropine 2.5 mg-0.025 mg tablet (Lomotil) 1 tab PO BIDPRN PRN diarrhea 04/04/25
furosemide 20 mg tablet (Lasix) 20 mg PO DAILY 04/04/25
oxycodone 5 mg tablet 5 mg PO BID@08,17 04/04/25
Review of Systems
-
History Source: Patient and Family ( at bedside)
A 12 point ROS was completed and negative except as noted: Yes
Constitutional: Reports Fatigue; Denies Fever or Chills
EENT: Denies Sore Throat or Runny Nose
Respiratory: Reports Other (Dyspnea on exertion); Denies Cough or Trouble Breathing
Cardiac: Denies Chest Pain, Diaphoresis, Palpitations or Syncope
Abdomen/GI: Reports Black Stools (X 3 days); Denies Abdominal Pain, Nausea, Vomiting, Diarrhea, Constipated or Bloody Stools
: Reports Difficulty Voiding (Minimal amount); Denies Dysuria, Frequency, Flank Pain or Incontinence
Musculoskeletal: Reports Edema (Bilateral legs +2 pitting edema patient with compression dressings in place); Denies Joint Pain
Skin: Reports Other (Port right upper chest wall); Denies Itching or Rash
Neurological: Reports Weakness (Generalized); Denies Dizzy or Headache
Endocrine: Reports No Symptoms
Hematologic/Lymphatic: Reports No Symptoms
Psych: Reports Anxiety
Physical Exam
Vital Signs
Vital Signs
Temp Pulse Resp BP Pulse Ox
98.7 F 87 18 96/55 98
04/04/25 18:25 04/04/25 21:00 04/04/25 21:00 04/04/25 21:00 04/04/25 21:00
Physical Exam
General: Pain and Cachectic; No Fever or Chills
HEENT: NormoCephalic, Anicteric, Moist mucous membranes, PERRLA, [place] Conjunctivae and No Ptosis
Respiratory: Clear; No Wheezes, Rales or Rhonchi
Cardiac: S1/S2, Regular Rhythm and Peripheral Edema (+2 bilateral leg edema); No Murmur, Rub or Gallop
Breast: Deferred by me
GI: Soft, Non Tender, Non Distended, Normal Bowel Sounds and No Hepatosplenomegaly
Rectal: Hem Positive (Black stool in ER)
Genito-urinary: Deferred by me
Musculoskeletal: No Clubbing, No Cyanosis, Edema, Left Lower Extremity (+2) and Edema, Right Lower Extremity (+2); No Edema, Left Upper Extremity or Edema, Right Upper Extremity
Skin: Warm, Dry and IV/Catheter Site (Port right upper chest wall); No Rash
Neuro: AO x 3, No Motor Deficits (While in bed), Nonfocal/grossly intact and No Sensory Deficits; No Slurred Speech, Facial Droop, Tremors or Sedated
Psych: Anxious (Due to current pain in legs)
Laboratory Results
-
04/04/25 19:34
04/04/25 19:34
Laboratory Results
Total Bilirubin 0.6 mg/dl (0.2-1.3) 04/04/25 19:34
AST 26 U/L (14-36) 04/04/25 19:34
ALT 19 U/L (0-35) 04/04/25 19:34
Alkaline Phosphatase 704 U/L (38-126) H 04/04/25 19:34
Data Reviewed
-
Lab Data: Labs Reviewed by me
Impression/Plan
-
Impression/plan:
Admit to TELE
#Symptomatic anemia likely upper GI bleed
#Hx type I isolated gastric varices, plastic stent duodenum on EGD03/22/2025
Hgb 5
-type and screen, blood consent obtained in the ER
Transfuse 2 units PRBC
-Protonix 80 mg IV given in ER
-IV Protonix 40 mg twice daily
- Consult GI
-Consult oncology
- Follow H&H every 8 hours
#Micturition difficulty
Patient states has only been voiding small amounts despite Lasix 20 mg daily over the past 5 days
-Will check bladder scan placed bladder protocol
- Check UA MACHINE WELT BUTTER
#HX provoked DVT-RIGHT posterior thrombosis of the short saphenous vein 03/04/2025
#History provoked DVT� LEFT Occlusive thrombus identified within the left small saphenous vein and also within a cluster of varicosities within the posterior left calf compatible with superficial thrombophlebitis.
#Advanced IV Pancreatic CA
#Progressive metastatic pancreatic CA to liver and retroperitoneal LNs
#Hepatic biloma right hepatic lobe measuring 1.9 x 1.2 x 1.7 cm
#Mass within the pelvis posteriorly which appears to be separate from contrast opacified small bowel loops.
#HX Chemotherapy associated diarrhea
Of note: Status post CBD stent x 3, Hx obstructive jaundice due to pancreatic malignancy with ERCP/stent exchange on 09/19/[address] Garvey
- On chemo with [facility] Dr. You
-Consult oncology
- Started on chemotherapy in September 2023
- Follows with Dr. Prescott at [facility] recent Histotripsy of 4 out of 10 liver tumors on 03/31 she is on chronic Augmentin twice daily until April 26 she is due for another Histotripsy in 3 to 4 weeks to target another 4 tumors
#HX CKD 3a
Creat 1.2 with baseline Cr 1.1, baseline eGFR low 50s
repeat BMP in am
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
- not AC candidate due to acute UGIB
#Dyslipidemia
-No known ASCVD history
-Not currently on any statin or antilipid therapies
#Osteoporosis
-Home medications include Prolia every 6-month
#HX of Klebsiella in urine,
#Polymicrobial sepsis blood cultures for Klebsiella oxytoca and Enterobacter Cloacae September 2023
DVT Px: AC and Mechanical compression contraindicated due to bilateral lower leg DVTs 03/03/2025
Full code
--- NOTE | 2025-04-04 21:41 | W.PN.UPDATE ---
Update Note
Progress Note Update
This note serves as an addendum to the H&P by chief technologist SMILEY María SMITH
HPI
74F HX CKD3a, ACdz , hepatic biloma, anemia, provoked DVTs on Eliquis, advanced metastatic pancreatic cancer to liver,
currently undergoing Tx for stage IV metastatic CA pancreas pw fatigue and mild SOB and abnormal outpatient labs severe symtomatic anemia.
She was discharged w/ suspected upper GI bleed 03/22/25 -due to eliquis.
No longer anticoagulated given GI bleed.
Heme positive stool today.
@ ER
BP soft 90s/70s. HR 100.
Hgb 5.0 from discharge value 8.4. P
latelets 69 which is a new decrease.
Blood consent signed and 2 units ordered.
IV Protonix 80mg
Reviewed VS:
Vital Signs
Temp Pulse Resp BP Pulse Ox
99.2 F 86 18 96/55 98
04/04/25 21:40 04/04/25 21:40 04/04/25 21:40 04/04/25 21:40 04/04/25 21:00
PE
Gen: frail
HEENT: anicteric
Neck: supple
Lungs: CTA
Cor: RRR S1 S2
Abdomen: soft benign
TURBO OPERATOR: AAO3
MIKE by ER: HoB POS soft brown stool
MS: no edema
Psych:
Laboratory Tests
04/04/25 04/04/25
15:14 19:34
WBC 15.1 H 13.9 H
Hgb 6.0 L* D 5.0 L*
Plt Count 81 L D 69 L
Sodium 129 L 130 L
BUN 24 H 23 H
Creatinine 1.3 H 1.2 H
eGFR 42.88 47.21
Alkaline Phosphatase 808 H 704 H
[id number] Pept 1220
Albumin 3.0 L 2.6 L
5/12/25 EGD : Large gastric varices in fundus, no bleeding. Two plastic stents in ampulla
Last hospitalist admission: 03/20/25 -03/22/25
- GI bleeding with acute blood loss anemia exacerbated by use of Eliquis.
- s/p 3 units of blood transfusion. Hgb up to 8.3.
- EGD that showed type I isolated gastric varices without bleeding, recommendation to hold anticoagulation.
ASSESSMENT & PLAN
Symptomatic anemia with mild hypotensive presumed Blodd loss anemia
HoB POS brown stool presumed recurrent GIB
No abdominal pain or tenderness on exam.
No longer on Eliquis
last EGD isolated gastric varices without bleeding
- NPO sips and ice chips and IVF
- Hold Eliquis
- Blood consented
- agree with 2 units of PRBCs
- IV PPI BID
- GI consult
HX provoked DVT- started on Eliquis for last few days
- Holding Eliquis due to acute GIB.
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
- not AC candidate due to acute UGIB
Current Cr 1.2 is at baseline
Stable CKD 3a with baseline Cr 1.1, baseline eGFR low 50s
- f/u BMP in AM
Advanced IV Pancreatic CA metastatic dz to liver and retroperitoneal LNs
- Mass in the junction of the pancreatic tail and splenic hilum
- Mass within the pelvis posteriorly which appears to be separate from contrast opacified small bowel loops.
- HX Chemotherapy associated diarrhea
Of note: Status post CBD stent x 3, s/p CBD stent and stent exchange (09/19/2024)
- On chemo
- Started on chemotherapy in September 2023
- Follows with Dr. Prescott at [facility], Dr. You locally
- Onco consulted
Dyslipidemia
-No known ASCVD history
-Not currently on any statin or antilipid therapies
Osteoporosis
-Home medications include Prolia every 6-month
DVT Px: AC and Mechanical compression contraindicated
Full code per patient
IP TLM
[2025-04-05] VITALS (13 sets, daily range): BP systolic 84–128; BP diastolic 42–71; PULSE 85; O2SAT 96; BMI 19.8
--- NOTE | 2025-04-05 00:57 | PTCARENOTE ---
Patient arrived into room 2125 2N. Able to transfer from stretcher to bed with two person assist. Oriented to room and use of call chandler. Reports pain to bilateral legs when ambulating. 2 RN skin check done; unable to assess lower legs and feet, pt
refusing to take off panty compression hose. Sacrum red and blanchable with small skin tag that could appear to be the beginning of stage 2.
--- NOTE | 2025-04-05 03:28 | PTCARENOTE ---
Patient hypotensive after 2 units of blood received. KECIA Busby made aware; order for 250cc NS bolus received. Pt updated on plan of care.
[2025-04-05] MEDS: NSS 250 IV (03:32)
[2025-04-05 05:36] LABS: Urine Albumin 1+ (Neg - Trace); Urine Bilirubin Negative (Negative); Urine Character Clear (Clear); Urine Color Amber; Urine Glucose Negative (Negative); Urine Ketone Negative (Negative); Urine Leukocyte Negative (Negative); Urine Nitrite Negative (Negative); Urine Occult Blood Negative (Negative); Urine Specific Gravity 1.025 (<1.030); Urine Urobilinogen Negative (Neg - 1+)
[2025-04-05 05:52] LABS: % Basophils 0.3 % (0-2); % Eosinophils 1.3 % (0-6); % Immature Granulocytes 0.7 % (0-0.5); % Lymphocytes 7.3 % (20.5-51.1); % Monocytes 7.7 % (1.7-9.3); % Neutrophils 82.7 % (42.2-75.2); Absolute Eosinophils 0.2 10^3/uL (0-0.7); Absolute Immature Granulocytes 0.1 10^3/uL (0-0.05); Absolute Lymphocytes 0.9 10^3/uL (1.2-3.4); Absolute Monocytes 0.9 10^3/uL (0.1-0.6); Absolute Neutrophils 9.6 10^3/uL (1.4-6.5); Hematocrit 25.5 % (37.0-47.0); Hemoglobin 8.6 g/dL (12.0-16.0); Mean Corp Hgb Conc. 33.7 g/dL (33.0-37.0); Mean Corpuscular Hgb 31.4 pg (27.0-31.0); Mean Corpuscular Volume 93.1 fL (81.0-99.0); Nucleated Red Blood Cells % 0 %; Platelet Count 69 10^3/uL (130-400); Red Blood Cell Count 2.74 10^6/uL (4.20-5.40); White Blood Cell Count 11.6 10^3/uL (4.8-10.8)
[2025-04-05 05:57] LABS: ALT (SGPT) 15 U/L (0-35); AST (SGOT) 22 U/L (14-36); Albumin 2.3 g/dl (3.5-5.0); Alkaline Phosphatase 627 U/L (38-126); Blood Urea Nitrogen 20 mg/dl (7-17); Calcium 7.1 mg/dl (8.4-10.2); Carbon Dioxide 22 mmol/L (22-30); Chloride 107 mmol/L (98-107); Estimated Creatinine Clearance 32 ml/min; Glucose 85 mg/dl (70-99); Magnesium 1.8 mg/dl (1.6-2.3); Potassium 4.1 mmol/L (3.5-5.1); Sodium 131 mmol/L (135-145); Total Bilirubin 0.9 mg/dl (0.2-1.3); Total Protein 4.9 g/dl (6.3-8.2); eGFR 47.21
[2025-04-05 06:25] LABS: Urine Squamous Cell 26-30 /LPF (Few)
[2025-04-05 06:26] LABS: Urine Red Blood Cell 0-2 /HPF (0-2)
[2025-04-05 06:27] LABS: Urine Bacteria Moderate (Negative)
--- NOTE | 2025-04-05 08:36 | CON.GI ---
Addendum entered and electronically signed by Pascale Reinoso Do, MD 04/05/25 20:14:
I saw and examined the patient.
The POLICY ISSUE CLERK's note was reviewed and I agree with the note.
Addendum entered and electronically signed by Pascale Reinoso Do, MD 04/05/25 16:02:
Sade is a 74yo W with h/o stage 4 pancreatic cancer diagnosed 08/2023 with mets to liver on chemotherapy last 03/29/2025 and local regional therapy to liver lesions last 03/31/25.� She was advised to come to ER for dark stools and anemia.� She had
recent hospitalization for similar with EGD 2 wks ago showing gastric varix.� Last dose of anticoagulation was mother�s day.� Vitals stable.� Exam chronically ill appearing ,NTTP, biliary drain in RUQ dressings c/d/i
Impression
-��������� Anemia with dark stools
o�� Suspect multifactorial related to recent chemo, local regional liver treatment and also diffuse mucosal bleeding in setting of thrombocytopenia
-��������� Pancreatic cancer
-��������� Metastatic to liver
-��������� Biliary drain in place
Recommendations
-��������� Protonix 40mg IV BID
-��������� Adv to regular diet
-��������� Observe stool output
-��������� Recent EGD done 2 wks ago already would hold off pending serial H/H and stool output
-��������� Appreciate oncology recommendations
Will follow with you
Original Note:
Consultation
-
Date/Time Consultation Requested: 04/04/25 2350
Date/Time Consultation Performed: 04/05/25 0830
Requesting Provider: KECIA Britt
Performing Provider: KECIA Escoto, pascale Martinez MD
Reason for Consultation: Gi bleed
Medical History
Chief Complaint / HPI
Chief Complaint: black stools
History of Present Illness:
Pt is a 74 year old female with h/o hyperlipidemia, osteoporosis, hepatic biloma, anemia, UTI, diagnosed with metastatic pancreatic cancer in 2022 with known mets to liver and retroperitoneal nodes. Her initial EUS�on 09/11/2023 showed 33 x 34 mm
mass in the tail of pancreas with secondary retroperitoneal mass measuring 23 x 21 mm adjacent to left adrenal gland.� FNA confirmed adenocarcinoma.� She also had friable and erythematous mucosa in the lesser curvature of the stomach and the biopsy
showed local invasion with adenocarcinoma.� ERCP was performed and biliary stents were placed to both left and right intrahepatic ducts.� Patient was started on chemotherapy on 09/30/2023.� She had a stent malfunction and ERCP had to be repeated on
10/08/2023 with removal of right intrahepatic ductal stent and placement of pigtail stent to the left intrahepatic duct.� She did well for about a year but returned with jaundice on 09/2024.� ERCP and cholangioscopy were performed which showed
malignant appearing mucosa extending from common hepatic duct, bifurcation, and left main hepatic duct.� Spy bite biopsy showed adenocarcinoma.� DPPS were placed into left and right hepatic ducts.� She had several recent admission recent admissions
first 02/07 with fever. She was seen by surgery and recommended percutaneous deejay tube and also went for ERCP with stent exchange with noted 2 partially occluded stents in biliary tree with malignant stricture. She then returned 03/03 with LE
swelling and noted occlusive thrombus left small saphenous vein and cluster or varicosities posterior left calf c/w thrombophlebitis and right Doppler study with possible acute thrombosis of short saphenous vein or hematoma. Pt was given script for
Doxycycline. She had further follow up with Dr. You and was placed on 10 days course of Eliquis She then returned while on Eliquis 03/20-- 03/22 with drop in hbg and black stools. She completed EGD with noted type 1 isolated gastric varices and
noted plastic stents in place. On discharge hbg was 8.3. She held anticoagulation and went 03/[address] Prescott at [facility] [place]. Per patient she initially was noted with 5 liver masses but follow up imaging with 10. She
completed 1 treatment and was due to follow up in April for second treatment. HBG was watched closely and noted with drop from 8.4 on 03/29 to 5 on 04/04 with heme + brown stool in Er. Pt also noted with hypotension on admission. On admission she
is also noted with drop platelets to 69,000. She remains on antibiotics post histotripsy.
In review with patient she had chemo last prior to Mother's day. She has noted black stool for last few days with 2-3 stools daily. She admits to fatigue, decreased appetite and increase in LE edema along with mild abdominal distention.
She continue with deejay tube that is now clamped. She admits to occasional diarrhea worse with chemo with occasional antidiarrheal use. She otherwise denies odynophagia, dysphagia, GERD, nausea, vomiting, abdominal pain, constipation or red
blood in stools. Hx recent multiple ERCP's, recent EGD as noted and colonoscopy 2015. She has been off Elquis since March admission with bleeding.
Past Medical History
Past Medical History: Cancer (metastatic pancreatic Cancer with prior biliary stenting and mets to liver and nodes with treatment as above ), HTN and Other (osteoporosis , klebsiella UTI, anemia, hepatic biloma)
Past Surgical History: Orthopedic (elbow fx ) and Other (tubal ligation, breast implants, port placement )
Social History
Tobacco: Non-Smoker
Alcohol: None
Drug: None
Personal:
Living: With Family
Employment: Retired
Family History
Family History: Other (brother with lung CA, niece with breast CA)
Allergies / Home Medications
Allergy/AdvReac Type Severity Reaction Status Date / Time
No Known Allergies Allergy Verified 04/04/25 18:25
�Medication �Instructions �Recorded
denosumab 60 mg/mL subcutaneous 60 mg SC [id number] bone health 09/11/23
syringe (Prolia)
diphenoxylate-atropine 2.5 2 tab PO DAILY Gastrointestinal 09/16/24
mg-0.025 mg tablet Issue
therapeutic multivitamin 1 tab PO DAILY Supplement 09/16/24
amoxicillin 875 mg-potassium 1 tab PO BID Infection 03/20/25
clavulanate 125 mg tablet
calcium 600 mg (as 1 tab PO DAILY Supplement 03/20/25
carbonate)-vitamin D3 10 mcg (400
unit) tablet (Calcium 600 + D(3))
cholecalciferol (vitamin D3) 50 50 mcg PO DAILY Supplement 03/20/25
mcg (2,000 unit) tablet (Vitamin
D3)
cyanocobalamin (vitamin B-12) 1,000 mcg PO DAILY Supplement 03/20/25
1,000 mcg tablet
diphenhydramine 25 1 tab PO HS Pain 03/20/25
mg-acetaminophen 500 mg tablet
(Acetaminophen PM)
lidocaine-prilocaine 2.5 %-2.5 % 1 applic topical DAILYPRN PRN PORT 03/20/25
topical cream ACCESS
loratadine 10 mg tablet (Claritin) 10 mg PO DIRECTED Allergies 03/20/25
lorazepam 0.5 mg tablet 0.5 mg PO HS Mental Health/Anxiety 03/20/25
diphenoxylate-atropine 2.5 1 tab PO BIDPRN PRN diarrhea 04/04/25
mg-0.025 mg tablet (Lomotil)
furosemide 20 mg tablet (Lasix) 20 mg PO DAILY Fluid 04/04/25
Retention/Swelling
oxycodone 5 mg tablet 5 mg PO BID@08,17 Pain 04/04/25
Review of Systems
-
History Source: Patient
Constitutional: Reports Other (wt loss with decreased appetite but gain with LE swelling )
EENT: Reports No Symptoms
Respiratory: Reports No Symptoms
Cardiac: Reports No Symptoms
Abdomen/GI: Reports Black Stools
: Reports No Symptoms
Musculoskeletal: Reports Edema
Skin: Reports No Symptoms
Neurological: Reports Weakness
Endocrine: Reports No Symptoms
Hematologic/Lymphatic: Reports Bleeding
Vital Signs
Temp Pulse Resp BP Pulse Ox
99.0 F 84 16 93/54 94
04/05/25 07:08 04/05/25 07:08 04/05/25 07:08 04/05/25 07:08 04/05/25 07:08
Physical Exam
Exam
General: Other (pale appearing )
HEENT: Normocephalic
Respiratory: Clear
Cardiac: Regular Rhythm and Peripheral Edema
GI: Soft and Distended (mild )
Rectal: Other (brown heme + in ER)
Musculoskeletal: No Clubbing and No Cyanosis
Skin: Warm and Dry
Neuro: Awake, Alert and AO x 3
Psych: Calm
Results
WBC 11.6 10^3/uL (4.8-10.8) H 04/05/25 05:14
Hgb 8.6 g/dL (12.0-16.0) L D 04/05/25 05:14
Hct 25.5 % (37.0-47.0) L 04/05/25 05:14
MCV 93.1 fL (81.0-99.0) 04/05/25 05:14
Plt Count 69 10^3/uL (130-400) L 04/05/25 05:14
Absolute Neuts (auto) 9.6 10^3/uL (1.4-6.5) H 04/05/25 05:14
Sodium 131 mmol/L (135-145) L 04/05/25 05:14
Potassium 4.1 mmol/L (3.5-5.1) 04/05/25 05:14
Chloride 107 mmol/L (98-107) 04/05/25 05:14
Carbon Dioxide 22 mmol/L (22-30) 04/05/25 05:14
BUN 20 mg/dl (7-17) H 04/05/25 05:14
Creatinine 1.2 mg/dL (0.6-1.0) H 04/05/25 05:14
Calcium 7.1 mg/dl (8.4-10.2) L 04/05/25 05:14
Total Bilirubin 0.9 mg/dl (0.2-1.3) 04/05/25 05:14
AST 22 U/L (14-36) 04/05/25 05:14
ALT 15 U/L (0-35) 05/28/25 05:14
Alkaline Phosphatase 627 U/L (38-126) H 04/05/25 05:14
Diagnostic Image Results:
02/07/25 US abdomen
The gallbladder is distended measuring up to 11.5 cm. There is mildly echogenic fluid/sludge within the gallbladder with mild gallbladder wall thickening and pericholecystic fluid. Negative Madison's sign. Findings likely represent hydropic
gallbladder although acute cholecystitis cannot be excluded.
Numerous hepatic lesions consistent with known metastasis. There is intrahepatic biliary duct dilation with common bile duct stent, similar to prior PET/CT.
Known pancreatic lesion consistent with malignancy measuring approximately 6.3 x 4.7 cm.
01/23/25 CT PET
1. Worsening hypermetabolic pancreatic cancer in the tail of the pancreas.
2. New hypermetabolic multifocal hepatic metastatic disease.
3. New rim of hypermetabolic uptake in the inferior medial right hepatic lobe adjacent to the gallbladder, which may be metastatic or inflammatory.
Abdominal US 09/14/24:
1. Slightly increased echogenicity in the liver, compatible with underlying hepatocellular disease, which most commonly relates to fatty infiltration of the liver.
2. Probable gallbladder sludge without sonographic evidence for discrete cholelithiasis or acute cholecystitis.
3. No intrahepatic or extrahepatic biliary ductal dilatation
MRCP 09/16/24: A common bile duct stent is in place. Moderate diffuse dilatation of the intrahepatic bile ducts. The extrahepatic bile ducts measure up to 9 mm in caliber and are mildly dilated. Segment of bile duct narrowing at the confluence of the
left and right hepatic ducts with the common hepatic duct with some lobular soft tissue signal intensity at this location that measures 1.8 cm (series 901, image 23). The gallbladder is moderately dilated. No evidence for cholelithiasis. The
patient's pancreatic tail mass is suboptimally evaluated in the absence of intravenous contrast and was not identified on the previous PET/CT. The main pancreatic duct is nondilated
Prior GI Procedures:
04/01/25- EGD - Normal esophagus.
- Type 1 isolated gastric varices (IGV1, varices
located in the fundus), without bleeding.
- Plastic stents in the duodenum.
- No specimens collected.
Colonoscopy: 06/2016 [place] The entire examined colon is normal.
EUS 09/2023 - Normal esophagus.
- Erythematous mucosa in the lesser curvature.
- Friable gastric mucosa. Biopsied.
- Normal duodenal bulb, first portion of the duodenum
and second portion of the duodenum.
- A mass was identified in the pancreatic tail. This
was staged Tx Nx M1 (based on metastasis to adrenal
gland and pending cytologic confirmation) by
endosonographic criteria.
- A mass measuring 23 mm by 21 mm was identified
endosonographically adjacent to the left adrenal gland
in close proximity to the pancreatic tail mass. Fine
needle aspiration performed.
09/11/23 ERCP Nelson Garvey MD - The major papilla appeared to be small.
- A pancreatic sphincterotomy was performed.
- One plastic stent was placed into the ventral
pancreatic duct.
- Failed biliary cannulation.
09/17/23 ERCP Nelson Garvey MD - A previously placed stent had migrated out of the
pancreatic duct.
- A single moderate biliary stricture was found. The
stricture was malignant appearing.
- The left main hepatic duct, right intrahepatic
branches and left intrahepatic branches were
moderately dilated, acquired.
- A biliary sphincterotomy was performed.
- The hepatic duct bifurcation was successfully
dilated.
- The hepatic duct bifurcation was successfully
dilated.
- One plastic stent was placed into the left hepatic
duct.
- One plastic stent was placed into the right hepatic
duct.
ERCP performed on 10/08/2023 Nelson Garvey MD Severe malignant biliary stricture. The left main hepatic and left intrahepatic branches were moderately dilated, 1 stent was removed from the left hepatic duct and 1 plastic stent was placed into the left
hepatic duct.
ERCP 09/19/24- Nelson Garvey MD - Two visibly occluded stents from the biliary tree
were seen in the major papilla.
- Frond-like nodularity and increased vascular pattern
of the common hepatic duct, bifurcation of the right
and left hepatic ducts and left main hepatic duct
mucosa was found.
- A single severe biliary stricture was found in the
common hepatic duct. The stricture was malignant
appearing.
- A single severe biliary stricture was found in the
common hepatic duct and left main hepatic duct. The
stricture was malignant appearing.
- The left main hepatic duct and left intrahepatic
branches were moderately dilated.
- The right intrahepatic branches were mildly dilated.
- Choledocholithiasis was found. Complete removal was
accomplished by balloon extraction.
- Two stents were removed from the biliary tree.
- Biopsy was performed at the hepatic duct bifurcation.
- The biliary tree was swept.
- One plastic stent was placed into the left hepatic
duct.
- One plastic stent was placed into the right hepatic
duct.
02/10/25 ERCP--- Two partially occluded stents from the biliary tree
were seen in the major papilla.
- A single severe biliary stricture was found. The
stricture was malignant appearing.
- The left main hepatic duct, right main hepatic duct
and right intrahepatic branches were mildly dilated.
- Two stents were removed from the left hepatic duct
and the right hepatic duct.
- The biliary tree was swept and sludge was found.
- One plastic stent was placed into the right hepatic
duct.
- One plastic stent was placed into the left hepatic
duct.
Assessment / Plan
-
74 year old female with h/o hyperlipidemia, osteoporosis, hepatic biloma, anemia, UTI, diagnosed with metastatic pancreatic cancer in 2022 with known mets to liver and retroperitoneal nodes. See H+ P for details. She has had multiple ERCP with
stenting last 02/10 with also noted placement of perc deejay tube during that admission, chemo with recent treatment last week with Dr. You, recent thrombophlebitis and concern for acute thrombosis with antibiotic and anticoagulation use now off
with GI bleed 03/20 and noted type 1 gastric varices without bleeding. On discharge hbg was 8.3. She held anticoagulation and went 03/[address] Prescott at [facility] at [place]. HBG was watched closely and noted with drop from 8.4
on 03/29 to 5 on 04/04 with BUN 20 with heme + brown stool and also drop in platelets to 69,000 and hypotension on admission.
-symptomatic anemia with dark heme + stools
-recent admission in March with anemia - EGD with type 1 gastric varices without bleeding
-thrombocytopenia - new
-metastatic pancreatic CA with mets to liver, nodes-recent chemo and Neulasta and hx multiple ERCP's with stenting
-recent histoptripsy of liver lesion at [facility] 03/24 due for repeat procedure in April
-recent Eliquis now off /abx use for possible acute thrombosis/thrombophlebitis
-recent CT with concern for partial thrombosis of right portal vein with collateral/cavernous transformation, thrombosis distal splenic vein
-LE edema/mild abd distention
-increased alk phos
-CT with mass pelvis - neoplastic vs hematoma
-recent acute cholecystitis with capped perc deejay tube in place
-recent chemo and Neulasta last early March
-gallbladder distention
-diarrhea on Lomotil prior to admission
- leukocytosis
-wt loss
other medical problems:
-hyperlipidemia
-osteoporosis
-hx hepatic biloma
-anemia
-UTI
PLAN:
etiology of melena related to UGI bleeding - recently noted grade 1 varices without bleeding vs ectasia, mass vs other
pt reports 1 stool overnight
s/p transfusion hbg 4 yo 8.6 today cont to monitor
cont to trend hbg, platelets and stool record
add INR for AM
will review with Dr. Martinez for repeat scope will continue NPO for now
cont Protonix BID
pt has been off Eliquis since 03/20
await oncology consult with plan for continued treatment and goals of care
some drop in platelets -etiology unclear cont to trend
updated nursing staff
pt is due to return to [facility] in April for further histotripsy treatment
-
-
Thank you for consultation and allowing me to participate in the patient's care. Please call the lactation specialist GI physician during the after hours with any questions or concerns.
[2025-04-05] MEDS: NSS (PRESERVATIVE FREE) 10 ML IV ×2 (09:22→20:58)
[2025-04-05] MEDS: PROTONIX IV 40 MG IV ×2 (09:22→20:58)
[2025-04-05] MEDS: THERAGRAN 1 TABLET PO (09:23)
[2025-04-05] MEDS: LOMOTIL PO (09:23)
[2025-04-05] MEDS: ROXICODONE PO ×2 (09:24→10:05)
--- NOTE | 2025-04-05 09:29 | CON.ONC ---
Documented by User: Anahi Tovar DO, Resident 04/05/25 10:42
Consultation
-
Date Consultation Requested: 04/05/25
Impression
Impression
74-year-old female with past medical history of CKD stage IIIa, hyperlipidemia, osteoporosis, hepatic biloma, anemia, ACD, provoked DVTs on Eliquis, and history of advanced metastatic pancreatic cancer to liver, currently on chemotherapy being
managed for anemia and upper GI bleed.
Plan
Plan
� Continue to monitor hemoglobin and transfuse as needed
� LDH, haptoglobin and peripheral blood smear pending
� Stool occult blood x 3 pending
� GI on board, appreciate recommendations
� All other care per primary medical team
Patient History
History of Present Illness
74-year-old female with past medical history of CKD stage IIIa, hyperlipidemia, osteoporosis, hepatic biloma, anemia, ACD, provoked DVTs on Eliquis, and history of advanced metastatic pancreatic cancer to liver, currently on chemotherapy
(gemcitabine/Abraxane). She follows with medical oncology with [place] under Dr. You. She sees Dr. Prescott at [place] for histotripsy for her liver lesions. She has been experiencing dark stools for the last few days and significant bilateral
lower extremity edema. She is not currently on any blood thinners. She was placed on Lasix however notes that the swelling has not gone down. At time of admission, hemoglobin was 5.9 and she was given 2 units of red blood cells. Hemoglobin has
come up to 8.6 however labs continue to show thrombocytopenia, likely secondary to chemotherapy. She was recently admitted to the hospital few weeks ago for dark stools secondary to Eliquis. EGD at that time were negative and after holding
Eliquis, dark stools resolved by themselves.
Today she reports no headaches, nausea, vomiting, chest pain, shortness of breath, abdominal pain or numbness and tingling in extremities.
Patient Medication
�Medication �Instructions �Recorded �Confirmed �Last Taken �Type
denosumab 60 mg/mL subcutaneous 60 mg SC [id number] bone health 09/11/23 04/04/25 07/04/23 History
syringe (Prolia)
diphenoxylate-atropine 2.5 2 tab PO DAILY Gastrointestinal 09/16/24 04/04/25 04/04/25 History
mg-0.025 mg tablet Issue
therapeutic multivitamin 1 tab PO DAILY Supplement 09/16/24 04/04/25 04/04/25 History
amoxicillin 875 mg-potassium 1 tab PO BID Infection 03/20/25 04/04/25 04/04/25 06:00 History
clavulanate 125 mg tablet
calcium 600 mg (as 1 tab PO DAILY Supplement 03/20/25 04/04/25 04/04/25 History
carbonate)-vitamin D3 10 mcg (400
unit) tablet (Calcium 600 + D(3))
cholecalciferol (vitamin D3) 50 50 mcg PO DAILY Supplement 03/20/25 04/04/25 04/04/25 History
mcg (2,000 unit) tablet (Vitamin
D3)
cyanocobalamin (vitamin B-12) 1,000 mcg PO DAILY Supplement 03/20/25 04/04/25 04/04/25 History
1,000 mcg tablet
diphenhydramine 25 1 tab PO HS Pain 03/20/25 04/04/25 04/04/25 22:25 History
mg-acetaminophen 500 mg tablet
(Acetaminophen PM)
lidocaine-prilocaine 2.5 %-2.5 % 1 applic topical DAILYPRN PRN PORT 03/20/25 04/04/25 Unknown History
topical cream ACCESS
loratadine 10 mg tablet (Claritin) 10 mg PO DIRECTED Allergies 03/20/25 04/04/25 Unknown History
lorazepam 0.5 mg tablet 0.5 mg PO HS Mental Health/Anxiety 03/20/25 04/04/25 04/03/25 History
diphenoxylate-atropine 2.5 1 tab PO BIDPRN PRN diarrhea 04/04/25 04/04/25 Unknown History
mg-0.025 mg tablet (Lomotil)
furosemide 20 mg tablet (Lasix) 20 mg PO DAILY Fluid 04/04/25 04/04/25 04/03/25 History
Retention/Swelling
oxycodone 5 mg tablet 5 mg PO BID@08,17 Pain 04/04/25 04/04/25 04/04/25 08:00 History
Active Medications
Generic Name Dose Route Start Last Admin
Trade Name Freq PRN Reason Stop Dose Admin
Acetaminophen 650 mg 04/04/25 23:54
Acetaminophen 325 Mg Tablet PO 05/02/25 23:53
Q4HPRN PRN
mild pain/THOMASON/temp> 100.4F
Acetaminophen 500 mg 04/05/25 22:00
Acetaminophen 500 Mg Tablet PO 05/03/25 21:59
HS JIE
Amoxicillin/Clavulanate Potassium 1 tablet 04/05/25 08:00
Amoxicillin (875 Mg)/Clavulanate (125 Mg) Tablet PO
BID JIE
Diphenhydramine HCl 25 mg 04/05/25 22:00
Diphenhydramine 25 Mg Capsule PO 05/03/25 21:59
HS JIE
Diphenoxylate HCl/Atropine 1 tablet 04/04/25 23:54
Diphenoxylate/Atropine Tablet PO 05/02/25 23:53
BIDPRN PRN
diarrhea
Diphenoxylate HCl/Atropine 2 tablet 04/05/25 08:00
Diphenoxylate/Atropine Tablet PO 05/03/25 07:59
DAILY JIE
Heparin Sodium (Porcine) 500 unit 04/05/25 02:42 04/05/25 02:46
Heparin Flush Pf (100 Unit/Ml) 5 Ml Syringe IV 05/03/25 02:41 500 unit
PRN PRN Administration
PORT FLUSH
Lorazepam 0.5 mg 04/05/25 22:00
Lorazepam 0.5 Mg Tablet PO 05/03/25 21:59
HS JIE
Multivitamins Therapeutic 1 tablet 04/05/25 08:00
Multivitamin Tablet PO 05/03/25 07:59
DAILY JIE
Ondansetron HCl 4 mg 04/04/25 23:54
Ondansetron 4 Mg/2 Ml Vial IV 05/02/25 23:53
Q6HPRN PRN
NAUSEA/VOMITING
Oxycodone HCl 5 mg 04/04/25 23:54
Oxycodone 5 Mg Regular Release Tablet PO 04/18/25 23:53
Q6HPRN PRN
mod pain
Oxycodone HCl 5 mg 04/05/25 08:00
Oxycodone 5 Mg Regular Release Tablet PO 04/19/25 07:59
BID@08,17 JIE
Pantoprazole Sodium 40 mg 04/05/25 08:00
Pantoprazole Sodium 40 Mg/10 Ml Vial IV 05/03/25 07:59
BID JIE
Sodium Chloride 0 flush 04/04/25 22:00
Sodium Chloride 0.9% (Flush) Syringe IV 05/02/25 21:59
PER PROTOCOL JIE
Sodium Chloride 10 ml 04/05/25 08:00
Sodium Chloride 0.9% (Preservative Free) 10 Ml Vial IV 05/03/25 07:59
BID JIE
Review of Systems
-
History Source: Patient
Constitutional: Reports Weakness
EENT: Reports No Symptoms
Respiratory: Reports No Symptoms
Cardiac: Reports No Symptoms
GI: Reports Black Stools
: Reports No Symptoms
Musculoskeletal: Reports Edema (BL LE)
Skin: Reports No Symptoms
Neuro: Reports No Symptoms
Psych: Reports No Symptoms
Physical Exam
-
General: Well Developed, No Apparent Distress, Comfortable and Conversant
GI: Soft
Musculoskeletal: No Clubbing, No Cyanosis, Edema, Right Lower Extrem and Edema, Left Lower Extrem
Extremities: Pulses Present
Skin: Warm and Dry
Psych: Calm
Labs
Lab Results
WBC 11.6 10^3/uL (4.8-10.8) H 04/05/25 05:14
RBC 2.74 10^6/uL (4.20-5.40) L 04/05/25 05:14
Hgb 8.6 g/dL (12.0-16.0) L D 04/05/25 05:14
Hct 25.5 % (37.0-47.0) L 04/05/25 05:14
MCV 93.1 fL (81.0-99.0) 04/05/25 05:14
MCH 31.4 pg (27.0-31.0) H 04/05/25 05:14
MCHC 33.7 g/dL (33.0-37.0) 04/05/25 05:14
RDW 16.0 % (11.5-14.5) H 04/05/25 05:14
Plt Count 69 10^3/uL (130-400) L 04/05/25 05:14
MPV 11.0 fL (7.4-10.4) H 04/05/25 05:14
Abs Immat Gran (auto) 0.1 10^3/uL (0-0.05) H 04/05/25 05:14
Absolute Neuts (auto) 9.6 10^3/uL (1.4-6.5) H 04/05/25 05:14
Absolute Lymphs (auto) 0.9 10^3/uL (1.2-3.4) L 04/05/25 05:14
Absolute Monos (auto) 0.9 10^3/uL (0.1-0.6) H 04/05/25 05:14
Absolute Eos (auto) 0.2 10^3/uL (0-0.7) 04/05/25 05:14
Absolute Basos (auto) 0.0 10^3/uL (0-0.2) 04/05/25 05:14
Immature Gran % 0.7 % (0-0.5) H 04/05/25 05:14
Neutrophils % 82.7 % (42.2-75.2) H 04/05/25 05:14
Lymphocytes % 7.3 % (20.5-51.1) L 04/05/25 05:14
Monocytes % 7.7 % (1.7-9.3) 04/05/25 05:14
Eosinophils % 1.3 % (0-6) 04/05/25 05:14
Basophils % 0.3 % (0-2) 04/05/25 05:14
Creatinine 1.2 mg/dL (0.6-1.0) H 04/05/25 05:14
Vital Signs
Vital Signs
Temp Pulse Resp BP Pulse Ox
99.0 F 84 16 93/54 94
04/05/25 07:08 04/05/25 07:08 04/05/25 07:08 04/05/25 07:08 04/05/25 07:08

Documented by User: Josué Alvarenga MD 04/05/25 11:47
Plan
Plan
� Continue to monitor hemoglobin and transfuse as needed
� LDH, haptoglobin and peripheral blood smear pending
� Stool occult blood x 3 pending
� GI on board, appreciate recommendations
� All other care per primary medical team
Hematology Addendum:
Patient and evaluated and agree w/ resident note and plan as outlined.
-h/o advanced metastatic pancreatic cancer - tx w/ gem/ abraxane w/ Dr. You
-anemia - multifactorial - GI bleed - anemia of chronic illness
-reviewed peripheral smear - no evidence of microangiopathic RBC changes - moderately low plts confirmed
-check stools for occult blood
-GI w/u
-follow CBC and transfuse prn
Will continue to follow with you.
[2025-04-05] MEDS: AUGMENTIN 875 MG/125 MG PO (09:30)
[2025-04-05 10:12] LABS: Reticulocyte Count 1.6 % (0.4-2.8)
[2025-04-05 10:20] LABS: LDH 382 U/L (120-246)
--- NOTE | 2025-04-05 10:42 | CM ---
CM following re: discharge planning.
Reviewed pt's chart, met with pt and pt's spouse Frank at bedside.
Pt is a 74 year old female, admitted with primary dx of Symptomatic anemia likely upper GI bleed, currently undergoing treatment for stage IV metastatic pancreatic cancer
Patient reports she lives with spouse in a 55 and over community, 2SH, 1 step to enter, has 3 supportive sons and a stepson. Pt reports she ambulates with a walker and has been experienced difficulties with moving her legs up.
Both pt and her are not sure what the next level of care will be and they stated they will discuss with medical team.
PCP: Sabrina Gómez.
Pharmacy: [facility] in [place] on [phone]
D/C plan: uncertain at this time and will depend on pt's progress.
CM will follow with discharge plan updates as hospitalization progresses
[2025-04-05] MEDS: ROXICODONE 5 MG PO ×2 (11:29→16:29)
[2025-04-05] MEDS: AUGMENTIN 875 MG/125 MG 1 TABLET PO ×2 (13:48→20:58)
[2025-04-05] MEDS: LOMOTIL 2 TABLET PO (13:48)
--- NOTE | 2025-04-05 16:11 | W.PN.HOSP.TC ---
Addendum entered and electronically signed by Yony Anaya MD 04/05/25 22:34:
IMPRESSION:
Extensive bilateral lower extremity deep venous thrombosis.
Was notified about finding. Unable to AC due to bleeding hx and presenting with concerns for GI bleed with requiring multiple blood transfusions. Unable to have a risk vs benefits discussion with Ms. Garcia and Mr. Bustamante as I has left the
hospital for day. Therefore, at this time will place a IR consult for thrombectomy vs IVC filter. Would expect IVC filter would likely be more beneficial then thrombectomy as this would still require AC. Can also discuss with her primary
rn postpartum/oncologist which treatment plan overall would be more beneficial in considering co-morbid conditions. This is surely a difficult decision to make and should not be taken lightly espicially though Ms. Bustamante wants
curative/restorative care.
Addendum entered and electronically signed by Zack Glover MD 04/05/25 18:37:
Called by Radiology about US positive result for DVT .
Dr Anaya made aware about the positive DVT on US. complicated case with high risk for AC for DVT tx. Plan for possible IVC filter noted.
Original Note:
Today's Communication/Plan
-
Assessment / Plan
Assessment / Plan
NAD, at bedside
Scleral Anicteric
DMM
No JVD
CTABL
RRR, S1/S2
Soft, NT, ND, BS+
Warm, Dry
Bilateral lower extremities and compression stockings
AAOx3
Calm
Acute blood loss anemia likely multifactorial potentially related to GI blood loss and along with recent chemotherapy.
S/p PRBC
Twice daily IV PPI
Peripheral smear, LDH, haptoglobin
Would also check fibrinogen
Currently not on anticoagulation
Maintain hemodynamics
If becomes unstable check CT GI bleed study
Keep hemoglobin greater than 7 transfuse as needed
May require pressor support as blood pressure is on the lower end
On chronic oxycodone though this causes a decrease in blood pressure would continue as likely unable to receive pain relief from acetaminophen as this does not typically help her this helps her to sleep when she uses acetaminophen PM at night
though. Would avoid NSAIDs/Toradol as this could prevent aggregation and increased bleeding risk. Therefore I did have a risk versus benefits discussion about agents to use for pain management and agreeable to oxycodone at this time.
History of provoked DVTs
Currently not on anticoagulation, no IVC filter placed
Obtain bilateral lower extremity DVT study
If positive would plan for IVC filter and discussed this with hematology oncology. Awaiting to hear back from hematology oncology as I did send Dr. You a [employer] message
Advanced pancreatic stage IV carcinoma.
Oncology to evaluate
Follows with Dr. You have sent her a message via [employer]
History of CKD stage IIIa
At baseline
Repeat BMP in the a.m.
Dyslipidemia
Currently not on statin therapy
Anticipated Discharge: > 48 hours
Subjective/Interval History
-
Date of Service: April 05, 2025
seen and examined. no new complaints. no acute overnight events
has c.o of b/l calf pain
recent hx of venous clot, not on AC due to GI bleed
Objective Data
-
Labs:
Laboratory Results
04/05/25 04/05/25
05:14 13:26
WBC 11.6 H
Hgb 8.6 L D Pending
Hct 25.5 L Pending
Plt Count 69 L
Sodium 131 L
Potassium 4.1
Chloride 107
Carbon Dioxide 22
BUN 20 H
Creatinine 1.2 H
Glucose 85
Calcium 7.1 L
Total Bilirubin 0.9
AST 22
ALT 15
Alkaline Phosphatase 627 H
Vital Signs:
Vital Signs
Temp Pulse Resp BP Pulse Ox
98.7 F 94 16 106/62 96
04/05/25 15:00 04/05/25 15:00 04/05/25 15:00 04/05/25 15:00 04/05/25 15:00
I&O
04/04/25 04/05/25 04/06/25
06:59 06:59 06:59
Intake Total 750 / 750
Output Total 250 / 250
Balance 500 / 500
--- NOTE | 2025-04-05 16:56 | PTCARENOTE ---
Patient c/o B/L calf pain throughout shift, states she has had calf pain since prior admission with B/L DVTs at end of February but feels it has been getting worse; per patient, she has been off her Eliquis since most recent admin earlier in March. This
RN assisted patient in taking off her pantyhose, LLE warm and red, +3 edema compared to RLE +2 edema. +pedal pulses bilaterally. Patient medicated with scheduled 5 mg oxy, okay to give per MD for BP of 106/62 HR 80s NSR on monitor. B/L LE ordered
per MD. Trending H&H per GI, patient NPO at midnight per GI for potential intervention pending H&H trend.
[2025-04-05 17:46] LABS: Hematocrit 26.5 % (37.0-47.0); Hemoglobin 8.9 g/dL (12.0-16.0)
--- NOTE | 2025-04-05 18:00 | DOWNTIME ---
There was a [employer] Downtime on 04/05/2025 from 1230 to 04/05/2025 at 1550. Downtime documentation of patient's care, including medication administrations, has been reconciled in the electronic record per guidelines. Refer to the
patient's paper chart under the miscellaneous tab to see printed paper medication records and downtime forms.
[2025-04-05] MEDS: TYLENOL 500 MG PO (20:59)
[2025-04-05] MEDS: BENADRYL 25 MG PO (20:59)
[2025-04-05] MEDS: ATIVAN 0.5 MG PO (20:59)
[2025-04-05 21:30] LABS: Hematocrit 27.6 % (37.0-47.0); Hemoglobin 9.3 g/dL (12.0-16.0)
[2025-04-06] VITALS (8 sets, daily range): BP systolic 75–117; BP diastolic 54–70; BMI 20.7
--- NOTE | 2025-04-06 00:44 | PTCARENOTE ---
Pt AAOx3. Pt educated on need for bed rest at this point due to possible DVT's. Pt appearing receptive. Pt repeat H&H completed, see labs. Pt NPO since midnight in preparation for procedure tomorrow. Assessment care and vitals as charted.
[2025-04-06 03:56] LABS: % Basophils 0.3 % (0-2); % Eosinophils 2.8 % (0-6); % Lymphocytes 7.4 % (20.5-51.1); % Monocytes 9.4 % (1.7-9.3); % Neutrophils 79.1 % (42.2-75.2); Absolute Eosinophils 0.3 10^3/uL (0-0.7); Absolute Immature Granulocytes 0.1 10^3/uL (0-0.05); Absolute Lymphocytes 0.9 10^3/uL (1.2-3.4); Absolute Monocytes 1.1 10^3/uL (0.1-0.6); Absolute Neutrophils 9.1 10^3/uL (1.4-6.5); Hematocrit 25.6 % (37.0-47.0); Hemoglobin 8.5 g/dL (12.0-16.0); Mean Corp Hgb Conc. 33.2 g/dL (33.0-37.0); Mean Corpuscular Hgb 31.4 pg (27.0-31.0); Mean Corpuscular Volume 94.5 fL (81.0-99.0); Mean Platelet Volume 11.2 fL (7.4-10.4); Nucleated Red Blood Cells % 0 %; Platelet Count 85 10^3/uL (130-400); Red Blood Cell Count 2.71 10^6/uL (4.20-5.40); Red Cell Dist. Width 16.7 % (11.5-14.5); White Blood Cell Count 11.5 10^3/uL (4.8-10.8)
[2025-04-06 04:01] LABS: INR 1.24; PT 16.1 Sec (11.4-14.6)
[2025-04-06 04:13] LABS: ALT (SGPT) 15 U/L (0-35); AST (SGOT) 20 U/L (14-36); Albumin 2.4 g/dl (3.5-5.0); Alkaline Phosphatase 588 U/L (38-126); Blood Urea Nitrogen 17 mg/dl (7-17); Calcium 7.3 mg/dl (8.4-10.2); Carbon Dioxide 25 mmol/L (22-30); Chloride 106 mmol/L (98-107); Estimated Creatinine Clearance 35 ml/min; Glucose 97 mg/dl (70-99); Potassium 4.1 mmol/L (3.5-5.1); Sodium 134 mmol/L (135-145); Total Bilirubin 0.7 mg/dl (0.2-1.3); Total Protein 4.9 g/dl (6.3-8.2)
[2025-04-06] MEDS: AUGMENTIN 875 MG/125 MG 1 TABLET PO ×2 (08:12→20:51)
[2025-04-06] MEDS: LOMOTIL 2 TABLET PO (08:12)
[2025-04-06] MEDS: THERAGRAN 1 TABLET PO (08:13)
[2025-04-06] MEDS: PROTONIX IV 40 MG IV (08:13)
[2025-04-06] MEDS: NSS (PRESERVATIVE FREE) 10 ML IV (08:14)
[2025-04-06] MEDS: FLUSH (NSS) 2 FLUSH IV (08:15)
[2025-04-06] MEDS: ROXICODONE 5 MG PO ×2 (08:15→17:13)
--- NOTE | 2025-04-06 09:11 | W.PN.ONC2 ---
Today's Communication / Plan
-
thrombolysis vs IVC filter due to inabilaty to AC
Impression
Impression
74-year-old female with past medical history of CKD stage IIIa, hyperlipidemia, osteoporosis, hepatic biloma, anemia, ACD, provoked DVTs on Eliquis, and history of advanced metastatic pancreatic cancer to liver, currently on chemotherapy being
managed for anemia and upper GI bleed.
Plan
Plan
� Consider thombolysis vs IVC placement for large DVT burden
- Continue to monitor hemoglobin and transfuse as needed
� LDH, haptoglobin and peripheral blood smear pending
� Stool occult blood x 3 pending
� GI on board, appreciate recommendations
� All other care per primary medical team
Subjective/Objective
Subjective
Ultrasound of bilateral lower extremities was completed yesterday which showed extensive bilateral lower extremity DVTs. IR was consulted for consideration of thrombectomy versus IVC filter, ongoing discussion. She reports that overnight she got
good rest, and did not have any NVD, headachees, SOB or CP. She reports that she feels her legs are a little less swollen, but still of concern,
Vital Signs:
Vital Signs
Temp Pulse Resp BP Pulse Ox
97 F 80 16 101/59 96
04/06/25 07:00 04/06/25 07:00 04/06/25 07:00 04/06/25 07:00 04/06/25 07:00
Lab Results:
Laboratory Data
WBC 11.5 10^3/uL (4.8-10.8) H 04/06/25 03:42
Hgb 8.5 g/dL (12.0-16.0) L 04/06/25 03:42
Plt Count 85 10^3/uL (130-400) L D 04/06/25 03:42
PT 16.1 Sec (11.4-14.6) H 04/06/25 03:42
INR 1.24 04/06/25 03:42
eGFR 52.40 04/06/25 03:42
Physical Exam
General: AAOx3, conversant, resting comfortably
GI: Soft
Extremities: Other (BL LE swelling)
Review of Systems
Review of Systems
All reviewed and negative unless otherwise stated
Skin: Reports Other (LE swelling BL)
--- NOTE | 2025-04-06 10:54 | PN.CDI ---
CDI
- -
CDI:
Physician Documentation Request
Admit Date: 04/04/25 22:55
Dear Doctor Héctor,
04/05 progress note contains a diagnosis of Extensive bilateral lower extremity deep venous thrombosis
Please clarify which of the following accurately represents the acuity of the Extensive bilateral lower extremity deep venous thrombosis
____ Acute
Acute on Chronic
Chronic
____ Other
Use of terms such as suspected, likely, concern for, or probable (associated with a specific diagnosis that is being evaluated, monitored, or treated as if it exists) are acceptable and can be coded in the inpatient setting, when documented at the
time of discharge.
Thank you,
Estelita Gutierres RN, BSN
CDI Specialist
tiger text
Please use your independent medical judgment in providing your response.
[2025-04-06] MEDS: LOMOTIL 1 TABLET PO (12:15)
[2025-04-06 13:45] LABS: Hematocrit 25.1 % (37.0-47.0); Hemoglobin 8.4 g/dL (12.0-16.0)
--- NOTE | 2025-04-06 14:53 | CM ---
CM following re: discharge planning.
Reviewed pt's chart, met with pt and pt's at bedside.
Per Oncology, pt is not interested in hospice care, continue supportive care.
PT and OT evaluations noted - home PT/OT recommended. pt is aware, [facility]N choices provided, pt preferred [facility]. A referral to [facility] made.
D/c plan: home with [facility] and family support.
CM will follow with discharge plan updates as hospitalization progresses
--- NOTE | 2025-04-06 15:22 | W.PN.GI.CBS2 ---
Today's Communication / Plan
-
Serial H/H
Monitor stool output
Assessment / Plan
-
74 year old female with h/o hyperlipidemia, osteoporosis, hepatic biloma, anemia, UTI, diagnosed with metastatic pancreatic cancer in 2022 with known mets to liver and retroperitoneal nodes. See H+ P for details. She has had multiple ERCP with
stenting last 02/10 with also noted placement of perc deejay tube during that admission, chemo with recent treatment last week with Dr. You, recent thrombophlebitis and concern for acute thrombosis with antibiotic and anticoagulation use now off
with GI bleed 03/20 and noted type 1 gastric varices without bleeding. On discharge hbg was 8.3. She held anticoagulation and went 03/[address] Prescott at [facility] [place]. HBG was watched closely and noted with drop from 8.4
on 03/29 to 5 on 04/04 with BUN 20 with heme + brown stool and also drop in platelets to 69,000 and hypotension on admission.
Impression
-symptomatic anemia with dark heme + stools
-recent admission in March with anemia - EGD with type 1 gastric varices without bleeding
-thrombocytopenia - new
-metastatic pancreatic CA with mets to liver, nodes-recent chemo and Neulasta and hx multiple ERCP's with stenting
-recent histoptripsy of liver lesion at [facility] 03/24 due for repeat procedure in April
-recent Eliquis now off /abx use for possible acute thrombosis/thrombophlebitis
-recent CT with concern for partial thrombosis of right portal vein with collateral/cavernous transformation, thrombosis distal splenic vein
-LE edema/mild abd distention
-increased alk phos
-CT with mass pelvis - neoplastic vs hematoma
-recent acute cholecystitis with capped perc deejay tube in place
-recent chemo and Neulasta last early March
-gallbladder distention
-diarrhea on Lomotil prior to admission
- leukocytosis
-wt loss
-hyperlipidemia
-osteoporosis
-hx hepatic biloma
-anemia
-UTI
Recommendations
- She had EGD 2 wks ago 03/22 and since then chemotherapy with local regional therapy to liver lesions which is likely contributor to her anemia
- H/H overall stable on serial exams and repeat EGD would be high risk given her LE clot with pending IVC filter placement
- C/w protonix 40mg IV BID
- She is hospice appropriate discussed with her and . appeared agreeable. Above d/w hospitalist
- Monitor stool output
- C/w regular diet
Will follow with you
Subjective
Subjective
Date of Service: April 06, 2025
She denies abd pain, nausea/vomiting. Tolerating breakfast this AM. bedside
Objective
Data Reviewed
Laboratory Data:
Laboratory Results
04/06/25 03:42
Laboratory Results
PT 16.1 Sec (11.4-14.6) H 04/06/25 03:42
INR 1.24 04/06/25 03:42
Magnesium 1.8 mg/dl (1.6-2.3) 04/05/25 05:14
Total Bilirubin 0.7 mg/dl (0.2-1.3) 04/06/25 03:42
AST 20 U/L (14-36) 04/06/25 03:42
ALT 15 U/L (0-35) 04/06/25 03:42
Alkaline Phosphatase 588 U/L (38-126) H 04/06/25 03:42
Vital Signs and I&O:
Vital Signs
Temp Pulse Resp BP Pulse Ox
98.9 F 75 16 112/60 97
04/06/25 14:57 04/06/25 14:57 04/06/25 14:57 04/06/25 14:57 04/06/25 14:57
I&O
04/05/25 04/06/25 04/07/25
06:59 06:59 06:59
Intake Total 750 / 750 1240 / 1240
Output Total 250 / 250
Balance 500 / 500 1240 / 1240
Physical Exam
Physical Exam
GEN: No acute distress, conversant, pleasant, chronically ill appearing
HEENT: anicteric, extraocular movements intact, clear oropharynx without exudates
GI: soft, non-distended, biliary drain in RUQ dressings c/d/i not tender to palpation, normal active bowel sounds, no hepatosplenomegaly
EXT: warm, well perfused, trace edema bilaterally
NEURO: AAOx3, non-focal
--- NOTE | 2025-04-06 15:28 | W.PN.HOSP.TC ---
Today's Communication/Plan
-
IVC placement
Monitor hemoglobin
Assessment / Plan
Assessment / Plan
Impression:
Symptomatic severe anemia, multifactorial
Thrombocytopenia
Metastatic to the liver pancreatic carcinoma.
Bilateral lower extremity DVT
Portal thrombosis.
Pelvic mass with concern for possible hematoma versus neoplastic.
Acute cholecystitis requiring treated with percutaneous cholecystectomy currently in place.
Deconditioning.
Protein calorie malnutrition moderate to severe with BMI of 20
Plan:
Presents with symptomatic anemia and hemoglobin as low as 5.
Anemia is likely multifactorial due to myelosuppression with chemotherapy, possibly slow gastrointestinal hemorrhage, although with no evidence for acute blood loss or hemolysis.
Appropriate response to transfusion with hemoglobin at 8.4.
Currently no clinical indication for repeat endoscopy.
She has been off anticoagulation for lower extremity DVT which was discontinued about 2 weeks prior to presentation.
Transition to oral PPI
Bilateral lower extremity DVT.
Patient denies any chest pain and has stable respiratory status at rest.
Not a candidate for anticoagulation due to above.
Currently no indication for thrombolysis therapy.
Interventional radiology consultation for IVC filter
Acute cholecystitis
Status post percutaneous cholecystostomy
On antibiotics/Augmentin
Metastatic to the liver pancreatic carcinoma.
With progressive hepatic metastatic prognosis remains poor.
Extensive discussion with patient and patient's at the bedside.
Patient is not ready for hospice transition, although would consider palliative care consultation as outpatient
Preferred to be discharged home
Will ask for PT evaluation after IVC filter placement
Malignant pain
Continue preadmission regimen including oxycodone, Tylenol,
Anticipated Discharge: 24 - 48 hours
Subjective/Interval History
-
Date of Service: April 06, 2025
Objective Data
-
Labs:
Laboratory Results
04/06/25 04/06/25
03:42 13:36
WBC 11.5 H
Hgb 8.5 L 8.4 L
Hct 25.6 L 25.1 L
Plt Count 85 L D
PT 16.1 H
INR 1.24
Sodium 134 L
Potassium 4.1
Chloride 106
Carbon Dioxide 25
BUN 17
Creatinine 1.1 H
Glucose 97
Calcium 7.3 L
Total Bilirubin 0.7
AST 20
ALT 15
Alkaline Phosphatase 588 H
Vital Signs:
Vital Signs
Temp Pulse Resp BP Pulse Ox
98.9 F 75 16 112/60 97
04/06/25 14:57 04/06/25 14:57 04/06/25 14:57 04/06/25 14:57 04/06/25 14:57
I&O
04/05/25 04/06/25 04/07/25
06:59 06:59 06:59
Intake Total 750 / 750 1240 / 1240
Output Total 250 / 250
Balance 500 / 500 1240 / 1240
Physical Exam
-
General: Well Developed, No Apparent Distress, Appears Chronically Ill and Other (Cachectic and frail)
HEENT: Normocephalic, Atraumatic, Moist Mucous Membranes and Anicteric
Respiratory: Clear to Auscultation and Non Labored Respirations
Cardiac: Regular Rhythm and S1/S2; Negative Murmur, Rub or Gallop
GI: Soft, Nondistended, Normal Bowel Sounds and Tender (Mild, generalized, no peritoneal signs)
Musculoskeletal: No Clubbing, No Cyanosis and No Edema
Skin: Warm, Dry and Normal Turgor; Negative Rash
Neuro: AO x 3 and Nonfocal/Grossly Intact
Psych: Calm
--- NOTE | 2025-04-06 17:15 | W.PN.UPDATE ---
Update Note
Progress Note Update
- IVC filter successfully placed
- Indication: extensive bilateral dvt with contraindication to anti-coagulation (gi bleed, anemia).
- Patent IVC with no anatomic anomalies
- Retrievable ALN filter placed. Rec removal if patient is able to resume AC.
--- NOTE | 2025-04-06 17:17 | PTCARENOTE ---
Received pt back from [facility] post IVC filter placement, pt AAOx3, VSS, pulled over from stretcher into bed. Standing dose of oxy administered. Right neck bandaid with few small specks of dried blood on it, no new orders at this time.
[2025-04-06] MEDS: TYLENOL 500 MG PO (21:06)
[2025-04-06] MEDS: BENADRYL 25 MG PO (21:06)
[2025-04-06] MEDS: ATIVAN 0.5 MG PO (21:06)
[2025-04-06 22:05] LABS: Hematocrit 27.3 % (37.0-47.0)
[2025-04-07] VITALS (10 sets, daily range): BP systolic 86–112; BP diastolic 43–62; PULSE 85; O2SAT 96; BMI 19.6
[2025-04-07 05:55] LABS: % Basophils 0.3 % (0-2); % Eosinophils 1.9 % (0-6); % Monocytes 9.9 % (1.7-9.3); % Neutrophils 80.9 % (42.2-75.2); Absolute Eosinophils 0.2 10^3/uL (0-0.7); Absolute Immature Granulocytes 0.1 10^3/uL (0-0.05); Absolute Lymphocytes 0.7 10^3/uL (1.2-3.4); Absolute Monocytes 1.1 10^3/uL (0.1-0.6); Absolute Neutrophils 9.2 10^3/uL (1.4-6.5); Hematocrit 25.1 % (37.0-47.0); Hemoglobin 8.4 g/dL (12.0-16.0); Mean Corp Hgb Conc. 33.5 g/dL (33.0-37.0); Mean Corpuscular Hgb 31.9 pg (27.0-31.0); Mean Corpuscular Volume 95.4 fL (81.0-99.0); Mean Platelet Volume 10.8 fL (7.4-10.4); Nucleated Red Blood Cells % 0 %; Platelet Count 109 10^3/uL (130-400); Red Blood Cell Count 2.63 10^6/uL (4.20-5.40); Red Cell Dist. Width 17.2 % (11.5-14.5); White Blood Cell Count 11.4 10^3/uL (4.8-10.8)
[2025-04-07 06:14] LABS: ALT (SGPT) 12 U/L (0-35); AST (SGOT) 20 U/L (14-36); Albumin 2.2 g/dl (3.5-5.0); Alkaline Phosphatase 559 U/L (38-126); Blood Urea Nitrogen 16 mg/dl (7-17); Carbon Dioxide 24 mmol/L (22-30); Chloride 107 mmol/L (98-107); Estimated Creatinine Clearance 35 ml/min; Glucose 86 mg/dl (70-99); Sodium 134 mmol/L (135-145); Total Bilirubin 0.7 mg/dl (0.2-1.3); Total Protein 4.8 g/dl (6.3-8.2)
[2025-04-07] MEDS: AUGMENTIN 875 MG/125 MG 1 TABLET PO ×2 (07:57→20:23)
[2025-04-07] MEDS: THERAGRAN 1 TABLET PO (07:58)
[2025-04-07] MEDS: PROTONIX 40 MG PO (07:58)
[2025-04-07] MEDS: LOMOTIL 2 TABLET PO (07:58)
[2025-04-07] MEDS: ROXICODONE 5 MG PO ×3 (08:00→16:52)
--- NOTE | 2025-04-07 08:25 | W.PN.GI.CBS2 ---
Today's Communication / Plan
-
Continue supportive care
Assessment / Plan
-
74 year old female with h/o hyperlipidemia, osteoporosis, hepatic biloma, anemia, UTI, diagnosed with metastatic pancreatic cancer in 2022 with known mets to liver and retroperitoneal nodes. See H+ P for details. She has had multiple ERCP with
stenting last 02/10 with also noted placement of perc deejay tube during that admission, chemo with recent treatment last week with Dr. You, recent thrombophlebitis and concern for acute thrombosis with antibiotic and anticoagulation use now off
with GI bleed 03/20 and noted type 1 gastric varices without bleeding. On discharge hbg was 8.3. She held anticoagulation and went 03/[address] Prescott at [facility] [place]. HBG was watched closely and noted with drop from 8.4
on 03/29 to 5 on 04/04 with BUN 20 with heme + brown stool and also drop in platelets to 69,000 and hypotension on admission.
Impression
-symptomatic anemia with dark heme + stools
-recent admission in March with anemia - EGD with type 1 gastric varices without bleeding
-thrombocytopenia - new
-metastatic pancreatic CA with mets to liver, nodes-recent chemo and Neulasta and hx multiple ERCP's with stenting
-recent histoptripsy of liver lesion at [facility] 03/24 due for repeat procedure in April
-recent Eliquis now off /abx use for possible acute thrombosis/thrombophlebitis
-recent CT with concern for partial thrombosis of right portal vein with collateral/cavernous transformation, thrombosis distal splenic vein
-LE edema/mild abd distention
-increased alk phos
-CT with mass pelvis - neoplastic vs hematoma
-recent acute cholecystitis with capped perc deejay tube in place
-recent chemo and Neulasta last early March
-gallbladder distention
-diarrhea on Lomotil prior to admission
- leukocytosis
-wt loss
-hyperlipidemia
-osteoporosis
-hx hepatic biloma
-anemia
-UTI
Recommendations
- She had EGD 03/22 and since then chemotherapy with local regional therapy to liver lesions which is likely contributor to her anemia
- H/H overall stable posttransfusion
- Status post IVC filter placed yesterday
- C/w protonix 40mg p.o. twice daily
- Currently has no overt bleeding will hold off on repeat endoscopy
- She is hospice appropriate but apparently patient is not ready to transition to hospice
- C/w regular diet
- CT suggestive of constipation with retained stool although she complains of diarrhea unclear if this is overflow diarrhea would minimize the use of Lomotil especially on chronic oxycodone therapy
Will sign off and will be available as needed
Will follow with you
Subjective
Subjective
Date of Service: April 07, 2025
She had 3 bowel movements yesterday and received Lomotil. Stool is brown no rectal bleeding or melena. Hemoglobin remained stable posttransfusion .currently denies any abdominal pain. She had IVC filter placed yesterday
Objective
Data Reviewed
Laboratory Data:
Laboratory Results
04/07/25 05:25
04/07/25 05:25
Laboratory Results
PT 16.1 Sec (11.4-14.6) H 04/06/25 03:42
INR 1.24 04/06/25 03:42
Magnesium 1.8 mg/dl (1.6-2.3) 04/05/25 05:14
Total Bilirubin 0.7 mg/dl (0.2-1.3) 04/07/25 05:25
AST 20 U/L (14-36) 04/07/25 05:25
ALT 12 U/L (0-35) 04/07/25 05:25
Alkaline Phosphatase 559 U/L (38-126) H 04/07/25 05:25
Vital Signs and I&O:
Vital Signs
Temp Pulse Resp BP Pulse Ox
98.0 F 70 18 106/54 98
04/07/25 03:06 04/07/25 03:06 04/07/25 03:06 04/07/25 03:06 04/07/25 03:06
I&O
04/06/25 04/07/25 04/08/25
06:59 06:59 06:59
Intake Total 1240 / 1240 780 / 780
Balance 1240 / 1240 780 / 780
Physical Exam
Physical Exam
Cardiology: Normal Sinus Rhythm
Pulmonary: Clear
GI: Soft, Distended (Mildly distended), Non Tender and Other (Percutaneous drain in the right upper quadrant. She also has small palpable lumps in the periumbilical area)
--- NOTE | 2025-04-07 09:44 | W.PN.ONC2 ---
Today's Communication / Plan
-
see plan
Impression
Impression
74-year-old female with past medical history of CKD stage IIIa, hyperlipidemia, osteoporosis, hepatic biloma, anemia, ACD, provoked DVTs on Eliquis, and history of advanced metastatic pancreatic cancer to liver, currently on chemotherapy being
managed for DVT and upper GI bleed.
Plan
Plan
� IVC successfully placed on 04/06
- work with PT to get OOB as tolerated
- Continue to monitor hemoglobin and transfuse as needed
- continue to monitor stool for blood / constipation
� GI is not recommending further scope at this time, will re consult if needed
� All other care per primary medical team
Subjective/Objective
Subjective
Overnight, patient reports no new complaints or acute events. She had IVC filter placed successfully yesterday and feels her legs (especially R) is getting less swollen. She continues to complain of leg pain with movement, not significant at rest.
Was given oxy for pain this AM but does not know if it has helped as she has not gotten out of bed yet. She is looking forward to working with PT to walk/ regain strength. She does not complain of any ongoing bleeding or dark stools and is
tolerating diet well.
Vital Signs:
Vital Signs
Temp Pulse Resp BP Pulse Ox
98.7 F 83 16 112/61 96
04/07/25 08:00 04/07/25 08:00 04/07/25 08:00 04/07/25 08:00 04/07/25 08:00
Lab Results:
Laboratory Data
WBC 11.4 10^3/uL (4.8-10.8) H 04/07/25 05:25
Hgb 8.4 g/dL (12.0-16.0) L 04/07/25 05:25
Plt Count 109 10^3/uL (130-400) L D 04/07/25 05:25
PT 16.1 Sec (11.4-14.6) H 04/06/25 03:42
INR 1.24 04/06/25 03:42
eGFR 52.40 04/07/25 05:25
Physical Exam
General: AAOx3, conversant, resting in bed
GI: Soft
Extremities: Edema
Review of Systems
Review of Systems
Reviewed and negative unless otherwise stated
Skin: Reports Other (BL LE edema )
--- NOTE | 2025-04-07 09:54 | VNURNOTE ---
Chart reviewed. Patient is declining hospice. Home Health Liaison met with patient at bedside to discuss [facility] nurse/therapy, visits, schedule and homebound status. Patient had [facility] briefly last month. She is agreeable and understands that visits
at home will be 2-3 x per week to assess and teach medical management. Patient is aware that [facility] will contact them for start of care in 1-2 days after discharge from .
[facility] referral completed in [facility].
--- NOTE | 2025-04-07 10:57 | PN.CDI ---
CDI
- -
CDI:
Physician Documentation Request
Admit Date: 04/04/25 22:55
Dear Doctor Fernando,
Patient presents with anemia. Pt has metastatic pancreatic cancer.
Sodium results:
Laboratory Tests
04/04/25 04/05/25 04/07/25
19:34 05:14 05:25
Sodium 130 L 131 L 134 L
Could you please provide a diagnosis that supports the above lab abnormalities and additional evaluation/ monitoring:
Hyponatremia
abnormal lab value clinically insignificant
Other
Use of terms such as suspected, likely, concern for, or probable (associated with a specific diagnosis that is being evaluated, monitored, or treated as if it exists) are acceptable and can be coded in the inpatient setting, when documented at the
time of discharge.
Thank you,
Estelita Gutierres RN, BSN
CDI Specialist
tiger text
Please use your independent medical judgment in providing your response.
--- NOTE | 2025-04-07 11:06 | PN.CDI ---
CDI
- -
CDI:
Physician Documentation Request
Admit Date: 04/04/25 22:55
Dear Doctor Fernando,
Patient found to have bilateral lower extremity DVTs on 04/05 peripheral vascular ultrasound done for bilateral calf pain.
Please clarify which of the following accurately represents the acuity of the DVTs:
____ Acute
Chronic
____ Other
Use of terms such as suspected, likely, concern for, or probable (associated with a specific diagnosis that is being evaluated, monitored, or treated as if it exists) are acceptable and can be coded in the inpatient setting, when documented at the
time of discharge.
Thank you,
Estelita Gutierres RN, BSN
CDI Specialist
tiger text
Please use your independent medical judgment in providing your response.
--- NOTE | 2025-04-07 11:23 | PN.CDI ---
CDI
- -
CDI:
Physician Documentation Request
Admit Date: 04/04/25 22:55
Dear Doctor Fernando,
04/06 hospitalist progress note states 'Protein calorie malnutrition moderate to severe with BMI of 20'
To ensure the quality of the medical record, based on the above information and the recognized standards for malnutrition , could you please verify in your progress notes which of the following responses best reflects the patient's nutritional
status:
Moderate Malnutrition is/was present and is a clinical diagnosis (please provide additional support in the medical record)
Severe Malnutrition is/was present and is a clinical diagnosis (please provide additional support in the medical record)
No nutritional deficiency
[place] Criteria ([facility] Hospitalist 2017)
2 or more criteria must be present for either
non severe or severe malnutrition
Note that the criteria differs related to the
presence of an acute or chronic illness
Acute Illness Chronic Illness
Energy Intake Non Severe: <75% for >7 days Non Severe: <75% for >1 month
Severe: <50% for >5 days Severe: <75% for >1 month
Weight Loss Non Severe: 1-2% over 1 week Non Severe: 5% over 1 month
5% over 1 month 7.5% over 3 months
7.5% over 3 months 10% over 6 months
1 year N/A 20% over 1 year
Severe: >2% over 1 week Severe: >5% over 1 month
>5% over 1 month >7.5% over 3 months
>7.5% over 3 months >10% over 6 months
1 year N/A >20% over 1 year
Body Fat Non Severe: Mild Decrease Non Severe: Mild Loss
Severe: Moderate Decrease Severe: Severe Loss
Muscle Mass Non Severe: Mild Decrease Non Severe: Mild Loss
Severe: Moderate Decrease Severe: Severe Loss
Fluid Accumulation Non Severe: Mild Accumulation Non Severe: Mild Accumulation
Severe: Moderate to severe Severe: Moderate to severe
accumulation accumulation
Reduced Emergency Room Doctor Strength Non Severe: N/A Non Severe: N/A
Severe: Measurably reduced Severe: Measurably reduced
Use of terms such as suspected, likely, concern for, or probable (associated with a specific diagnosis that is being evaluated, monitored, or treated as if it exists) are acceptable and can be coded in the inpatient setting, when documented at the
time of discharge.
Thank you,
Estelita Gutierres RN, BSN
CDI Specialist
tiger text
Please use your independent medical judgment in providing your response.
[2025-04-07 13:03] LABS: Glucose - Point of Care 155 mg/dl (70-99)
[2025-04-07] MEDS: NSS 1000 IV (13:25)
[2025-04-07 13:47] LABS: AST (SGOT) 24 U/L (14-36); Albumin 2.4 g/dl (3.5-5.0); Alkaline Phosphatase 662 U/L (38-126); Blood Urea Nitrogen 17 mg/dl (7-17); Calcium 7.1 mg/dl (8.4-10.2); Carbon Dioxide 21 mmol/L (22-30); Chloride 107 mmol/L (98-107); Estimated Creatinine Clearance 32 ml/min; Glucose 141 mg/dl (70-99); Sodium 132 mmol/L (135-145); Total Bilirubin 0.8 mg/dl (0.2-1.3); Total Protein 5.2 g/dl (6.3-8.2); eGFR 47.21
[2025-04-07 13:51] LABS: % Basophils 0.3 % (0-2); % Eosinophils 0.8 % (0-6); % Immature Granulocytes 0.7 % (0-0.5); % Lymphocytes 6.6 % (20.5-51.1); % Monocytes 9.3 % (1.7-9.3); % Neutrophils 82.3 % (42.2-75.2); Absolute Basophils 0.1 10^3/uL (0-0.2); Absolute Eosinophils 0.2 10^3/uL (0-0.7); Absolute Immature Granulocytes 0.1 10^3/uL (0-0.05); Absolute Lymphocytes 1.3 10^3/uL (1.2-3.4); Absolute Monocytes 1.9 10^3/uL (0.1-0.6); Absolute Neutrophils 16.5 10^3/uL (1.4-6.5); Hematocrit 26.7 % (37.0-47.0); Hemoglobin 8.7 g/dL (12.0-16.0); Mean Corp Hgb Conc. 32.6 g/dL (33.0-37.0); Mean Corpuscular Hgb 31.1 pg (27.0-31.0); Mean Corpuscular Volume 95.4 fL (81.0-99.0); Mean Platelet Volume 10.9 fL (7.4-10.4); Nucleated Red Blood Cells % 0 %; Platelet Count 172 10^3/uL (130-400); Red Cell Dist. Width 17.3 % (11.5-14.5)
[2025-04-07 13:52] LABS: INR 1.34; PT 16.9 Sec (11.4-14.6)
[2025-04-07 13:53] LABS: APTT 39.6 Sec (23.4-35.0)
[2025-04-07 13:57] LABS: ALT (SGPT) 14 U/L (0-35); Potassium 4.2 mmol/L (3.5-5.1)
--- NOTE | 2025-04-07 14:25 | CM ---
CM following re: discharge planning.
Reviewed pt's chart, met with pt and pt's at bedside.
Per Oncology, pt is not interested in hospice care, continue supportive care.
PT and OT continue recommending [facility] services.
[facility] liaison following.
Please fax discharge instructions to [facility] at [phone].
D/c plan: home with [facility] and family support.
CM will follow with discharge plan updates as hospitalization progresses
--- NOTE | 2025-04-07 15:50 | W.PN.HOSP.TC ---
Today's Communication/Plan
-
New episode of rectal bleeding suspect secondary to hemorrhoidal or stercoral ulcer with constipation
Follow-up hemoglobin.
She has been off anticoagulation.
Goals of care discussion
CODE STATUS changed to DNR
Assessment / Plan
Assessment / Plan
Impression:
Symptomatic severe anemia, multifactorial
Thrombocytopenia
Metastatic to the liver pancreatic carcinoma.
Bilateral lower extremity DVT
Portal thrombosis.
Pelvic mass with concern for possible hematoma versus neoplastic.
Acute cholecystitis requiring treated with percutaneous cholecystectomy currently in place.
Deconditioning.
Protein calorie malnutrition moderate to severe with BMI of 20
Plan:
Presents with symptomatic anemia and hemoglobin as low as 5.
Anemia is likely multifactorial due to myelosuppression with chemotherapy, possibly slow gastrointestinal hemorrhage, although with no evidence for acute blood loss or hemolysis.
Appropriate response to transfusion with hemoglobin at 8.4.
Another episode of rectal bleeding with bright red blood per rectum on 04/07. Self-limited.
Follow-up hemoglobin stable at 8.7
Suspect rectal bleeding secondary to either hemorrhoidal or stercoral ulcer in the settings of constipation. Less likely upper GI source given relative hemodynamic stability as well as normal BUN.
Discussed with GI
Currently no clinical indication for repeat endoscopy.
She has been off anticoagulation for lower extremity DVT which was discontinued about 2 weeks prior to presentation.
Transition to oral PPI
Bilateral lower extremity DVT.
Patient denies any chest pain and has stable respiratory status at rest.
Not a candidate for anticoagulation due to above.
Currently no indication for thrombolysis therapy.
Status post IVC filter placement on 04/06
Acute cholecystitis
Status post percutaneous cholecystostomy
On antibiotics/Augmentin
Metastatic to the liver pancreatic carcinoma.
With progressive hepatic metastatic prognosis remains poor.
Extensive discussion with patient and patient's at the bedside.
Patient is not ready for hospice transition, although would consider palliative care consultation as outpatient
Preferred to be discharged home
Will ask for PT evaluation after IVC filter placement
Malignant pain
Continue preadmission regimen including oxycodone, Tylenol,
Goals of care discussion with patient and multiple family members including and son's at the bedside
Stage IV pancreatic carcinoma with deteriorating performance status.
Current admission with severe anemia requiring transfusions, recurrent bleeding.
Patient made decision not to proceed with any invasive or aggressive testing and treatment including ICU care and CPR.
CODE STATUS changed to DNR
Anticipated Discharge: > 48 hours
Subjective/Interval History
-
Date of Service: April 07, 2025
Objective Data
-
Labs:
Laboratory Results
04/07/25 04/07/25 04/07/25
13:19 14:03
WBC 11.4 H 20.0 H
Hgb 8.4 L 8.7 L Pending
Hct 25.1 L 26.7 L
Plt Count 109 L D 172 D
PT 16.9 H
INR 1.34
APTT 39.6 H
Sodium 134 L 132 L
Potassium 4.0 4.2
Chloride 107 107
Carbon Dioxide 24 21 L
BUN 16 17
Creatinine 1.1 H 1.2 H
Glucose 86 141 H
Calcium 7.0 L 7.1 L
Total Bilirubin 0.7 0.8
AST 20 24
ALT 12 14
Alkaline Phosphatase 559 H 662 H
04/07/25
22:03
WBC
Hgb Pending
Hct
Plt Count
PT
INR
APTT
Sodium
Potassium
Chloride
Carbon Dioxide
BUN
Creatinine
Glucose
Calcium
Total Bilirubin
AST
ALT
Alkaline Phosphatase
Vital Signs:
Vital Signs
Temp Pulse Resp BP Pulse Ox
98.0 F 92 12 93/53 99
04/07/25 15:00 04/07/25 15:00 04/07/25 15:00 04/07/25 15:00 04/07/25 15:00
I&O
04/06/25 04/07/25 04/08/25
06:59 06:59 06:59
Intake Total 1240 / 1240 780 / 780
Balance 1240 / 1240 780 / 780
Physical Exam
-
General: Well Developed, No Apparent Distress, Appears Chronically Ill and Other (Cachectic and frail)
HEENT: Normocephalic, Atraumatic, Moist Mucous Membranes and Anicteric
Respiratory: Clear to Auscultation and Non Labored Respirations
Cardiac: Regular Rhythm and S1/S2; Negative Murmur, Rub or Gallop
GI: Soft, Nondistended, Normal Bowel Sounds and Tender (Mild, generalized, no peritoneal signs)
Musculoskeletal: No Clubbing, No Cyanosis and No Edema
Skin: Warm, Dry and Normal Turgor; Negative Rash
Neuro: AO x 3 and Nonfocal/Grossly Intact
Psych: Calm
--- NOTE | 2025-04-07 15:57 | CHAP ---
Emotional and spiritual support provided to Sade and family.
[2025-04-07] MEDS: LOMOTIL 1 TABLET PO (16:53)
[2025-04-07] MEDS: TYLENOL 500 MG PO (21:11)
[2025-04-07] MEDS: BENADRYL 25 MG PO (21:11)
[2025-04-07] MEDS: ATIVAN 0.5 MG PO (21:12)
[2025-04-07 21:24] LABS: Hemoglobin 5.9 g/dL (12.0-16.0)
--- NOTE | 2025-04-07 22:01 | PTCARENOTE ---
HGB 5.9- x1 PRBC ordered
[2025-04-08] VITALS (11 sets, daily range): BP systolic 92–107; BP diastolic 47–62; BMI 21.4
--- NOTE | 2025-04-08 04:26 | W.PN.UPDATE ---
Update Note
Progress Note Update
~ 21:00�Critical value: Hgb 5.9, ordered 1 unit PRBC's to transfuse tonight. Repeat labs in am.
[2025-04-08 05:29] LABS: Hemoglobin 7.9 g/dL (12.0-16.0)
[2025-04-08 05:42] LABS: % Basophils 0.2 % (0-2); % Eosinophils 1.2 % (0-6); % Immature Granulocytes 1.1 % (0-0.5); % Lymphocytes 4.7 % (20.5-51.1); % Monocytes 7.2 % (1.7-9.3); % Neutrophils 85.6 % (42.2-75.2); Absolute Eosinophils 0.2 10^3/uL (0-0.7); Absolute Immature Granulocytes 0.2 10^3/uL (0-0.05); Absolute Lymphocytes 0.7 10^3/uL (1.2-3.4); Absolute Neutrophils 11.9 10^3/uL (1.4-6.5); Hematocrit 23.6 % (37.0-47.0); Hemoglobin 7.8 g/dL (12.0-16.0); Mean Corp Hgb Conc. 33.1 g/dL (33.0-37.0); Mean Corpuscular Hgb 31.7 pg (27.0-31.0); Mean Corpuscular Volume 95.9 fL (81.0-99.0); Mean Platelet Volume 10.7 fL (7.4-10.4); Nucleated Red Blood Cells % 0 %; Platelet Count 139 10^3/uL (130-400); Red Blood Cell Count 2.46 10^6/uL (4.20-5.40); Red Cell Dist. Width 16.9 % (11.5-14.5); White Blood Cell Count 13.9 10^3/uL (4.8-10.8)
[2025-04-08 05:58] LABS: ALT (SGPT) 11 U/L (0-35); AST (SGOT) 21 U/L (14-36); Albumin 2.1 g/dl (3.5-5.0); Alkaline Phosphatase 488 U/L (38-126); Blood Urea Nitrogen 21 mg/dl (7-17); Calcium 6.6 mg/dl (8.4-10.2); Carbon Dioxide 22 mmol/L (22-30); Chloride 109 mmol/L (98-107); Estimated Creatinine Clearance 37 ml/min; Glucose 93 mg/dl (70-99); Potassium 4.5 mmol/L (3.5-5.1); Sodium 135 mmol/L (135-145); Total Bilirubin 0.7 mg/dl (0.2-1.3); Total Protein 4.6 g/dl (6.3-8.2)
--- NOTE | 2025-04-08 06:00 | PTCARENOTE ---
Kishan SPOUT WORKER made aware of AM labs. No new orders at this time
[2025-04-08 07:07] LABS: Haptoglobin 261 mg/dL (30-200)
[2025-04-08] MEDS: AUGMENTIN 875 MG/125 MG 1 TABLET PO ×2 (08:33→19:59)
[2025-04-08] MEDS: PROTONIX 40 MG PO (08:33)
[2025-04-08] MEDS: THERAGRAN 1 TABLET PO (08:34)
[2025-04-08] MEDS: ROXICODONE 5 MG PO ×2 (08:36→17:30)
[2025-04-08] MEDS: LOMOTIL 2 TABLET PO (08:36)
--- NOTE | 2025-04-08 08:56 | W.PN.HOSP.TC ---
Today's Communication/Plan
-
Repeat CBC in AM , might need more blood transfusion
PT / OT
Assessment / Plan
Assessment / Plan
Physical Exam
-
General: No Apparent Distress, Appears Chronically Ill and Other (Cachectic and frail)
HEENT: Normocephalic, Atraumatic, Moist Mucous Membranes and Anicteric
Respiratory: Clear to Auscultation and Non Labored Respirations
Cardiac: Regular Rhythm and S1/S2;
GI: Soft, Nondistended, Normal Bowel Sounds and right upper quadrant drain
Musculoskeletal: No Clubbing, No Cyanosis and No Edema
Skin: Warm, Dry and Normal Turgor; Negative Rash
Neuro: AO x 3 and Nonfocal/Grossly Intact
Psych: Calm
# Over night HGB at 5.9, went up to 7.9 after only one unit of RBCS, unlikely accurate reading of 5.9
Impression:
Symptomatic severe anemia, multifactorial
Thrombocytopenia
Metastatic to the liver pancreatic carcinoma.
Bilateral lower extremity DVT
Portal thrombosis.
Pelvic mass with concern for possible hematoma versus neoplastic.
Acute cholecystitis requiring treated with percutaneous cholecystectomy currently in place.
Deconditioning.
Protein calorie malnutrition moderate to severe with BMI of 20
Plan:
Presented with symptomatic anemia and hemoglobin as low as 5.
Anemia is likely multifactorial due to myelosuppression with chemotherapy, chronic blood loss anemia/ slow gastrointestinal hemorrhage, although with no evidence for acute blood loss or hemolysis.
Appropriate response to transfusion with hemoglobin
Another episode of rectal bleeding with bright red blood per rectum on 04/07. Self-limited.
Suspect rectal bleeding secondary to either hemorrhoidal or stercoral ulcer in the settings of constipation. Less likely upper GI source given relative hemodynamic stability as well as normal BUN.
Discussed with GI, upper EGD done 03/22 and showed non bleeding gastric varices. Recommend conservative management with blood transfusion and comfort care.
Currently no clinical indication for repeat endoscopy.
She has been off anticoagulation for lower extremity DVT which was discontinued about 2 weeks prior to presentation.
c/w oral PPI
Bilateral lower extremity DVT.
Patient denies any chest pain and has stable respiratory status at rest.
Not a candidate for anticoagulation due to above.
Currently no indication for thrombolysis therapy.
Status post IVC filter placement on 04/06
Acute cholecystitis
Status post percutaneous cholecystostomy
On antibiotics/Augmentin
# Pancytopenia due to chemotherapy
# Hyponatremia
# chronic diarrhea
d/w GI, /w Lomotil
Metastatic to the liver pancreatic carcinoma.
With progressive hepatic metastatic prognosis remains poor.
Extensive discussion with patient and patient's at the bedside.
Patient is not ready for hospice transition, although would consider palliative care consultation as outpatient
Preferred to be discharged home
chronic pain syndrome due to cancer pain
Continue preadmission regimen including oxycodone, Tylenol,
Goals of care discussion with patient and multiple family members including and son's at the bedside
Stage IV pancreatic carcinoma with deteriorating performance status.
Current admission with severe anemia requiring transfusions, recurrent bleeding.
Patient made decision not to proceed with any invasive or aggressive testing and treatment including ICU care and CPR.
CODE STATUS changed to DNR
Total time spent to see the patient, examine the patient, review data and lab results, discuss treatment plan with patient and nursing staff around 55 minutes
Anticipated Discharge: 24 - 48 hours
Subjective/Interval History
-
Date of Service: April 08, 2025
She reports the GI drain is bothering her
No chest pain
Objective Data
-
Labs:
Laboratory Results
04/07/25 04/07/25 04/08/25
14:03 21:03 04:55
WBC 13.9 H
Hgb Cancelled 5.9 L* D 7.8 L D
Hct
Plt Count
Sodium
Potassium
Chloride
Carbon Dioxide
BUN
Creatinine
Glucose
Calcium
Total Bilirubin
AST
ALT
Alkaline Phosphatase
04/08/25
04:55
WBC
Hgb 7.9 L
Hct 23.6 L
Plt Count 139
Sodium 135
Potassium 4.5
Chloride 109 H
Carbon Dioxide 22
BUN 21 H
Creatinine 1.1 H
Glucose 93
Calcium 6.6 L*
Total Bilirubin 0.7
AST 21
ALT 11
Alkaline Phosphatase 488 H
Vital Signs:
Vital Signs
Temp Pulse Resp BP Pulse Ox
99.3 F 95 18 100/57 95
04/08/25 07:00 04/08/25 07:00 04/08/25 07:00 04/08/25 07:00 04/08/25 07:00
I&O
04/07/25 04/08/25 04/09/25
06:59 06:59 06:59
Intake Total 780 / 780 1210 / 1210
Balance 780 / 780 1210 / 1210
--- NOTE | 2025-04-08 15:06 | PTCARENOTE ---
Patient had 1 episode of large amount bloody stool with clots; VSS; Dr. Qureshi notified; PRBCs 1 unit ordered.
[2025-04-08] MEDS: TYLENOL 650 MG PO (17:29)
[2025-04-08] MEDS: LOMOTIL 1 TABLET PO (17:30)
--- NOTE | 2025-04-08 18:19 | PTCARENOTE ---
Patient received 1 unit PRBCs; no reaction noted.
[2025-04-08] MEDS: ATIVAN 0.5 MG PO (21:17)
[2025-04-08] MEDS: BENADRYL 25 MG PO (21:18)
[2025-04-08] MEDS: TYLENOL 500 MG PO (21:18)
[2025-04-09 03:13] VITALS: BMI 20.1
[2025-04-09 03:15] VITALS: BP 114/71
[2025-04-09 06:24] LABS: Hematocrit 27.2 % (37.0-47.0); Hemoglobin 8.9 g/dL (12.0-16.0); Mean Corp Hgb Conc. 32.7 g/dL (33.0-37.0); Mean Corpuscular Hgb 31.3 pg (27.0-31.0); Mean Corpuscular Volume 95.8 fL (81.0-99.0); Mean Platelet Volume 10.8 fL (7.4-10.4); Platelet Count 181 10^3/uL (130-400); Red Blood Cell Count 2.84 10^6/uL (4.20-5.40); Red Cell Dist. Width 16.5 % (11.5-14.5); White Blood Cell Count 22.8 10^3/uL (4.8-10.8)
--- NOTE | 2025-04-09 06:43 | PTCARENOTE ---
Addendum entered by Scarlet Elizabeth RN 04/09/25 06:57:
IV Ativan ordered and administered.
Original Note:
Patient had a large rectal bleed. HR 130s. Pt states that she is ready to . Patient's spouse notified. House [employer] INSPECTOR made aware. STAT order of Morphine requested.
[2025-04-09] MEDS: NSS (PRESERVATIVE FREE) 0.125 ML IV (06:48)
[2025-04-09] MEDS: ATIVAN 0.25 MG IV (06:48)
[2025-04-09 07:00] VITALS: BP 86/48
--- NOTE | 2025-04-09 07:00 | PTCARENOTE ---
Hospitalist made aware of patient's wish to be placed on comfort.
--- NOTE | 2025-04-09 08:00 | W.PN.HOSP.TC ---
Addendum entered and electronically signed by Rodney Qureshi MD 04/10/25 12:52:
pt has significant muscle mass loss mostly in her face/ temporal areas/ scaphoid abdomen
loss of subcutaneous fat
Original Note:
Today's Communication/Plan
-
Comfort care
IV morphine
M for inpt hospice
Assessment / Plan
Assessment / Plan
Physical Exam
-
General: Appears Chronically Ill and Other (Cachectic and frail)
HEENT: Normocephalic, Atraumatic, Moist Mucous Membranes and Anicteric
Respiratory: shallow breathing with rales
Cardiac: Regular Rhythm and S1/S2; tachycardia, no peripherla pulse
GI: Soft, Nondistended, Normal Bowel Sounds and right upper quadrant drain
Musculoskeletal: No Clubbing, No Cyanosis and No Edema
Skin: Warm, Dry and Normal Turgor; Negative Rash
Neuro: mildly responsive
Psych: lethargic
# hemorrhagic and hypovolemic shock
Over night , pt had another bloody BM and wanted to stop invasive care and go on comfort care
She received one unit of RBCs last evening , total 4 units
patient told staff including night team that she wanted to let go and in peace, she also asked for iV morphine. was called to come in.
Currently, pt is in process of dying with depressed responsiveness, cold and clammy with faint radial pulse, heart is tachycardia with respiratory rales. and family at bed side requested to keep her alive if possible and without invasive
measures until two sons arrive
BP 80/42, I made bed flat and gave her bolus IVF, she seems to be able to open eyes.
Impression:
Symptomatic severe anemia, multifactorial
Thrombocytopenia
Metastatic to the liver pancreatic carcinoma.
Bilateral lower extremity DVT
Portal thrombosis.
Pelvic mass
Acute cholecystitis requiring treated with percutaneous cholecystectomy currently in place.
Deconditioning/ failure to thrive
Protein calorie malnutrition moderate to severe with BMI of 20
Presented with symptomatic anemia and hemoglobin as low as 5.
Anemia is likely multifactorial due to myelosuppression with chemotherapy, chronic blood loss anemia/ slow gastrointestinal hemorrhage, although with no evidence for acute blood loss or hemolysis.
Appropriate response to transfusion with hemoglobin
Another episode of rectal bleeding with bright red blood per rectum on 04/07. Self-limited.
Suspect rectal bleeding secondary to either hemorrhoidal or stercoral ulcer in the settings of constipation. Less likely upper GI source given relative hemodynamic stability as well as normal BUN.
Discussed with GI, upper EGD done 03/22 and showed non bleeding gastric varices. Recommend conservative management with blood transfusion and comfort care.
Currently no clinical indication for repeat endoscopy.
She has been off anticoagulation for lower extremity DVT which was discontinued about 2 weeks prior to presentation.
c/w oral PPI
# Bilateral lower extremity DVT.
Not a candidate for anticoagulation due to above.
Currently no indication for thrombolysis therapy.
Status post IVC filter placement on 04/06
#Acute cholecystitis. Status post percutaneous cholecystostomy
# Pancytopenia due to chemotherapy
# Hyponatremia
# chronic diarrhea
# Metastatic to the liver pancreatic carcinoma.
With progressive hepatic metastatic prognosis remains poor.
Extensive discussion with patient and patient's at the bedside.
Patient reported she was for comfort care/ morphine.
# chronic pain syndrome due to cancer pain
Goals of care discussion with patient and multiple family members including and son's at the bedside, they wanted comfort care now. Consulted cM for hopsice, hold lorenzo medications, started on IV PRN morphine
DNR
Total time spent to see the patient, examine the patient, review data and lab results, discuss treatment plan with patient, family and nursing staff around 55 minutes
Anticipated Discharge: Within 24 hours
Subjective/Interval History
-
Date of Service: April 09, 2025
Patient is in comfort care now based on her request
Objective Data
-
Labs:
Laboratory Results
04/09/25
05:13
WBC 22.8 H
Hgb 8.9 L
Hct 27.2 L
Plt Count 181 D
Vital Signs:
Vital Signs
Temp Pulse Resp BP Pulse Ox
98.0 F 135 52 86/48 96
04/09/25 07:00 04/09/25 07:00 04/09/25 07:00 04/09/25 07:00 04/09/25 07:00
I&O
04/08/25 04/09/25 04/10/25
06:59 06:59 06:59
Intake Total 1210 / 1210 850 / 850
Output Total 400 / 400
Balance 1210 / 1210 450 / 450
[2025-04-09] MEDS: MORPHINE SULFATE 4 MG IV (08:18)
--- NOTE | 2025-04-09 09:06 | CM ---
CM reviewed chart and consult for Hospice. Referral made via [facility] to [facility] for review. Message also left for on-call hereditary cancer program coordinator- pending return call to discuss pt further. Will leave consult open for the time being.
CM will continue to follow.
--- NOTE | 2025-04-09 10:00 | PTCARENOTE ---
Patient transitioned to comfort care this morning; morphine 4mg IV administered at 0818; family at bedside; emotional support provided.
--- NOTE | 2025-04-09 11:09 | HOSPNOTE ---
Addendum entered by Marilynn Jeffries RN 04/09/25 22:39:
Hospice nurse Angie met with family at bedside. Patient is awake and reported that the morphine makes her feel fuzzy and she did not want to take it anymore. Attending updated. Family would like to see how patient does overnight and reassess for
inpatient hospice tomorrow. If patient is somehow able to stand, then family would like to consider bringing patient home. They were not ready to sign onto hospice today. Will follow and update after evaluation tomorrow morning.
Addendum entered by Marilynn Jeffries RN 04/09/25 11:59:
called back. He is bedside. Hospice will visit today and offer support.
Original Note:
Hospice referral received. Spoke to attending and attending feels patient is actively dying and will remain on comfort measures. If patient survives into the morning, can then offer inpatient hospice. Called spouse to introduce self and offer
support, voicemail left with return phone number. Attending and CM updated.
[2025-04-09 23:09] VITALS: BP 83/53
[2025-04-10] MEDS: BENADRYL 25 MG PO (00:03)
[2025-04-10] MEDS: ATIVAN 0.5 MG PO ×2 (00:03→20:49)
[2025-04-10 07:00] VITALS: BP 109/76
[2025-04-10] MEDS: ROXICODONE 5 MG PO (08:47)
--- NOTE | 2025-04-10 10:23 | W.PN.ONC2 ---
Today's Communication / Plan
-
Conversation with hospice care, please see subjective
Impression
Impression
74-year-old female with past medical history of CKD stage IIIa, hyperlipidemia, osteoporosis, hepatic biloma, anemia, ACD, provoked DVTs on Eliquis, and history of advanced metastatic pancreatic cancer to liver, currently on chemotherapy being
managed for DVT and upper GI bleed.
Plan
Plan
� Ongoing discussion with hospice regarding comfort care.
� GI is not recommending further scope at this time, will re consult if needed
� All other care per primary medical team
Subjective/Objective
Subjective
Over the weekend, patient continued to have bleeding and stated very clearly that she would not like to have CPR or any invasive measures that could hurt her. In conversation, she mentioned that she may still want blood and is unsure if she wants
to transition to comfort care yet. She is not taking anything IV and hospice will see her this morning. Her family reiterated that they would like her to be on comfort care in the hospital if she chooses to pursue it as they feel she will have
better support than at home. Patient was in agreement that she is not strong enough to go home. Patient was in and out of consciousness during conversation, very fatigued, frail and worried. Her web ui developer came in this morning and is at bedside with
and son. They are having a family discussion with the hospice team regarding neck steps.
Vital Signs:
Vital Signs
Temp Pulse Resp BP Pulse Ox
99.6 F 133 16 109/76 95
04/10/25 07:00 04/10/25 07:00 04/10/25 07:00 04/10/25 07:00 04/10/25 08:00
Lab Results:
Laboratory Data
WBC 22.8 10^3/uL (4.8-10.8) H 04/09/25 05:13
Hgb 8.9 g/dL (12.0-16.0) L 04/09/25 05:13
Plt Count 181 10^3/uL (130-400) D 04/09/25 05:13
PT 16.9 Sec (11.4-14.6) H 04/07/25 13:19
INR 1.34 04/07/25 13:19
APTT 39.6 Sec (23.4-35.0) H 04/07/25 13:19
eGFR 52.40 04/08/25 04:55
Physical Exam
General: Alert and oriented x 3, conversant, resting in bed
GI: Soft
Extremities: Edema
Review of Systems
Review of Systems
Reviewed and negative unless otherwise stated
Constitutional: Reports Fatigue
Gastrointestinal: Reports Other (GI bleed)
--- NOTE | 2025-04-10 10:26 | PN.CDI ---
Addendum entered and electronically signed by Rodney Qureshi MD 04/10/25 12:42:
Acute
Original Note:
CDI
- -
CDI:
Physician Documentation Request
Admit Date: 04/04/25 22:55
Dear Doctor Kiera,
Patient found to have bilateral lower extremity DVTs on 04/05 peripheral vascular ultrasound done for bilateral calf pain.
Please clarify which of the following accurately represents the acuity of the DVTs:
____ Acute
Chronic
____ Other
Use of terms such as suspected, likely, concern for, or probable (associated with a specific diagnosis that is being evaluated, monitored, or treated as if it exists) are acceptable and can be coded in the inpatient setting, when documented at the
time of discharge.
Thank you,
Estelita Gutierres RN, BSN
CDI Specialist
tiger text
Please use your independent medical judgment in providing your response.
--- NOTE | 2025-04-10 10:27 | PN.CDI ---
Addendum entered and electronically signed by Rodney Qureshi MD 04/10/25 12:43:
Severe Malnutrition is present and is a clinical diagnosis
Original Note:
CDI
- -
CDI:
Physician Documentation Request
Admit Date: 04/04/25 22:55
Dear Doctor Kiera,
04/06 hospitalist progress note states 'Protein calorie malnutrition moderate to severe with BMI of 20'
To ensure the quality of the medical record, based on the above information and the recognized standards for malnutrition , could you please verify in your progress notes which of the following responses best reflects the patient's nutritional
status:
Moderate Malnutrition is/was present and is a clinical diagnosis (please provide additional support in the medical record)
Severe Malnutrition is/was present and is a clinical diagnosis (please provide additional support in the medical record)
No nutritional deficiency
[place] Criteria ([facility] Hospitalist 2017)
2 or more criteria must be present for either
non severe or severe malnutrition
Note that the criteria differs related to the
presence of an acute or chronic illness
Acute Illness Chronic Illness
Energy Intake Non Severe: <75% for >7 days Non Severe: <75% for >1 month
Severe: <50% for >5 days Severe: <75% for >1 month
Weight Loss Non Severe: 1-2% over 1 week Non Severe: 5% over 1 month
5% over 1 month 7.5% over 3 months
7.5% over 3 months 10% over 6 months
1 year N/A 20% over 1 year
Severe: >2% over 1 week Severe: >5% over 1 month
>5% over 1 month >7.5% over 3 months
>7.5% over 3 months >10% over 6 months
1 year N/A >20% over 1 year
Body Fat Non Severe: Mild Decrease Non Severe: Mild Loss
Severe: Moderate Decrease Severe: Severe Loss
Muscle Mass Non Severe: Mild Decrease Non Severe: Mild Loss
Severe: Moderate Decrease Severe: Severe Loss
Fluid Accumulation Non Severe: Mild Accumulation Non Severe: Mild Accumulation
Severe: Moderate to severe Severe: Moderate to severe
accumulation accumulation
Reduced Roll Weigher Strength Non Severe: N/A Non Severe: N/A
Severe: Measurably reduced Severe: Measurably reduced
Use of terms such as suspected, likely, concern for, or probable (associated with a specific diagnosis that is being evaluated, monitored, or treated as if it exists) are acceptable and can be coded in the inpatient setting, when documented at the
time of discharge.
Thank you,
Estelita Gutierres RN, BSN
CDI Specialist
tiger text
Please use your independent medical judgment in providing your response.
--- NOTE | 2025-04-10 10:29 | W.PN.HOSP.TC ---
Today's Communication/Plan
-
Continue comfort care, use Dilaudid instead of morphine
Assessment / Plan
Assessment / Plan
Physical Exam
-
General: Appears Chronically Ill and Other (Cachectic and frail)
HEENT: Normocephalic, Atraumatic, Moist Mucous Membranes and Anicteric
Respiratory: shallow breathing with rales
Cardiac: Regular Rhythm and S1/S2; tachycardia, no peripherla pulse
GI: Soft, Nondistended, Normal Bowel Sounds and right upper quadrant drain
Musculoskeletal: No Clubbing, No Cyanosis and No Edema
Skin: Warm, Dry and Normal Turgor; Negative Rash
Neuro: mildly responsive
Psych: lethargic
# hemorrhagic and hypovolemic shock
Over night , pt had another bloody BM and wanted to stop invasive care and go on comfort care
She received one unit of RBCs last evening , total 4 units
patient told staff including night team that she wanted to let go and in peace, she also asked for iV morphine. was called to come in.
Currently, pt is in process of dying with depressed responsiveness, cold and clammy with faint radial pulse, heart is tachycardia with respiratory rales. and family at bed side requested to keep her alive if possible and without invasive
measures until two sons arrive
BP 80/42, I made bed flat and gave her bolus IVF, she seems to be able to open eyes.
Impression:
Symptomatic severe anemia, multifactorial
Thrombocytopenia
Metastatic to the liver pancreatic carcinoma.
Bilateral lower extremity acute DVT
Portal thrombosis.
Pelvic mass
Acute cholecystitis requiring treated with percutaneous cholecystectomy currently in place.
Deconditioning/ failure to thrive
Protein calorie malnutrition moderate to severe with BMI of 20 with significant muscle mass loss and atrophy most noticeably in face, temporal area scaphoid bone. Loss of subcutaneous fat noted.
Presented with symptomatic anemia and hemoglobin as low as 5.
Anemia is likely multifactorial due to myelosuppression with chemotherapy, acute on chronic blood loss anemia/ slow gastrointestinal hemorrhage, although with no evidence for acute blood loss or hemolysis.
Appropriate response to transfusion with hemoglobin
Another episode of rectal bleeding with bright red blood per rectum on 04/07. Self-limited.
Suspect rectal bleeding secondary to either hemorrhoidal or stercoral ulcer in the settings of constipation. Less likely upper GI source given relative hemodynamic stability as well as normal BUN.
Discussed with GI, upper EGD done 03/22 and showed non bleeding gastric varices. Recommend conservative management with blood transfusion and comfort care.
Currently no clinical indication for repeat endoscopy.
She has been off anticoagulation for lower extremity DVT which was discontinued about 2 weeks prior to presentation.
c/w oral PPI
# Bilateral lower extremity DVT.
Not a candidate for anticoagulation due to above.
Currently no indication for thrombolysis therapy.
Status post IVC filter placement on 04/06
#Acute cholecystitis. Status post percutaneous cholecystostomy
# Pancytopenia due to chemotherapy
# Hyponatremia
# chronic diarrhea
# Metastatic to the liver pancreatic carcinoma.
With progressive hepatic metastatic prognosis remains poor.
Extensive discussion with patient and patient's at the bedside.
Patient reported she was for comfort care/ morphine.
# chronic pain syndrome due to cancer pain
Goals of care discussion with patient and multiple family members including and son's at the bedside, they wanted comfort care now. Consulted outsole caser for hospice, hold oral scheduled medications, started on IV PRN pain medicine, would
like to try Dilaudid instead of morphine
DNR
Total time spent to see the patient, examine the patient, review data and lab results, discuss treatment plan with patient, family and nursing staff around 55 minutes
Anticipated Discharge: Within 24 hours
Subjective/Interval History
-
Date of Service: April 10, 2025
Objective Data
-
Vital Signs:
Vital Signs
Temp Pulse Resp BP Pulse Ox
99.6 F 133 16 109/76 95
04/10/25 07:00 04/10/25 07:00 04/10/25 07:00 04/10/25 07:00 04/10/25 08:00
I&O
04/09/25 04/10/25 04/11/25
06:59 06:59 06:59
Intake Total 850 / 850 0 / 0
Output Total 400 / 400
Balance 450 / 450 0 / 0
--- NOTE | 2025-04-10 10:45 | PN.CDI ---
Addendum entered and electronically signed by Rodney Qureshi MD 04/10/25 12:43:
Acute on chronic blood loss anemia
Original Note:
CDI
- -
CDI:
Physician Documentation Request
Admit Date: 04/04/25 22:55
Dear Doctor Kiera,
04/05 Progress note contains 'Acute blood loss anemia'
04/08 progress note states 'hemorrhagic and hypovolemic shock...pt had another bloody BM....anemia is likely multifactorial due to myelosuppression with chemotherapy, chronic blood loss anemia/ slow gastrointestinal hemorrhage, although with no
evidence for acute blood loss or hemolysis'
Please clarify the following:
____ - Acute blood loss anemia is a valid diagnosis
____ - Acute blood loss anemia was ruled out
____ - Other
Use of terms such as suspected, likely, concern for, or probable (associated with a specific diagnosis that is being evaluated, monitored, or treated as if it exists) are acceptable and can be coded in the inpatient setting, when documented at the
time of discharge.
Thank you,
Estelita Gutierres RN, BSN
CDI Specialist
tiger text
Please use your independent medical judgment in providing your response.
--- NOTE | 2025-04-10 11:33 | W.PN.UPDATE ---
Update Note
Progress Note Update
Patient and family spoke with hospice nurse and have decided to move forward with inpatient hospice care. Instead of morphine, they would like to pursue Dilaudid. Patient is amenable and currently resting in bed. She is in and out of
consciousness and currently listening to shinto music. She reiterated that she feels weak and tired. Her , Frank is the power of employment attorney and stated that if he is not reachable or in the hospital that her son Chris Pierre ([phone]) has
the rights to make medical decisions. Both son and father were in the room during conversation.
--- NOTE | 2025-04-10 12:09 | HOSPNOTE ---
Met with the patient, her and son, patient is awake and alert, patients states patient has some periods of confusion. Patients denies pain, states her pain is managed on Oxycodone PO which she took this am. Patient states she does
not want to take Morphine. Discussed GIP hospice vs. home hospice. Patient not appropriate for GIP hospice as symptoms are managed, Chart reviewed by Margarette Anaya PAEDODONTIST, hospice PAEDODONTIST.Discussed with patient and her family SNF and home with private caregivers,
family stated they will discuss their options. Reviewed the role of home hospice. Updated Dr. Richardson of hospice discussion.
--- NOTE | 2025-04-10 13:29 | CM ---
CM following re: discharge planning.
Reviewed pt's chart, met with pt and pt's at bedside.
Pt's stated that pt has decided comfort care. Emotional support offered and provided.
hospice music therapy following.
D/C plan: comfort care.
CM is available for emotional support.
[2025-04-10] MEDS: DILAUDID 1 MG IV (16:15)
[2025-04-10 23:00] VITALS: BP 67/40
[2025-04-11] MEDS: DILAUDID 1 MG IV ×3 (02:55→16:26)
[2025-04-11 07:00] VITALS: BP 81/50
--- NOTE | 2025-04-11 09:36 | W.PN.ONC ---
Addendum entered and electronically signed by Sade You MD 04/11/25 12:07:
oncology will sign off, but please contact Dr Sade You via [email or web address] with any questions/
Original Note:
Today's Communication / Plan
-
Continue comfort measures, inpatient hospice
Impression
Impression
74-year-old female with past medical history of CKD stage IIIa, hyperlipidemia, osteoporosis, hepatic biloma, anemia, ACD, provoked DVTs on Eliquis, and history of advanced metastatic pancreatic cancer to liver, currently on chemotherapy being
managed for DVT and upper GI bleed.
Subjective/Objective
Subjective/Objective
and radiotelegraphist at bedside, patient is alert, but sleepy. Comfortable.
Vital Signs:
Vital Signs
Temp Pulse Resp BP Pulse Ox
98.1 F 97 14 81/50 95
04/11/25 07:00 04/11/25 07:00 04/11/25 07:00 04/11/25 07:00 04/11/25 07:00
Lab Results:
Laboratory Data
WBC 22.8 10^3/uL (4.8-10.8) H 04/09/25 05:13
Hgb 8.9 g/dL (12.0-16.0) L 04/09/25 05:13
Plt Count 181 10^3/uL (130-400) D 04/09/25 05:13
PT 16.9 Sec (11.4-14.6) H 04/07/25 13:19
INR 1.34 04/07/25 13:19
APTT 39.6 Sec (23.4-35.0) H 04/07/25 13:19
eGFR 52.40 04/08/25 04:55
--- NOTE | 2025-04-11 12:28 | HOSPNOTE ---
Patient will be inpatient hospice for pain and agitation. Spouse is in agreement with hospice and the philosophy. Admissions was called and hospice chart was started. Patient will be seen daily by hospice.
--- NOTE | 2025-04-11 16:09 | W.PN.HOSP.TC ---
Today's Communication/Plan
-
Continue comfort care.
Quiroz for recurrent retention and comfort.
Assessment / Plan
Assessment / Plan
Physical Exam
-
General: Appears Chronically Ill and Other (Cachectic and frail)
HEENT: Normocephalic, Atraumatic, Moist Mucous Membranes and Anicteric
Respiratory: shallow breathing with rales
Cardiac: Regular Rhythm and S1/S2; tachycardia, no peripherla pulse
GI: Soft, Nondistended, Normal Bowel Sounds and right upper quadrant drain
Musculoskeletal: No Clubbing, No Cyanosis and No Edema
Skin: Warm, Dry and Normal Turgor; Negative Rash
Neuro: mildly responsive
Psych: lethargic
# hemorrhagic and hypovolemic shock
Over night , pt had another bloody BM and wanted to stop invasive care and go on comfort care
She received one unit of RBCs last evening , total 4 units
patient told staff including night team that she wanted to let go and in peace, she also asked for iV morphine. was called to come in.
Currently, pt is in process of dying with depressed responsiveness, cold and clammy with faint radial pulse, heart is tachycardia with respiratory rales. and family at bed side requested to keep her alive if possible and without invasive
measures until two sons arrive
BP 80/42, I made bed flat and gave her bolus IVF, she seems to be able to open eyes.
Impression:
Symptomatic severe anemia, multifactorial
Thrombocytopenia
Metastatic to the liver pancreatic carcinoma.
Bilateral lower extremity acute DVT
Portal thrombosis.
Pelvic mass
Acute cholecystitis requiring treated with percutaneous cholecystectomy currently in place.
Deconditioning/ failure to thrive
Protein calorie malnutrition moderate to severe with BMI of 20 with significant muscle mass loss and atrophy most noticeably in face, temporal area scaphoid bone. Loss of subcutaneous fat noted.
Presented with symptomatic anemia and hemoglobin as low as 5.
Anemia is likely multifactorial due to myelosuppression with chemotherapy, acute on chronic blood loss anemia/ slow gastrointestinal hemorrhage, although with no evidence for acute blood loss or hemolysis.
Appropriate response to transfusion with hemoglobin
Another episode of rectal bleeding with bright red blood per rectum on 04/07. Self-limited.
Suspect rectal bleeding secondary to either hemorrhoidal or stercoral ulcer in the settings of constipation. Less likely upper GI source given relative hemodynamic stability as well as normal BUN.
Discussed with GI, upper EGD done 03/22 and showed non bleeding gastric varices. Recommend conservative management with blood transfusion and comfort care.
Currently no clinical indication for repeat endoscopy.
She has been off anticoagulation for lower extremity DVT which was discontinued about 2 weeks prior to presentation.
c/w oral PPI
# Bilateral lower extremity DVT.
Not a candidate for anticoagulation due to above.
Currently no indication for thrombolysis therapy.
Status post IVC filter placement on 04/06
#Acute cholecystitis. Status post percutaneous cholecystostomy
# Pancytopenia due to chemotherapy
# Hyponatremia
# chronic diarrhea
# Metastatic to the liver pancreatic carcinoma.
With progressive hepatic metastatic prognosis remains poor.
Extensive discussion with patient and patient's at the bedside.
Patient reported she was for comfort care/ morphine.
# chronic pain syndrome due to cancer pain
Goals of care discussion with patient and multiple family members including and son's at the bedside, they wanted comfort care now. Consulted case management director for hospice, hold oral scheduled medications, started on IV PRN pain medicine, would
like to try Dilaudid instead of morphine
DNR
Total time spent to see the patient, examine the patient, review data and lab results, discuss treatment plan with patient, family and nursing staff around 55 minutes
Anticipated Discharge: 24 - 48 hours
Subjective/Interval History
-
Date of Service: April 11, 2025
Objective Data
-
Vital Signs:
Vital Signs
Temp Pulse Resp BP Pulse Ox
98.1 F 97 14 81/50 95
04/11/25 07:00 04/11/25 07:00 04/11/25 07:00 04/11/25 07:00 04/11/25 08:00
I&O
04/10/25 04/11/25 04/12/25
06:59 06:59 06:59
Intake Total 0 / 0
Output Total 420 / 420
Balance 0 / 0 -420 / -420
Physical Exam
-
General: Well Developed, No Apparent Distress, Appears Chronically Ill and Other (Cachectic and frail)
HEENT: Normocephalic, Atraumatic, Moist Mucous Membranes and Anicteric
Respiratory: Clear to Auscultation and Non Labored Respirations
Cardiac: Regular Rhythm and S1/S2; Negative Murmur, Rub or Gallop
GI: Soft, Nondistended, Normal Bowel Sounds and Tender (Mild, generalized, no peritoneal signs)
Musculoskeletal: No Clubbing, No Cyanosis and No Edema
Skin: Warm, Dry and Normal Turgor; Negative Rash
Neuro: AO x 3 and Nonfocal/Grossly Intact
Psych: Calm
--- NOTE | 2025-04-11 17:58 | HOSPNOTE ---
Sade was resting, lethargic, but still engaged somewhat. She did not show signs of pain. Sons and Blaine were present, along with Blaine's , Alysa. Spouse Raghav arrived later. (Son Raf visited from [place] over the weekend.) The
family lovingly shared background about Sade, who is a strong woman of neftali. Stone Gluer provided emotional and spiritual support through presence, dialogue, Scripture reading and prayer. Will continue support through visits 2x week.
[2025-04-11] MEDS: ROXICODONE 5 MG PO (18:22)
--- NOTE | 2025-04-11 18:42 | HOSPNOTE ---
Admitted patient inpatient hospice today. Spouse signed consents. Patient is inpatient hospice for the management of pain and anxiety. Attending will flip the chart in the morning. Primary RN updated. Hospice will visit daily.
[2025-04-11 20:28] VITALS: BP 82/52
[2025-04-11] MEDS: ATIVAN 0.5 MG PO (21:54)
[2025-04-12] MEDS: NSS (PRESERVATIVE FREE) 0.5 ML IV (01:50)
[2025-04-12] MEDS: DILAUDID 1 MG IV ×2 (01:50→04:59)
[2025-04-12] MEDS: ATIVAN 1 MG IV (01:54)
[2025-04-12] MEDS: REFRESH EYE DROPS (PF) 1 DROPS OPHTH (01:55)
[2025-04-12 08:12] VITALS: BP 102/61
--- NOTE | 2025-04-12 08:51 | HOSPNOTE ---
World Language Teacher visited 74 year old patient to provide supportive services and to conduct Initial GERIATRIC PSYCHIATRIST Assessment. Patient recently admitted onto Hospice Services and GIP Level of Care with the Primary Diagnosis of Pancreatic Cancer. Nurse
reported patient well over night, medications administered, resting comfortably, and plenty of visitors. GERIATRIC PSYCHIATRIST greeted family member present at patient's bedside and patient while entering the room. The gentleman stood up and introduced himself as
Frank patient's spouse. Patient appeared to be asleep and resting comfortably, no signs of pain and/or distress observed. Frank is the POA and has granted patient's son the right to make medical decisions in the event he's unavailable. Frank
reported patient is tough and she's a fighter. Frank reported patient has been here before and came back but this time is different and they don't want patient suffering as that isn't a way to live and it isn't what patient wants. Patient Tech
entered in the room to check patient's vitals and urinary output. Patient awoke briefly a muttered a few words. GERIATRIC PSYCHIATRIST ask patient how she was doing, no response. GERIATRIC PSYCHIATRIST asked patient if she was in pain, patient responded no. Patient Tech obtained
patient's vital signs and urinary output. Patient opened her eyes briefly and reported she doesn't want to be in the hospital because she isn't dying. GERIATRIC PSYCHIATRIST asked patient where she wanted to be, patient responded in the gym. Patient drifted back off
to sleep. Frank reported patient wanted to go outside and sit in the sun one last korey and he's going to ask the doctor if it could be done today. Frank reported he was informed by staff that they have a recliner patient could sit in. Frank reported he
and patient met through a mutual friend and he was hesitant at first and did his own research and they have been for 33 years. Frank reported patient has 3 sons resides in [place], Shahab resides in [place], Joseph resides in
[place], and 1 step son Keagan resides in [place] and 4 grandchildren. Frank reported the family is supported by family, friends, community, and yazidism community. Frank reported patient's son is at work and will be visiting in the afternoon
and will bring patient some soup. 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 Patient loved caring for her family, being in her
vegetable/flower garden, working, wellness, outdoors, and traveling. Patient owns time shares in [employer] and [employer] and visits vacations frequently. Patient visited [employer] in July 2023 and loved it. Patient began jogging every
morning for 5 miles and on her best week she jogged 84 miles. Frank reported patient is a hugger and never meets a stranger. Frank reported patient is 1 of 11 siblings, other than patient only 2 siblings remain a brother who resides in [facility] and
a sister who resides in [place]. Frank reported patient is Hindu and affiliates with [facility]. Patient wishes are to be cremated and [facility]. Frank reported patient bought another plot there and he will be buried
there as well. Frank reported the family will utilize [facility] in [place] for arrangements. Frank reported the family isn't going to have a service. Frank reported patient had a [place] of Life in June to thank
family and friends for their kindness and their support 200 people came, because they love patient. Frank declines [facility] as he reported the family have each other and the yazidism community. Prayer and Emotional Support Provided.
Patient meets GIP criteria for SN Assessments, management of pain, and anxiety that could not be managed at home and/or in an Outpatient setting. Discharge planning continues.
GERIATRIC PSYCHIATRIST will conduct visits once a week while on GIP to provide supportive services and to monitor for additional services.
--- NOTE | 2025-04-12 10:33 | CM ---
CM following re: discharge planning.
Reviewed pt's chart.
Per hospice art therapist, pt is accepted for inpatient hospice level of care with hospice GIP.
CM is available for emotional support.
== END 2025-04-12 11:01 | disposition hospice, inpatient (51) | DRG 377 ==
LOC: 2 NORTH 22:55
PROVIDERS: Clinical Nurse Specialist Family Health; Internal Medicine; Nurse Practitioner Adult Health; Physician Assistant; Radiology Diagnostic Radiology; ADMITTING PHYSICIAN Internal Medicine; ATTENDING PHYSICIAN Internal Medicine; CONSULT PHYSICIAN Internal Medicine Gastroenterology; EMERGENCY PHYSICIAN Emergency Medicine; FAMILY PHYSICIAN Family Medicine; OTHER PHYSICIAN Internal Medicine Hematology & Oncology
PROC: 30243N1 Transfusion of Nonautologous Red Blood Cells into Central Vein, Percutaneous Approach (ICD-10-PCS; 2025-04-04)
PROC: 06H03DZ Insertion of Intraluminal Device into Inferior Vena Cava, Percutaneous Approach (ICD-10-PCS; 2025-04-06)
DX: K92.2 Gastrointestinal hemorrhage, unspecified (principal); D61.810 Antineoplastic chemotherapy induced pancytopenia; E43 Unspecified severe protein-calorie malnutrition; I81 Portal vein thrombosis; R57.1 Hypovolemic shock; C25.2 Malignant neoplasm of tail of pancreas; D62 Acute posthemorrhagic anemia; I82.403 Acute embolism and thrombosis of unspecified deep veins of lower extremity, bilateral; C78.7 Secondary malignant neoplasm of liver and intrahepatic bile duct; E87.1 Hypo-osmolality and hyponatremia; D64.81 Anemia due to antineoplastic chemotherapy; Z68.20 Body mass index [BMI] 20.0-20.9, adult; D69.59 Other secondary thrombocytopenia; E78.5 Hyperlipidemia, unspecified; E83.51 Hypocalcemia; F41.9 Anxiety disorder, unspecified; I12.9 Hypertensive chronic kidney disease with stage 1 through stage 4 chronic kidney disease, or unspecified chronic kidney disease; N18.31 Chronic kidney disease, stage 3a; K76.0 Fatty (change of) liver, not elsewhere classified; M81.0 Age-related osteoporosis without current pathological fracture; Z79.899 Other long term (current) drug therapy; Z80.1 Family history of malignant neoplasm of trachea, bronchus and lung; Z81.1 Family history of alcohol abuse and dependence; Z83.3 Family history of diabetes mellitus; Z86.718 Personal history of other venous thrombosis and embolism; Z86.72 Personal history of thrombophlebitis; Z98.82 Breast implant status; G89.3 Neoplasm related pain (acute) (chronic); Z66 Do not resuscitate
CPT/HCPCS: 36415; 36430; 37191; 80053; 81003; 81015; 82962; 83010; 83615; 83735; 83880; 85014; 85018; 85025; 85027; 85045; 85610; 85730; 86850; 86900; 86901; 86920; 87086; 93970; 96374; 97162; 97530; 99285; C1880; P9016

== ENCOUNTER 2025-04-12 11:04 | Inpatient (IN) | payer OTHER, SELFPAY ==
--- NOTE | 2025-04-12 12:01 | HOSPNOTE ---
Patient is admitted inpatient hospice for pain and agitation. Spouse is bedside and emotional support provided. Encouraged to medicate prior to any care or repositioning. Patient is lethargic but still able to make needs known. Patient continues to
be inpatient appropriate for IV medications needed for pain. We will see patient daily.
[2025-04-12] MEDS: REFRESH EYE DROPS (PF) 1 DROPS OPHTH (14:47)
[2025-04-12] MEDS: ATIVAN 1 MG IV (14:54)
[2025-04-12] MEDS: DILAUDID 1 MG IV (18:30)
[2025-04-12 23:17] VITALS: BP 90/49
[2025-04-13] MEDS: REFRESH EYE DROPS (PF) 1 DROPS OPHTH ×2 (03:45→23:35)
[2025-04-13] MEDS: DILAUDID 1 MG IV ×5 (03:45→23:35)
[2025-04-13 07:08] VITALS: BP 104/54
[2025-04-13] MEDS: ATIVAN 1 MG IV ×2 (08:00→12:14)
[2025-04-13] MEDS: NSS (PRESERVATIVE FREE) 0.5 ML IV ×2 (08:01→12:14)
[2025-04-13] MEDS: ROBINUL 0.2 MG IV (12:18)
--- NOTE | 2025-04-13 12:38 | W.PN.HSP.1 ---
Assessment / Plan
-
Hemorrhagic and hypovolemic shock
Symptomatic severe anemia
Thrombocytopenia
Metastatic pancreatic cancer
Portal vein thrombosis
Pelvic mass
Acute cholecystitis with percutaneous cholecystostomy
Protein calorie malnutrition moderate to severe
On examination patient appears to be comfortable not in any distress on the current regimen
Today's Communication
On as needed Dilaudid and Ativan. Continue
Discussed with at bedside he is very appreciative of the care patient received and still receiving.
Discussed with nursing
Physical Exam
-
Temp Pulse Resp BP Pulse Ox
98.2 F 93 16 104/54 96
04/13/25 07:08 04/13/25 07:08 04/13/25 07:08 04/13/25 07:08 04/13/25 08:00
--- NOTE | 2025-04-13 13:31 | HOSPNOTE ---
Patient was medicated with morphine and ativan this am for pain and agitation. No family was present during my visit. Patient appears comfortable at this time however is needing the IV medications. Patient has no PO intake and is becoming very
lethargic. Patient needs medications prior to any care or repositioning. We will see patient daily.
[2025-04-13 21:36] VITALS: BP 114/70
[2025-04-14 07:00] VITALS: BP 99/60
[2025-04-14] MEDS: REFRESH EYE DROPS (PF) 1 DROPS OPHTH ×3 (08:06→20:03)
[2025-04-14] MEDS: ATIVAN 1 MG IV (08:15)
[2025-04-14] MEDS: DILAUDID 1 MG IV ×3 (08:15→20:13)
[2025-04-14] MEDS: NSS (PRESERVATIVE FREE) 0.5 ML IV (08:16)
[2025-04-14 08:40] VITALS: BP 99/60
--- NOTE | 2025-04-14 09:52 | W.PN.HSP.1 ---
Assessment / Plan
-
Hemorrhagic and hypovolemic shock
Symptomatic severe anemia
Thrombocytopenia
Metastatic pancreatic cancer
Portal vein thrombosis
Pelvic mass
Acute cholecystitis with percutaneous cholecystostomy
Protein calorie malnutrition moderate to severe
Today's Communication
On as needed Dilaudid and Ativan. Continue
Discussed with at bedside he is very appreciative of the care patient received and still receiving.
Discussed with at bed side
Looks comfortable.
Physical Exam
-
Temp Pulse Resp BP Pulse Ox
98.1 F 102 15 99/60 94
04/14/25 08:40 04/14/25 08:40 04/14/25 08:40 04/14/25 08:40 04/14/25 08:40
--- NOTE | 2025-04-14 12:22 | CM ---
CM following re: discharge planning.
Pt continue receiving inpatient hospice services with hospice GIP.
Pt's came to this CM and expressed his great appreciation for care pt has been receiving at
CM is available for emotional support.
--- NOTE | 2025-04-14 16:58 | HOSPNOTE ---
Patient GIP for managment of pain and agitation requiring IV pain medication. Patients and son at the bedside, patient minimally verbal during the visit. Patients spent time reminiscing about patient and their life together,
emotional support provided. Reviewed with patients family what to expect as patient declines, encouraged them to contact hospice with any questions or concerns.
[2025-04-14 20:11] VITALS: BP 106/69
[2025-04-15] MEDS: REFRESH EYE DROPS (PF) 1 DROPS OPHTH ×2 (05:31→17:30)
[2025-04-15 07:14] VITALS: BP 110/66
--- NOTE | 2025-04-15 09:17 | HOSPNOTE ---
Patient remains GIP appropriate level of care with the need for IV Dilaudid to control pain. Patient received 3 doses of IV Dilaudid in last 24 hrs. Patient also received IV Ativan for anxiety x 1 in 24 hours. Patient oral intake is sips of fluid
which results in coughing after oral intake. Patient has hours to days of life and needs to have pain management in a hospital setting. Talked to at length providing support, he is talking about her speaking of dying. grieving
appropriately at this time.
[2025-04-15] MEDS: DILAUDID 1 MG IV ×4 (10:32→22:37)
--- NOTE | 2025-04-15 13:22 | CHAP ---
Sade was resting comfortably, did not show signs of pain. She opened her eyes from time to time, and said a few words. Son, , was present, holding her hand and stroking her head. 'To me...what means most in life...is touch,' Sade said.
She welcomed prayer. Semiconductor Processing Technician provided emotional and spiritual support through presence, dialogue, and prayer. Will continue support through visits 2x week.
--- NOTE | 2025-04-15 13:37 | W.PN.HSP.1 ---
Assessment / Plan
-
Hemorrhagic and hypovolemic shock
Symptomatic severe anemia
Thrombocytopenia
Metastatic pancreatic cancer
Portal vein thrombosis
Pelvic mass
Acute cholecystitis with percutaneous cholecystostomy
Protein calorie malnutrition moderate to severe
Today's Communication
On as needed Dilaudid and Ativan. Continue
Discussed with and multiple other family members at bed side
Looks comfortable. Able to cummunicate.
Physical Exam
-
Temp Pulse Resp BP Pulse Ox
98.2 F 99 16 110/66 98
04/15/25 07:14 04/15/25 07:14 04/15/25 07:14 04/15/25 07:14 04/15/25 07:14
[2025-04-15 19:00] VITALS: BP 108/66
[2025-04-15] MEDS: ATIVAN 1 MG IV (22:26)
[2025-04-15] MEDS: NSS (PRESERVATIVE FREE) 0.5 ML IV (22:31)
[2025-04-16] MEDS: DILAUDID 1 MG IV ×5 (06:32→19:53)
[2025-04-16] MEDS: REFRESH EYE DROPS (PF) 1 DROPS OPHTH (06:38)
[2025-04-16 06:53] VITALS: BP 113/69
--- NOTE | 2025-04-16 13:18 | HOSPNOTE ---
Patient lethargic, occasionally will answer questions. Complained of some discomfort and wanted to be repositioned as she felt she needed to stretch out. Repositioned patient to left side, HOB lowered. Patient vocalized to family she is too weak to
ring call chandler when she has pain and was up crying last night and couldn't get a nurse. Pain and anxiety seems to be worse at night per family. Dilauded given x5 doses in 24 hours and 6 doses of Ativan needed in [address] Gilbert and
recommended Dilauded and Ativan be scheduled q4. Several family members present. Emotional support provided. Only taking ice chips at this time. Patient to remain GIP for management of symptoms.
--- NOTE | 2025-04-16 13:47 | CHAP ---
Checked in on Sade, who was resting comfortably. Frank and all three sons were present, along with Joseph's , Alysa. Emotional and spiritual support provided.
--- NOTE | 2025-04-16 14:40 | W.PN.HSP.1 ---
Assessment / Plan
-
Hemorrhagic and hypovolemic shock
Symptomatic severe anemia
Thrombocytopenia
Metastatic pancreatic cancer
Portal vein thrombosis
Pelvic mass
Acute cholecystitis with percutaneous cholecystostomy
Protein calorie malnutrition moderate to severe
Today's Communication
On as needed Dilaudid and Ativan. Continue
Discussed with and multiple other family members at bed side
Looks comfortable.
Patient stated that last night she had a lot of pain and could not call for help. Therefore added Dilaudid IV every 4 hours.
Physical Exam
-
Temp Pulse Resp BP Pulse Ox
98.1 F 100 16 113/69 99
04/16/25 06:53 04/16/25 06:53 04/16/25 06:53 04/16/25 06:53 04/16/25 06:53
[2025-04-16 23:44] VITALS: BP 107/68
[2025-04-17] MEDS: DILAUDID 1 MG IV ×6 (00:01→20:20)
[2025-04-17] MEDS: ATIVAN 1 MG IV (01:37)
[2025-04-17] MEDS: NSS (PRESERVATIVE FREE) 0.5 ML IV (01:37)
[2025-04-17 07:17] VITALS: BP 126/76
--- NOTE | 2025-04-17 11:39 | W.PN.HSP.1 ---
Assessment / Plan
-
Hemorrhagic and hypovolemic shock
Symptomatic severe anemia
Thrombocytopenia
Metastatic pancreatic cancer
Portal vein thrombosis
Pelvic mass
Acute cholecystitis with percutaneous cholecystostomy
Protein calorie malnutrition moderate to severe
Today's Communication
Q4H and Dilaudid and as needed Dilaudid and Ativan.
Discussed with and multiple other family members at bed side
Looks comfortable.
Gave a hug per t request.
She enjoys company
Physical Exam
-
Temp Pulse Resp BP Pulse Ox
97.7 F 96 16 126/76 98
04/17/25 07:17 04/17/25 07:17 04/17/25 07:17 04/17/25 07:17 04/17/25 07:17
--- NOTE | 2025-04-17 12:19 | CM ---
CM following re: discharge planning.
Reviewed pt's chart, met with outside of the room. Emotional support offered and provided.
Pt continues receiving inpatient hospice services with hospice GIP.
CM is available for emotional support.
--- NOTE | 2025-04-17 13:27 | HOSPNOTE ---
No family present. Patient was being washed and repositioned requiring IV medications for pain and anxiety. The patient is lethargic however can make her needs known at this time. Patient continues to be inpatient appropriate for pain and anxiety
management. Patient will be seen daily.
[2025-04-17 21:41] VITALS: BP 120/74
[2025-04-17] MEDS: REFRESH EYE DROPS (PF) 1 DROPS OPHTH (21:48)
[2025-04-18] MEDS: DILAUDID 1 MG IV ×7 (00:20→23:24)
[2025-04-18 07:00] VITALS: BP 115/74
--- NOTE | 2025-04-18 10:05 | HOSPNOTE ---
Patient is awake slightly confused spouse is bedside. Voice is extremely weak and patient appears to be in pain, however needs to speak with her sons and then wishes for pain medication. Patient is slow to respond and lethargic at times. Patient
will be seen daily by hospice nurse and continues to be inpatient appropriate for pain management.
[2025-04-18] MEDS: REFRESH EYE DROPS (PF) 1 DROPS OPHTH ×2 (10:19→19:28)
--- NOTE | 2025-04-18 12:38 | W.PN.HSP.1 ---
Assessment / Plan
-
Hemorrhagic and hypovolemic shock
Symptomatic severe anemia
Thrombocytopenia
Metastatic pancreatic cancer
Portal vein thrombosis
Pelvic mass
Acute cholecystitis with percutaneous cholecystostomy
Protein calorie malnutrition moderate to severe
Today's Communication
Patient awake and alert. Once heart Doppler today
Continue Dilaudid for symptom management IV every 4 and also as needed also as needed Ativan.
Family and multiple visitors at bedside
Appears to be comfortable
Physical Exam
-
Temp Pulse Resp BP Pulse Ox
98.5 F 94 16 115/74 95
04/18/25 07:00 04/18/25 07:00 04/18/25 07:00 04/18/25 07:00 04/18/25 08:58
--- NOTE | 2025-04-18 13:57 | CM ---
CM following re: discharge planning.
Reviewed pt's chart.
Pt continues receiving inpatient hospice services with hospice GIP.
CM is available for emotional support.
[2025-04-18 19:59] VITALS: BP 114/73
[2025-04-18] MEDS: ATIVAN 1 MG IV (21:33)
[2025-04-18] MEDS: NSS (PRESERVATIVE FREE) 0.5 ML IV (21:34)
[2025-04-19] MEDS: DILAUDID 1 MG IV ×6 (04:35→20:51)
[2025-04-19 07:00] VITALS: BP 108/74
[2025-04-19 08:04] VITALS: BP 108/74
--- NOTE | 2025-04-19 10:14 | W.PN.HSP.1 ---
Assessment / Plan
-
Hemorrhagic and hypovolemic shock
Symptomatic severe anemia
Thrombocytopenia
Metastatic pancreatic cancer
Portal vein thrombosis
Pelvic mass
Acute cholecystitis with percutaneous cholecystostomy
Protein calorie malnutrition moderate to severe
Today's Communication
Continue Dilaudid for symptom management IV every 4 hours and also as needed also as needed Ativan.
Family and visitors at bedside
Appears to be comfortable
Continue Dilaudid Q4H and PRN
D/W winch runner
D/W at bed side
Physical Exam
-
Temp Pulse Resp BP Pulse Ox
98.8 F 117 16 108/74 96
04/19/25 07:00 04/19/25 07:00 04/19/25 07:00 04/19/25 07:00 04/19/25 07:00
--- NOTE | 2025-04-19 10:26 | HOSPNOTE ---
Sade was awake, speaking a few words. Raghav was at her side, massaging her neck - he shared that they are managing. Chief Of Party provided emotional and spiritual support through presence, dialogue and prayer. Will continue support through
visits 2x week.
--- NOTE | 2025-04-19 13:27 | HOSPNOTE ---
Family at bedside patient continues with scheduled dilaudid, patient becomes lethargic but arousable. Patient continues to be inpatient appropriate for pain management and agitation. Patient will be seen daily.
[2025-04-19 20:11] VITALS: BP 114/68
[2025-04-19] MEDS: REFRESH EYE DROPS (PF) 1 DROPS OPHTH (21:09)
[2025-04-20] MEDS: ATIVAN 1 MG IV (00:28)
[2025-04-20] MEDS: DILAUDID 1 MG IV ×7 (00:29→21:23)
[2025-04-20] MEDS: NSS (PRESERVATIVE FREE) 0.5 ML IV (00:32)
[2025-04-20 07:31] VITALS: BP 106/68
--- NOTE | 2025-04-20 08:14 | VATNOTE ---
Port reaccess continues to be deferred at this time as reaccess or redress would not be in-line with the patient's goals of care at this time. Dressing is clean, dry, and intact without s/s infection or infiltration. Pt has no complaints about port
site at this time.
--- NOTE | 2025-04-20 12:36 | HOSPNOTE ---
SORTER LAUNDRY ARTICLES VISITED WITH PATIENT FOR WEEKLY FOLLOW-UP VISIT. NURSE REPORTED PATIENT RESTING, MEDICATIONS ADMINISTERED, AND SPOUSE HAS BEEN BY PATIENT'S BEDSIDE CONTINUOUSLY READING BIBLE SCRIPTURES. RECRUITING ADMINISTRATOR GREETED PATIENT AND SPOUSE. PATIENT LYING IN
BED EATING ICE SPOUSE SPOON FED IT TO HER. PATIENT REPORTED SHE'S OKAY. PATIENT REPORTED SHE'S NOT IN PAIN, NO SIGNS OF DISTRESS OBSERVED. SPOUSE REPORTED HE ASKED FOR BIBLE SCRIPTURES AND RECEIVED SEVERAL, SPOUSE LAUGHED AND REPORTED HE'S NOT
TAOIST BUT THIS SHOWED HIM TO BE CAREFUL WHAT HE ASKED FOR. PATIENT REPORTED HER FAVORITE TAOIST SONG IS 'I'M FIGHTING THE ZEPEDA YOU'VE ALREADY WON' AND FAVORITE SCRIPTURE IS 'THE LORD IS MY SHEPERD' OBDULIO PATIENT'S RUNNING FRIEND CAME TO
VISIT PATIENT AND BOUGHT SPOUSE SOMETHING TO EAT. OBDULIO TOLD PATIENT THAT SHE LOVES HER AND SHE'S HER INSPIRATION ON HOW TO LIVE HER LIFE. PATIENT ASKED OBDULIO TO REENACT HER CELEBRATION OF LIFE. OBDULIO REPORTED PATIENT WAS AMID ABOUT HOW THIS EVENT
WAS GOING TO BE FROM THE FOOD DOWN TO THE DECORATIONS. PATIENT SMILED. SPOUSE TOLD PATIENT THIS IS THE MUCH PATIENT HAS TALKED THIS MORNING, MAYBE IT'S THE BIBLE SCRIPTURES. OBDULIO READ PATIENT A FEW PRAYERS. PRAYER AND EMOTIONAL SUPPORT PROVIDED
PATIENT MEETS GIP CRITERIA FOR SN ASSESSMENTS, MANAGEMENT OF PAIN THAT COULD NOT BE MANAGED AT HOME AND/OR AN OUTPATIENT SETTING. DISCHARGE PLANNING CONTINUES
PLAN FOR NEXT VISIT: CONTINUE TO PROVIDE SUPPORTIVE SERVICES ONCE A WEEK WHILE ON GIP LOC.
--- NOTE | 2025-04-20 12:47 | HOSPNOTE ---
Patient continues to be medicated with IV dilaudid for pain. Patient was medicated with ativan for anxiety last evening. Patient is seen daily by hospice. Please continue to medicate for pain and anxiety. The patient had an elevated heart rate and
medicated with a PRN and ativan. Patient continues to meet inpatient criteria that needs to be medicated with IV medications.
--- NOTE | 2025-04-20 14:29 | W.PN.HOSP.TC ---
Today's Communication/Plan
-
Continue hospice care
Assessment / Plan
Assessment / Plan
Assessment / Plan
-
Hemorrhagic and hypovolemic shock
Symptomatic severe anemia
Thrombocytopenia
Metastatic pancreatic cancer
Portal vein thrombosis
Pelvic mass
Acute cholecystitis with percutaneous cholecystostomy
Protein calorie malnutrition moderate to severe
Continue Dilaudid for symptom management IV every 4 hours and also as needed also as needed Ativan.
Family and visitors at bedside
Appears to be comfortable
Continue Dilaudid Q4H and PRN
D/W security advisor
D/W at bed side
Anticipated Discharge: 24 - 48 hours
Subjective/Interval History
-
Date of Service: April 20, 2025
Objective Data
-
Vital Signs:
Vital Signs
Temp Pulse Resp BP Pulse Ox
98.2 F 117 16 106/68 96
04/20/25 07:31 04/20/25 07:31 04/20/25 07:31 04/20/25 07:31 04/20/25 07:31
I&O
04/19/25 04/20/25 04/21/25
06:59 06:59 06:59
Intake Total 420 / 420 170 / 170
Output Total 250 / 250 700 / 700
Balance 170 / 170 -530 / -530
Physical Exam
-
General: Well Developed, No Apparent Distress, Appears Chronically Ill and Other (Cachectic and frail)
HEENT: Normocephalic, Atraumatic, Moist Mucous Membranes and Anicteric
Respiratory: Clear to Auscultation and Non Labored Respirations
Cardiac: Regular Rhythm and S1/S2; Negative Murmur, Rub or Gallop
GI: Soft, Nondistended, Normal Bowel Sounds and Tender (Mild, generalized, no peritoneal signs)
Musculoskeletal: No Clubbing, No Cyanosis and No Edema
Skin: Warm, Dry and Normal Turgor; Negative Rash
Neuro: AO x 3 and Nonfocal/Grossly Intact
Psych: Calm
--- NOTE | 2025-04-20 14:50 | CM ---
CM following re: discharge planning.
Reviewed pt's chart, met with pt's Frank who stated he is reading Bible to the pt daily. Emotional support offered and provided.
Pt continues receiving inpatient hospice services with hospice [facility].
CM is available for emotional support.
[2025-04-20 19:00] VITALS: BP 91/64
[2025-04-21] MEDS: ATIVAN 1 MG PO (00:31)
[2025-04-21] MEDS: DILAUDID 1 MG IV ×7 (00:31→22:39)
[2025-04-21 07:41] VITALS: BP 125/76
--- NOTE | 2025-04-21 11:03 | CM ---
Addendum entered by Janis Abdi 04/21/25 13:13:
CM notified that plan is for discharge to home with Hospice on Thursday. Jaycee Garcia requested Ambulance transport for 11am poultry picker to home.
Original Note:
Pt remains on [facility] care with Hospice.
--- NOTE | 2025-04-21 12:17 | HOSPNOTE ---
Addendum entered by Jaycee Garcia RN 04/21/25 14:24:
Spoke with spouse again about patient meeting the criteria to stay inpatient hospice, I explained again the criteria and that we could safely transition to PO meds and get the patient home and care for her at home. I suggested that the spouse call
home health agencies for additional support. [facility] and [facility] were given to the spouse with phone numbers. I said we will see how she does over the and then get equipment delivered Thursday in the am and get ambulance transport
confirmed at 11am and once home our nurse will be there to go over medications, answer all questions and go over the schedule for visits and give all the phone numbers needed. Spouse was in agreement and is slightly nervous but understands we will
be the support system and understands she just can not remain here (not meeting the inpatient hospice criteria). I then received a call from spouse after the son arrives that they would like me to call [facility] hospice they have an inpatient hospice
unit and would like us to fax clinicals. I explained to spouse that all inpatient units are the same and there needs to be criteria which is needed and if that criteria is not met then the patient can go home with hospice or a SNF with hospice and
that room and board is not covered. We did fax the clinicals and will await a phone call from [facility]. I keep explaining the same things over and over again to family. Will await an answer from [facility] and gave update to Marilynn from hospice that
is covering for the weekend.
Original Note:
Spoke with spouse and discussed patient going home with hospice since the patient does not really require inpatient criteria. The patient is being medicated with scheduled IV dilaudid Q4 hours, is awake and alert still weak but can be changed over
to PO this so we can determine dosage. I will order equipment for Thursday morning delivery and we will get medications for pain and agitation to be available Thursday when the patient gets home. Attending CM and floor RN aware of plan.
--- NOTE | 2025-04-21 14:46 | W.PN.HOSP.TC ---
Today's Communication/Plan
-
Continue hospice care
Assessment / Plan
Assessment / Plan
Assessment / Plan
-
Hemorrhagic and hypovolemic shock
Symptomatic severe anemia
Thrombocytopenia
Metastatic pancreatic cancer
Portal vein thrombosis
Pelvic mass
Acute cholecystitis with percutaneous cholecystostomy
Protein calorie malnutrition moderate to severe
Continue Dilaudid for symptom management IV every 4 hours and also as needed also as needed Ativan.
Family and visitors at bedside
Appears to be comfortable
Continue Dilaudid Q4H and PRN
D/W hemodialysis lab technician
D/W at bed side
Anticipated Discharge: 24 - 48 hours
Subjective/Interval History
-
Date of Service: April 21, 2025
Objective Data
-
Vital Signs:
Vital Signs
Temp Pulse Resp BP Pulse Ox
98.2 F 105 15 125/76 97
04/21/25 07:41 04/21/25 07:41 04/21/25 07:41 04/21/25 07:41 04/21/25 08:00
I&O
04/20/25 04/21/25 04/22/25
06:59 06:59 06:59
Intake Total 170 / 170
Output Total 700 / 700 300 / 300
Balance -530 / -530 -300 / -300
Physical Exam
-
General: Well Developed, No Apparent Distress, Appears Chronically Ill and Other (Cachectic and frail)
HEENT: Normocephalic, Atraumatic, Moist Mucous Membranes and Anicteric
Respiratory: Clear to Auscultation and Non Labored Respirations
Cardiac: Regular Rhythm and S1/S2; Negative Murmur, Rub or Gallop
GI: Soft, Nondistended, Normal Bowel Sounds and Tender (Mild, generalized, no peritoneal signs)
Musculoskeletal: No Clubbing, No Cyanosis and No Edema
Skin: Warm, Dry and Normal Turgor; Negative Rash
Neuro: AO x 3 and Nonfocal/Grossly Intact
Psych: Calm
--- NOTE | 2025-04-21 15:13 | CM ---
CM complete ambulance transport form, placed on chart. IMM reviewed with , verbal consent provided. Pt unable to sign.
Plan: Discharge to home with home hospice on Thursday at 11am
[2025-04-21 19:00] VITALS: BP 111/72
[2025-04-22] MEDS: DILAUDID 1 MG IV ×2 (00:37→04:42)
[2025-04-22] MEDS: ATIVAN 1 MG PO (00:38)
[2025-04-22 07:31] VITALS: BP 115/81
--- NOTE | 2025-04-22 09:15 | HOSPNOTE ---
[facility] notified hospice last evening that they will not accept patient under inpatient hospice. They recommend that patient stays with hospice. Spouse updated. The plan is for patient to go home on Thursday with hospice.
[2025-04-22] MEDS: DILAUDID 0.5 MG IV ×2 (09:34→13:42)
--- NOTE | 2025-04-22 09:49 | CHAP ---
Sade was resting comfortably. Spouse, Raghav, son Raf, and grandson, Nawaf, were present. They were discussing the plan for home hospice. De Icer Finisher provided emotional and spiritual support through presence, dialogue, and a short prayer.
Will continue support through weekly visits, as long as Sade remains [facility]IP.
[2025-04-22] MEDS: DILAUDID IV (10:08)
--- NOTE | 2025-04-22 10:29 | W.PN.HSP.1 ---
Assessment / Plan
-
Hemorrhagic and hypovolemic shock
Symptomatic severe anemia
Thrombocytopenia
Metastatic pancreatic cancer
Portal vein thrombosis
Pelvic mass
Acute cholecystitis with percutaneous cholecystostomy
Protein calorie malnutrition moderate to severe
Today's Communication
Continue Dilaudid for symptom management IV every 4 hours , add holding parameters for no pain/ sedation
She appears to be comfortable and wants to continue taking Dilaudid
D/W RN
D/W at bed side
Today's Communication
Add holding parameters to IV Dilaudid
d/w at bed side, advise him to continue discussion with hospice team
Interval History
-
She seems comfortable, feels that Dilaudid is helping her and wants it to continue
She recognized he rhusband, knew she was in hospital
Physical Exam
-
Temp Pulse Resp BP Pulse Ox
98.4 F 105 16 115/81 99
04/22/25 07:31 04/22/25 07:31 04/22/25 07:31 04/22/25 07:31 04/22/25 07:31
General: Comfortable, Appears Chronically Ill and Cachectic
Respiratory: Decreased Breath Sounds
Cardiology: S1/S2
GI: Soft, Nontender and Nondistended
Musculoskeletal: No Cyanosis and No Edema
Neuro: Awake and Alert; Negative Tremors, Seizures, Slurred Speech or Facial Droop
Psych: Calm
--- NOTE | 2025-04-22 14:01 | HOSPNOTE ---
Received patient in bed .Lethargic.2 sons and grandson present.They have many questions and concerns regarding potential d/c home on Thursday.Concerns and questions answered .Much emotional support provided.Advised we will have to see if will
tolerate po pain medication management vs IVP.All arrangements are in place for pending D/C and Hospice nurse will meet them at the home.Equipment will be delivered to home on Thursday morning prior to transport home.Medications will be available at
[facility] pharmacy prior to discharge.Transportation schedulded for 11 am cloth picker.Both sons state they will be there.PCG list given to previously.They are going to call today to get further info and to discuss coming out on
Thursday.Patient became more awake as visit progressed.She is slow to answer questions .Confused at times.Rt lower leg edema noted +2.Color pale.She appears comfortable and calm.Tolerated oral care and ice chips . t- 97.7, p-88,r-22 bp
102/62.respirations even and unlabored. arrived at end of visit.Aware and agreeable to plan of care.All questions and concerns answered.Spoke to Dr Boyce.IV scheduled hydromorphine changed to schedulded po (liq unavailable) 4 mg tab q 6
hours with PRN po tab available for breakthrough and IV PRN if tablets ineffective
[2025-04-22] MEDS: DILAUDID 4 MG PO ×2 (17:33→23:26)
[2025-04-22 21:15] VITALS: BP 116/71
[2025-04-23] MEDS: REFRESH EYE DROPS (PF) 1 DROPS OPHTH ×2 (04:50→15:49)
[2025-04-23] MEDS: DILAUDID 4 MG PO ×3 (05:27→17:20)
[2025-04-23 07:00] VITALS: BP 100/67
--- NOTE | 2025-04-23 10:23 | W.PN.HSP.1 ---
Assessment / Plan
-
Physical exam:
General: Comfortable, Appears Chronically Ill and Cachectic
Respiratory: Decreased Breath Sounds
Cardiology: S1/S2
GI: Soft, Nontender and Nondistended
Musculoskeletal: No Cyanosis and No Edema
Neuro: Awake and Alert; Negative Tremors, Seizures, Slurred Speech or Facial Droop
Psych: Calm
hemorrhagic and hypovolemic shock
Symptomatic severe anemia
Thrombocytopenia
Metastatic pancreatic cancer
Portal vein thrombosis
Pelvic mass
Acute cholecystitis with percutaneous cholecystostomy
Protein calorie malnutrition moderate to severe
Today's Communication
Continue Dilaudid for symptom management IV every 4 hours , add holding parameters for no pain/ sedation
She appears to be comfortable and wants to continue taking Dilaudid
D/W RN
D/W at bed side
Today's Communication
c/w oral Dilaudid with holding parameters.
Physical Exam
-
Temp Pulse Resp BP Pulse Ox
98.1 F 103 12 100/67 99
04/23/25 07:00 04/23/25 07:00 04/23/25 07:00 04/23/25 07:00 04/23/25 07:00
--- NOTE | 2025-04-23 15:01 | HOSPNOTE ---
Patient currently awake, lethargic, well managed with dilaudid. at bedside. No PO intake in several days, cachectic, alamo cath in place. Discharge plan in place to transfer to home hospice in the morning, both patient and agreeable.
[2025-04-23 19:55] VITALS: BP 112/75
[2025-04-24] MEDS: DILAUDID 4 MG PO ×2 (00:18→06:30)
[2025-04-24 06:55] VITALS: BP 110/69
--- NOTE | 2025-04-24 09:03 | W.DS.TRANS ---
DC Summary - Government Property Inspector
-
Discharge Instructions:
Discharge Diagnosis/Procedures Pancreatic carcinoma.
Diet As tolerated
Instructions:
Stand-Alone Forms:
Changes to Home Medications: Yes
Discharge Medications:
DC Medications w/original date entered in [facility]
hydromorphone 2 mg tablet 2 mg PO Q1HPRN PRN for severe, breackthrough pain #15 tabs 04/24/25
hydromorphone 4 mg tablet 4 mg PO Q6 #15 tabs 04/24/25
hyoscyamine sulfate 0.125 mg/mL oral drops 0.125 mg sublingual Q4HPRN PRN excessive secretions #20 mL 04/24/25
lorazepam 1 mg tablet 1 mg PO Q2HPRN PRN anxiety #15 tabs 04/24/25
Home Medication Changes
Home hospice discharge
Pending Results: No
[2025-04-24] MEDS: ATIVAN 1 MG PO (10:12)
[2025-04-24] MEDS: DILAUDID 2 MG PO (10:12)
[2025-04-24 10:21] VITALS: BP 124/76
--- NOTE | 2025-04-24 10:39 | CM ---
CM reviewed chart, confirmed patient scheduled for 11:00 a.m. ambulance transport home. CM spoke with patients , confirmed transport time home. CM will continue to follow for all discharge planning needs.
Plan; home with Hospice, 11:00 a.m. ambulance transport
Hospice
== END 2025-04-24 11:44 | disposition hospice, home (50) | DRG 435 ==
LOC: 2 NORTH 11:04
PROVIDERS: ADMITTING PHYSICIAN Internal Medicine
DX: C25.9 Malignant neoplasm of pancreas, unspecified (principal); R57.1 Hypovolemic shock; E44.0 Moderate protein-calorie malnutrition; R62.7 Adult failure to thrive; D69.6 Thrombocytopenia, unspecified; D63.8 Anemia in other chronic diseases classified elsewhere; Z68.20 Body mass index [BMI] 20.0-20.9, adult; Z51.5 Encounter for palliative care